=== PATIENT | male | born 1955 | race Caucasian/White ===

== ENCOUNTER 2019-09-28 08:15 | Outpatient (RCR) | payer OTHER, MEDICARE, SELFPAY ==
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
--- NOTE | 2019-08-25 10:58 | PT.OPPOC ---
Physical, Occupational & Speech Therapy At [facility] Current Diagnoses Unspecified disorder of synovium and tendon, left ankle and foot (08/25/19) Visit Care Team Role Provider Type Jhonny Vyas DPM Attending Provider Non-Staff Referring Provider Specialty: Podiatry Address: [address] [place], [place] [address], [place], [address] Email: Plan Of Care PT-OP-T Assessment and Plan Start: 08/25/19 07:17 Freq: Status: Active Protocol: Document 08/25/19 07:30 MB (Rec: 08/25/19 10:57 MB [id number]) Physical Therapy Assessment Rehab Potential Rehabilitation Potential Good Evaluation Complexity Number of Personal Factors/Comorbidities 1-2 Number of Body Systems Impaired 1-2 Clinical Presentation at Evaluation Evolving Impairments Impairments Balance,Pain,Posture,ROM,Soft Tissue Mobility,Strength Other Impairments Pt has multiple old orthopedic injuries, had left and then B foot pain, reports of fracture in left heel Passive SLR reduced on the right compared to left Goals 5 Chamber Worker Goal (LTG) Pt will gait train at least 1500 ft in 6 minutes to reflect improved pain and strength with increased gait distance by 10/25/2019. LTG Duration 8 weeks 4 Mcc Goal (LTG) Pt will present WNLs on FGA to reflect improved balance by . LTG Duration 8 weeks 3 Mcc Goal (LTG) Pt will present with right hip flexion and abduction strength to 5/5 to improve ambulation by 10/25/2019. LTG Duration 8 weeks 2 Chamber Worker Goal (LTG) Pt will perform unilateral heel raises on both legs at least 15 reps to reflect improved PF strength to help with walking by 10/25/2019. LTG Duration 8 weeks 1 Impairment LEF score reflects 42.5% impairment Mcc Goal (LTG) Pt will present with improved LE functional index score to reflect no more than 20% impairment to improve LE function and pain by 10/25/2019 . LTG Duration 8 weeks Assessment Summary Assessment Pt is a 64 y/o male presenting with B heel pain. He reports that the bull driver stated that he has a fracture in the back of his left heel. 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 Pt presents with right hamstring tension, right hip flexion and abduction weakness, pelvic obliquities and right greater than left PF weakness and pain with heel raises today. Pt will benefit from PT to improve pelvic alignment, flexibility, strength and balance. Barriers include OP and possible fx left posterior heel. Physical Therapy Plan Frequency and Duration Frequency of Treatment 2x/Week Duration of Treatment 8 weeks Plan of Care Start Date 08/25/19 Plan of Care End Date 10/25/19 Therapeutic Interventions Therapeutic Interventions Aquatic Therapy,Balance Training,Canalithic Repositioning,Gait Training, Home Exercise Program,Joint Mobilizations,Manual Therapy, Neuromuscular Re-education, Patient/Caregiver Education, Self-Care/Home Management,Soft Tissue Mobilization,Taping, Therapeutic Activities, Therapeutic Exercises Modalities Cold Pack/Ice Massage,Electric Stimulation,Hot Packs, Ultrasound Other Therapeutic Interventions LLT Next Visit Focus/Plan Next Note Type Treatment Note Next Visit Plan Pelvic realignment exercises, go over any foot wear or orthotics he brings in (he wears half length hard orthotics today with heel wedges on top from Dr. Vyas) and states he has custom orthotics from the past. Initiate plantar fascia flexibility with theraband Plan of Care Dates Plan of Care Start Date 08/25/19 Plan of Care End Date 10/25/19 Electronically Signed by: Niyah Dailey PT 08/25/19 [id number] Please Sign and Return: I have reviewed this Plan of Care and certify that the skilled therapy services above are required to meet the patient?s needs. Physician Signature Date Printed Name and Credentials Clinical Instructor Signature Printed Name and Credentials
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
== END 2019-09-28 15:45 | disposition home or self-care (01) ==
LOC: PHYS 08:15
PROVIDERS: Referring Provider Podiatrist; Visit Provider Podiatrist
DX: M67.972 Unspecified disorder of synovium and tendon, left ankle and foot (principal)
CPT/HCPCS: 97110; 97112; 97116; 97140; 97161; 97535

== ENCOUNTER 2019-10-29 09:54 | Emergency (ER) | payer OTHER, MEDICARE, SELFPAY ==
[2019-10-29 09:59] VITALS: BP 134/74; PULSE 81; RESP 18; TEMP 36.7; O2SAT 100
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
[2019-10-29 10:39] LABS: Add Manual Diff / Slide Review NO; Basophils Absolute Auto 0 /uL (0-100); Eosinophils Absolute Auto 100 /uL (0-450); Eosinophils Percent Auto 1.6 % (2-4); Hematocrit 42.2 % (41-53); Hemoglobin 14.6 g/dL (13.5-17.5); Lymphocytes Absolute Auto 1200 /uL (1100-4500); Lymphocytes Percent Auto 26.8 % (25-40); Mean Corpuscular HGB Conc 34.6 % (30-36); Mean Corpuscular Hemoglobin 32.3 PG (26-34); Mean Corpuscular Volume 93.5 fL (80-100); Monocytes Absolute Auto 400 /uL (0-900); Monocytes Percent Auto 8.5 % (3-14); Neutrophils Absolute Auto 2900 /uL (1500-7000); Neutrophils Percent Auto 62.1 % (50-75); Platelet Count 143 X10^3/uL (150-400); Red Blood Cell Count 4.51 X10^6/uL (4.5-5.9); Red Cell Distribution Width 12.6 % (11.6-14.8); White Blood Cell Count 4.6 X10^3/uL (4.5-11.0)
[2019-10-29 10:50] LABS: Alanine Aminotransferase 23 IU/L (<50); Albumin 4.1 g/dL (3.5-5.0); Albumin Globulin Ratio 1.5 (1.0-2.8); Alkaline Phosphatase 54 U/L (38-126); Aspartate Aminotransferase 23 IU/L (17-59); BUN Creatinine Ratio 14.8 (6-22); Bilirubin Total 0.7 mg/dL (0.2-1.3); Blood Urea Nitrogen 16 mg/dL (9-20); Calcium 9.2 mg/dL (8.4-10.2); Carbon Dioxide 29 mmol/L (22-32); Chloride 107 mmol/L (98-107); Estimated Glomerular Filt Rate > 60.0 mL/min (>60); Globulin 2.7 g/dL (1.7-4.1); Glucose 128 mg/dL (80-110); HEMOLYSIS < 15 (0-50); Potassium 4.6 mmol/L (3.4-5.1); Sodium 140 mmol/L (137-145); Total Protein 6.8 g/dL (6.3-8.2)
[2019-10-29 10:55] LABS: C-Reactive Protein Quant < 0.5 mg/dL (<1.0); Erythrocyte Sedimentation Rate 7 MM/HR (0-15); Rheumatoid Factor < 8.6 IU/mL (<12.0)
[2019-10-29 12:44] VITALS: BP 125/67; PULSE 84; RESP 18; O2SAT 99
== END 2019-10-29 12:45 | disposition home or self-care (01) ==
PROVIDERS: Emergency Provider Emergency Medicine
DX: M25.50 Pain in unspecified joint (principal)
CPT/HCPCS: 80053; 85025; 85651; 86140; 86430; 99281; 99283

== ENCOUNTER → 2019-12-02 08:08 | Outpatient (CLI) | payer OTHER, MEDICARE, SELFPAY ==
[2019-12-02 09:35] LABS: Add Manual Diff / Slide Review NO; Basophils Absolute Auto 0 /uL (0-100); Basophils Percent Auto 0.7 % (0-2); Eosinophils Absolute Auto 100 /uL (0-450); Eosinophils Percent Auto 1.8 % (2-4); Hematocrit 42.3 % (41-53); Hemoglobin 14.3 g/dL (13.5-17.5); Lymphocytes Absolute Auto 1600 /uL (1100-4500); Mean Corpuscular HGB Conc 33.7 % (30-36); Mean Corpuscular Hemoglobin 31.8 PG (26-34); Mean Corpuscular Volume 94.3 fL (80-100); Monocytes Absolute Auto 500 /uL (0-900); Monocytes Percent Auto 10.1 % (3-14); Neutrophils Absolute Auto 2900 /uL (1500-7000); Neutrophils Percent Auto 56.4 % (50-75); Platelet Count 145 X10^3/uL (150-400); Red Blood Cell Count 4.49 X10^6/uL (4.5-5.9); Red Cell Distribution Width 12.7 % (11.6-14.8); White Blood Cell Count 5.1 X10^3/uL (4.5-11.0)
[2019-12-02 09:42] LABS: Hemoglobin A1C% w Est Avg Glu 5.5 % (4.0-6.0)
[2019-12-02 09:51] LABS: Alanine Aminotransferase 26 IU/L (<50); Albumin 3.9 g/dL (3.5-5.0); Albumin Globulin Ratio 1.5 (1.0-2.8); Alkaline Phosphatase 54 U/L (38-126); Aspartate Aminotransferase 29 IU/L (17-59); Bilirubin Total 0.7 mg/dL (0.2-1.3); Blood Urea Nitrogen 17 mg/dL (9-20); Calcium 8.9 mg/dL (8.4-10.2); Carbon Dioxide 29 mmol/L (22-32); Chloride 106 mmol/L (98-107); Cholesterol 129 mg/dL (140-199); Estimated Glomerular Filt Rate > 60.0 mL/min (>60); Globulin 2.6 g/dL (1.7-4.1); Glucose 92 mg/dL (80-110); HDL Cholesterol 40 mg/dL (40-60); HEMOLYSIS < 15 (0-50); LDL Cholesterol Calculated 77 mg/dL (<100); Potassium 4.5 mmol/L (3.4-5.1); Sodium 139 mmol/L (137-145); Total Protein 6.5 g/dL (6.3-8.2); Triglycerides 62 mg/dL (35-150)
== END ==
PROVIDERS: PCP Family Medicine; Referring Provider Family Medicine; Visit Provider Family Medicine
DX: E78.5 Hyperlipidemia, unspecified (principal); Z12.5 Encounter for screening for malignant neoplasm of prostate
CPT/HCPCS: 36415; 80053; 80061; 83036; 85025; G0103

== ENCOUNTER 2020-04-19 09:00 | Outpatient (RCR) | payer MEDICARE, SELFPAY ==
--- NOTE | 2020-02-29 16:25 | PT.OIE ---
Current Diagnoses Strain of muscle, fascia and tendon of the posterior muscle group at thigh level, unspecified thigh, initial encounter (02/29/20) Past Medical History (Last Updated 12/26/19 @ 13:35 by Saulo Elizalde DO) Hyperlipidemia Insomnia Osteoarthritis Right hamstring muscle strain Visit Care Team Role Provider Type Saulo Elizalde DO Primary Care Provider Physician Specialty: Family Practice Address: [address] [place] [address], [id number] Email: [email or web address] Attending Provider Non-Staff Referring Provider Specialty: Orthopedic Surgery Address: [address] [place] [address], [place], [address] Email: Physical Therapy Initial Evaluation PT-OP-A Visit Information Start: 02/28/20 14:37 Freq: Status: Active Protocol: Document 02/29/20 13:03 MB (Rec: 02/29/20 13:34 MB [id number]) Out-Patient Physical Therapy Visit Information Visit Information Visit Type Initial Evaluation Visit Note [employer] Visit Start Time 13:03 Visit Stop Time 14:03 Total Visit Minutes 60 Visit Number 1 Evaluation Information Evaluation Date 02/29/20 PT-OP-B Current Condition Start: 02/28/20 14:37 Freq: Status: Active Protocol: Document 02/29/20 13:03 MB (Rec: 02/29/20 13:34 MB [id number]) Current Condition History of Current Condition Onset Date 08/01/2019 Current Complaints Pain with sitting in chair and driving in car History of Current Condition In August 2019, [place] moved from [place] and unloaded a lot boxes and furniture. At that time, he had back pain and right hamstring pain. He saw this PT for right greater than left foot pain after injury earlier in the year. Of note, pt's speech is different this date that it was during previous PT course and pt states that he was found to have maxillary infection and he had several of his left teeth extracted and he wears a removable denture. He presents with facial assymmetry with smile and atrophy left masseter. He has some bruising there. Pt states that he got care consultant after d/c from PT and they worked on his alignment but it did not help his symptoms. He has pain in his right hamstring with driving 30 minutes. Day to day walking and hiking are okay. Steep hiking is a problem. His foot pain is better and he does have point tenderness on the lateral side of his right foot with hiking. Orthopedic history: 4 left shoulder surgeries, 1 right shoulder surgery, two neck fusions, left ankle bone spur and possible small fx. 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 He has tried raising the seat up and down and using lumbar support and not using it. Pt denies numbness and tingling in his right foot and leg. He likes kayaking and has trouble with it. Prior Treatments and Tests MRI January 31, 2020 revealed moderate partial intrasubstance tearing of the hamstring tendon at its origin onto the right ischial tuberosity. No full-thickness tendon tear is seen. Treatment Goals Patient/Caregiver Goals He wants to be able to do a lot of driving for traveling now that he is retired. A short-term goal would be to drive for two hours without stopping. PT-OP-C Subjective Start: 02/28/20 14:37 Freq: Status: Active Protocol: Document 02/29/20 13:03 MB (Rec: 02/29/20 16:02 MB [id number]) OP-PT Subjective Patient Comments Patient Comments See history of current condition PT-OP-D Balance Start: 02/28/20 14:37 Freq: Status: Active Protocol: Document 02/29/20 13:03 MB (Rec: 02/29/20 16:25 MB [id number]) OP-PT Balance Assessment Sitting Balance Static Sitting Balance Ability Normal Dynamic Sitting Balance Ability Normal Standing Balance Static Standing Balance Ability Normal Dynamic Standing Balance Ability Normal Balance Tests Single Limb Standing Single Limb- Right 2 Single Limb- Left 15 Other Other Balance Tests Performed Pt reports right lateral foot pain with static standing for SLS and test stopped. Pt wearing socks and not shoes. Pain is over lateral superior cuboid on right foot. [place] Fall Scale Copyright Permission PT-OP-F Manual Assessment Start: 02/28/20 14:37 Freq: Status: Active Protocol: Document 02/29/20 13:03 MB (Rec: 02/29/20 16:25 MB [id number]) Manual Assessments Other Manual Assessments Other Manual Assessments Overall, right calf is smaller than the left. Pt's B proximal hamstrings do not feel too different to palpation and his only pain is at adductors on the right and more distal in location. Palpation in prone today. Increased tension left hip rotators compared to the right . PT-OP-G Mobility & Gait Start: 02/28/20 14:37 Freq: Status: Active Protocol: Document 02/29/20 13:03 MB (Rec: 02/29/20 16:25 MB [id number]) OP Gait Assessment Gait Gait Assistance Required: Independent Distance (Feet) 75 Able to Maintain Weight Bearing Status Yes During Gait Assistive Devices Assistive Device None Orthotic/Prosthetic Devices or Brace: No Comments Gait Comments Pt presents with B supinated feet, greater on the right. He presents with decreased overall right hip and knee flexion compared to the left as well as push off. The right foot is more rigid with gait. Left iliac crest is mildly higher than the right. PT-OP-J Posture/Palpation/Skin Start: 02/28/20 14:37 Freq: Status: Active Protocol: Document 02/29/20 13:03 MB (Rec: 02/29/20 16:25 MB [id number]) Posture Evaluation Comments Posture Comments See gait and manual comments above PT-OP-M Strength Start: 02/28/20 14:37 Freq: Status: Active Protocol: Document 02/29/20 13:03 MB (Rec: 02/29/20 16:25 MB [id number]) Hip Strength Hip Manual Muscle Testing Left Flexion (L2) 4 Good Extension (S1) 3+ Fair+ Abduction 4 Good Adduction 3 Fair Right Flexion (L2) 4 Good Extension (S1) 3+ Fair+ Abduction 4 Good Adduction 3 Fair Knee Strength Knee Manual Muscle Testing Left Flexion (S2) 4 Good Extension (L3) 5 Normal Right Flexion (S2) 3+ Fair+ Extension (L3) 5 Normal Ankle/Foot Strength Ankle and Foot Manual Muscle Testing Left Dorsiflexion (L4) 5 Normal Plantarflexion (S1) 5 Normal Inversion 5 Normal Eversion (S1) 5 Normal Comments Pt can perform over 30 heel raises with finger support on wall on left LE Right Dorsiflexion (L4) 5 Normal Plantarflexion (S1) 2 Poor Inversion 4 Good Eversion (S1) 3+ Fair+ Comments Pt cannot complete 2 reps heel raises with finger support on wall on right LE d/t reports of foot pain Toe Strength Toe Manual Muscle Testing Left Great Toe Extension 5 Normal Right Great Toe Extension 5 Normal PT-OP-T Assessment and Plan Start: 02/28/20 14:37 Freq: Status: Active Protocol: Document 02/29/20 13:03 MB (Rec: 02/29/20 16:25 MB [id number]) Physical Therapy Assessment Rehab Potential Rehabilitation Potential Good Evaluation Complexity Number of Personal Factors/Comorbidities 1-2 Number of Body Systems Impaired 1-2 Clinical Presentation at Evaluation Evolving Impairments Impairments Activity Tolerance,Balance, Gait,Pain,Posture,Soft Tissue Mobility,Strength Other Impairments Pt denies sensory changes. Personal factors include pain with driving. Goals 6 [facility] Goal (LTG) Pt will be able to drive at least 1 hour with reports of no more than 1/10 right hamstring pain by 04/30/2020. LTG Duration 8 weeks 5 Educational Technology Coordinator Goal (LTG) Pt will gait train at least 1500 ft in 6 minutes to reflect improved pain and strength with increased gait distance by 04/30/2020. LTG Duration 8 weeks 4 Educational Technology Coordinator Goal (LTG) Pt will present WNLs on FGA to reflect improved balance by . LTG Duration 8 weeks 3 [facility] Goal (LTG) Pt will present with B hip flexion, adduction, abduction and extension and B knee flexion strength to 5/5 to improve ambulation by 04/30/2020 . LTG Duration 8 weeks 2 [facility] Goal (LTG) Pt will perform unilateral heel raises on right leg at least 15 reps to reflect improved PF strength to help with walking by 04/30/2020. LTG Duration 8 weeks 1 Impairment LEF score reflects 30% impairment [facility] Goal (LTG) Pt will present with improved LE functional index score to reflect no more than 20% impairment to improve LE function and pain by 04/30/2020. LTG Duration 8 weeks Assessment Summary Assessment Pt is a 64 y/o male presenting with reports of right hamstring pain with driving more than 30 minutes. Earlier this month, MRI revealed hamstring tear. He just retired this year and would like to be able to go for road trips with his . This PT worked with pt earlier this year to address B foot pain after injury when he jumped up quickly. It is possible that that injury contributed to his hamstring injury and his hamstring injury was exacerbated by moving heavy boxes and furniture over the summer. Pt presents with foot anomalies with B functionally rigid feet, greater on the right, with supinated positioning. Pt con't with pain over his right proximal cuboid that limits heel raises and balance and his right calf is atrophied compared to the left. He has right hip adductor tenderness with palpation. He presents with B hip and knee weakness with MMT . His strength is weaker now than it was at the end of last PT course. He has not continued with PT exercises since d/c. Pt will benefit from PT to improve flexibility , alignment, strength, gait and balance. He will benefit from manual PT including direct and indirect treatments . Barriers include decreased compliance with last PT course HEP. Physical Therapy Plan Frequency and Duration Frequency of Treatment 2x/Week Duration of Treatment 8 weeks Plan of Care Start Date 02/29/20 Plan of Care End Date 04/30/20 Therapeutic Interventions Therapeutic Interventions Balance Training,Canalithic Repositioning,Gait Training, Home Exercise Program,Joint Mobilizations,Manual Therapy, Neuromuscular Re-education, Patient/Caregiver Education, Self-Care/Home Management,Soft Tissue Mobilization,Taping, Therapeutic Activities, Therapeutic Exercises Modalities Cold Pack/Ice Massage,Electric Stimulation,Hot Packs, Ultrasound Next Visit Focus/Plan Next Note Type Treatment Note Next Visit Plan Initiate pelvic realignment exercises and start revision of previous HEP exercises if pt brings them in as requested . Consider direct manual work and Counterstrain to address fascial changes.
--- NOTE | 2020-02-29 16:26 | PT.OPPOC ---
Physical, Occupational & Speech Therapy At [facility] Current Diagnoses Strain of muscle, fascia and tendon of the posterior muscle group at thigh level, unspecified thigh, initial encounter (02/29/20) Visit Care Team Role Provider Type Saulo Elizalde DO Primary Care Provider Physician Specialty: Family Practice Address: [address] [place] [address], [id number] Email: [email or web address] Franc Garcia MD Attending Provider Non-Staff Referring Provider Specialty: Orthopedic Surgery Address: [address] [place] [address], [place], [address] Email: Plan Of Care PT-OP-T Assessment and Plan Start: 02/28/20 14:37 Freq: Status: Active Protocol: Document 02/29/20 13:03 MB (Rec: 02/29/20 16:25 MB [id number]) Physical Therapy Assessment Rehab Potential Rehabilitation Potential Good Evaluation Complexity Number of Personal Factors/Comorbidities 1-2 Number of Body Systems Impaired 1-2 Clinical Presentation at Evaluation Evolving Impairments Impairments Activity Tolerance,Balance, Gait,Pain,Posture,Soft Tissue Mobility,Strength Other Impairments Pt denies sensory changes. Personal factors include pain with driving. Goals 6 Skilled Nursing Goal (LTG) Pt will be able to drive at least 1 hour with reports of no more than 1/10 right hamstring pain by 04/30/2020. LTG Duration 8 weeks 5 Infrastructure Analyst Goal (LTG) Pt will gait train at least 1500 ft in 6 minutes to reflect improved pain and strength with increased gait distance by 04/30/2020. LTG Duration 8 weeks 4 Skilled Nursing Goal (LTG) Pt will present WNLs on FGA to reflect improved balance by . LTG Duration 8 weeks 3 Skilled Nursing Goal (LTG) Pt will present with B hip flexion, adduction, abduction and extension and B knee flexion strength to 5/5 to improve ambulation by 04/30/2020 . LTG Duration 8 weeks 2 Skilled Nursing Goal (LTG) Pt will perform unilateral heel raises on right leg at least 15 reps to reflect improved PF strength to help with walking by 04/30/2020. LTG Duration 8 weeks 1 Impairment LEF score reflects 30% impairment Skilled Nursing Goal (LTG) Pt will present with improved LE functional index score to reflect no more than 20% impairment to improve LE function and pain by 04/30/2020. LTG Duration 8 weeks Assessment Summary Assessment Pt is a 64 y/o male presenting with reports of right hamstring pain with driving more than 30 minutes. Earlier this month, MRI revealed hamstring tear. He just retired this year and would like to be able to go for road trips with his . This PT worked with pt earlier this year to address B foot pain after injury when he jumped up quickly. It is possible that that injury contributed to his hamstring injury and his hamstring injury was exacerbated by moving heavy boxes and furniture over the summer. Pt presents with foot anomalies with B functionally rigid feet, greater on the right, with supinated positioning. Pt con't with pain over his right proximal cuboid that limits heel raises and balance and his right calf is atrophied compared to the left. He has right hip adductor tenderness with palpation. He presents with B hip and knee weakness with MMT . His strength is weaker now than it was at the end of last PT course. He has not continued with PT exercises since d/c. Pt will benefit from PT to improve flexibility , alignment, strength, gait and balance. He will benefit from manual PT including direct and indirect treatments . Barriers include decreased compliance with last PT course HEP. Physical Therapy Plan Frequency and Duration Frequency of Treatment 2x/Week Duration of Treatment 8 weeks Plan of Care Start Date 02/29/20 Plan of Care End Date 04/30/20 Therapeutic Interventions Therapeutic Interventions Balance Training,Canalithic Repositioning,Gait Training, Home Exercise Program,Joint Mobilizations,Manual Therapy, Neuromuscular Re-education, Patient/Caregiver Education, Self-Care/Home Management,Soft Tissue Mobilization,Taping, Therapeutic Activities, Therapeutic Exercises Modalities Cold Pack/Ice Massage,Electric Stimulation,Hot Packs, Ultrasound Next Visit Focus/Plan Next Note Type Treatment Note Next Visit Plan Initiate pelvic realignment exercises and start revision of previous HEP exercises if pt brings them in as requested . Consider direct manual work and Counterstrain to address fascial changes. Plan of Care Dates Plan of Care Start Date 02/29/20 Plan of Care End Date 04/30/20 Electronically Signed by: Niyah Dailey, PT 02/29/20 1626 Please Sign and Return: I have reviewed this Plan of Care and certify that the skilled therapy services above are required to meet the patient?s needs. Physician Signature Date Printed Name and Credentials Clinical Instructor Signature Printed Name and Credentials
--- NOTE | 2020-03-01 09:03 | PT.OTN ---
Current Diagnoses Strain of muscle, fascia and tendon of the posterior muscle group at thigh level, unspecified thigh, initial encounter (03/01/20) Physical Therapy Treatment Note PT-OP-A Visit Information Start: 02/28/20 14:37 Freq: Status: Active Protocol: Document 03/01/20 08:15 MB (Rec: 03/01/20 09:01 MB [id number]) Out-Patient Physical Therapy Visit Information Visit Information Visit Type Treatment Note Visit Start Time 08:15 Visit Stop Time 08:58 Total Visit Minutes 43 Visit Number 2 PT-OP-B Current Condition Start: 02/28/20 14:37 Freq: Status: Active Protocol: Document 02/29/20 13:03 MB (Rec: 02/29/20 13:34 MB [id number]) Current Condition History of Current Condition Onset Date 08/01/2019 Current Complaints Pain with sitting in chair and driving in car History of Current Condition In August 2019, pt moved from [place] and unloaded a lot boxes and furniture. At that time, he had back pain and right hamstring pain. He saw this PT for right greater than left foot pain after injury earlier in the year. Of note, pt's speech is different this date that it was during previous PT course and pt states that he was found to have maxillary infection and he had several of his left teeth extracted and he wears a removable denture. He presents with facial assymmetry with smile and atrophy left masseter. He has some bruising there. Pt states that he got clinical care coordinator after d/c from PT and they worked on his alignment but it did not help his symptoms. He has pain in his right hamstring with driving 30 minutes. Day to day walking and hiking are okay. Steep hiking is a problem. His foot pain is better and he does have point tenderness on the lateral side of his right foot with hiking. Orthopedic history: 4 left shoulder surgeries, 1 right shoulder surgery, two neck fusions, left ankle bone spur and possible small fx. 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 He has tried raising the seat up and down and using lumbar support and not using it. Pt denies numbness and tingling in his right foot and leg. He likes kayaking and has trouble with it. Prior Treatments and Tests MRI January 31, 2020 revealed moderate partial intrasubstance tearing of the hamstring tendon at its origin onto the right ischial tuberosity. No full-thickness tendon tear is seen. Treatment Goals Patient/Caregiver Goals He wants to be able to do a lot of driving for traveling now that he is retired. A short-term goal would be to drive for two hours without stopping. PT-OP-C Subjective Start: 02/28/20 14:37 Freq: Status: Active Protocol: Document 03/01/20 08:15 MB (Rec: 03/01/20 09:02 MB [id number]) OP-PT Subjective Patient Comments Patient Comments Pt does not have HEP from previous PT course. PT-OP-D Balance Start: 02/28/20 14:37 Freq: Status: Active Protocol: Document 02/29/20 13:03 MB (Rec: 02/29/20 16:25 MB [id number]) OP-PT Balance Assessment Sitting Balance Static Sitting Balance Ability Normal Dynamic Sitting Balance Ability Normal Standing Balance Static Standing Balance Ability Normal Dynamic Standing Balance Ability Normal Balance Tests Single Limb Standing Single Limb- Right 2 Single Limb- Left 15 Other Other Balance Tests Performed Pt reports right lateral foot pain with static standing for SLS and test stopped. Pt wearing socks and not shoes. Pain is over lateral superior cuboid on right foot. [place] Fall Scale Copyright Permission PT-OP-F Manual Assessment Start: 02/28/20 14:37 Freq: Status: Active Protocol: Document 02/29/20 13:03 MB (Rec: 02/29/20 16:25 MB [id number]) Manual Assessments Other Manual Assessments Other Manual Assessments Overall, right calf is smaller than the left. Pt's B proximal hamstrings do not feel too different to palpation and his only pain is at adductors on the right and more distal in location. Palpation in prone today. Increased tension left hip rotators compared to the right . PT-OP-G Mobility & Gait Start: 02/28/20 14:37 Freq: Status: Active Protocol: Document 02/29/20 13:03 MB (Rec: 02/29/20 16:25 MB [id number]) OP Gait Assessment Gait Gait Assistance Required: Independent Distance (Feet) 75 Able to Maintain Weight Bearing Status Yes During Gait Assistive Devices Assistive Device None Orthotic/Prosthetic Devices or Brace: No Comments Gait Comments Pt presents with B supinated feet, greater on the right. He presents with decreased overall right hip and knee flexion compared to the left as well as push off. The right foot is more rigid with gait. Left iliac crest is mildly higher than the right. PT-OP-J Posture/Palpation/Skin Start: 02/28/20 14:37 Freq: Status: Active Protocol: Document 02/29/20 13:03 MB (Rec: 02/29/20 16:25 MB [id number]) Posture Evaluation Comments Posture Comments See gait and manual comments above PT-OP-M Strength Start: 02/28/20 14:37 Freq: Status: Active Protocol: Document 02/29/20 13:03 MB (Rec: 02/29/20 16:25 MB [id number]) Hip Strength Hip Manual Muscle Testing Left Flexion (L2) 4 Good Extension (S1) 3+ Fair+ Abduction 4 Good Adduction 3 Fair Right Flexion (L2) 4 Good Extension (S1) 3+ Fair+ Abduction 4 Good Adduction 3 Fair Knee Strength Knee Manual Muscle Testing Left Flexion (S2) 4 Good Extension (L3) 5 Normal Right Flexion (S2) 3+ Fair+ Extension (L3) 5 Normal Ankle/Foot Strength Ankle and Foot Manual Muscle Testing Left Dorsiflexion (L4) 5 Normal Plantarflexion (S1) 5 Normal Inversion 5 Normal Eversion (S1) 5 Normal Comments Pt can perform over 30 heel raises with finger support on wall on left LE Right Dorsiflexion (L4) 5 Normal Plantarflexion (S1) 2 Poor Inversion 4 Good Eversion (S1) 3+ Fair+ Comments Pt cannot complete 2 reps heel raises with finger support on wall on right LE d/t reports of foot pain Toe Strength Toe Manual Muscle Testing Left Great Toe Extension 5 Normal Right Great Toe Extension 5 Normal PT-OP-Q Treatments Start: 02/28/20 14:37 Freq: Status: Active Protocol: Document 03/01/20 08:15 MB (Rec: 03/01/20 09:01 MB [id number]) Therapeutic Exercises Supine Exercises Pelvic realignment exercises Side bilateral Comments 5 reps all exercises, 3 sec hold Hamstring, calf and AP stretch Side bilateral Comments No belt today, pt uses hands behind knee, 30 sec hold/20 AP with stretch Manual Therapy Treatment Other Other Manual Treatments Pt agrees to Counterstrain to assess and treat fascial tension. Pt presents with tension in dural system, lymphatic venous and PT is careful not to press around his left maxilla. Direct treatment today for hamstring and gastroc on the right--STM with pt supine and positional release. PT-OP-T Assessment and Plan Start: 02/28/20 14:37 Freq: Status: Active Protocol: Document 03/01/20 08:15 MB (Rec: 03/01/20 09:01 MB [id number]) Physical Therapy Assessment Rehab Potential Rehabilitation Potential Good Evaluation Complexity Number of Personal Factors/Comorbidities 1-2 Number of Body Systems Impaired 1-2 Clinical Presentation at Evaluation Evolving Impairments Impairments Activity Tolerance,Balance, Gait,Pain,Posture,Soft Tissue Mobility,Strength Other Impairments Pt denies sensory changes. Personal factors include pain with driving. Goals 6 Full Time Goal (LTG) Pt will be able to drive at least 1 hour with reports of no more than 1/10 right hamstring pain by 04/30/2020. LTG Duration 8 weeks 5 Full Time Goal (LTG) Pt will gait train at least 1500 ft in 6 minutes to reflect improved pain and strength with increased gait distance by 04/30/2020. LTG Duration 8 weeks 4 Full Time Goal (LTG) Pt will present WNLs on FGA to reflect improved balance by . LTG Duration 8 weeks 3 Full Time Goal (LTG) Pt will present with B hip flexion, adduction, abduction and extension and B knee flexion strength to 5/5 to improve ambulation by 04/30/2020 . LTG Duration 8 weeks 2 Jail Goal (LTG) Pt will perform unilateral heel raises on right leg at least 15 reps to reflect improved PF strength to help with walking by 04/30/2020. LTG Duration 8 weeks 1 Impairment LEF score reflects 30% impairment Full Time Goal (LTG) Pt will present with improved LE functional index score to reflect no more than 20% impairment to improve LE function and pain by 04/30/2020. LTG Duration 8 weeks Assessment Summary Assessment Pt does not have PT handouts from previous PT course and PT will con't to incorporate what is in EMR as appropriate. R calf tightness and hamstring tightness is some better after treatment and he will benefit from further manual work in future treatments, provided handout about Counterstrain. Physical Therapy Plan Frequency and Duration Frequency of Treatment 2x/Week Duration of Treatment 8 weeks Plan of Care Start Date 02/29/20 Plan of Care End Date 04/30/20 Therapeutic Interventions Therapeutic Interventions Balance Training,Canalithic Repositioning,Gait Training, Home Exercise Program,Joint Mobilizations,Manual Therapy, Neuromuscular Re-education, Patient/Caregiver Education, Self-Care/Home Management,Soft Tissue Mobilization,Taping, Therapeutic Activities, Therapeutic Exercises Modalities Cold Pack/Ice Massage,Electric Stimulation,Hot Packs, Ultrasound Next Visit Focus/Plan Next Note Type Treatment Note Next Visit Plan Ongoing direct manual work and Counterstrain to address fascial changes. Progress exercises.
--- NOTE | 2020-03-06 09:47 | PT.OTN ---
Current Diagnoses Strain of muscle, fascia and tendon of the posterior muscle group at thigh level, unspecified thigh, initial encounter (03/06/20) Physical Therapy Treatment Note PT-OP-A Visit Information Start: 02/28/20 14:37 Freq: Status: Active Protocol: Document 03/06/20 09:01 MB (Rec: 03/06/20 09:44 MB [id number]) Out-Patient Physical Therapy Visit Information Visit Information Visit Type Treatment Note Visit Start Time 09:01 Visit Stop Time 09:45 Total Visit Minutes 44 Visit Number 3 PT-OP-B Current Condition Start: 02/28/20 14:37 Freq: Status: Active Protocol: Document 02/29/20 13:03 MB (Rec: 02/29/20 13:34 MB [id number]) Current Condition History of Current Condition Onset Date 08/01/2019 Current Complaints Pain with sitting in chair and driving in car History of Current Condition In August 2019, pt moved from [place] and unloaded a lot boxes and furniture. At that time, he had back pain and right hamstring pain. He saw this PT for right greater than left foot pain after injury earlier in the year. Of note, pt's speech is different this date that it was during previous PT course and pt states that he was found to have maxillary infection and he had several of his left teeth extracted and he wears a removable denture. He presents with facial assymmetry with smile and atrophy left masseter. He has some bruising there. Pt states that he got health care manager after d/c from PT and they worked on his alignment but it did not help his symptoms. He has pain in his right hamstring with driving 30 minutes. Day to day walking and hiking are okay. Steep hiking is a problem. His foot pain is better and he does have point tenderness on the lateral side of his right foot with hiking. Orthopedic history: 4 left shoulder surgeries, 1 right shoulder surgery, two neck fusions, left ankle bone spur and possible small fx. 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 He has tried raising the seat up and down and using lumbar support and not using it. Pt denies numbness and tingling in his right foot and leg. He likes kayaking and has trouble with it. Prior Treatments and Tests MRI January 31, 2020 revealed moderate partial intrasubstance tearing of the hamstring tendon at its origin onto the right ischial tuberosity. No full-thickness tendon tear is seen. Treatment Goals Patient/Caregiver Goals He wants to be able to do a lot of driving for traveling now that he is retired. A short-term goal would be to drive for two hours without stopping. PT-OP-C Subjective Start: 02/28/20 14:37 Freq: Status: Active Protocol: Document 03/06/20 09:01 MB (Rec: 03/06/20 09:44 MB [id number]) OP-PT Subjective Patient Comments Patient Comments Pt reports that his calf and hamstring were sore after manual work last week. PT-OP-D Balance Start: 02/28/20 14:37 Freq: Status: Active Protocol: Document 02/29/20 13:03 MB (Rec: 02/29/20 16:25 MB [id number]) OP-PT Balance Assessment Sitting Balance Static Sitting Balance Ability Normal Dynamic Sitting Balance Ability Normal Standing Balance Static Standing Balance Ability Normal Dynamic Standing Balance Ability Normal Balance Tests Single Limb Standing Single Limb- Right 2 Single Limb- Left 15 Other Other Balance Tests Performed Pt reports right lateral foot pain with static standing for SLS and test stopped. Pt wearing socks and not shoes. Pain is over lateral superior cuboid on right foot. [place] Fall Scale Copyright Permission PT-OP-F Manual Assessment Start: 02/28/20 14:37 Freq: Status: Active Protocol: Document 02/29/20 13:03 MB (Rec: 02/29/20 16:25 MB [id number]) Manual Assessments Other Manual Assessments Other Manual Assessments Overall, right calf is smaller than the left. Pt's B proximal hamstrings do not feel too different to palpation and his only pain is at adductors on the right and more distal in location. Palpation in prone today. Increased tension left hip rotators compared to the right . PT-OP-G Mobility & Gait Start: 02/28/20 14:37 Freq: Status: Active Protocol: Document 02/29/20 13:03 MB (Rec: 02/29/20 16:25 MB [id number]) OP Gait Assessment Gait Gait Assistance Required: Independent Distance (Feet) 75 Able to Maintain Weight Bearing Status Yes During Gait Assistive Devices Assistive Device None Orthotic/Prosthetic Devices or Brace: No Comments Gait Comments Pt presents with B supinated feet, greater on the right. He presents with decreased overall right hip and knee flexion compared to the left as well as push off. The right foot is more rigid with gait. Left iliac crest is mildly higher than the right. PT-OP-J Posture/Palpation/Skin Start: 02/28/20 14:37 Freq: Status: Active Protocol: Document 02/29/20 13:03 MB (Rec: 02/29/20 16:25 MB [id number]) Posture Evaluation Comments Posture Comments See gait and manual comments above PT-OP-M Strength Start: 02/28/20 14:37 Freq: Status: Active Protocol: Document 02/29/20 13:03 MB (Rec: 02/29/20 16:25 MB [id number]) Hip Strength Hip Manual Muscle Testing Left Flexion (L2) 4 Good Extension (S1) 3+ Fair+ Abduction 4 Good Adduction 3 Fair Right Flexion (L2) 4 Good Extension (S1) 3+ Fair+ Abduction 4 Good Adduction 3 Fair Knee Strength Knee Manual Muscle Testing Left Flexion (S2) 4 Good Extension (L3) 5 Normal Right Flexion (S2) 3+ Fair+ Extension (L3) 5 Normal Ankle/Foot Strength Ankle and Foot Manual Muscle Testing Left Dorsiflexion (L4) 5 Normal Plantarflexion (S1) 5 Normal Inversion 5 Normal Eversion (S1) 5 Normal Comments Pt can perform over 30 heel raises with finger support on wall on left LE Right Dorsiflexion (L4) 5 Normal Plantarflexion (S1) 2 Poor Inversion 4 Good Eversion (S1) 3+ Fair+ Comments Pt cannot complete 2 reps heel raises with finger support on wall on right LE d/t reports of foot pain Toe Strength Toe Manual Muscle Testing Left Great Toe Extension 5 Normal Right Great Toe Extension 5 Normal PT-OP-Q Treatments Start: 02/28/20 14:37 Freq: Status: Active Protocol: Document 03/06/20 09:01 MB (Rec: 03/06/20 09:44 MB [id number]) Therapeutic Exercises Supine Exercises Abdominal drawing in Comments Performed before Jeremiah stretch today Hip rotator stretch Side bilateral Comments 30 sec each, pt does not need to pull up leg Jeremiah stretch with abdominal drawing Side bilateral Comments 1 rep each side Pelvic realignment exercises Comments Verbally reviewed with handout today and answered questions Hamstring, calf and AP stretch Side bilateral Reps/Minutes 2 reps each leg Comments AP and then gentle knee flexion and extension, 30 sec Manual Therapy Treatment Other Other Manual Treatments STM right hip flexor, quads, hamstrings and calf and pt responds well to treatment PT-OP-T Assessment and Plan Start: 02/28/20 14:37 Freq: Status: Active Protocol: Document 03/06/20 09:01 MB (Rec: 03/06/20 09:44 MB [id number]) Physical Therapy Assessment Rehab Potential Rehabilitation Potential Good Evaluation Complexity Number of Personal Factors/Comorbidities 1-2 Number of Body Systems Impaired 1-2 Clinical Presentation at Evaluation Evolving Impairments Impairments Activity Tolerance,Balance, Gait,Pain,Posture,Soft Tissue Mobility,Strength Other Impairments Pt denies sensory changes. Personal factors include pain with driving. Goals 6 Detention Goal (LTG) Pt will be able to drive at least 1 hour with reports of no more than 1/10 right hamstring pain by 04/30/2020. LTG Duration 8 weeks 5 [place] Molder Goal (LTG) Pt will gait train at least 1500 ft in 6 minutes to reflect improved pain and strength with increased gait distance by 04/30/2020. LTG Duration 8 weeks 4 [place] Molder Goal (LTG) Pt will present WNLs on FGA to reflect improved balance by . LTG Duration 8 weeks 3 Detention Goal (LTG) Pt will present with B hip flexion, adduction, abduction and extension and B knee flexion strength to 5/5 to improve ambulation by 04/30/2020 . LTG Duration 8 weeks 2 Detention Goal (LTG) Pt will perform unilateral heel raises on right leg at least 15 reps to reflect improved PF strength to help with walking by 04/30/2020. LTG Duration 8 weeks 1 Impairment LEF score reflects 30% impairment Detention Goal (LTG) Pt will present with improved LE functional index score to reflect no more than 20% impairment to improve LE function and pain by 04/30/2020. LTG Duration 8 weeks Assessment Summary Assessment Progressed LE flexibility exercises today and reviewed all exercises and answered questions. Will progress strengthening in future treatments and con't manual work. Physical Therapy Plan Frequency and Duration Frequency of Treatment 2x/Week Duration of Treatment 8 weeks Plan of Care Start Date 02/29/20 Plan of Care End Date 04/30/20 Therapeutic Interventions Therapeutic Interventions Balance Training,Canalithic Repositioning,Gait Training, Home Exercise Program,Joint Mobilizations,Manual Therapy, Neuromuscular Re-education, Patient/Caregiver Education, Self-Care/Home Management,Soft Tissue Mobilization,Taping, Therapeutic Activities, Therapeutic Exercises Modalities Cold Pack/Ice Massage,Electric Stimulation,Hot Packs, Ultrasound Next Visit Focus/Plan Next Note Type Treatment Note Next Visit Plan Ongoing direct manual work and Counterstrain to address fascial changes. Progress bridge, bridge one leg with opposite heel down, bridge with resistance
--- NOTE | 2020-03-09 13:00 | PT.OTN ---
Current Diagnoses Strain of muscle, fascia and tendon of the posterior muscle group at thigh level, unspecified thigh, initial encounter (03/09/20) Physical Therapy Treatment Note PT-OP-A Visit Information Start: 02/28/20 14:37 Freq: Status: Active Protocol: Document 03/09/20 12:15 MB (Rec: 03/09/20 12:45 MB [id number]) Out-Patient Physical Therapy Visit Information Visit Information Visit Type Treatment Note Visit Start Time 12:15 Visit Stop Time 13:00 Total Visit Minutes 45 Visit Number 4 PT-OP-B Current Condition Start: 02/28/20 14:37 Freq: Status: Active Protocol: Document 02/29/20 13:03 MB (Rec: 02/29/20 13:34 MB [id number]) Current Condition History of Current Condition Onset Date 08/01/2019 Current Complaints Pain with sitting in chair and driving in car History of Current Condition In August 2019, pt moved from [place] and unloaded a lot boxes and furniture. At that time, he had back pain and right hamstring pain. He saw this PT for right greater than left foot pain after injury earlier in the year. Of note, pt's speech is different this date that it was during previous PT course and pt states that he was found to have maxillary infection and he had several of his left teeth extracted and he wears a removable denture. He presents with facial assymmetry with smile and atrophy left masseter. He has some bruising there. Pt states that he got career services assistant after d/c from PT and they worked on his alignment but it did not help his symptoms. He has pain in his right hamstring with driving 30 minutes. Day to day walking and hiking are okay. Steep hiking is a problem. His foot pain is better and he does have point tenderness on the lateral side of his right foot with hiking. Orthopedic history: 4 left shoulder surgeries, 1 right shoulder surgery, two neck fusions, left ankle bone spur and possible small fx. 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 He has tried raising the seat up and down and using lumbar support and not using it. Pt denies numbness and tingling in his right foot and leg. He likes kayaking and has trouble with it. Prior Treatments and Tests MRI January 31, 2020 revealed moderate partial intrasubstance tearing of the hamstring tendon at its origin onto the right ischial tuberosity. No full-thickness tendon tear is seen. Treatment Goals Patient/Caregiver Goals He wants to be able to do a lot of driving for traveling now that he is retired. A short-term goal would be to drive for two hours without stopping. PT-OP-C Subjective Start: 02/28/20 14:37 Freq: Status: Active Protocol: Document 03/09/20 12:15 MB (Rec: 03/09/20 12:45 MB [id number]) OP-PT Subjective Patient Comments Patient Comments I was sore after last treatment. Pt reports that his left hamstring was sore. PT only worked on his right side. PT-OP-D Balance Start: 02/28/20 14:37 Freq: Status: Active Protocol: Document 02/29/20 13:03 MB (Rec: 02/29/20 16:25 MB [id number]) OP-PT Balance Assessment Sitting Balance Static Sitting Balance Ability Normal Dynamic Sitting Balance Ability Normal Standing Balance Static Standing Balance Ability Normal Dynamic Standing Balance Ability Normal Balance Tests Single Limb Standing Single Limb- Right 2 Single Limb- Left 15 Other Other Balance Tests Performed Pt reports right lateral foot pain with static standing for SLS and test stopped. Pt wearing socks and not shoes. Pain is over lateral superior cuboid on right foot. [place] Fall Scale Copyright Permission PT-OP-F Manual Assessment Start: 02/28/20 14:37 Freq: Status: Active Protocol: Document 02/29/20 13:03 MB (Rec: 02/29/20 16:25 MB [id number]) Manual Assessments Other Manual Assessments Other Manual Assessments Overall, right calf is smaller than the left. Pt's B proximal hamstrings do not feel too different to palpation and his only pain is at adductors on the right and more distal in location. Palpation in prone today. Increased tension left hip rotators compared to the right . PT-OP-G Mobility & Gait Start: 02/28/20 14:37 Freq: Status: Active Protocol: Document 02/29/20 13:03 MB (Rec: 02/29/20 16:25 MB [id number]) OP Gait Assessment Gait Gait Assistance Required: Independent Distance (Feet) 75 Able to Maintain Weight Bearing Status Yes During Gait Assistive Devices Assistive Device None Orthotic/Prosthetic Devices or Brace: No Comments Gait Comments Pt presents with B supinated feet, greater on the right. He presents with decreased overall right hip and knee flexion compared to the left as well as push off. The right foot is more rigid with gait. Left iliac crest is mildly higher than the right. PT-OP-J Posture/Palpation/Skin Start: 02/28/20 14:37 Freq: Status: Active Protocol: Document 02/29/20 13:03 MB (Rec: 02/29/20 16:25 MB [id number]) Posture Evaluation Comments Posture Comments See gait and manual comments above PT-OP-M Strength Start: 02/28/20 14:37 Freq: Status: Active Protocol: Document 02/29/20 13:03 MB (Rec: 02/29/20 16:25 MB [id number]) Hip Strength Hip Manual Muscle Testing Left Flexion (L2) 4 Good Extension (S1) 3+ Fair+ Abduction 4 Good Adduction 3 Fair Right Flexion (L2) 4 Good Extension (S1) 3+ Fair+ Abduction 4 Good Adduction 3 Fair Knee Strength Knee Manual Muscle Testing Left Flexion (S2) 4 Good Extension (L3) 5 Normal Right Flexion (S2) 3+ Fair+ Extension (L3) 5 Normal Ankle/Foot Strength Ankle and Foot Manual Muscle Testing Left Dorsiflexion (L4) 5 Normal Plantarflexion (S1) 5 Normal Inversion 5 Normal Eversion (S1) 5 Normal Comments Pt can perform over 30 heel raises with finger support on wall on left LE Right Dorsiflexion (L4) 5 Normal Plantarflexion (S1) 2 Poor Inversion 4 Good Eversion (S1) 3+ Fair+ Comments Pt cannot complete 2 reps heel raises with finger support on wall on right LE d/t reports of foot pain Toe Strength Toe Manual Muscle Testing Left Great Toe Extension 5 Normal Right Great Toe Extension 5 Normal PT-OP-Q Treatments Start: 02/28/20 14:37 Freq: Status: Active Protocol: Document 03/09/20 12:15 MB (Rec: 03/09/20 12:45 MB [id number]) Therapeutic Exercises Supine Exercises Bridge with band Resistance Level 1 band Comments 10 sec, 30 sec, pt with limited ROM, abd draw in first Abdominal progression Supine Exercise Name Abd drawing in, knee rocking, knee fall out, HS, mini march, bridge Side bilateral Comments 10 reps, cues, set traverse abd first Manual Therapy Treatment Other Other Manual Treatments STM left quads, hip flexor, hamstrings and calf PT-OP-T Assessment and Plan Start: 02/28/20 14:37 Freq: Status: Active Protocol: Document 03/09/20 12:15 MB (Rec: 03/09/20 12:45 MB [id number]) Physical Therapy Assessment Rehab Potential Rehabilitation Potential Good Evaluation Complexity Number of Personal Factors/Comorbidities 1-2 Number of Body Systems Impaired 1-2 Clinical Presentation at Evaluation Evolving Impairments Impairments Activity Tolerance,Balance, Gait,Pain,Posture,Soft Tissue Mobility,Strength Other Impairments Pt denies sensory changes. Personal factors include pain with driving. Goals 6 Advanced Manager Goal (LTG) Pt will be able to drive at least 1 hour with reports of no more than 1/10 right hamstring pain by 04/30/2020. LTG Duration 8 weeks 5 [facility] Goal (LTG) Pt will gait train at least 1500 ft in 6 minutes to reflect improved pain and strength with increased gait distance by 04/30/2020. LTG Duration 8 weeks 4 Advanced Manager Goal (LTG) Pt will present WNLs on FGA to reflect improved balance by . LTG Duration 8 weeks 3 Advanced Manager Goal (LTG) Pt will present with B hip flexion, adduction, abduction and extension and B knee flexion strength to 5/5 to improve ambulation by 04/30/2020 . LTG Duration 8 weeks 2 Advanced Manager Goal (LTG) Pt will perform unilateral heel raises on right leg at least 15 reps to reflect improved PF strength to help with walking by 04/30/2020. LTG Duration 8 weeks 1 Impairment LEF score reflects 30% impairment [facility] Goal (LTG) Pt will present with improved LE functional index score to reflect no more than 20% impairment to improve LE function and pain by 04/30/2020. LTG Duration 8 weeks Assessment Summary Assessment Initiated core progression today and bridge. Will con't progression and manual work. His current bridge range is about 50% with limitation in hip extension. Myofascial work on LLE today to help right LE with gait and bridge. Physical Therapy Plan Frequency and Duration Frequency of Treatment 2x/Week Duration of Treatment 8 weeks Plan of Care Start Date 02/29/20 Plan of Care End Date 04/30/20 Therapeutic Interventions Therapeutic Interventions Balance Training,Canalithic Repositioning,Gait Training, Home Exercise Program,Joint Mobilizations,Manual Therapy, Neuromuscular Re-education, Patient/Caregiver Education, Self-Care/Home Management,Soft Tissue Mobilization,Taping, Therapeutic Activities, Therapeutic Exercises Modalities Cold Pack/Ice Massage,Electric Stimulation,Hot Packs, Ultrasound Next Visit Focus/Plan Next Note Type Treatment Note Next Visit Plan Ongoing direct manual work and Counterstrain to address fascial changes. Progress bridge, bridge one leg with opposite heel down
--- NOTE | 2020-03-13 10:23 | PT.OTN ---
Current Diagnoses Strain of muscle, fascia and tendon of the posterior muscle group at thigh level, unspecified thigh, initial encounter (03/13/20) Physical Therapy Treatment Note PT-OP-A Visit Information Start: 02/28/20 14:37 Freq: Status: Active Protocol: Document 03/13/20 09:50 MB (Rec: 03/13/20 09:59 MB [id number]) Out-Patient Physical Therapy Visit Information Visit Information Visit Type Treatment Note Visit Note Pt states that he has to leave PT early Visit Start Time 09:50 Visit Stop Time 10:20 Total Visit Minutes 30 Visit Number 5 PT-OP-B Current Condition Start: 02/28/20 14:37 Freq: Status: Active Protocol: Document 02/29/20 13:03 MB (Rec: 02/29/20 13:34 MB [id number]) Current Condition History of Current Condition Onset Date 08/01/2019 Current Complaints Pain with sitting in chair and driving in car History of Current Condition In August 2019, pt moved from [place] and unloaded a lot boxes and furniture. At that time, he had back pain and right hamstring pain. He saw this PT for right greater than left foot pain after injury earlier in the year. Of note, pt's speech is different this date that it was during previous PT course and pt states that he was found to have maxillary infection and he had several of his left teeth extracted and he wears a removable denture. He presents with facial assymmetry with smile and atrophy left masseter. He has some bruising there. Pt states that he got school childcare attendant after d/c from PT and they worked on his alignment but it did not help his symptoms. He has pain in his right hamstring with driving 30 minutes. Day to day walking and hiking are okay. Steep hiking is a problem. His foot pain is better and he does have point tenderness on the lateral side of his right foot with hiking. Orthopedic history: 4 left shoulder surgeries, 1 right shoulder surgery, two neck fusions, left ankle bone spur and possible small fx. 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 He has tried raising the seat up and down and using lumbar support and not using it. Pt denies numbness and tingling in his right foot and leg. He likes kayaking and has trouble with it. Prior Treatments and Tests MRI January 31, 2020 revealed moderate partial intrasubstance tearing of the hamstring tendon at its origin onto the right ischial tuberosity. No full-thickness tendon tear is seen. Treatment Goals Patient/Caregiver Goals He wants to be able to do a lot of driving for traveling now that he is retired. A short-term goal would be to drive for two hours without stopping. PT-OP-C Subjective Start: 02/28/20 14:37 Freq: Status: Active Protocol: Document 03/13/20 09:50 MB (Rec: 03/13/20 09:59 MB [id number]) OP-PT Subjective Patient Comments Patient Comments Pt limping, favoring right leg today and he states that his right foot is hurting. He has a facility maintenance mechanic appointment on . His back hurt from bridging. PT-OP-D Balance Start: 02/28/20 14:37 Freq: Status: Active Protocol: Document 02/29/20 13:03 MB (Rec: 02/29/20 16:25 MB [id number]) OP-PT Balance Assessment Sitting Balance Static Sitting Balance Ability Normal Dynamic Sitting Balance Ability Normal Standing Balance Static Standing Balance Ability Normal Dynamic Standing Balance Ability Normal Balance Tests Single Limb Standing Single Limb- Right 2 Single Limb- Left 15 Other Other Balance Tests Performed Pt reports right lateral foot pain with static standing for SLS and test stopped. Pt wearing socks and not shoes. Pain is over lateral superior cuboid on right foot. [place] Fall Scale Copyright Permission PT-OP-F Manual Assessment Start: 02/28/20 14:37 Freq: Status: Active Protocol: Document 02/29/20 13:03 MB (Rec: 02/29/20 16:25 MB [id number]) Manual Assessments Other Manual Assessments Other Manual Assessments Overall, right calf is smaller than the left. Pt's B proximal hamstrings do not feel too different to palpation and his only pain is at adductors on the right and more distal in location. Palpation in prone today. Increased tension left hip rotators compared to the right . PT-OP-G Mobility & Gait Start: 02/28/20 14:37 Freq: Status: Active Protocol: Document 02/29/20 13:03 MB (Rec: 02/29/20 16:25 MB [id number]) OP Gait Assessment Gait Gait Assistance Required: Independent Distance (Feet) 75 Able to Maintain Weight Bearing Status Yes During Gait Assistive Devices Assistive Device None Orthotic/Prosthetic Devices or Brace: No Comments Gait Comments Pt presents with B supinated feet, greater on the right. He presents with decreased overall right hip and knee flexion compared to the left as well as push off. The right foot is more rigid with gait. Left iliac crest is mildly higher than the right. PT-OP-J Posture/Palpation/Skin Start: 02/28/20 14:37 Freq: Status: Active Protocol: Document 02/29/20 13:03 MB (Rec: 02/29/20 16:25 MB [id number]) Posture Evaluation Comments Posture Comments See gait and manual comments above PT-OP-M Strength Start: 02/28/20 14:37 Freq: Status: Active Protocol: Document 02/29/20 13:03 MB (Rec: 02/29/20 16:25 MB [id number]) Hip Strength Hip Manual Muscle Testing Left Flexion (L2) 4 Good Extension (S1) 3+ Fair+ Abduction 4 Good Adduction 3 Fair Right Flexion (L2) 4 Good Extension (S1) 3+ Fair+ Abduction 4 Good Adduction 3 Fair Knee Strength Knee Manual Muscle Testing Left Flexion (S2) 4 Good Extension (L3) 5 Normal Right Flexion (S2) 3+ Fair+ Extension (L3) 5 Normal Ankle/Foot Strength Ankle and Foot Manual Muscle Testing Left Dorsiflexion (L4) 5 Normal Plantarflexion (S1) 5 Normal Inversion 5 Normal Eversion (S1) 5 Normal Comments Pt can perform over 30 heel raises with finger support on wall on left LE Right Dorsiflexion (L4) 5 Normal Plantarflexion (S1) 2 Poor Inversion 4 Good Eversion (S1) 3+ Fair+ Comments Pt cannot complete 2 reps heel raises with finger support on wall on right LE d/t reports of foot pain Toe Strength Toe Manual Muscle Testing Left Great Toe Extension 5 Normal Right Great Toe Extension 5 Normal PT-OP-Q Treatments Start: 02/28/20 14:37 Freq: Status: Active Protocol: Document 03/13/20 09:50 MB (Rec: 03/13/20 09:59 MB [id number]) Manual Therapy Treatment Other Other Manual Treatments Pt prone: STM lumbar spine, B glutes and hip rotators, hamstrings, PFs and plantar fascia PT-OP-T Assessment and Plan Start: 02/28/20 14:37 Freq: Status: Active Protocol: Document 03/13/20 09:50 MB (Rec: 03/13/20 09:59 MB [id number]) Physical Therapy Assessment Rehab Potential Rehabilitation Potential Good Evaluation Complexity Number of Personal Factors/Comorbidities 1-2 Number of Body Systems Impaired 1-2 Clinical Presentation at Evaluation Evolving Impairments Impairments Activity Tolerance,Balance, Gait,Pain,Posture,Soft Tissue Mobility,Strength Other Impairments Pt denies sensory changes. Personal factors include pain with driving. Goals 6 Pot Reliner Goal (LTG) Pt will be able to drive at least 1 hour with reports of no more than 1/10 right hamstring pain by 04/30/2020. LTG Duration 8 weeks 5 Pot Reliner Goal (LTG) Pt will gait train at least 1500 ft in 6 minutes to reflect improved pain and strength with increased gait distance by 04/30/2020. LTG Duration 8 weeks 4 Pot Reliner Goal (LTG) Pt will present WNLs on FGA to reflect improved balance by . LTG Duration 8 weeks 3 Pot Reliner Goal (LTG) Pt will present with B hip flexion, adduction, abduction and extension and B knee flexion strength to 5/5 to improve ambulation by 04/30/2020 . LTG Duration 8 weeks 2 [facility] Goal (LTG) Pt will perform unilateral heel raises on right leg at least 15 reps to reflect improved PF strength to help with walking by 04/30/2020. LTG Duration 8 weeks 1 Impairment LEF score reflects 30% impairment [facility] Goal (LTG) Pt will present with improved LE functional index score to reflect no more than 20% impairment to improve LE function and pain by 04/30/2020. LTG Duration 8 weeks Assessment Summary Assessment Manual work today to address fascial tension low back, glutes, hamstrings, calves and plantar fascia. Pt responds well. Pt's multiple orthopedic issues contribute to his presentation (B feet, left hamstring and LB). Physical Therapy Plan Frequency and Duration Frequency of Treatment 2x/Week Duration of Treatment 8 weeks Plan of Care Start Date 02/29/20 Plan of Care End Date 04/30/20 Therapeutic Interventions Therapeutic Interventions Balance Training,Canalithic Repositioning,Gait Training, Home Exercise Program,Joint Mobilizations,Manual Therapy, Neuromuscular Re-education, Patient/Caregiver Education, Self-Care/Home Management,Soft Tissue Mobilization,Taping, Therapeutic Activities, Therapeutic Exercises Modalities Cold Pack/Ice Massage,Electric Stimulation,Hot Packs, Ultrasound Next Visit Focus/Plan Next Note Type Treatment Note Next Visit Plan Ongoing direct manual work and Counterstrain to address fascial changes. Progress bridge, bridge one leg with opposite heel down
--- NOTE | 2020-03-26 09:55 | PT.OTN ---
Current Diagnoses Strain of muscle, fascia and tendon of the posterior muscle group at thigh level, unspecified thigh, initial encounter (03/26/20) Physical Therapy Treatment Note PT-OP-A Visit Information Start: 02/28/20 14:37 Freq: Status: Active Protocol: Document 03/26/20 09:03 MB (Rec: 03/26/20 09:47 MB [id number]) Out-Patient Physical Therapy Visit Information Visit Information Visit Type Treatment Note Visit Start Time 09:03 Visit Stop Time 09:45 Total Visit Minutes 42 Visit Number 6 PT-OP-B Current Condition Start: 02/28/20 14:37 Freq: Status: Active Protocol: Document 02/29/20 13:03 MB (Rec: 02/29/20 13:34 MB [id number]) Current Condition History of Current Condition Onset Date 08/01/2019 Current Complaints Pain with sitting in chair and driving in car History of Current Condition In August 2019, pt moved from [place] and unloaded a lot boxes and furniture. At that time, he had back pain and right hamstring pain. He saw this PT for right greater than left foot pain after injury earlier in the year. Of note, pt's speech is different this date that it was during previous PT course and pt states that he was found to have maxillary infection and he had several of his left teeth extracted and he wears a removable denture. He presents with facial assymmetry with smile and atrophy left masseter. He has some bruising there. Pt states that he got home health aide caregiver after d/c from PT and they worked on his alignment but it did not help his symptoms. He has pain in his right hamstring with driving 30 minutes. Day to day walking and hiking are okay. Steep hiking is a problem. His foot pain is better and he does have point tenderness on the lateral side of his right foot with hiking. Orthopedic history: 4 left shoulder surgeries, 1 right shoulder surgery, two neck fusions, left ankle bone spur and possible small fx. 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 He has tried raising the seat up and down and using lumbar support and not using it. Pt denies numbness and tingling in his right foot and leg. He likes kayaking and has trouble with it. Prior Treatments and Tests MRI January 31, 2020 revealed moderate partial intrasubstance tearing of the hamstring tendon at its origin onto the right ischial tuberosity. No full-thickness tendon tear is seen. Treatment Goals Patient/Caregiver Goals He wants to be able to do a lot of driving for traveling now that he is retired. A short-term goal would be to drive for two hours without stopping. PT-OP-C Subjective Start: 02/28/20 14:37 Freq: Status: Active Protocol: Document 03/26/20 09:03 MB (Rec: 03/26/20 09:47 MB [id number]) OP-PT Subjective Patient Comments Patient Comments I went to a foot doctor. Pt got a cortisone injection in his right foot and his pain resolved. He received a message from the working second hand office that there is a bone formation in the lateral tendons including the heel bone and achilles tendon attachment on the right. He see working second hand 04/13/20. His trip to [place] went well and flying went well. PT-OP-D Balance Start: 02/28/20 14:37 Freq: Status: Active Protocol: Document 02/29/20 13:03 MB (Rec: 02/29/20 16:25 MB [id number]) OP-PT Balance Assessment Sitting Balance Static Sitting Balance Ability Normal Dynamic Sitting Balance Ability Normal Standing Balance Static Standing Balance Ability Normal Dynamic Standing Balance Ability Normal Balance Tests Single Limb Standing Single Limb- Right 2 Single Limb- Left 15 Other Other Balance Tests Performed Pt reports right lateral foot pain with static standing for SLS and test stopped. Pt wearing socks and not shoes. Pain is over lateral superior cuboid on right foot. [place] Fall Scale Copyright Permission PT-OP-F Manual Assessment Start: 02/28/20 14:37 Freq: Status: Active Protocol: Document 02/29/20 13:03 MB (Rec: 02/29/20 16:25 MB [id number]) Manual Assessments Other Manual Assessments Other Manual Assessments Overall, right calf is smaller than the left. Pt's B proximal hamstrings do not feel too different to palpation and his only pain is at adductors on the right and more distal in location. Palpation in prone today. Increased tension left hip rotators compared to the right . PT-OP-G Mobility & Gait Start: 02/28/20 14:37 Freq: Status: Active Protocol: Document 02/29/20 13:03 MB (Rec: 02/29/20 16:25 MB [id number]) OP Gait Assessment Gait Gait Assistance Required: Independent Distance (Feet) 75 Able to Maintain Weight Bearing Status Yes During Gait Assistive Devices Assistive Device None Orthotic/Prosthetic Devices or Brace: No Comments Gait Comments Pt presents with B supinated feet, greater on the right. He presents with decreased overall right hip and knee flexion compared to the left as well as push off. The right foot is more rigid with gait. Left iliac crest is mildly higher than the right. PT-OP-J Posture/Palpation/Skin Start: 02/28/20 14:37 Freq: Status: Active Protocol: Document 02/29/20 13:03 MB (Rec: 02/29/20 16:25 MB [id number]) Posture Evaluation Comments Posture Comments See gait and manual comments above PT-OP-M Strength Start: 02/28/20 14:37 Freq: Status: Active Protocol: Document 02/29/20 13:03 MB (Rec: 02/29/20 16:25 MB [id number]) Hip Strength Hip Manual Muscle Testing Left Flexion (L2) 4 Good Extension (S1) 3+ Fair+ Abduction 4 Good Adduction 3 Fair Right Flexion (L2) 4 Good Extension (S1) 3+ Fair+ Abduction 4 Good Adduction 3 Fair Knee Strength Knee Manual Muscle Testing Left Flexion (S2) 4 Good Extension (L3) 5 Normal Right Flexion (S2) 3+ Fair+ Extension (L3) 5 Normal Ankle/Foot Strength Ankle and Foot Manual Muscle Testing Left Dorsiflexion (L4) 5 Normal Plantarflexion (S1) 5 Normal Inversion 5 Normal Eversion (S1) 5 Normal Comments Pt can perform over 30 heel raises with finger support on wall on left LE Right Dorsiflexion (L4) 5 Normal Plantarflexion (S1) 2 Poor Inversion 4 Good Eversion (S1) 3+ Fair+ Comments Pt cannot complete 2 reps heel raises with finger support on wall on right LE d/t reports of foot pain Toe Strength Toe Manual Muscle Testing Left Great Toe Extension 5 Normal Right Great Toe Extension 5 Normal PT-OP-Q Treatments Start: 02/28/20 14:37 Freq: Status: Active Protocol: Document 03/26/20 09:03 MB (Rec: 03/26/20 09:47 MB [id number]) Therapeutic Exercises Supine Exercises Bridge on one foot Comments Alternating, mini movement to protect back, 5 reps Bridge Supine Exercise Name Small lift bridge Comments 2 reps, 2nd rep for 1', pt feels in glutes Abdominal drawing in Comments Performed before bridging today Hamstring, calf and AP stretch Side bilateral Comments 30 pumps with stretch Manual Therapy Treatment Other Other Manual Treatments Pt prone: positional release sacrum and right QL. Increased tension right hip rotators and pt does not have much muscle change with positional release PT-OP-T Assessment and Plan Start: 02/28/20 14:37 Freq: Status: Active Protocol: Document 03/26/20 09:03 MB (Rec: 03/26/20 09:47 MB [id number]) Physical Therapy Assessment Rehab Potential Rehabilitation Potential Good Evaluation Complexity Number of Personal Factors/Comorbidities 1-2 Number of Body Systems Impaired 1-2 Clinical Presentation at Evaluation Evolving Impairments Impairments Activity Tolerance,Balance, Gait,Pain,Posture,Soft Tissue Mobility,Strength Other Impairments Pt denies sensory changes. Personal factors include pain with driving. Goals 7 Detention Goal (LTG) Pt will perform progressive HEP with I including flexibility, strengthening and balance exercises by 2020. 03/26/20: Pt is performing progressive HEP including: Abdominal core strengthening, hamstring and Jeremiah stretch, pelvic realignment exercises and hip rotator stretch. Mini bridge and mini bridge with leg up. LTG Duration 8 weeks 6 Detention Goal (LTG) Pt will be able to drive at least 1 hour with reports of no more than 1/10 right hamstring pain by 04/30/2020. LTG Duration 8 weeks 5 Detention Goal (LTG) Pt will gait train at least 1500 ft in 6 minutes to reflect improved pain and strength with increased gait distance by 04/30/2020. LTG Duration 8 weeks 4 Grants Analyst Goal (LTG) Pt will present WNLs on FGA to reflect improved balance by . LTG Duration 8 weeks 3 Detention Goal (LTG) Pt will present with B hip flexion, adduction, abduction and extension and B knee flexion strength to 5/5 to improve ambulation by 04/30/2020 . LTG Duration 8 weeks 2 Grants Analyst Goal (LTG) Pt will perform unilateral heel raises on right leg at least 15 reps to reflect improved PF strength to help with walking by 04/30/2020. LTG Duration 8 weeks 1 Impairment LEF score reflects 30% impairment Detention Goal (LTG) Pt will present with improved LE functional index score to reflect no more than 20% impairment to improve LE function and pain by 04/30/2020. LTG Duration 8 weeks Assessment Summary Assessment Flexibility exercises today and then revised bridge to see how his lumbar spine responds . Con't gentle LE strengthening progression. Back and feet pain are complicating factors to hamstring treatment. Physical Therapy Plan Frequency and Duration Frequency of Treatment 2x/Week Duration of Treatment 8 weeks Plan of Care Start Date 02/29/20 Plan of Care End Date 04/30/20 Therapeutic Interventions Therapeutic Interventions Balance Training,Canalithic Repositioning,Gait Training, Home Exercise Program,Joint Mobilizations,Manual Therapy, Neuromuscular Re-education, Patient/Caregiver Education, Self-Care/Home Management,Soft Tissue Mobilization,Taping, Therapeutic Activities, Therapeutic Exercises Modalities Cold Pack/Ice Massage,Electric Stimulation,Hot Packs, Ultrasound Next Visit Focus/Plan Next Note Type Treatment Note Next Visit Plan Ongoing direct manual work and Counterstrain to address fascial changes. Progress hamstring and LE strengthening , QL stretch
--- NOTE | 2020-03-26 12:13 | PT.OPPOC ---
Physical, Occupational & Speech Therapy At [facility] Current Diagnoses Strain of muscle, fascia and tendon of the posterior muscle group at thigh level, unspecified thigh, initial encounter (03/26/20) Visit Care Team Role Provider Type Saulo Elizalde DO Primary Care Provider Physician Specialty: Family Practice Address: [address] [place] [address], [id number] Email: [email or web address] Franc Garcia MD Attending Provider Non-Staff Referring Provider Specialty: Orthopedic Surgery Address: [address] [place] [address] , [place], [address] Email: Plan Of Care PT-OP-T Assessment and Plan Start: 02/28/20 14:37 Freq: Status: Active Protocol: Document 03/26/20 09:03 MB (Rec: 03/26/20 09:47 MB [id number]) Physical Therapy Assessment Rehab Potential Rehabilitation Potential Good Evaluation Complexity Number of Personal Factors/Comorbidities 1-2 Number of Body Systems Impaired 1-2 Clinical Presentation at Evaluation Evolving Impairments Impairments Activity Tolerance,Balance, Gait,Pain,Posture,Soft Tissue Mobility,Strength Other Impairments Pt denies sensory changes. Personal factors include pain with driving. Goals 7 Shelter Goal (LTG) Pt will perform progressive HEP with I including flexibility, strengthening and balance exercises by 2020. 03/26/20: Pt is performing progressive HEP including: Abdominal core strengthening, hamstring and Jeremiah stretch, pelvic realignment exercises and hip rotator stretch. Mini bridge and mini bridge with leg up. LTG Duration 8 weeks 6 Shelter Goal (LTG) Pt will be able to drive at least 1 hour with reports of no more than 1/10 right hamstring pain by 04/30/2020. LTG Duration 8 weeks 5 Shelter Goal (LTG) Pt will gait train at least 1500 ft in 6 minutes to reflect improved pain and strength with increased gait distance by 04/30/2020. LTG Duration 8 weeks 4 Chartered Wealth Manager Goal (LTG) Pt will present WNLs on FGA to reflect improved balance by 3 /03/2020. LTG Duration 8 weeks 3 Shelter Goal (LTG) Pt will present with B hip flexion, adduction, abduction and extension and B knee flexion strength to 5/5 to improve ambulation by 04/30/2020 . LTG Duration 8 weeks 2 Chartered Wealth Manager Goal (LTG) Pt will perform unilateral heel raises on right leg at least 15 reps to reflect improved PF strength to help with walking by 04/30/2020. LTG Duration 8 weeks 1 Impairment LEF score reflects 30% impairment Chartered Wealth Manager Goal (LTG) Pt will present with improved LE functional index score to reflect no more than 20% impairment to improve LE function and pain by 04/30/2020. LTG Duration 8 weeks Assessment Summary Assessment Flexibility exercises today and then revised bridge to see how his lumbar spine responds . Con't gentle LE strengthening progression. Back and feet pain are complicating factors to hamstring treatment. Physical Therapy Plan Frequency and Duration Frequency of Treatment 2x/Week Duration of Treatment 8 weeks Plan of Care Start Date 02/29/20 Plan of Care End Date 04/30/20 Therapeutic Interventions Therapeutic Interventions Balance Training,Canalithic Repositioning,Gait Training, Home Exercise Program,Joint Mobilizations,Manual Therapy, Neuromuscular Re-education, Patient/Caregiver Education, Self-Care/Home Management,Soft Tissue Mobilization,Taping, Therapeutic Activities, Therapeutic Exercises Modalities Cold Pack/Ice Massage,Electric Stimulation,Hot Packs, Ultrasound Next Visit Focus/Plan Next Note Type Treatment Note Next Visit Plan Ongoing direct manual work and Counterstrain to address fascial changes. Progress hamstring and LE strengthening , QL stretch Plan of Care Dates Plan of Care Start Date 02/29/20 Plan of Care End Date 04/30/20 Electronically Signed by: Niyah Dailey, PT 03/26/20 2527 Please Sign and Return: I have reviewed this Plan of Care and certify that the skilled therapy services above are required to meet the patient?s needs. Physician Signature Date Printed Name and Credentials Clinical Instructor Signature Printed Name and Credentials
--- NOTE | 2020-03-30 11:19 | PT.OTN ---
Current Diagnoses Strain of muscle, fascia and tendon of the posterior muscle group at thigh level, unspecified thigh, initial encounter (03/30/20) Physical Therapy Treatment Note PT-OP-A Visit Information Start: 02/28/20 14:37 Freq: Status: Active Protocol: Document 03/30/20 10:35 MB (Rec: 03/30/20 11:18 MB [id number]) Out-Patient Physical Therapy Visit Information Visit Information Visit Type Treatment Note Visit Note [employer], visit used for 2020 Visit Start Time 10:35 Visit Stop Time 11:15 Total Visit Minutes 40 Visit Number 7 PT-OP-B Current Condition Start: 02/28/20 14:37 Freq: Status: Active Protocol: Document 02/29/20 13:03 MB (Rec: 02/29/20 13:34 MB [id number]) Current Condition History of Current Condition Onset Date 08/01/2019 Current Complaints Pain with sitting in chair and driving in car History of Current Condition In August 2019, pt moved from [place] and unloaded a lot boxes and furniture. At that time, he had back pain and right hamstring pain. He saw this PT for right greater than left foot pain after injury earlier in the year. Of note, pt's speech is different this date that it was during previous PT course and pt states that he was found to have maxillary infection and he had several of his left teeth extracted and he wears a removable denture. He presents with facial assymmetry with smile and atrophy left masseter. He has some bruising there. Pt states that he got critical care technician after d/c from PT and they worked on his alignment but it did not help his symptoms. He has pain in his right hamstring with driving 30 minutes. Day to day walking and hiking are okay. Steep hiking is a problem. His foot pain is better and he does have point tenderness on the lateral side of his right foot with hiking. Orthopedic history: 4 left shoulder surgeries, 1 right shoulder surgery, two neck fusions, left ankle bone spur and possible small fx. 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 He has tried raising the seat up and down and using lumbar support and not using it. Pt denies numbness and tingling in his right foot and leg. He likes kayaking and has trouble with it. Prior Treatments and Tests MRI January 31, 2020 revealed moderate partial intrasubstance tearing of the hamstring tendon at its origin onto the right ischial tuberosity. No full-thickness tendon tear is seen. Treatment Goals Patient/Caregiver Goals He wants to be able to do a lot of driving for traveling now that he is retired. A short-term goal would be to drive for two hours without stopping. PT-OP-C Subjective Start: 02/28/20 14:37 Freq: Status: Active Protocol: Document 03/30/20 10:35 MB (Rec: 03/30/20 11:18 MB [id number]) OP-PT Subjective Patient Comments Patient Comments My foot is hurting again. PT-OP-D Balance Start: 02/28/20 14:37 Freq: Status: Active Protocol: Document 02/29/20 13:03 MB (Rec: 02/29/20 16:25 MB [id number]) OP-PT Balance Assessment Sitting Balance Static Sitting Balance Ability Normal Dynamic Sitting Balance Ability Normal Standing Balance Static Standing Balance Ability Normal Dynamic Standing Balance Ability Normal Balance Tests Single Limb Standing Single Limb- Right 2 Single Limb- Left 15 Other Other Balance Tests Performed Pt reports right lateral foot pain with static standing for SLS and test stopped. Pt wearing socks and not shoes. Pain is over lateral superior cuboid on right foot. [place]ano Fall Scale Copyright Permission PT-OP-F Manual Assessment Start: 02/28/20 14:37 Freq: Status: Active Protocol: Document 02/29/20 13:03 MB (Rec: 02/29/20 16:25 MB [id number]) Manual Assessments Other Manual Assessments Other Manual Assessments Overall, right calf is smaller than the left. Pt's B proximal hamstrings do not feel too different to palpation and his only pain is at adductors on the right and more distal in location. Palpation in prone today. Increased tension left hip rotators compared to the right . PT-OP-G Mobility & Gait Start: 02/28/20 14:37 Freq: Status: Active Protocol: Document 02/29/20 13:03 MB (Rec: 02/29/20 16:25 MB [id number]) OP Gait Assessment Gait Gait Assistance Required: Independent Distance (Feet) 75 Able to Maintain Weight Bearing Status Yes During Gait Assistive Devices Assistive Device None Orthotic/Prosthetic Devices or Brace: No Comments Gait Comments Pt presents with B supinated feet, greater on the right. He presents with decreased overall right hip and knee flexion compared to the left as well as push off. The right foot is more rigid with gait. Left iliac crest is mildly higher than the right. PT-OP-J Posture/Palpation/Skin Start: 02/28/20 14:37 Freq: Status: Active Protocol: Document 02/29/20 13:03 MB (Rec: 02/29/20 16:25 MB [id number]) Posture Evaluation Comments Posture Comments See gait and manual comments above PT-OP-M Strength Start: 02/28/20 14:37 Freq: Status: Active Protocol: Document 02/29/20 13:03 MB (Rec: 02/29/20 16:25 MB [id number]) Hip Strength Hip Manual Muscle Testing Left Flexion (L2) 4 Good Extension (S1) 3+ Fair+ Abduction 4 Good Adduction 3 Fair Right Flexion (L2) 4 Good Extension (S1) 3+ Fair+ Abduction 4 Good Adduction 3 Fair Knee Strength Knee Manual Muscle Testing Left Flexion (S2) 4 Good Extension (L3) 5 Normal Right Flexion (S2) 3+ Fair+ Extension (L3) 5 Normal Ankle/Foot Strength Ankle and Foot Manual Muscle Testing Left Dorsiflexion (L4) 5 Normal Plantarflexion (S1) 5 Normal Inversion 5 Normal Eversion (S1) 5 Normal Comments Pt can perform over 30 heel raises with finger support on wall on left LE Right Dorsiflexion (L4) 5 Normal Plantarflexion (S1) 2 Poor Inversion 4 Good Eversion (S1) 3+ Fair+ Comments Pt cannot complete 2 reps heel raises with finger support on wall on right LE d/t reports of foot pain Toe Strength Toe Manual Muscle Testing Left Great Toe Extension 5 Normal Right Great Toe Extension 5 Normal PT-OP-Q Treatments Start: 02/28/20 14:37 Freq: Status: Active Protocol: Document 03/30/20 10:35 MB (Rec: 03/30/20 11:18 MB [id number]) Manual Therapy Treatment Other Other Manual Treatments Pt agrees to Counterstrain to assess and treat fascial tension and he presents with fascial tension in the following systems: DPRs, ALL, LF and costal cartilage. PT treats stacks in the following systems: DPRs and spinal vein extension. PT-OP-T Assessment and Plan Start: 02/28/20 14:37 Freq: Status: Active Protocol: Document 03/30/20 10:35 MB (Rec: 03/30/20 11:18 MB [id number]) Physical Therapy Assessment Rehab Potential Rehabilitation Potential Good Evaluation Complexity Number of Personal Factors/Comorbidities 1-2 Number of Body Systems Impaired 1-2 Clinical Presentation at Evaluation Evolving Impairments Impairments Activity Tolerance,Balance, Gait,Pain,Posture,Soft Tissue Mobility,Strength Other Impairments Pt denies sensory changes. Personal factors include pain with driving. Goals 7 Regulatory Affairs Internship Goal (LTG) Pt will perform progressive HEP with I including flexibility, strengthening and balance exercises by 2020. 03/26/20: Pt is performing progressive HEP including: Abdominal core strengthening, hamstring and Jeremiah stretch, pelvic realignment exercises and hip rotator stretch. Mini bridge and mini bridge with leg up. LTG Duration 8 weeks 6 Regulatory Affairs Internship Goal (LTG) Pt will be able to drive at least 1 hour with reports of no more than 1/10 right hamstring pain by 04/30/2020. LTG Duration 8 weeks 5 [facility] Goal (LTG) Pt will gait train at least 1500 ft in 6 minutes to reflect improved pain and strength with increased gait distance by 04/30/2020. LTG Duration 8 weeks 4 Regulatory Affairs Internship Goal (LTG) Pt will present WNLs on FGA to reflect improved balance by . LTG Duration 8 weeks 3 Regulatory Affairs Internship Goal (LTG) Pt will present with B hip flexion, adduction, abduction and extension and B knee flexion strength to 5/5 to improve ambulation by 04/30/2020 . LTG Duration 8 weeks 2 [facility] Goal (LTG) Pt will perform unilateral heel raises on right leg at least 15 reps to reflect improved PF strength to help with walking by 04/30/2020. LTG Duration 8 weeks 1 Impairment LEF score reflects 30% impairment Regulatory Affairs Internship Goal (LTG) Pt will present with improved LE functional index score to reflect no more than 20% impairment to improve LE function and pain by 04/30/2020. LTG Duration 8 weeks Assessment Summary Assessment PT initiates Counterstrain today to address fascial tension and he responds well initially and will monitor response. His spinal mobility is better after treatment. Physical Therapy Plan Frequency and Duration Frequency of Treatment 2x/Week Duration of Treatment 8 weeks Plan of Care Start Date 02/29/20 Plan of Care End Date 04/30/20 Therapeutic Interventions Therapeutic Interventions Balance Training,Canalithic Repositioning,Gait Training, Home Exercise Program,Joint Mobilizations,Manual Therapy, Neuromuscular Re-education, Patient/Caregiver Education, Self-Care/Home Management,Soft Tissue Mobilization,Taping, Therapeutic Activities, Therapeutic Exercises Modalities Cold Pack/Ice Massage,Electric Stimulation,Hot Packs, Ultrasound Next Visit Focus/Plan Next Note Type Treatment Note Next Visit Plan Con't Counterstrain. Progress hamstring and LE strengthening , QL stretch, calf stretch, hip rotator strengthening in hook lying
--- NOTE | 2020-04-02 09:45 | PT.OTN ---
Current Diagnoses Strain of muscle, fascia and tendon of the posterior muscle group at thigh level, unspecified thigh, initial encounter (04/02/20) Physical Therapy Treatment Note PT-OP-A Visit Information Start: 02/28/20 14:37 Freq: Status: Active Protocol: Document 04/02/20 09:04 MB (Rec: 04/02/20 09:43 MB [id number]) Out-Patient Physical Therapy Visit Information Visit Information Visit Type Treatment Note Visit Note [place] [employer] Medicare Advantage, visit used for 2020 Visit Start Time 09:04 Visit Stop Time 09:45 Total Visit Minutes 41 Visit Number 8 PT-OP-B Current Condition Start: 02/28/20 14:37 Freq: Status: Active Protocol: Document 02/29/20 13:03 MB (Rec: 02/29/20 13:34 MB [id number]) Current Condition History of Current Condition Onset Date 08/01/2019 Current Complaints Pain with sitting in chair and driving in car History of Current Condition In August 2019, pt moved from [place] and unloaded a lot boxes and furniture. At that time, he had back pain and right hamstring pain. He saw this PT for right greater than left foot pain after injury earlier in the year. Of note, pt's speech is different this date that it was during previous PT course and pt states that he was found to have maxillary infection and he had several of his left teeth extracted and he wears a removable denture. He presents with facial assymmetry with smile and atrophy left masseter. He has some bruising there. Pt states that he got child care nurse after d/c from PT and they worked on his alignment but it did not help his symptoms. He has pain in his right hamstring with driving 30 minutes. Day to day walking and hiking are okay. Steep hiking is a problem. His foot pain is better and he does have point tenderness on the lateral side of his right foot with hiking. Orthopedic history: 4 left shoulder surgeries, 1 right shoulder surgery, two neck fusions, left ankle bone spur and possible small fx. 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 He has tried raising the seat up and down and using lumbar support and not using it. Pt denies numbness and tingling in his right foot and leg. He likes kayaking and has trouble with it. Prior Treatments and Tests MRI January 31, 2020 revealed moderate partial intrasubstance tearing of the hamstring tendon at its origin onto the right ischial tuberosity. No full-thickness tendon tear is seen. Treatment Goals Patient/Caregiver Goals He wants to be able to do a lot of driving for traveling now that he is retired. A short-term goal would be to drive for two hours without stopping. PT-OP-C Subjective Start: 02/28/20 14:37 Freq: Status: Active Protocol: Document 04/02/20 09:04 MB (Rec: 04/02/20 09:44 MB [id number]) OP-PT Subjective Patient Comments Patient Comments I felt really loose after the treatment! PT-OP-D Balance Start: 02/28/20 14:37 Freq: Status: Active Protocol: Document 02/29/20 13:03 MB (Rec: 02/29/20 16:25 MB [id number]) OP-PT Balance Assessment Sitting Balance Static Sitting Balance Ability Normal Dynamic Sitting Balance Ability Normal Standing Balance Static Standing Balance Ability Normal Dynamic Standing Balance Ability Normal Balance Tests Single Limb Standing Single Limb- Right 2 Single Limb- Left 15 Other Other Balance Tests Performed Pt reports right lateral foot pain with static standing for SLS and test stopped. Pt wearing socks and not shoes. Pain is over lateral superior cuboid on right foot. [place] Fall Scale Copyright Permission PT-OP-F Manual Assessment Start: 02/28/20 14:37 Freq: Status: Active Protocol: Document 02/29/20 13:03 MB (Rec: 02/29/20 16:25 MB [id number]) Manual Assessments Other Manual Assessments Other Manual Assessments Overall, right calf is smaller than the left. Pt's B proximal hamstrings do not feel too different to palpation and his only pain is at adductors on the right and more distal in location. Palpation in prone today. Increased tension left hip rotators compared to the right . PT-OP-G Mobility & Gait Start: 02/28/20 14:37 Freq: Status: Active Protocol: Document 02/29/20 13:03 MB (Rec: 02/29/20 16:25 MB [id number]) OP Gait Assessment Gait Gait Assistance Required: Independent Distance (Feet) 75 Able to Maintain Weight Bearing Status Yes During Gait Assistive Devices Assistive Device None Orthotic/Prosthetic Devices or Brace: No Comments Gait Comments Pt presents with B supinated feet, greater on the right. He presents with decreased overall right hip and knee flexion compared to the left as well as push off. The right foot is more rigid with gait. Left iliac crest is mildly higher than the right. PT-OP-J Posture/Palpation/Skin Start: 02/28/20 14:37 Freq: Status: Active Protocol: Document 02/29/20 13:03 MB (Rec: 02/29/20 16:25 MB [id number]) Posture Evaluation Comments Posture Comments See gait and manual comments above PT-OP-M Strength Start: 02/28/20 14:37 Freq: Status: Active Protocol: Document 02/29/20 13:03 MB (Rec: 02/29/20 16:25 MB [id number]) Hip Strength Hip Manual Muscle Testing Left Flexion (L2) 4 Good Extension (S1) 3+ Fair+ Abduction 4 Good Adduction 3 Fair Right Flexion (L2) 4 Good Extension (S1) 3+ Fair+ Abduction 4 Good Adduction 3 Fair Knee Strength Knee Manual Muscle Testing Left Flexion (S2) 4 Good Extension (L3) 5 Normal Right Flexion (S2) 3+ Fair+ Extension (L3) 5 Normal Ankle/Foot Strength Ankle and Foot Manual Muscle Testing Left Dorsiflexion (L4) 5 Normal Plantarflexion (S1) 5 Normal Inversion 5 Normal Eversion (S1) 5 Normal Comments Pt can perform over 30 heel raises with finger support on wall on left LE Right Dorsiflexion (L4) 5 Normal Plantarflexion (S1) 2 Poor Inversion 4 Good Eversion (S1) 3+ Fair+ Comments Pt cannot complete 2 reps heel raises with finger support on wall on right LE d/t reports of foot pain Toe Strength Toe Manual Muscle Testing Left Great Toe Extension 5 Normal Right Great Toe Extension 5 Normal PT-OP-Q Treatments Start: 02/28/20 14:37 Freq: Status: Active Protocol: Document 04/02/20 09:04 MB (Rec: 04/02/20 09:43 MB [id number]) Manual Therapy Treatment Other Other Manual Treatments Pt agrees to Counterstrain to assess and treat fascial tension and he presents with fascial tension in the following systems: lymphatic venous spinal medullary. PT treats stacks in this system. Self-Care/Home Management Treatment Education Other Education Sitting positioning in kayak to keep knees more bent and knees outward, working on stroke with paddle, keeping forward some off back, ed for NSR videos for kayaking PT-OP-T Assessment and Plan Start: 02/28/20 14:37 Freq: Status: Active Protocol: Document 04/02/20 09:04 MB (Rec: 04/02/20 09:43 MB [id number]) Physical Therapy Assessment Rehab Potential Rehabilitation Potential Good Evaluation Complexity Number of Personal Factors/Comorbidities 1-2 Number of Body Systems Impaired 1-2 Clinical Presentation at Evaluation Evolving Impairments Impairments Activity Tolerance,Balance, Gait,Pain,Posture,Soft Tissue Mobility,Strength Other Impairments Pt denies sensory changes. Personal factors include pain with driving. Goals 7 Usp Goal (LTG) Pt will perform progressive HEP with I including flexibility, strengthening and balance exercises by 2020. 03/26/20: Pt is performing progressive HEP including: Abdominal core strengthening, hamstring and Jeremiah stretch, pelvic realignment exercises and hip rotator stretch. Mini bridge and mini bridge with leg up. LTG Duration 8 weeks 6 Usp Goal (LTG) Pt will be able to drive at least 1 hour with reports of no more than 1/10 right hamstring pain by 04/30/2020. LTG Duration 8 weeks 5 Manager Of Care Goal (LTG) Pt will gait train at least 1500 ft in 6 minutes to reflect improved pain and strength with increased gait distance by 04/30/2020. LTG Duration 8 weeks 4 Manager Of Care Goal (LTG) Pt will present WNLs on FGA to reflect improved balance by . LTG Duration 8 weeks 3 Usp Goal (LTG) Pt will present with B hip flexion, adduction, abduction and extension and B knee flexion strength to 5/5 to improve ambulation by 04/30/2020 . LTG Duration 8 weeks 2 Usp Goal (LTG) Pt will perform unilateral heel raises on right leg at least 15 reps to reflect improved PF strength to help with walking by 04/30/2020. LTG Duration 8 weeks 1 Impairment LEF score reflects 30% impairment Manager Of Care Goal (LTG) Pt will present with improved LE functional index score to reflect no more than 20% impairment to improve LE function and pain by 04/30/2020. LTG Duration 8 weeks Assessment Summary Assessment Pt responds well to Counterstrain and con't today. Ed pt on positioning for kayaking to help decrease hamstring tension. Ed pt on pelvic floor recruitment for kayaking and core strengthening. Physical Therapy Plan Frequency and Duration Frequency of Treatment 2x/Week Duration of Treatment 8 weeks Plan of Care Start Date 02/29/20 Plan of Care End Date 04/30/20 Therapeutic Interventions Therapeutic Interventions Balance Training,Canalithic Repositioning,Gait Training, Home Exercise Program,Joint Mobilizations,Manual Therapy, Neuromuscular Re-education, Patient/Caregiver Education, Self-Care/Home Management,Soft Tissue Mobilization,Taping, Therapeutic Activities, Therapeutic Exercises Modalities Cold Pack/Ice Massage,Electric Stimulation,Hot Packs, Ultrasound Next Visit Focus/Plan Next Note Type Treatment Note Next Visit Plan Con't Counterstrain. Progress hamstring and LE strengthening , QL stretch, calf stretch, hook lying hip strengthening, pelvic floor draw in
--- NOTE | 2020-04-02 09:45 | PT.OTN ---
Current Diagnoses Strain of muscle, fascia and tendon of the posterior muscle group at thigh level, unspecified thigh, initial encounter (04/02/20) Physical Therapy Treatment Note PT-OP-A Visit Information Start: 02/28/20 14:37 Freq: Status: Active Protocol: Document 04/02/20 09:04 MB (Rec: 04/02/20 09:43 MB [id number]) Out-Patient Physical Therapy Visit Information Visit Information Visit Type Treatment Note Visit Note [place] Medicare Advantage, visit used for 2020 Visit Start Time 09:04 Visit Stop Time 09:45 Total Visit Minutes 41 Visit Number 8 PT-OP-B Current Condition Start: 02/28/20 14:37 Freq: Status: Active Protocol: Document 02/29/20 13:03 MB (Rec: 02/29/20 13:34 MB [id number]) Current Condition History of Current Condition Onset Date 08/01/2019 Current Complaints Pain with sitting in chair and driving in car History of Current Condition In August 2019, pt moved from [place] and unloaded a lot boxes and furniture. At that time, he had back pain and right hamstring pain. He saw this PT for right greater than left foot pain after injury earlier in the year. Of note, pt's speech is different this date that it was during previous PT course and pt states that he was found to have maxillary infection and he had several of his left teeth extracted and he wears a removable denture. He presents with facial assymmetry with smile and atrophy left masseter. He has some bruising there. Pt states that he got health care attorney after d/c from PT and they worked on his alignment but it did not help his symptoms. He has pain in his right hamstring with driving 30 minutes. Day to day walking and hiking are okay. Steep hiking is a problem. His foot pain is better and he does have point tenderness on the lateral side of his right foot with hiking. Orthopedic history: 4 left shoulder surgeries, 1 right shoulder surgery, two neck fusions, left ankle bone spur and possible small fx. 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 He has tried raising the seat up and down and using lumbar support and not using it. Pt denies numbness and tingling in his right foot and leg. He likes kayaking and has trouble with it. Prior Treatments and Tests MRI January 31, 2020 revealed moderate partial intrasubstance tearing of the hamstring tendon at its origin onto the right ischial tuberosity. No full-thickness tendon tear is seen. Treatment Goals Patient/Caregiver Goals He wants to be able to do a lot of driving for traveling now that he is retired. A short-term goal would be to drive for two hours without stopping. PT-OP-C Subjective Start: 02/28/20 14:37 Freq: Status: Active Protocol: Document 04/02/20 09:04 MB (Rec: 04/02/20 09:44 MB [id number]) OP-PT Subjective Patient Comments Patient Comments I felt really loose after the treatment! PT-OP-D Balance Start: 02/28/20 14:37 Freq: Status: Active Protocol: Document 02/29/20 13:03 MB (Rec: 02/29/20 16:25 MB [id number]) OP-PT Balance Assessment Sitting Balance Static Sitting Balance Ability Normal Dynamic Sitting Balance Ability Normal Standing Balance Static Standing Balance Ability Normal Dynamic Standing Balance Ability Normal Balance Tests Single Limb Standing Single Limb- Right 2 Single Limb- Left 15 Other Other Balance Tests Performed Pt reports right lateral foot pain with static standing for SLS and test stopped. Pt wearing socks and not shoes. Pain is over lateral superior cuboid on right foot. [place] Fall Scale Copyright Permission PT-OP-F Manual Assessment Start: 02/28/20 14:37 Freq: Status: Active Protocol: Document 02/29/20 13:03 MB (Rec: 02/29/20 16:25 MB [id number]) Manual Assessments Other Manual Assessments Other Manual Assessments Overall, right calf is smaller than the left. Pt's B proximal hamstrings do not feel too different to palpation and his only pain is at adductors on the right and more distal in location. Palpation in prone today. Increased tension left hip rotators compared to the right . PT-OP-G Mobility & Gait Start: 02/28/20 14:37 Freq: Status: Active Protocol: Document 02/29/20 13:03 MB (Rec: 02/29/20 16:25 MB [id number]) OP Gait Assessment Gait Gait Assistance Required: Independent Distance (Feet) 75 Able to Maintain Weight Bearing Status Yes During Gait Assistive Devices Assistive Device None Orthotic/Prosthetic Devices or Brace: No Comments Gait Comments Pt presents with B supinated feet, greater on the right. He presents with decreased overall right hip and knee flexion compared to the left as well as push off. The right foot is more rigid with gait. Left iliac crest is mildly higher than the right. PT-OP-J Posture/Palpation/Skin Start: 02/28/20 14:37 Freq: Status: Active Protocol: Document 02/29/20 13:03 MB (Rec: 02/29/20 16:25 MB [id number]) Posture Evaluation Comments Posture Comments See gait and manual comments above PT-OP-M Strength Start: 02/28/20 14:37 Freq: Status: Active Protocol: Document 02/29/20 13:03 MB (Rec: 02/29/20 16:25 MB [id number]) Hip Strength Hip Manual Muscle Testing Left Flexion (L2) 4 Good Extension (S1) 3+ Fair+ Abduction 4 Good Adduction 3 Fair Right Flexion (L2) 4 Good Extension (S1) 3+ Fair+ Abduction 4 Good Adduction 3 Fair Knee Strength Knee Manual Muscle Testing Left Flexion (S2) 4 Good Extension (L3) 5 Normal Right Flexion (S2) 3+ Fair+ Extension (L3) 5 Normal Ankle/Foot Strength Ankle and Foot Manual Muscle Testing Left Dorsiflexion (L4) 5 Normal Plantarflexion (S1) 5 Normal Inversion 5 Normal Eversion (S1) 5 Normal Comments Pt can perform over 30 heel raises with finger support on wall on left LE Right Dorsiflexion (L4) 5 Normal Plantarflexion (S1) 2 Poor Inversion 4 Good Eversion (S1) 3+ Fair+ Comments Pt cannot complete 2 reps heel raises with finger support on wall on right LE d/t reports of foot pain Toe Strength Toe Manual Muscle Testing Left Great Toe Extension 5 Normal Right Great Toe Extension 5 Normal PT-OP-Q Treatments Start: 02/28/20 14:37 Freq: Status: Active Protocol: Document 04/02/20 09:04 MB (Rec: 04/02/20 09:43 MB [id number]) Manual Therapy Treatment Other Other Manual Treatments Pt agrees to Counterstrain to assess and treat fascial tension and he presents with fascial tension in the following systems: lymphatic venous spinal medullary. PT treats stacks in this system. Self-Care/Home Management Treatment Education Other Education Sitting positioning in kayak to keep knees more bent and knees outward, working on stroke with paddle, keeping forward some off back, ed for NSR videos for kayaking PT-OP-T Assessment and Plan Start: 02/28/20 14:37 Freq: Status: Active Protocol: Document 04/02/20 09:04 MB (Rec: 04/02/20 09:43 MB [id number]) Physical Therapy Assessment Rehab Potential Rehabilitation Potential Good Evaluation Complexity Number of Personal Factors/Comorbidities 1-2 Number of Body Systems Impaired 1-2 Clinical Presentation at Evaluation Evolving Impairments Impairments Activity Tolerance,Balance, Gait,Pain,Posture,Soft Tissue Mobility,Strength Other Impairments Pt denies sensory changes. Personal factors include pain with driving. Goals 7 Retirement Goal (LTG) Pt will perform progressive HEP with I including flexibility, strengthening and balance exercises by 2020. 03/26/20: Pt is performing progressive HEP including: Abdominal core strengthening, hamstring and Jeremiah stretch, pelvic realignment exercises and hip rotator stretch. Mini bridge and mini bridge with leg up. LTG Duration 8 weeks 6 Retirement Goal (LTG) Pt will be able to drive at least 1 hour with reports of no more than 1/10 right hamstring pain by 04/30/2020. LTG Duration 8 weeks 5 Business Process Consultant Goal (LTG) Pt will gait train at least 1500 ft in 6 minutes to reflect improved pain and strength with increased gait distance by 04/30/2020. LTG Duration 8 weeks 4 Business Process Consultant Goal (LTG) Pt will present WNLs on FGA to reflect improved balance by . LTG Duration 8 weeks 3 Retirement Goal (LTG) Pt will present with B hip flexion, adduction, abduction and extension and B knee flexion strength to 5/5 to improve ambulation by 04/30/2020 . LTG Duration 8 weeks 2 Retirement Goal (LTG) Pt will perform unilateral heel raises on right leg at least 15 reps to reflect improved PF strength to help with walking by 04/30/2020. LTG Duration 8 weeks 1 Impairment LEF score reflects 30% impairment Business Process Consultant Goal (LTG) Pt will present with improved LE functional index score to reflect no more than 20% impairment to improve LE function and pain by 04/30/2020. LTG Duration 8 weeks Assessment Summary Assessment Pt responds well to Counterstrain and con't today. Ed pt on positioning for kayaking to help decrease hamstring tension. Ed pt on pelvic floor recruitment for kayaking and core strengthening. Physical Therapy Plan Frequency and Duration Frequency of Treatment 2x/Week Duration of Treatment 8 weeks Plan of Care Start Date 02/29/20 Plan of Care End Date 04/30/20 Therapeutic Interventions Therapeutic Interventions Balance Training,Canalithic Repositioning,Gait Training, Home Exercise Program,Joint Mobilizations,Manual Therapy, Neuromuscular Re-education, Patient/Caregiver Education, Self-Care/Home Management,Soft Tissue Mobilization,Taping, Therapeutic Activities, Therapeutic Exercises Modalities Cold Pack/Ice Massage,Electric Stimulation,Hot Packs, Ultrasound Next Visit Focus/Plan Next Note Type Treatment Note Next Visit Plan Con't Counterstrain. Progress hamstring and LE strengthening , QL stretch, calf stretch, hook lying hip strengthening, pelvic floor draw in
--- NOTE | 2020-04-05 09:47 | PT.OTN ---
Current Diagnoses Strain of muscle, fascia and tendon of the posterior muscle group at thigh level, unspecified thigh, initial encounter (04/05/20) Physical Therapy Treatment Note PT-OP-A Visit Information Start: 02/28/20 14:37 Freq: Status: Active Protocol: Document 04/05/20 09:03 MB (Rec: 04/05/20 09:46 MB [id number]) Out-Patient Physical Therapy Visit Information Visit Information Visit Type Progress Note Visit Note [employer], visit used for 2020 Visit Start Time 09:03 Visit Stop Time 09:45 Total Visit Minutes 42 Visit Number 9 PT-OP-B Current Condition Start: 02/28/20 14:37 Freq: Status: Active Protocol: Document 02/29/20 13:03 MB (Rec: 02/29/20 13:34 MB [id number]) Current Condition History of Current Condition Onset Date 08/01/2019 Current Complaints Pain with sitting in chair and driving in car History of Current Condition In August 2019, pt moved from [place] and unloaded a lot boxes and furniture. At that time, he had back pain and right hamstring pain. He saw this PT for right greater than left foot pain after injury earlier in the year. Of note, pt's speech is different this date that it was during previous PT course and pt states that he was found to have maxillary infection and he had several of his left teeth extracted and he wears a removable denture. He presents with facial assymmetry with smile and atrophy left masseter. He has some bruising there. Pt states that he got care aid after d/c from PT and they worked on his alignment but it did not help his symptoms. He has pain in his right hamstring with driving 30 minutes. Day to day walking and hiking are okay. Steep hiking is a problem. His foot pain is better and he does have point tenderness on the lateral side of his right foot with hiking. Orthopedic history: 4 left shoulder surgeries, 1 right shoulder surgery, two neck fusions, left ankle bone spur and possible small fx. 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 He has tried raising the seat up and down and using lumbar support and not using it. Pt denies numbness and tingling in his right foot and leg. He likes kayaking and has trouble with it. Prior Treatments and Tests MRI January 31, 2020 revealed moderate partial intrasubstance tearing of the hamstring tendon at its origin onto the right ischial tuberosity. No full-thickness tendon tear is seen. Treatment Goals Patient/Caregiver Goals He wants to be able to do a lot of driving for traveling now that he is retired. A short-term goal would be to drive for two hours without stopping. PT-OP-C Subjective Start: 02/28/20 14:37 Freq: Status: Active Protocol: Document 04/05/20 09:03 MB (Rec: 04/05/20 09:46 MB [id number]) OP-PT Subjective Patient Comments Patient Comments Pt has felt looser with the Counterstrain. He is planking each day. PT-OP-D Balance Start: 02/28/20 14:37 Freq: Status: Active Protocol: Document 02/29/20 13:03 MB (Rec: 02/29/20 16:25 MB [id number]) OP-PT Balance Assessment Sitting Balance Static Sitting Balance Ability Normal Dynamic Sitting Balance Ability Normal Standing Balance Static Standing Balance Ability Normal Dynamic Standing Balance Ability Normal Balance Tests Single Limb Standing Single Limb- Right 2 Single Limb- Left 15 Other Other Balance Tests Performed Pt reports right lateral foot pain with static standing for SLS and test stopped. Pt wearing socks and not shoes. Pain is over lateral superior cuboid on right foot. [place] Fall Scale Copyright Permission PT-OP-F Manual Assessment Start: 02/28/20 14:37 Freq: Status: Active Protocol: Document 02/29/20 13:03 MB (Rec: 02/29/20 16:25 MB [id number]) Manual Assessments Other Manual Assessments Other Manual Assessments Overall, right calf is smaller than the left. Pt's B proximal hamstrings do not feel too different to palpation and his only pain is at adductors on the right and more distal in location. Palpation in prone today. Increased tension left hip rotators compared to the right . PT-OP-G Mobility & Gait Start: 02/28/20 14:37 Freq: Status: Active Protocol: Document 02/29/20 13:03 MB (Rec: 02/29/20 16:25 MB [id number]) OP Gait Assessment Gait Gait Assistance Required: Independent Distance (Feet) 75 Able to Maintain Weight Bearing Status Yes During Gait Assistive Devices Assistive Device None Orthotic/Prosthetic Devices or Brace: No Comments Gait Comments Pt presents with B supinated feet, greater on the right. He presents with decreased overall right hip and knee flexion compared to the left as well as push off. The right foot is more rigid with gait. Left iliac crest is mildly higher than the right. PT-OP-J Posture/Palpation/Skin Start: 02/28/20 14:37 Freq: Status: Active Protocol: Document 02/29/20 13:03 MB (Rec: 02/29/20 16:25 MB [id number]) Posture Evaluation Comments Posture Comments See gait and manual comments above PT-OP-M Strength Start: 02/28/20 14:37 Freq: Status: Active Protocol: Document 02/29/20 13:03 MB (Rec: 02/29/20 16:25 MB [id number]) Hip Strength Hip Manual Muscle Testing Left Flexion (L2) 4 Good Extension (S1) 3+ Fair+ Abduction 4 Good Adduction 3 Fair Right Flexion (L2) 4 Good Extension (S1) 3+ Fair+ Abduction 4 Good Adduction 3 Fair Knee Strength Knee Manual Muscle Testing Left Flexion (S2) 4 Good Extension (L3) 5 Normal Right Flexion (S2) 3+ Fair+ Extension (L3) 5 Normal Ankle/Foot Strength Ankle and Foot Manual Muscle Testing Left Dorsiflexion (L4) 5 Normal Plantarflexion (S1) 5 Normal Inversion 5 Normal Eversion (S1) 5 Normal Comments Pt can perform over 30 heel raises with finger support on wall on left LE Right Dorsiflexion (L4) 5 Normal Plantarflexion (S1) 2 Poor Inversion 4 Good Eversion (S1) 3+ Fair+ Comments Pt cannot complete 2 reps heel raises with finger support on wall on right LE d/t reports of foot pain Toe Strength Toe Manual Muscle Testing Left Great Toe Extension 5 Normal Right Great Toe Extension 5 Normal PT-OP-Q Treatments Start: 02/28/20 14:37 Freq: Status: Active Protocol: Document 04/05/20 09:03 MB (Rec: 04/05/20 09:46 MB [id number]) Therapeutic Exercises Other Exercises Racquet ball massage Comments Standing glutes, sitting hamstrings and calves (MWM), plantar foot, LE to H Reviewed all HEP exercises Comments Reviewed HEP as part of progress note today Gait Training Gait Activity 6MWT Comments See 6MWT distance today, also performed FGA and pt has most trouble with tandem gait and will provide tandem gait and standing balance goal in the future. PT-OP-T Assessment and Plan Start: 02/28/20 14:37 Freq: Status: Active Protocol: Document 04/05/20 09:03 MB (Rec: 04/05/20 09:46 MB [id number]) Physical Therapy Assessment Rehab Potential Rehabilitation Potential Good Evaluation Complexity Number of Personal Factors/Comorbidities 1-2 Number of Body Systems Impaired 1-2 Clinical Presentation at Evaluation Evolving Impairments Impairments Activity Tolerance,Balance, Gait,Pain,Posture,Soft Tissue Mobility,Strength Other Impairments Pt denies sensory changes. Personal factors include pain with driving. Goals 8 Custodial Goal (LTG) Pt will kayak for 1 hour with no more than 1/10 right hamstring pain by 06/04/20. 04/05/20: Pt has not yet kayaked LTG Duration 8 weeks 7 Auto Mechanics Teacher Goal (LTG) Pt will perform progressive HEP with I including flexibility, strengthening and balance exercises by 06/04/2020 . 04/05/20: Pt is performing progressive HEP including: Abdominal core strengthening, hamstring and Jeremiah stretch, pelvic realignment exercises and hip rotator stretch. Mini bridge and mini bridge with leg up, planking, calf and hamstring STM and MWM LTG Duration 8 weeks 6 Custodial Goal (LTG) Pt will be able to drive at least 1 hour with reports of no more than 1/10 right hamstring pain by 04/30/2020. 04/05/20: Pt's driving is much better now that he scooted his seat forward LTG Duration Met 5 Auto Mechanics Teacher Goal (LTG) Pt will gait train at least 1500 ft in 6 minutes to reflect improved pain and strength with increased gait distance by 06/04/2020. 04/05/20: Pt gait trains 1484 feet in 6 minutes and reports mild right foot discomfort LTG Duration 8 weeks 4 Custodial Goal (LTG) Pt will present WNLs on FGA to reflect improved balance by . 04/05/20: FGA score is normal, has trouble with tandem. Goal will be for him to perform tandem as recorded on FGA normally LTG Duration 8 weeks 3 Custodial Goal (LTG) Pt will present with B hip flexion, adduction, abduction and extension and B knee flexion strength to 5/5 to improve ambulation by 06/04/2020 . 04/05/20: B hip flexion 5/5, left hip abduction and adduction 4/5, B hip extension 4/5, right hip abduction and adduction 5/5 LTG Duration 8 weeks 2 Custodial Goal (LTG) Pt will perform unilateral heel raises on right leg at least 15 reps to reflect improved PF strength to help with walking by 06/04/2020. 04/05/20: 10 reps, poor movement LTG Duration 8 weeks 1 Impairment LEF score reflects 30% impairment on eval Custodial Goal (LTG) Pt will present with improved LE functional index score to reflect no more than 20% impairment to improve LE function and pain by 06/04/2020. 04/05/20: LEF retest today score is inaccurate reflection of functional improvements d/t he scored squatting and other activities as very high on eval when he was actually not doing those tasks. Will d/c this goal. LTG Duration 8 weeks Progress Towards Goals Progress Towards Goals Progressing Toward Goals Assessment Summary Assessment Pt has met car riding goal since starting PT. LEF score is not accurate and so d/cd goal. Added kayaking goal. Pt has progressed towards all other PT goals including gait, balance, heel raises and strength. He will benefit from ongoing PT to improve improve balance, strength, flexibilty and pain. Barriers include multiple orthopedic issues. Physical Therapy Plan Frequency and Duration Frequency of Treatment 2x/Week Duration of Treatment 8 weeks Plan of Care Start Date 04/05/20 Plan of Care End Date 06/04/20 Therapeutic Interventions Therapeutic Interventions Balance Training,Canalithic Repositioning,Gait Training, Home Exercise Program,Joint Mobilizations,Manual Therapy, Neuromuscular Re-education, Patient/Caregiver Education, Self-Care/Home Management,Soft Tissue Mobilization,Taping, Therapeutic Activities, Therapeutic Exercises Modalities Cold Pack/Ice Massage,Electric Stimulation,Hot Packs, Ultrasound Next Visit Focus/Plan Next Note Type Treatment Note Next Visit Plan Con't Counterstrain. Progress hamstring and LE strengthening , QL stretch, calf stretch, hook lying hip strengthening, pelvic floor draw in
--- NOTE | 2020-04-05 09:47 | PT.OPPOC ---
Physical, Occupational & Speech Therapy At [facility] Current Diagnoses Strain of muscle, fascia and tendon of the posterior muscle group at thigh level, unspecified thigh, initial encounter (04/05/20) Visit Care Team Role Provider Type Saulo Elizalde DO Primary Care Provider Physician Specialty: Family Practice Address: [address] [place] [address], [id number] Email: [email or web address] Franc Garcia MD Attending Provider Non-Staff Referring Provider Specialty: Orthopedic Surgery Address: [address] [place] [address], [place], [address] Email: Plan Of Care PT-OP-T Assessment and Plan Start: 02/28/20 14:37 Freq: Status: Active Protocol: Document 04/05/20 09:03 MB (Rec: 04/05/20 09:46 MB [id number]) Physical Therapy Assessment Rehab Potential Rehabilitation Potential Good Evaluation Complexity Number of Personal Factors/Comorbidities 1-2 Number of Body Systems Impaired 1-2 Clinical Presentation at Evaluation Evolving Impairments Impairments Activity Tolerance,Balance, Gait,Pain,Posture,Soft Tissue Mobility,Strength Other Impairments Pt denies sensory changes. Personal factors include pain with driving. Goals 8 Fpc Goal (LTG) Pt will kayak for 1 hour with no more than 1/10 right hamstring pain by 06/04/20. 04/05/20: Pt has not yet kayaked LTG Duration 8 weeks 7 Fpc Goal (LTG) Pt will perform progressive HEP with I including flexibility, strengthening and balance exercises by 06/04/2020 . 04/05/20: Pt is performing progressive HEP including: Abdominal core strengthening, hamstring and Jeremiah stretch, pelvic realignment exercises and hip rotator stretch. Mini bridge and mini bridge with leg up, planking, calf and hamstring STM and MWM LTG Duration 8 weeks 6 Fpc Goal (LTG) Pt will be able to drive at least 1 hour with reports of no more than 1/10 right hamstring pain by 04/30/2020. 04/05/20: Pt's driving is much better now that he scooted his seat forward LTG Duration Met 5 Electronic Design Engineer Goal (LTG) Pt will gait train at least 1500 ft in 6 minutes to reflect improved pain and strength with increased gait distance by 06/04/2020. 04/05/20: Pt gait trains 1484 feet in 6 minutes and reports mild right foot discomfort LTG Duration 8 weeks 4 Electronic Design Engineer Goal (LTG) Pt will present WNLs on FGA to reflect improved balance by . 04/05/20: FGA score is normal, has trouble with tandem. Goal will be for him to perform tandem as recorded on FGA normally LTG Duration 8 weeks 3 Electronic Design Engineer Goal (LTG) Pt will present with B hip flexion, adduction, abduction and extension and B knee flexion strength to 5/5 to improve ambulation by 06/04/2020 . 04/05/20: B hip flexion 5/5, left hip abduction and adduction 4/5, B hip extension 4/5, right hip abduction and adduction 5/5 LTG Duration 8 weeks 2 Electronic Design Engineer Goal (LTG) Pt will perform unilateral heel raises on right leg at least 15 reps to reflect improved PF strength to help with walking by 06/04/2020. 04/05/20: 10 reps, poor movement LTG Duration 8 weeks 1 Impairment LEF score reflects 30% impairment on eval Fpc Goal (LTG) Pt will present with improved LE functional index score to reflect no more than 20% impairment to improve LE function and pain by 06/04/2020. 04/05/20: LEF retest today score is inaccurate reflection of functional improvements d/t he scored squatting and other activities as very high on eval when he was actually not doing those tasks. Will d/c this goal. LTG Duration 8 weeks Progress Towards Goals Progress Towards Goals Progressing Toward Goals Assessment Summary Assessment Pt has met car riding goal since starting PT. LEF score is not accurate and so d/cd goal. Added kayaking goal. Pt has progressed towards all other PT goals including gait, balance, heel raises and strength. He will benefit from ongoing PT to improve improve balance, strength, flexibilty and pain. Barriers include multiple orthopedic issues. Physical Therapy Plan Frequency and Duration Frequency of Treatment 2x/Week Duration of Treatment 8 weeks Plan of Care Start Date 04/05/20 Plan of Care End Date 06/04/20 Therapeutic Interventions Therapeutic Interventions Balance Training,Canalithic Repositioning,Gait Training, Home Exercise Program,Joint Mobilizations,Manual Therapy, Neuromuscular Re-education, Patient/Caregiver Education, Self-Care/Home Management,Soft Tissue Mobilization,Taping, Therapeutic Activities, Therapeutic Exercises Modalities Cold Pack/Ice Massage,Electric Stimulation,Hot Packs, Ultrasound Next Visit Focus/Plan Next Note Type Treatment Note Next Visit Plan Con't Counterstrain. Progress hamstring and LE strengthening , QL stretch, calf stretch, hook lying hip strengthening, pelvic floor draw in Plan of Care Dates Plan of Care Start Date 04/05/20 Plan of Care End Date 06/04/20 Electronically Signed by: Niyah Dailey, PT 04/05/20 [id number] Please Sign and Return: I have reviewed this Plan of Care and certify that the skilled therapy services above are required to meet the patient?s needs. Physician Signature Date Printed Name and Credentials Clinical Instructor Signature Printed Name and Credentials
--- NOTE | 2020-04-12 09:45 | PT.OTN ---
Current Diagnoses Strain of muscle, fascia and tendon of the posterior muscle group at thigh level, unspecified thigh, initial encounter (04/12/20) Physical Therapy Treatment Note PT-OP-A Visit Information Start: 02/28/20 14:37 Freq: Status: Active Protocol: Document 04/12/20 09:02 MB (Rec: 04/12/20 09:33 MB [id number]) Out-Patient Physical Therapy Visit Information Visit Information Visit Type Treatment Note Visit Note [employer] Advantage, visits used for 2020 Visit Start Time 09:02 Visit Stop Time 09:45 Total Visit Minutes 43 Visit Number 10 PT-OP-B Current Condition Start: 02/28/20 14:37 Freq: Status: Active Protocol: Document 02/29/20 13:03 MB (Rec: 02/29/20 13:34 MB [id number]) Current Condition History of Current Condition Onset Date 08/01/2019 Current Complaints Pain with sitting in chair and driving in car History of Current Condition In August 2019, pt moved from [place] and unloaded a lot boxes and furniture. At that time, he had back pain and right hamstring pain. He saw this PT for right greater than left foot pain after injury earlier in the year. Of note, pt's speech is different this date that it was during previous PT course and pt states that he was found to have maxillary infection and he had several of his left teeth extracted and he wears a removable denture. He presents with facial assymmetry with smile and atrophy left masseter. He has some bruising there. Pt states that he got career technical education instructor after d/c from PT and they worked on his alignment but it did not help his symptoms. He has pain in his right hamstring with driving 30 minutes. Day to day walking and hiking are okay. Steep hiking is a problem. His foot pain is better and he does have point tenderness on the lateral side of his right foot with hiking. Orthopedic history: 4 left shoulder surgeries, 1 right shoulder surgery, two neck fusions, left ankle bone spur and possible small fx. 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 He has tried raising the seat up and down and using lumbar support and not using it. Pt denies numbness and tingling in his right foot and leg. He likes kayaking and has trouble with it. Prior Treatments and Tests MRI January 31, 2020 revealed moderate partial intrasubstance tearing of the hamstring tendon at its origin onto the right ischial tuberosity. No full-thickness tendon tear is seen. Treatment Goals Patient/Caregiver Goals He wants to be able to do a lot of driving for traveling now that he is retired. A short-term goal would be to drive for two hours without stopping. PT-OP-C Subjective Start: 02/28/20 14:37 Freq: Status: Active Protocol: Document 04/12/20 09:02 MB (Rec: 04/12/20 09:33 MB [id number]) OP-PT Subjective Patient Comments Patient Comments Pt had a good birthday weekend . He is feeling good. PT-OP-D Balance Start: 02/28/20 14:37 Freq: Status: Active Protocol: Document 02/29/20 13:03 MB (Rec: 02/29/20 16:25 MB [id number]) OP-PT Balance Assessment Sitting Balance Static Sitting Balance Ability Normal Dynamic Sitting Balance Ability Normal Standing Balance Static Standing Balance Ability Normal Dynamic Standing Balance Ability Normal Balance Tests Single Limb Standing Single Limb- Right 2 Single Limb- Left 15 Other Other Balance Tests Performed Pt reports right lateral foot pain with static standing for SLS and test stopped. Pt wearing socks and not shoes. Pain is over lateral superior cuboid on right foot. [place] Fall Scale Copyright Permission PT-OP-F Manual Assessment Start: 02/28/20 14:37 Freq: Status: Active Protocol: Document 02/29/20 13:03 MB (Rec: 02/29/20 16:25 MB [id number]) Manual Assessments Other Manual Assessments Other Manual Assessments Overall, right calf is smaller than the left. Pt's B proximal hamstrings do not feel too different to palpation and his only pain is at adductors on the right and more distal in location. Palpation in prone today. Increased tension left hip rotators compared to the right . PT-OP-G Mobility & Gait Start: 02/28/20 14:37 Freq: Status: Active Protocol: Document 02/29/20 13:03 MB (Rec: 02/29/20 16:25 MB [id number]) OP Gait Assessment Gait Gait Assistance Required: Independent Distance (Feet) 75 Able to Maintain Weight Bearing Status Yes During Gait Assistive Devices Assistive Device None Orthotic/Prosthetic Devices or Brace: No Comments Gait Comments Pt presents with B supinated feet, greater on the right. He presents with decreased overall right hip and knee flexion compared to the left as well as push off. The right foot is more rigid with gait. Left iliac crest is mildly higher than the right. PT-OP-J Posture/Palpation/Skin Start: 02/28/20 14:37 Freq: Status: Active Protocol: Document 02/29/20 13:03 MB (Rec: 02/29/20 16:25 MB [id number]) Posture Evaluation Comments Posture Comments See gait and manual comments above PT-OP-M Strength Start: 02/28/20 14:37 Freq: Status: Active Protocol: Document 02/29/20 13:03 MB (Rec: 02/29/20 16:25 MB [id number]) Hip Strength Hip Manual Muscle Testing Left Flexion (L2) 4 Good Extension (S1) 3+ Fair+ Abduction 4 Good Adduction 3 Fair Right Flexion (L2) 4 Good Extension (S1) 3+ Fair+ Abduction 4 Good Adduction 3 Fair Knee Strength Knee Manual Muscle Testing Left Flexion (S2) 4 Good Extension (L3) 5 Normal Right Flexion (S2) 3+ Fair+ Extension (L3) 5 Normal Ankle/Foot Strength Ankle and Foot Manual Muscle Testing Left Dorsiflexion (L4) 5 Normal Plantarflexion (S1) 5 Normal Inversion 5 Normal Eversion (S1) 5 Normal Comments Pt can perform over 30 heel raises with finger support on wall on left LE Right Dorsiflexion (L4) 5 Normal Plantarflexion (S1) 2 Poor Inversion 4 Good Eversion (S1) 3+ Fair+ Comments Pt cannot complete 2 reps heel raises with finger support on wall on right LE d/t reports of foot pain Toe Strength Toe Manual Muscle Testing Left Great Toe Extension 5 Normal Right Great Toe Extension 5 Normal PT-OP-Q Treatments Start: 02/28/20 14:37 Freq: Status: Active Protocol: Document 04/12/20 09:02 MB (Rec: 04/12/20 09:33 MB [id number]) Therapeutic Exercises Sitting Exercises Hamstring curls with band Comments Level 1 band around ankles, 10 reps alternating Thoracic rotation Comments B and rib breathing end-range B Standing Exercises Wall squat Comments Level 1 band around knees and slow flexion and extension Calf stretching gastroc and soleus Comments B 30 sec hold each stretch, more stretch with leg straight Manual Therapy Treatment Other Other Manual Treatments Pt supine: STM and positional release B quads, hip flexors, TFL, glute min and med, hamstrings PT-OP-T Assessment and Plan Start: 02/28/20 14:37 Freq: Status: Active Protocol: Document 04/12/20 09:02 MB (Rec: 04/12/20 09:33 MB [id number]) Physical Therapy Assessment Rehab Potential Rehabilitation Potential Good Evaluation Complexity Number of Personal Factors/Comorbidities 1-2 Number of Body Systems Impaired 1-2 Clinical Presentation at Evaluation Evolving Impairments Impairments Activity Tolerance,Balance, Gait,Pain,Posture,Soft Tissue Mobility,Strength Other Impairments Pt denies sensory changes. Personal factors include pain with driving. Goals 8 [facility] Goal (LTG) Pt will kayak for 1 hour with no more than 1/10 right hamstring pain by 06/04/20. 04/05/20: Pt has not yet kayaked LTG Duration 8 weeks 7 [facility] Goal (LTG) Pt will perform progressive HEP with I including flexibility, strengthening and balance exercises by 06/04/2020 . 04/05/20: Pt is performing progressive HEP including: Abdominal core strengthening, hamstring and Jeremiah stretch, pelvic realignment exercises and hip rotator stretch. Mini bridge and mini bridge with leg up, planking, calf and hamstring STM and MWM LTG Duration 8 weeks 6 [employer] Goal (LTG) Pt will be able to drive at least 1 hour with reports of no more than 1/10 right hamstring pain by 04/30/2020. 04/05/20: Pt's driving is much better now that he scooted his seat forward LTG Duration Met 5 [facility] Goal (LTG) Pt will gait train at least 1500 ft in 6 minutes to reflect improved pain and strength with increased gait distance by 06/04/2020. 04/05/20: Pt gait trains 1484 feet in 6 minutes and reports mild right foot discomfort LTG Duration 8 weeks 4 [facility] Goal (LTG) Pt will present WNLs on FGA to reflect improved balance by . 04/05/20: FGA score is normal, has trouble with tandem. Goal will be for him to perform tandem as recorded on FGA normally LTG Duration 8 weeks 3 [facility] Goal (LTG) Pt will present with B hip flexion, adduction, abduction and extension and B knee flexion strength to 5/5 to improve ambulation by 06/04/2020 . 04/05/20: B hip flexion 5/5, left hip abduction and adduction 4/5, B hip extension 4/5, right hip abduction and adduction 5/5 LTG Duration 8 weeks 2 [facility] Goal (LTG) Pt will perform unilateral heel raises on right leg at least 15 reps to reflect improved PF strength to help with walking by 06/04/2020. 04/05/20: 10 reps, poor movement LTG Duration 8 weeks Assessment Summary Assessment Progressed strengthening today . Anticipate d/c in two more treatments, one more manual treatment and then prepare d/c . Physical Therapy Plan Frequency and Duration Frequency of Treatment 2x/Week Duration of Treatment 8 weeks Plan of Care Start Date 04/05/20 Plan of Care End Date 06/04/20 Therapeutic Interventions Therapeutic Interventions Balance Training,Canalithic Repositioning,Gait Training, Home Exercise Program,Joint Mobilizations,Manual Therapy, Neuromuscular Re-education, Patient/Caregiver Education, Self-Care/Home Management,Soft Tissue Mobilization,Taping, Therapeutic Activities, Therapeutic Exercises Modalities Cold Pack/Ice Massage,Electric Stimulation,Hot Packs, Ultrasound Next Visit Focus/Plan Next Note Type Treatment Note Next Visit Plan One more Counterstrain treatment and then prepare for d/c
--- NOTE | 2020-04-16 09:45 | PT.OTN ---
Current Diagnoses Strain of muscle, fascia and tendon of the posterior muscle group at thigh level, unspecified thigh, initial encounter (04/16/20) Physical Therapy Treatment Note PT-OP-A Visit Information Start: 02/28/20 14:37 Freq: Status: Active Protocol: Document 04/16/20 08:58 MB (Rec: 04/16/20 09:45 MB [id number]) Out-Patient Physical Therapy Visit Information Visit Information Visit Type Treatment Note Visit Note [employer] Advantage, used for 2020 Visit Start Time 08:58 Visit Stop Time 09:43 Total Visit Minutes 45 Visit Number 11 PT-OP-B Current Condition Start: 02/28/20 14:37 Freq: Status: Active Protocol: Document 02/29/20 13:03 MB (Rec: 02/29/20 13:34 MB [id number]) Current Condition History of Current Condition Onset Date 08/01/2019 Current Complaints Pain with sitting in chair and driving in car History of Current Condition In August 2019, pt moved from [place] and unloaded a lot boxes and furniture. At that time, he had back pain and right hamstring pain. He saw this PT for right greater than left foot pain after injury earlier in the year. Of note, pt's speech is different this date that it was during previous PT course and pt states that he was found to have maxillary infection and he had several of his left teeth extracted and he wears a removable denture. He presents with facial assymmetry with smile and atrophy left masseter. He has some bruising there. Pt states that he got rn progressive care unit after d/c from PT and they worked on his alignment but it did not help his symptoms. He has pain in his right hamstring with driving 30 minutes. Day to day walking and hiking are okay. Steep hiking is a problem. His foot pain is better and he does have point tenderness on the lateral side of his right foot with hiking. Orthopedic history: 4 left shoulder surgeries, 1 right shoulder surgery, two neck fusions, left ankle bone spur and possible small fx. 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 He has tried raising the seat up and down and using lumbar support and not using it. Pt denies numbness and tingling in his right foot and leg. He likes kayaking and has trouble with it. Prior Treatments and Tests MRI January 31, 2020 revealed moderate partial intrasubstance tearing of the hamstring tendon at its origin onto the right ischial tuberosity. No full-thickness tendon tear is seen. Treatment Goals Patient/Caregiver Goals He wants to be able to do a lot of driving for traveling now that he is retired. A short-term goal would be to drive for two hours without stopping. PT-OP-C Subjective Start: 02/28/20 14:37 Freq: Status: Active Protocol: Document 04/16/20 08:58 MB (Rec: 04/16/20 09:45 MB [id number]) OP-PT Subjective Patient Comments Patient Comments I did a lot of snow shoveling . Pt states that his hamstring and foot feel fine but his back is bothering him PT-OP-D Balance Start: 02/28/20 14:37 Freq: Status: Active Protocol: Document 02/29/20 13:03 MB (Rec: 02/29/20 16:25 MB [id number]) OP-PT Balance Assessment Sitting Balance Static Sitting Balance Ability Normal Dynamic Sitting Balance Ability Normal Standing Balance Static Standing Balance Ability Normal Dynamic Standing Balance Ability Normal Balance Tests Single Limb Standing Single Limb- Right 2 Single Limb- Left 15 Other Other Balance Tests Performed Pt reports right lateral foot pain with static standing for SLS and test stopped. Pt wearing socks and not shoes. Pain is over lateral superior cuboid on right foot. [place] Fall Scale Copyright Permission PT-OP-F Manual Assessment Start: 02/28/20 14:37 Freq: Status: Active Protocol: Document 02/29/20 13:03 MB (Rec: 02/29/20 16:25 MB [id number]) Manual Assessments Other Manual Assessments Other Manual Assessments Overall, right calf is smaller than the left. Pt's B proximal hamstrings do not feel too different to palpation and his only pain is at adductors on the right and more distal in location. Palpation in prone today. Increased tension left hip rotators compared to the right . PT-OP-G Mobility & Gait Start: 02/28/20 14:37 Freq: Status: Active Protocol: Document 02/29/20 13:03 MB (Rec: 02/29/20 16:25 MB [id number]) OP Gait Assessment Gait Gait Assistance Required: Independent Distance (Feet) 75 Able to Maintain Weight Bearing Status Yes During Gait Assistive Devices Assistive Device None Orthotic/Prosthetic Devices or Brace: No Comments Gait Comments Pt presents with B supinated feet, greater on the right. He presents with decreased overall right hip and knee flexion compared to the left as well as push off. The right foot is more rigid with gait. Left iliac crest is mildly higher than the right. PT-OP-J Posture/Palpation/Skin Start: 02/28/20 14:37 Freq: Status: Active Protocol: Document 02/29/20 13:03 MB (Rec: 02/29/20 16:25 MB [id number]) Posture Evaluation Comments Posture Comments See gait and manual comments above PT-OP-M Strength Start: 02/28/20 14:37 Freq: Status: Active Protocol: Document 02/29/20 13:03 MB (Rec: 02/29/20 16:25 MB [id number]) Hip Strength Hip Manual Muscle Testing Left Flexion (L2) 4 Good Extension (S1) 3+ Fair+ Abduction 4 Good Adduction 3 Fair Right Flexion (L2) 4 Good Extension (S1) 3+ Fair+ Abduction 4 Good Adduction 3 Fair Knee Strength Knee Manual Muscle Testing Left Flexion (S2) 4 Good Extension (L3) 5 Normal Right Flexion (S2) 3+ Fair+ Extension (L3) 5 Normal Ankle/Foot Strength Ankle and Foot Manual Muscle Testing Left Dorsiflexion (L4) 5 Normal Plantarflexion (S1) 5 Normal Inversion 5 Normal Eversion (S1) 5 Normal Comments Pt can perform over 30 heel raises with finger support on wall on left LE Right Dorsiflexion (L4) 5 Normal Plantarflexion (S1) 2 Poor Inversion 4 Good Eversion (S1) 3+ Fair+ Comments Pt cannot complete 2 reps heel raises with finger support on wall on right LE d/t reports of foot pain Toe Strength Toe Manual Muscle Testing Left Great Toe Extension 5 Normal Right Great Toe Extension 5 Normal PT-OP-Q Treatments Start: 02/28/20 14:37 Freq: Status: Active Protocol: Document 04/16/20 08:58 MB (Rec: 04/16/20 09:45 MB [id number]) Manual Therapy Treatment Other Other Manual Treatments Pt agrees to Counterstrain to assess and treat fascial tension and pt presents with tension in the following systems: left dura, right standard row LV, DPR. PT treats stacks in the following systems: dura and standard lymphatic row and pt responds well to treatment. PT-OP-T Assessment and Plan Start: 02/28/20 14:37 Freq: Status: Active Protocol: Document 04/16/20 08:58 MB (Rec: 04/16/20 09:45 MB [id number]) Physical Therapy Assessment Rehab Potential Rehabilitation Potential Good Evaluation Complexity Number of Personal Factors/Comorbidities 1-2 Number of Body Systems Impaired 1-2 Clinical Presentation at Evaluation Evolving Impairments Impairments Activity Tolerance,Balance, Gait,Pain,Posture,Soft Tissue Mobility,Strength Other Impairments Pt denies sensory changes. Personal factors include pain with driving. Goals 8 Blood Tester Fowl Goal (LTG) Pt will kayak for 1 hour with no more than 1/10 right hamstring pain by 06/04/20. 04/05/20: Pt has not yet kayaked LTG Duration 8 weeks 7 Blood Tester Fowl Goal (LTG) Pt will perform progressive HEP with I including flexibility, strengthening and balance exercises by 06/04/2020 . 04/05/20: Pt is performing progressive HEP including: Abdominal core strengthening, hamstring and Jeremiah stretch, pelvic realignment exercises and hip rotator stretch. Mini bridge and mini bridge with leg up, planking, calf and hamstring STM and MWM LTG Duration 8 weeks 6 [facility] Goal (LTG) Pt will be able to drive at least 1 hour with reports of no more than 1/10 right hamstring pain by 04/30/2020. 04/05/20: Pt's driving is much better now that he scooted his seat forward LTG Duration Met 5 [employer] Tester Fowl Goal (LTG) Pt will gait train at least 1500 ft in 6 minutes to reflect improved pain and strength with increased gait distance by 06/04/2020. 04/05/20: Pt gait trains 1484 feet in 6 minutes and reports mild right foot discomfort LTG Duration 8 weeks 4 [employer] Tester Fowl Goal (LTG) Pt will present WNLs on FGA to reflect improved balance by . 04/05/20: FGA score is normal, has trouble with tandem. Goal will be for him to perform tandem as recorded on FGA normally LTG Duration 8 weeks 3 [facility] Goal (LTG) Pt will present with B hip flexion, adduction, abduction and extension and B knee flexion strength to 5 to improve ambulation by 06/04/2020 . 04/05/20: B hip flexion 5/5, left hip abduction and adduction 4/5, B hip extension 4/5, right hip abduction and adduction 5/5 LTG Duration 8 weeks 2 [employer] Tester Fowl Goal (LTG) Pt will perform unilateral heel raises on right leg at least 15 reps to reflect improved PF strength to help with walking by 06/04/2020. 04/05/20: 10 reps, poor movement LTG Duration 8 weeks Assessment Summary Assessment Pt responds well to Counterstrain for fascial tension. Anticipate d/c next treatment date. Physical Therapy Plan Frequency and Duration Frequency of Treatment 2x/Week Duration of Treatment 8 weeks Plan of Care Start Date 04/05/20 Plan of Care End Date 06/04/20 Therapeutic Interventions Therapeutic Interventions Balance Training,Canalithic Repositioning,Gait Training, Home Exercise Program,Joint Mobilizations,Manual Therapy, Neuromuscular Re-education, Patient/Caregiver Education, Self-Care/Home Management,Soft Tissue Mobilization,Taping, Therapeutic Activities, Therapeutic Exercises Modalities Cold Pack/Ice Massage,Electric Stimulation,Hot Packs, Ultrasound Next Visit Focus/Plan Next Note Type Discharge Summary
--- NOTE | 2020-04-19 10:32 | PT.OTN ---
Current Diagnoses Strain of muscle, fascia and tendon of the posterior muscle group at thigh level, unspecified thigh, initial encounter (04/19/20) Physical Therapy Treatment Note PT-OP-A Visit Information Start: 02/28/20 14:37 Freq: Status: Active Protocol: Document 04/19/20 09:04 MB (Rec: 04/19/20 09:29 MB [id number]) Out-Patient Physical Therapy Visit Information Visit Information Visit Type Treatment Note Visit Note [employer]age used for 2020 Visit Start Time 09:04 Visit Stop Time 09:45 Total Visit Minutes 41 Visit Number 12 PT-OP-B Current Condition Start: 02/28/20 14:37 Freq: Status: Active Protocol: Document 02/29/20 13:03 MB (Rec: 02/29/20 13:34 MB [id number]) Current Condition History of Current Condition Onset Date 08/01/2019 Current Complaints Pain with sitting in chair and driving in car History of Current Condition In August 2019, pt moved from [place] and unloaded a lot boxes and furniture. At that time, he had back pain and right hamstring pain. He saw this PT for right greater than left foot pain after injury earlier in the year. Of note, pt's speech is different this date that it was during previous PT course and pt states that he was found to have maxillary infection and he had several of his left teeth extracted and he wears a removable denture. He presents with facial assymmetry with smile and atrophy left masseter. He has some bruising there. Pt states that he got rn long term care after d/c from PT and they worked on his alignment but it did not help his symptoms. He has pain in his right hamstring with driving 30 minutes. Day to day walking and hiking are okay. Steep hiking is a problem. His foot pain is better and he does have point tenderness on the lateral side of his right foot with hiking. Orthopedic history: 4 left shoulder surgeries, 1 right shoulder surgery, two neck fusions, left ankle bone spur and possible small fx. 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 He has tried raising the seat up and down and using lumbar support and not using it. Pt denies numbness and tingling in his right foot and leg. He likes kayaking and has trouble with it. Prior Treatments and Tests MRI January 31, 2020 revealed moderate partial intrasubstance tearing of the hamstring tendon at its origin onto the right ischial tuberosity. No full-thickness tendon tear is seen. Treatment Goals Patient/Caregiver Goals He wants to be able to do a lot of driving for traveling now that he is retired. A short-term goal would be to drive for two hours without stopping. PT-OP-C Subjective Start: 02/28/20 14:37 Freq: Status: Active Protocol: Document 04/19/20 09:04 MB (Rec: 04/19/20 09:29 MB [id number]) OP-PT Subjective Patient Comments Patient Comments My hamstring is feeling good. PT-OP-D Balance Start: 02/28/20 14:37 Freq: Status: Active Protocol: Document 02/29/20 13:03 MB (Rec: 02/29/20 16:25 MB [id number]) OP-PT Balance Assessment Sitting Balance Static Sitting Balance Ability Normal Dynamic Sitting Balance Ability Normal Standing Balance Static Standing Balance Ability Normal Dynamic Standing Balance Ability Normal Balance Tests Single Limb Standing Single Limb- Right 2 Single Limb- Left 15 Other Other Balance Tests Performed Pt reports right lateral foot pain with static standing for SLS and test stopped. Pt wearing socks and not shoes. Pain is over lateral superior cuboid on right foot. [place] Fall Scale Copyright Permission PT-OP-F Manual Assessment Start: 02/28/20 14:37 Freq: Status: Active Protocol: Document 02/29/20 13:03 MB (Rec: 02/29/20 16:25 MB [id number]) Manual Assessments Other Manual Assessments Other Manual Assessments Overall, right calf is smaller than the left. Pt's B proximal hamstrings do not feel too different to palpation and his only pain is at adductors on the right and more distal in location. Palpation in prone today. Increased tension left hip rotators compared to the right . PT-OP-G Mobility & Gait Start: 02/28/20 14:37 Freq: Status: Active Protocol: Document 02/29/20 13:03 MB (Rec: 02/29/20 16:25 MB [id number]) OP Gait Assessment Gait Gait Assistance Required: Independent Distance (Feet) 75 Able to Maintain Weight Bearing Status Yes During Gait Assistive Devices Assistive Device None Orthotic/Prosthetic Devices or Brace: No Comments Gait Comments Pt presents with B supinated feet, greater on the right. He presents with decreased overall right hip and knee flexion compared to the left as well as push off. The right foot is more rigid with gait. Left iliac crest is mildly higher than the right. PT-OP-J Posture/Palpation/Skin Start: 02/28/20 14:37 Freq: Status: Active Protocol: Document 02/29/20 13:03 MB (Rec: 02/29/20 16:25 MB [id number]) Posture Evaluation Comments Posture Comments See gait and manual comments above PT-OP-M Strength Start: 02/28/20 14:37 Freq: Status: Active Protocol: Document 02/29/20 13:03 MB (Rec: 02/29/20 16:25 MB [id number]) Hip Strength Hip Manual Muscle Testing Left Flexion (L2) 4 Good Extension (S1) 3+ Fair+ Abduction 4 Good Adduction 3 Fair Right Flexion (L2) 4 Good Extension (S1) 3+ Fair+ Abduction 4 Good Adduction 3 Fair Knee Strength Knee Manual Muscle Testing Left Flexion (S2) 4 Good Extension (L3) 5 Normal Right Flexion (S2) 3+ Fair+ Extension (L3) 5 Normal Ankle/Foot Strength Ankle and Foot Manual Muscle Testing Left Dorsiflexion (L4) 5 Normal Plantarflexion (S1) 5 Normal Inversion 5 Normal Eversion (S1) 5 Normal Comments Pt can perform over 30 heel raises with finger support on wall on left LE Right Dorsiflexion (L4) 5 Normal Plantarflexion (S1) 2 Poor Inversion 4 Good Eversion (S1) 3+ Fair+ Comments Pt cannot complete 2 reps heel raises with finger support on wall on right LE d/t reports of foot pain Toe Strength Toe Manual Muscle Testing Left Great Toe Extension 5 Normal Right Great Toe Extension 5 Normal PT-OP-Q Treatments Start: 02/28/20 14:37 Freq: Status: Active Protocol: Document 04/19/20 09:04 MB (Rec: 04/19/20 10:27 MB [id number]) Therapeutic Exercises Other Exercises Reviewed all HEP exercises Comments Performed today in preparation for d/c Gait Training Gait Activity 6MWT Comments Pt gait trains 1607 feet in 6 minutes today with mild discomfort in right foot and gait throughout treatment with mild favoring of right foot Manual Therapy Treatment Other Other Manual Treatments Counterstrain to assess and treat fascial tension and pt presents with tension in the following systems: standard LV and spinal vein extension rows. PT treats stacks in these systems. PT-OP-T Assessment and Plan Start: 02/28/20 14:37 Freq: Status: Active Protocol: Document 04/19/20 09:04 MB (Rec: 04/19/20 09:29 MB [id number]) Physical Therapy Assessment Rehab Potential Rehabilitation Potential Good Evaluation Complexity Number of Personal Factors/Comorbidities 1-2 Number of Body Systems Impaired 1-2 Clinical Presentation at Evaluation Evolving Impairments Impairments Activity Tolerance,Balance, Gait,Pain,Posture,Soft Tissue Mobility,Strength Other Impairments Pt denies sensory changes. Personal factors include pain with driving. Goals 8 Fpc Goal (LTG) Pt will kayak for 1 hour with no more than 1/10 right hamstring pain by 06/04/20. 04/19/20: Pt has not yet kayaked LTG Duration Not yet tried 7 Fpc Goal (LTG) Pt will perform progressive HEP with I including flexibility, strengthening and balance exercises by 06/04/2020 . 04/19/20: Pt is performing progressive HEP including: Abdominal core strengthening, hamstring and Jeremiah stretch, pelvic realignment exercises and hip rotator stretch and calf stretch standing and wall squat. Mini bridge and mini bridge with leg up, planking, calf and hamstring STM and MWM . LTG Duration Met 6 Fpc Goal (LTG) Pt will be able to drive at least 1 hour with reports of no more than 1/10 right hamstring pain by 04/30/2020. 04/19/20: Goal met LTG Duration Met 5 Overhead Crane Operator Goal (LTG) Pt will gait train at least 1500 ft in 6 minutes to reflect improved pain and strength with increased gait distance by 06/04/2020. 04/19/20: Pt gait trains 1607 feet in 6 minutes and reports mild right foot discomfort LTG Duration Surpassed goal 4 Fpc Goal (LTG) Pt will present WNLs on FGA to reflect improved balance by . 04/19/20: FGA score is normal, has trouble with tandem. Goal will be for him to perform tandem as recorded on FGA normally LTG Duration Met 3 Fpc Goal (LTG) Pt will present with B hip flexion, adduction, abduction and extension and B knee flexion strength to 5/5 to improve ambulation by 06/04/2020 . 04/19/20: B hip flexion 5/5, left hip abduction and adduction 4/5, B hip extension 4/5, right hip abduction and adduction 5/5 LTG Duration Progressed 2 Overhead Crane Operator Goal (LTG) Pt will perform unilateral heel raises on right leg at least 15 reps to reflect improved PF strength to help with walking by 06/04/2020. 04/19/20: Not performed today d /t ongoing pain in outside of right foot LTG Duration Not progressed Assessment Summary Assessment Pt has met HEP, gait and driving goals since starting PT. He has not yet kayaked. He has progressed towards balance and strengthening goals. He has maximized PT potential and his hamstring treatment has been challenged by orthopedic issues in his spine and right greater than left foot. Will d/c PT. He will con't with HEP and follow -up with anthropometrist.
== END 2020-04-27 09:19 | disposition home or self-care (01) ==
LOC: PHYS 09:00
PROVIDERS: PCP Family Medicine; Referring Provider Orthopaedic Surgery; Visit Provider Orthopaedic Surgery
DX: S76.319A Strain of muscle, fascia and tendon of the posterior muscle group at thigh level, unspecified thigh, initial encounter (principal)
CPT/HCPCS: 97110; 97116; 97140; 97161; 97535

== ENCOUNTER → 2020-07-26 08:14 | Outpatient (CLI) | payer MEDICARE, SELFPAY ==
[2020-07-26 09:32] LABS: Alanine Aminotransferase 23 IU/L (<50); Albumin 3.9 g/dL (3.5-5.0); Albumin Globulin Ratio 1.6 (1.0-2.8); Alkaline Phosphatase 58 U/L (38-126); Aspartate Aminotransferase 26 IU/L (17-59); BUN Creatinine Ratio 15.7 (6-22); Bilirubin Total 0.6 mg/dL (0.2-1.3); Blood Urea Nitrogen 17 mg/dL (9-20); Calcium 9.1 mg/dL (8.4-10.2); Carbon Dioxide 28 mmol/L (22-32); Chloride 106 mmol/L (98-107); Cholesterol 129 mg/dL (140-199); Estimated Glomerular Filt Rate > 60.0 mL/min (>60); Globulin 2.4 g/dL (1.7-4.1); Glucose 96 mg/dL (80-110); HDL Cholesterol 44 mg/dL (40-60); HEMOLYSIS < 15 (0-50); LDL Cholesterol Calculated 71 mg/dL (<100); Potassium 4.6 mmol/L (3.4-5.1); Sodium 138 mmol/L (137-145); Total Protein 6.3 g/dL (6.3-8.2); Triglycerides 70 mg/dL (35-150)
== END ==
PROVIDERS: PCP Family Medicine; Referring Provider Family Medicine; Visit Provider Family Medicine
DX: E78.5 Hyperlipidemia, unspecified (principal)
CPT/HCPCS: 36415; 80053; 80061

== ENCOUNTER 2020-08-18 19:10 | Emergency (ER) | payer MEDICARE, SELFPAY ==
[2020-08-18 19:16] VITALS: BP 141/80; PULSE 73; RESP 20; TEMP 36.4; O2SAT 99; BMI 26.6
--- NOTE | 2020-08-18 20:08 | ED_ITS ---
HPI - Headache General Chief Complaint: Headache Stated Complaint: Seizure Time Seen by Provider: 08/18/20 19:33 Mode of arrival: Family Vehicle Limitations: no limitations History of Present Illness HPI Narrative: patient is a 65-year-old male with history of hypertension hyperlipidemia presenting with shaking episode. was concerned it may have been a seizure but it resolved with orange juice. He had been outside working in the hot yd for about 2 hours at came inside to order beat up but then started shaking uncontrolled. He was awake alert the whole time he sat down and his gave him orange juice and stopped immediately. He says he did not eat a lot or drink enough fluid throughout the day. He had a bear claw for breakfast and half a subway sandwich at lunch and then when out to the ER. He now feels fine. He denies any chest pain shortness of breath is fever sweats or chills. No prior history of hypoglycemic episodes no history of seizures Related Data Previous Rx's Medication Instructions Recorded atorvastatin 20 mg tablet 20 mg PO BEDTIME #90 tab 11/25/19 trazodone 50 mg tablet 50 mg PO BEDTIME #30 tab 11/25/19 naproxen 500 mg tablet 500 mg PO BID #180 tab 01/25/20 zolpidem 10 mg tablet 10 mg PO BEDTIME PRN #30 tab 06/18/20 sildenafil (pulm.hypertension) 20 60 mg PO DAILY PRN #60 tab 08/02/20 mg tablet Allergies Allergy/AdvReac Type Severity Reaction Status Date / Time metronidazole [From Flagyl] Allergy Nauseated, Verified 08/18/20 19:16 extreme metal taste in mouth Review of Systems Review of Systems ROS Unobtainable: All systems reviewed & are unremarkable except as noted in HPI and below Constitutional Constitutional: Denies chills, Denies fever(s), Denies lethargy and Denies weakness Cardiovascular Cardiovascular: Denies dyspnea and Denies dyspnea on exertion Respiratory Respiratory: Denies cough, Denies dyspnea, Denies dyspnea on exertion and Denies wheezing Gastrointestinal Gastrointestinal: Denies abdominal pain, Denies change in bowel habits, Denies diarrhea, Denies nausea and Denies vomiting Integumentary/Breasts Skin/Breast: Denies pruritus, Denies erythema, Denies rash and Denies wounds Neurologic Neurologic: Denies behavioral changes, Denies burning sensations, Denies confusion, Reports seizure-like activity and Denies weakness Psychiatric Psychiatric: Denies behavioral changes and Denies confusion Allergic/Immunologic Allergic/Immunologic: Denies wheezing Patient History Medical History Erectile dysfunction Hyperlipidemia Insomnia Osteoarthritis Preventative health care Right hamstring muscle strain Social History Smoking Status: Never smoker alcohol intake: former (Quit when 24) Smoking Status: Never smoker alcohol intake frequency: holidays/special occasions only Substance Use Type: does not use Exam Initial Vital Signs Initial Vital Signs: Vital Signs Temperature 97.6 F 08/18/20 19:16 Pulse Rate 73 08/18/20 19:16 Respiratory Rate 20 08/18/20 19:16 Blood Pressure 141/80 H 08/18/20 19:16 Pulse Oximetry 99 08/18/20 19:16 GENERAL: Alert well-appearing 65-year-old male and in [no acute] distress. HEENT: Head atraumatic,EOMI, pupils reactive, face symmetric, [moist] mucous membranes CARDIOVASCULAR: Regular rate and rhythm without murmurs, rubs or gallops. RESPIRATORY: Breath sounds equal bilaterally, no wheezes rales or rhonchi. ABDOMEN: Soft, nontender. Normoactive bowel sounds all 4 quadrants. No guarding or rebound EXTREMITIES: Normal range of motion, no clubbing or edema. Neurovascularly intact NEUROLOGICAL: Alert and oriented x4.Normal gait and speech. Cranial nerves II through XII grossly intact. [Good yaauwa-yo-avpk, good tnjw-ak-gwff, strength equal bilaterally, no dysarthria or aphasia, sensation in tact to soft touch bilaterally, no visual changes, no facial droop] SKIN: Warm, dry, no laceration, no petechiae, no rashes or lesions. Scores NIH Stroke Scale Level of Conciousness: Alert, keenly responsive Ask month/age: Answers both questions correctly. Open/close eyes, close hand: Performs both tasks correctly Best gaze horizontal: Normal Visual [place]: No visual loss Facial palsy: Normal symetrical movement Left arm drift: No drift for full 10 sec Right arm drift: No drift for full 10 sec Left leg drift: No drift for full 5 sec Right leg drift: No drift for full 5 sec Limb ataxia: Absent Sensory on face/arms/legs: Normal, no sensory loss Best language: No aphasia, normal Dysarthria: Normal Extinction or inattention: No abnormality Total NIH Stroke scale score: 0 Course Orders Ordered: ED Orders 08/18/20 20:14 EKG-12 Lead Stat 08/18/20 20:23 Complete Blood Count AUTO DIFF Stat Comprehensive Metabolic Panel Stat Vital Signs Vital signs: Vital Signs - 8 hr 08/18/20 19:16 08/18/20 21:30 Temperature 97.6 F 98.1 F Pulse Rate 73 66 Respiratory Rate 20 14 Blood Pressure 141/80 H 107/77 Pulse Oximetry 99 95 MDM - Headache Lab Data Attestation: I reviewed the patient's lab results. Result diagrams: 08/18/20 20:23 08/18/20 20:23 Labs: Lab Results 08/18/20 08/18/20 Range/Units 20:23 20:23 WBC 5.4 (4.5-11.0) X10^3/uL RBC 4.38 L (4.5-5.9) X10^6/uL Hgb 13.7 (13.5-17.5) g/dL Hct 41.1 (41-53) % MCV 93.7 (80-100) fL MCH 31.2 (26-34) PG MCHC 33.3 (30-36) % RDW 13.3 (11.6-14.8) % Plt Count 133 L (150-400) X10^3/uL Neut % (Auto) 69.3 (50-75) % Lymph % (Auto) 19.8 L (25-40) % [place] % (Auto) 8.9 (3-14) % Eos % (Auto) 1.1 L (2-4) % Baso % (Auto) 0.9 (0-2) % Neut # (Auto) 3700 (5526-3088) /uL Lymph # (Auto) 1100 (9651-9164) /uL [place] # (Auto) 500 (0-900) /uL Eos # (Auto) 100 (0-450) /uL Baso # (Auto) 0 (0-100) /uL Sodium 139 (137-145) mmol/L Potassium 4.3 (3.4-5.1) mmol/L Chloride 108 H (98-107) mmol/L Carbon Dioxide 25 (22-32) mmol/L BUN 18 (9-20) mg/dL Creatinine 0.93 (0.66-1.25) mg/dL Estimated GFR > 60.0 (>60) mL/min BUN/Creatinine Ratio 19.4 (6-22) Glucose 99 (80-110) mg/dL Calcium 8.9 (8.4-10.2) mg/dL Total Bilirubin 0.4 (0.2-1.3) mg/dL AST 26 (17-59) IU/L ALT 22 (<50) IU/L Alkaline Phosphatase 51 (38-126) U/L Total Protein 6.5 (6.3-8.2) g/dL Albumin 3.8 (3.5-5.0) g/dL Globulin 2.7 (1.7-4.1) g/dL Albumin/Globulin Ratio 1.4 (1.0-2.8) Point of Care Testing Glucose POC 109 Urine Dip Bedside Urine Glucose Negative Bedside Urine Bilirubin - Negative Bedside Urine Ketone - Negative Urine Specific [place] 1.030 Bedside Urine Occult Blood - Negative Bedside Urine pH 6 Bedside Urine Protein - Negative Bedside Urine Urobilinogen - Negative Bedside Urine Nitrite - Negative Bedside Urine Leukocytes - Negative Esterase ECG Data Attestation: I personally reviewed and interpreted this ECG as follows: Prior ECG tracings: not available for review Interpretation: Sinus rhythm rate 60 p.r. interval 214 QRS 82 QTC 390. Patient is found to have T-wave inversion noted in lead 3 with Q-waves in [address] elevations or depressions MDM Narrative Medical decision making narrative: Patient had a shaking episode that resolved with orange juice. This is consistent with a hypoglycemic episode. He denies any chest pain or shortness of breath he overall is feeling much better. He is unaware of any cardiac history. No prior EKGs to compare at this time he is asymptomatic feeling better and is ready and able to go home. I discussed with him that if he should have any chest pain palpitations or concerning symptoms he needs to return to the emergency department. Basic blood work is overall reassuring and no electrolyte or kidney abnormalities, no sign or symptoms of infection. Discharge Plan Departure Patient Disposition: Home Clinical Impression: Hypoglycemia Instructions: DI for Hypoglycemia Activity Restrictions/Additional Instructions: *You have been diagnosed with hypoglycemia *What to do: I suspect what happened is again an episode of low blood sugar. Please increase fluids and eat small frequent meals of complex carbohydrates or protein. *Continue to take medications as directed *Follow up with your primary care provider in 2-3 days *Return to ER if you should have any new, worsening or concerning symptoms Prescriptions: No Action naproxen 500 mg tablet 500 mg PO BID Qty: 180 RF: 1 zolpidem 10 mg tablet 10 mg PO BEDTIME PRN (Reason: insomnia) Qty: 30 RF: 2 atorvastatin 20 mg tablet 20 mg PO BEDTIME Qty: 90 RF: 3 trazodone 50 mg tablet 50 mg PO BEDTIME Qty: 30 RF: 2 sildenafil (pulm.hypertension) 20 mg tablet 60 mg PO DAILY PRN (Reason: sexual activity) Qty: 60 RF: 1 Referrals: Saulo Elizalde DO [Primary Care Provider] -
[2020-08-18 20:37] LABS: Add Manual Diff / Slide Review NO; Basophils Absolute Auto 0 /uL (0-100); Basophils Percent Auto 0.9 % (0-2); Eosinophils Absolute Auto 100 /uL (0-450); Eosinophils Percent Auto 1.1 % (2-4); Hematocrit 41.1 % (41-53); Hemoglobin 13.7 g/dL (13.5-17.5); Lymphocytes Absolute Auto 1100 /uL (1100-4500); Lymphocytes Percent Auto 19.8 % (25-40); Mean Corpuscular HGB Conc 33.3 % (30-36); Mean Corpuscular Hemoglobin 31.2 PG (26-34); Mean Corpuscular Volume 93.7 fL (80-100); Monocytes Absolute Auto 500 /uL (0-900); Monocytes Percent Auto 8.9 % (3-14); Neutrophils Absolute Auto 3700 /uL (1500-7000); Neutrophils Percent Auto 69.3 % (50-75); Platelet Count 133 X10^3/uL (150-400); Red Blood Cell Count 4.38 X10^6/uL (4.5-5.9); Red Cell Distribution Width 13.3 % (11.6-14.8); White Blood Cell Count 5.4 X10^3/uL (4.5-11.0)
[2020-08-18 20:45] LABS: Alanine Aminotransferase 22 IU/L (<50); Albumin 3.8 g/dL (3.5-5.0); Albumin Globulin Ratio 1.4 (1.0-2.8); Alkaline Phosphatase 51 U/L (38-126); Aspartate Aminotransferase 26 IU/L (17-59); BUN Creatinine Ratio 19.4 (6-22); Bilirubin Total 0.4 mg/dL (0.2-1.3); Blood Urea Nitrogen 18 mg/dL (9-20); Calcium 8.9 mg/dL (8.4-10.2); Carbon Dioxide 25 mmol/L (22-32); Chloride 108 mmol/L (98-107); Estimated Glomerular Filt Rate > 60.0 mL/min (>60); Globulin 2.7 g/dL (1.7-4.1); Glucose 99 mg/dL (80-110); HEMOLYSIS 18 (0-50); Potassium 4.3 mmol/L (3.4-5.1); Sodium 139 mmol/L (137-145); Total Protein 6.5 g/dL (6.3-8.2)
[2020-08-18 21:30] VITALS: BP 107/77; PULSE 66; RESP 14; TEMP 36.7; O2SAT 95
== END 2020-08-18 21:31 | disposition home or self-care (01) ==
PROVIDERS: Emergency Provider Emergency Medicine; PCP Family Medicine
DX: E16.2 Hypoglycemia, unspecified (principal); R56.9 Unspecified convulsions; R07.9 Chest pain, unspecified
CPT/HCPCS: 36415; 80053; 81003; 82962; 85025; 93005; 93010; 99283; 99284

== ENCOUNTER → 2020-09-07 08:35 | Outpatient (CLI) | payer MEDICARE, SELFPAY ==
[2020-09-07 10:42] LABS: COVID19 -Nasal RAPID Negative (Negative)
== END ==
PROVIDERS: PCP Family Medicine; Visit Provider Surgery
DX: Z20.822 Contact with and (suspected) exposure to COVID-19 (principal)
CPT/HCPCS: 87635; C9803

== ENCOUNTER 2020-09-10 07:16 | Day surgery (SDC) | payer MEDICARE, SELFPAY ==
[2020-09-10] VITALS (7 sets, daily range): BP systolic 95–136; BP diastolic 55–92; PULSE 56–72; RESP 10–18; TEMP 36.4–36.7; O2SAT 95–100; BMI 26.1
[2020-09-10] MEDS: LACTATED RINGERS 1,000 ML 200 ML IV (07:48)
--- NOTE | 2020-09-10 08:20 | PM.HP.1 ---
History of Present Illness History of Present Illness Date Patient Seen: 09/10/20 Time Patient Seen: 08:20 Chief complaint: SDC Narrative: The patient presents for colorectal sreening. Previous colonoscopy 13 years ago normal. No personal or family history of colon cancer. On further history denies any recent gastrointestinal symptoms. No nausea, vomiting, abdominal pain, loss of appetite, unexplained weight loss, change in bowel habits, diarrhea, constipation, melena, hematochezia, or bright red blood per rectum. Patient History Medical History Erectile dysfunction Hyperlipidemia Insomnia Osteoarthritis Preventative health care Right hamstring muscle strain Family & Social History Social History: household members spouse Tobacco & Substance use: Smoking Status Never smoker alcohol intake former alcohol intake frequency holiday/special occasion Substance Use Type does not use Meds Home Medications and Allergies Home Medications Medication Instructions Recorded Confirmed Type atorvastatin 20 mg tablet 20 mg PO BEDTIME #90 tab 11/25/19 09/10/20 Rx trazodone 50 mg tablet 50 mg PO BEDTIME #30 tab 11/25/19 09/10/20 Rx naproxen 500 mg tablet 500 mg PO BID #180 tab 01/25/20 09/10/20 Rx zolpidem 10 mg tablet 10 mg PO BEDTIME PRN #30 tab 09/07/20 09/10/20 Rx Allergies Allergy/AdvReac Type Severity Reaction Status Date / Time metronidazole [From Flagyl] Allergy Nauseated, Verified 09/10/20 07:37 extreme metal taste in mouth Exam Vital Signs (past 8 hours): - 09/10/20 07:30 Temperature 98.0 F Pulse Rate 70 Respiratory Rate 18 Blood Pressure 136/92 H Pulse Oximetry 98 Oxygen Delivery Method Room Air Narrative Exam Narrative: GENERAL-well developed adult male, no acute distress HEENT-no scleral icterus, hearing intact NECK-no JVD, trachea midline CVS- regular rate, no peripheral edema RESP-unlabored respiratory effort, no audible wheezing GI-soft, nontender nondistended MSK-no cyanosis or clubbing, extremities without deformity SKIN-warm, dry NEURO-alert and oriented, no focal deficits PYSCH-Appropriate mood and affect Assessment & Plan Assessment & Plan narrative: The patient requires colorectal screening and colonoscopy is recommended. Technical details were discussed. Risks, benefits, alternatives explained. Risks including but not limited to myocardial infarction, aspiration, bleeding, pain, missed lesion, incomplete examination, need for further radiographic studies, colonic perforation, and need for major abdominal surgery were discussed. All questions were answered to their satisfaction, and they are in agreement with this plan.
[2020-09-10] MEDS: ONDANSETRON 4 MG/2 ML INJ IV ×2 (08:24→08:46)
[2020-09-10] MEDS: fentaNYL 250 MCG/5 ML INJ IV (08:25)
[2020-09-10] MEDS: MIDAZOLAM 5 MG/5 ML VIAL IV (08:33)
--- NOTE | 2020-09-10 08:45 | PM.OP.ENDO ---
Operative Date/Time/Diagnoses Date of procedure: 09/10/20 Time of procedure: 08:46 Pre-op diagnosis: Screening colonoscopy Post-op diagnosis: same Procedure & Clinicians Study performed: colonoscopy Same procedure as scheduled: Yes Indications: screening colonoscopy Surgeon: Dakota Manriquez Procedure Notes Procedure in detail: Medications: Conscious sedation using *mg IV midazolam and *mcg IV of fentanyl The history and physical was performed/updated and the patient is ASA class is *. The procedure was discussed in detail with the patient. Potential risks complications including infection, bleeding, missed diagnosis, perforation, need for surgery, and were explained. Their questions were answered and informed consent was obtained. Patient was brought to the procedure room and placed standard monitoring equipment. The patient's vital signs were monitored continuously throughout the entire procedure. Prior to starting time-out was performed. The patient was placed in the left lateral recumbent position. Procedural sedation was administered. Examination began with a thorough inspection of the perianal area there was no evidence of fissures, fistulae, external hemorrhoids or cutaneous malignancy. The colonoscopy scope was then placed into the anal canal and was advanced to the cecum, which was identified by the ileocecal valve, the appendiceal orifice and the confluence of the taenia. The scope was then slowly withdrawn examining colon thoroughly in all directions, irrigating it of any residual stool. 1. No masses or polyps 2. Examination severely limited secondary to poor preparation The patient tolerated the procedure well. They will be discharged once criteria are met. The prep was of Poor quality. The withdrawl time was 7 minutes. The sedation time was 20 minutes. Complications: none Impression: normal colonoscopy Post-procedure Recommendations: Colonscopy in 10 years Disposition: same day surgery
--- NOTE | 2020-09-10 09:06 | SUR.PHASEI ---
Stable PACU stay.
== END 2020-09-10 09:24 | disposition home or self-care (01) ==
PROVIDERS: PCP Family Medicine; Referring Provider Surgery; Visit Provider Surgery
PROC: 0DJD8ZZ Inspection of Lower Intestinal Tract, Via Natural or Artificial Opening Endoscopic (ICD-10-PCS; CPT 45378; principal; 2020-09-10 08:30)
DX: Z12.11 Encounter for screening for malignant neoplasm of colon (principal)
CPT/HCPCS: G0121; 99152; J2250; J2405; J3010

== ENCOUNTER → 2020-11-06 08:45 | Outpatient (CLI) | payer MEDICARE, SELFPAY ==
--- NOTE | 2020-11-06 10:13 | DI.RAD.S_ITS ---
PROCEDURE: XR LUMBAR SPINE MIN 4V INDICATIONS: Progressive LBP TECHNIQUE: 5 views of the lumbar spine were acquired, including bilateral oblique views. COMPARISON: None. FINDINGS: Bones: 5 nonrib-bearing vertebrae are present. There is minimal retrolisthesis of L3 on L4 and grade 1 retrolisthesis of L4 on L5. Mild degenerative endplate changes are noted throughout visualized lower thoracic spine and lumbar spine. No vertebral body compression fractures. No suspicious bony lesions. Soft tissues: Overlying bowel gas pattern is normal. No suspicious soft tissue calcifications. Oblique images: No pars defects. IMPRESSION: Minimal retrolisthesis at L3-4 and L4-5 levels. No acute compression fracture. Mild degenerative disc disease throughout lumbar spine. No gross pars defect. Dictated by: Minesh Colon M.D. on 11/06/2020 at 12:22 Approved by: Minesh Colon M.D. on 11/06/2020 at 12:23
== END ==
PROVIDERS: PCP Family Medicine; Referring Provider Family Medicine; Visit Provider Family Medicine
DX: M51.36 Other intervertebral disc degeneration, lumbar region (principal); M54.5 Low back pain; G89.29 Other chronic pain
CPT/HCPCS: 72110

== ENCOUNTER → 2021-01-22 09:32 | Outpatient (CLI) | payer MEDICARE, SELFPAY ==
--- NOTE | 2021-01-22 09:32 | DI.MRI.S_ITS ---
PROCEDURE: MR LUMBAR SPINE WO CON INDICATIONS: Worsening low back pain with left-sided radiculopathy TECHNIQUE: Noncontrast sagittal T1 spin echo and T2 fast echo, sagittal STIR, axial T1 and T2 fast spin echo through the lumbar spine. In cases with scoliosis, additional coronal T2 fast spin echo may be performed. COMPARISON: [facility], CR, XR LUMBAR SPINE MIN 4V, 11/06/2020, 10:14. FINDINGS: Image quality: Excellent. Alignment and Curvature: There is normal bony alignment. Bone Marrow: Marrow is of normal overall signal. No acute vertebral body compression fractures. Bilateral L5 pars defects are associated with grade 1 anterior spondylolisthesis. Spinal Cord: Conus medullaris terminates at the L1 level. Visualized cord demonstrates normal signal and size. Paraspinous Soft Tissues: No paravertebral masses. T12-L1: Disc height is maintained. Mild asymmetric right disc bulge with mild central stenosis. No central or foraminal stenosis present. L1-L2: Disc height is preserved. No disc bulge or protrusion. No central or foraminal stenosis. L2-L3: Disc height is preserved. Circumferential disc bulge results in mild central stenosis. Moderate left and mild right foraminal stenosis. L3-L4: Mild disc height loss and circumferential disc bulge with hypertrophic facet joints results in moderate central stenosis. Moderate left and mild right foraminal stenosis L4-L5: Mild disc height loss and circumferential disc bulge with hypertrophic facet joints results in mild central stenosis. There is moderate bilateral foraminal stenosis, greater on the right L5-S1: Grade 1 anterior spondylolisthesis present with circumferential disc bulge and hypertrophic facet joints. Moderate left and right foraminal stenosis with nerve root impingement. IMPRESSION: 1. Grade 1 L5-S1 isthmic anterior spondylolisthesis results in right bilateral foraminal stenosis 2. Multilevel degenerative disc disease and arthropathy also results in varying degrees of central and foraminal stenosis including moderate central and left foraminal stenosis at L3-4 Approved by: Humphrey Perez M.D. on 01/22/2021 at 14:24
== END ==
PROVIDERS: Family Provider Family Medicine; PCP Family Medicine; Referring Provider Family Medicine; Visit Provider Family Medicine
DX: M51.17 Intervertebral disc disorders with radiculopathy, lumbosacral region (principal); M51.16 Intervertebral disc disorders with radiculopathy, lumbar region; M43.17 Spondylolisthesis, lumbosacral region; M47.26 Other spondylosis with radiculopathy, lumbar region; M47.27 Other spondylosis with radiculopathy, lumbosacral region; M48.061 Spinal stenosis, lumbar region without neurogenic claudication; M48.07 Spinal stenosis, lumbosacral region; M54.50 Low back pain, unspecified; G89.29 Other chronic pain
CPT/HCPCS: 72148

== ENCOUNTER 2021-05-21 09:00 | Outpatient (RCR) | payer MEDICARE, SELFPAY ==
--- NOTE | 2021-01-02 15:25 | PT.OIE ---
Current Diagnoses Other instability, right ankle (01/02/21) Strain of muscle(s) and tendon(s) of peroneal muscle group at lower leg level, right leg, subsequent encounter (01/02/21) Past Medical History (Last Updated 11/06/20 @ 08:44 by Saulo Elizalde DO) Chronic low back pain Erectile dysfunction Hyperlipidemia Insomnia Osteoarthritis Preventative health care Right hamstring muscle strain Visit Care Team Role Provider Type Saulo Elizalde DO Family Provider Physician Primary Care Provider Specialty: Family Practice Address: [address] [place] [address], [id number] Email: [email or web address] [email or web address] DPM Attending Provider Non-Staff Referring Provider Specialty: Podiatry Address: [address] [place] [address], [phone] Email: Physical Therapy Initial Evaluation PT-OP-A Visit Information Start: 01/01/21 15:41 Freq: Status: Active Protocol: Document 01/02/21 08:18 MB (Rec: 01/02/21 09:08 MB [id number]) Out-Patient Physical Therapy Visit Information Visit Information Visit Type Initial Evaluation Visit Note Medicare Around 12/18 before KX Visit Start Time 08:18 Visit Stop Time 09:00 Total Visit Minutes 42 Visit Number 1 Evaluation Information Evaluation Date 01/02/21 Precautions Precautions 12/12/20: NWB in right post-op boot, start PT. PT does not have any other precautions. Per pt, he had an appointment with Dr. Velazco on 12/25 and returns 02/05 for next follow- up. PT-OP-B Current Condition Start: 01/01/21 15:41 Freq: Status: Active Protocol: Document 01/02/21 08:18 MB (Rec: 01/02/21 09:08 MB [id number]) Current Condition History of Current Condition Onset Date 11/30/20 Current Complaints Ongoing pain and decreased mobility History of Current Condition Pt underwent right lateral ankle stabilization with internal brace, repair of collateral ankle ligament, and repair of right peroneal tendon tear on 11/30/20. Pt has been NWB since that time. He got a post-op boot on 12/12/20 . He has been using crutches in the house and knee walker when he leaves the house. PMH: right hamstring tear, left ankle injury, left tooth surgery, two neck fusions, four left shoulder surgeries, one right shoulder surgery. Pt is going to have a bridge put in his mouth on 01/18/21 and he has having trigger finger surgery on 01/23/21. Pt reports 8/10 pain along his right foot sutures and metarsalphalangeal joints on dorsal surface. Pt states that he cannot move his right foot much in and out d/t the internal anchor from surgery. He has been working on PF and DF. Pt has two steps to enter the house and one step down to his living room. He con't to have swelling in his foot. When his foot is in a dependent position, it goes beet red. When it is elevated, it is more flesh colored. He has been stuck in the house, in bed or on the couch with foot up on the coffee table. Pt is due for a MRI of his back in two weeks. Pt has not yet gotten compression socks or thigh highs. Prior Treatments and Tests PT for left foot injury and right hamstring tear Treatment Goals Patient/Caregiver Goals To decrease pain and swelling and improve mobility PT-OP-C Subjective Start: 01/01/21 15:41 Freq: Status: Active Protocol: Document 01/02/21 08:18 MB (Rec: 01/02/21 15:25 MB [id number]) OP-PT Subjective Patient Comments Patient Comments See history of current condition PT-OP-G Mobility & Gait Start: 01/01/21 15:41 Freq: Status: Active Protocol: Document 01/02/21 08:18 MB (Rec: 01/02/21 15:25 MB [id number]) OP Gait Assessment Comments Gait Comments Pt is not yet WB through his right foot. He wears post-op boot and uses knee scooter to enter the clinic and he does a good job pivoting for transfers PT-OP-J Posture/Palpation/Skin Start: 01/01/21 15:41 Freq: Status: Active Protocol: Document 01/02/21 08:18 MB (Rec: 01/02/21 15:25 MB [id number]) Skin Assessment Other Assessments Skin Assessment Comments Right foot color is mostly normal with leg supported in hooklying. He has scabbing around dorsal lateral scar and some mild edema. His skin is normal to touch and his toe nails look normal. PT-OP-K Range of Motion Start: 01/01/21 15:41 Freq: Status: Active Protocol: Document 01/02/21 08:18 MB (Rec: 01/02/21 15:25 MB [id number]) Ankle and Foot Goniometric Range of Motion Ankle and Foot ROM Limitations Comments Pt has baseline B foot bony positioning changes with supinated left foot positioning and decreased foot AROM. Right foot ROM not pushed today post-op pending do not know clear precautions at this point since 12/25 note is not yet available. He demonstrates minimal DF and PF with leg extended and supported on table. PT-OP-M Strength Start: 01/01/21 15:41 Freq: Status: Active Protocol: Document 01/02/21 08:18 MB (Rec: 01/02/21 15:25 MB [id number]) Hip Strength Hip Manual Muscle Testing Left Flexion (L2) 5 Normal Abduction 5 Normal Adduction 5 Normal Right Flexion (L2) 3+ Fair+ Abduction 2+ Poor+ Adduction 2+ Poor+ Knee Strength Knee Manual Muscle Testing Left Flexion (S2) 5 Normal Extension (L3) 5 Normal Right Comments NT d/t guarding for foot Ankle/Foot Strength Ankle and Foot Manual Muscle Testing Right Comments Not MMT post-op Right calf is atrophied Left Dorsiflexion (L4) 4 Good Toe Strength Toe Manual Muscle Testing Left Great Toe Flexion 3+ Fair+ PT-OP-Q Treatments Start: 01/01/21 15:41 Freq: Status: Active Protocol: Document 01/02/21 08:18 MB (Rec: 01/02/21 15:25 MB [id number]) Therapeutic Exercises Supine Exercises Hook lying bicycling Side bilateral Comments PT demo hook lying bicycling to help with edema and AAROM Manual Therapy Treatment Other Other Manual Treatments Right foot: Therapy lotion over scab to prevent it peeling off, gentle STM over right foot--toes, foot and up to calf Self-Care/Home Management Treatment Education Other Education Benefits of compression hose/ sock PT-OP-T Assessment and Plan Start: 01/01/21 15:41 Freq: Status: Active Protocol: Document 01/02/21 08:18 MB (Rec: 01/02/21 15:25 MB [id number]) Physical Therapy Assessment Rehab Potential Rehabilitation Potential Fair Evaluation Complexity Number of Personal Factors/Comorbidities 3 or More Number of Body Systems Impaired 3 Clinical Presentation at Evaluation Evolving Impairments Impairments Activity Tolerance,Balance, Edema,Functional Activities, Functional Mobility,Gait, Integument,Pain,Posture,ROM, Sensation,Soft Tissue Mobility ,Strength Other Impairments Personal factors include pt cannot drive or WB at this time. He has other orthopedic co-morbidities including lumbar, finger and oral issues that all may be surgically addressed. Body systems affected include neuromuscular , musculoskeletal, integumentary. His clinical presentation is evolving. Other Concerns Fall Risk Yes Goals 4 Residential Goal (LTG) Pt will perform progressive HEP with I including flexiblity, ROM, strengthening , balance and gait to improve right foot ROM, strength and function by 03/04/21. LTG Duration 8 weeks 3 Asset Availability Leader Goal (LTG) Pt will report a 75% improvement in right foot and ankle pain to improve quality of life by 03/04/21. LTG Duration 8 weeks 2 Residential Goal (LTG) Pt will perform WNLs on a standardized balance test to decrease fall risk and exhibit more normal right foot intrinsic strength by 03/04/21. LTG Duration 8 weeks 1 Residential Goal (LTG) Pt will gait train at least 1200 feet in 6 minutes without AD to return to community ambulation by 03/04/21. LTG Duration 8 weeks Assessment Summary Assessment Pt is a 65 y/o male presenting NWB and with decreased right ankle and foot ROM and increased edema and erythema post-op 11/30/20. PT received Dr. Velazco's note from 12/12/20 but has not yet received office note from 12/26/20 to learn about WB and exercise progression. Pt presents with other orthopedic co- morbidities that could affect progress with PT. He will benefit from PT to improve range, flexibility, strength, balance and gait. PT speaks with aquatic PT and will initiate aquatic therapy in 3 weeks as scab should be healed up by then. Physical Therapy Plan Frequency and Duration Frequency of Treatment 2x/Week Duration of Treatment 8 weeks Plan of Care Start Date 01/02/21 Plan of Care End Date 03/04/21 Therapeutic Interventions Therapeutic Interventions Aquatic Therapy,Balance Training,Canalithic Repositioning,Gait Training, Home Exercise Program,Joint Mobilizations,Manual Therapy, Neuromuscular Re-education, Orthotic/Prosthetic Management ,Patient/Caregiver Education, Self-Care/Home Management,Soft Tissue Mobilization,Taping, Therapeutic Activities, Therapeutic Exercises Modalities Cold Pack/Ice Massage,Hot Packs,Ultrasound Next Visit Focus/Plan Next Note Type Treatment Note Next Visit Plan Pending order from doctor if received, recumbent stepper, TB foot hammock, more manual work to improve edema and pain
--- NOTE | 2021-01-02 15:25 | PT.OPPOC ---
Physical, Occupational & Speech Therapy At [facility] Current Diagnoses Other instability, right ankle (01/02/21) Strain of muscle(s) and tendon(s) of peroneal muscle group at lower leg level, right leg, subsequent encounter (01/02/21) Visit Care Team Role Provider Type Saulo Elizalde DO Family Provider Physician Primary Care Provider Specialty: Family Practice Address: [address] [place] [address], [id number] Email: [email or web address] [place] Velazco DPM Attending Provider Non-Staff Referring Provider Specialty: Podiatry Address: [address] [place] [address], [phone] Email: Plan Of Care PT-OP-T Assessment and Plan Start: 01/01/21 15:41 Freq: Status: Active Protocol: Document 01/02/21 08:18 MB (Rec: 01/02/21 15:25 MB [id number]) Physical Therapy Assessment Rehab Potential Rehabilitation Potential Fair Evaluation Complexity Number of Personal Factors/Comorbidities 3 or More Number of Body Systems Impaired 3 Clinical Presentation at Evaluation Evolving Impairments Impairments Activity Tolerance,Balance, Edema,Functional Activities, Functional Mobility,Gait, Integument,Pain,Posture,ROM, Sensation,Soft Tissue Mobility ,Strength Other Impairments Personal factors include pt cannot drive or WB at this time. He has other orthopedic co-morbidities including lumbar, finger and oral issues that all may be surgically addressed. Body systems affected include neuromuscular , musculoskeletal, integumentary. His clinical presentation is evolving. Other Concerns Fall Risk Yes Goals 4 Chcf Goal (LTG) Pt will perform progressive HEP with I including flexiblity, ROM, strengthening , balance and gait to improve right foot ROM, strength and function by 03/04/21. LTG Duration 8 weeks 3 Chcf Goal (LTG) Pt will report a 75% improvement in right foot and ankle pain to improve quality of life by 03/04/21. LTG Duration 8 weeks 2 Chcf Goal (LTG) Pt will perform WNLs on a standardized balance test to decrease fall risk and exhibit more normal right foot intrinsic strength by 03/04/21. LTG Duration 8 weeks 1 Discovery Manager Goal (LTG) Pt will gait train at least 1200 feet in 6 minutes without AD to return to community ambulation by 03/04/21. LTG Duration 8 weeks Assessment Summary Assessment Pt is a 65 y/o male presenting NWB and with decreased right ankle and foot ROM and increased edema and erythema post-op 11/30/20. PT received Dr. Velazco's note from 12/12/20 but has not yet received office note from 12/26/20 to learn about WB and exercise progression. Pt presents with other orthopedic co- morbidities that could affect progress with PT. He will benefit from PT to improve range, flexibility, strength, balance and gait. PT speaks with aquatic PT and will initiate aquatic therapy in 3 weeks as scab should be healed up by then. Physical Therapy Plan Frequency and Duration Frequency of Treatment 2x/Week Duration of Treatment 8 weeks Plan of Care Start Date 01/02/21 Plan of Care End Date 03/04/21 Therapeutic Interventions Therapeutic Interventions Aquatic Therapy,Balance Training,Canalithic Repositioning,Gait Training, Home Exercise Program,Joint Mobilizations,Manual Therapy, Neuromuscular Re-education, Orthotic/Prosthetic Management ,Patient/Caregiver Education, Self-Care/Home Management,Soft Tissue Mobilization,Taping, Therapeutic Activities, Therapeutic Exercises Modalities Cold Pack/Ice Massage,Hot Packs,Ultrasound Next Visit Focus/Plan Next Note Type Treatment Note Next Visit Plan Pending order from doctor if received, recumbent stepper, TB foot hammock, more manual work to improve edema and pain Plan of Care Dates Plan of Care Start Date 01/02/21 Plan of Care End Date 03/04/21 Electronically Signed by: Niyah Dailey PT 01/02/21 [id number] Please Sign and Return: I have reviewed this Plan of Care and certify that the skilled therapy services above are required to meet the patient?s needs. Physician Signature Date Printed Name and Credentials Clinical Instructor Signature Printed Name and Credentials
--- NOTE | 2021-01-09 09:02 | PT.OTN ---
Current Diagnoses Other instability, right ankle (01/09/21) Strain of muscle(s) and tendon(s) of peroneal muscle group at lower leg level, right leg, subsequent encounter (01/09/21) Physical Therapy Treatment Note PT-OP-A Visit Information Start: 01/01/21 15:41 Freq: Status: Active Protocol: Document 01/09/21 08:18 MB (Rec: 01/09/21 09:01 MB [id number]) Out-Patient Physical Therapy Visit Information Visit Information Visit Type Initial Evaluation Visit Note Medicare Around 01/18 before KX Visit Start Time 08:18 Visit Stop Time 09:00 Total Visit Minutes 42 Visit Number 2 Precautions Precautions 01/03/[address] Velazco note from 12/25/20: Pt is approved to begin walking in surgical shoe without crutches , then transition to normal shoe in 2 weeks as comfortable ; pt to begin physical therapy ; follow-up in 6 weeks with x- ray prior to visit; ROM PT-OP-B Current Condition Start: 01/01/21 15:41 Freq: Status: Active Protocol: Document 01/02/21 08:18 MB (Rec: 01/02/21 09:08 MB [id number]) Current Condition History of Current Condition Onset Date 11/30/20 Current Complaints Ongoing pain and decreased mobility History of Current Condition Pt underwent right lateral ankle stabilization with internal brace, repair of collateral ankle ligament, and repair of right peroneal tendon tear on 11/30/20. Pt has been NWB since that time. He got a post-op boot on 12/12/20 . He has been using crutches in the house and knee walker when he leaves the house. PMH: right hamstring tear, left ankle injury, left tooth surgery, two neck fusions, four left shoulder surgeries, one right shoulder surgery. Pt is going to have a bridge put in his mouth on 01/18/21 and he has having trigger finger surgery on 01/23/21. Pt reports 8/10 pain along his right foot sutures and metarsalphalangeal joints on dorsal surface. Pt states that he cannot move his right foot much in and out d/t the internal anchor from surgery. He has been working on PF and DF. Pt has two steps to enter the house and one step down to his living room. He con't to have swelling in his foot. When his foot is in a dependent position, it goes beet red. When it is elevated, it is more flesh colored. He has been stuck in the house, in bed or on the couch with foot up on the coffee table. Pt is due for a MRI of his back in two weeks. Pt has not yet gotten compression socks or thigh highs. Prior Treatments and Tests PT for left foot injury and right hamstring tear Treatment Goals Patient/Caregiver Goals To decrease pain and swelling and improve mobility PT-OP-C Subjective Start: 01/01/21 15:41 Freq: Status: Active Protocol: Document 01/09/21 08:18 MB (Rec: 01/09/21 09:01 MB [id number]) OP-PT Subjective Patient Comments Patient Comments Pt reports worse pain in the morning. He doesn't know what he does at night with the foot and he is sleeping in a lot of different positions. The pain is over the lateral ankle and scars. He has compression knee highs. He wore them one day and they weren't too comfortable. PT-OP-G Mobility & Gait Start: 01/01/21 15:41 Freq: Status: Active Protocol: Document 01/02/21 08:18 MB (Rec: 01/02/21 15:25 MB [id number]) OP Gait Assessment Comments Gait Comments Pt is not yet WB through his right foot. He wears post-op boot and uses knee scooter to enter the clinic and he does a good job pivoting for transfers PT-OP-J Posture/Palpation/Skin Start: 01/01/21 15:41 Freq: Status: Active Protocol: Document 01/02/21 08:18 MB (Rec: 01/02/21 15:25 MB [id number]) Skin Assessment Other Assessments Skin Assessment Comments Right foot color is mostly normal with leg supported in hooklying. He has scabbing around dorsal lateral scar and some mild edema. His skin is normal to touch and his toe nails look normal. PT-OP-K Range of Motion Start: 01/01/21 15:41 Freq: Status: Active Protocol: Document 01/02/21 08:18 MB (Rec: 01/02/21 15:25 MB [id number]) Ankle and Foot Goniometric Range of Motion Ankle and Foot ROM Limitations Comments Pt has baseline B foot bony positioning changes with supinated left foot positioning and decreased foot AROM. Right foot ROM not pushed today post-op pending do not know clear precautions at this point since 12/25 note is not yet available. He demonstrates minimal DF and PF with leg extended and supported on table. PT-OP-M Strength Start: 01/01/21 15:41 Freq: Status: Active Protocol: Document 01/02/21 08:18 MB (Rec: 01/02/21 15:25 MB [id number]) Hip Strength Hip Manual Muscle Testing Left Flexion (L2) 5 Normal Abduction 5 Normal Adduction 5 Normal Right Flexion (L2) 3+ Fair+ Abduction 2+ Poor+ Adduction 2+ Poor+ Knee Strength Knee Manual Muscle Testing Left Flexion (S2) 5 Normal Extension (L3) 5 Normal Right Comments NT d/t guarding for foot Ankle/Foot Strength Ankle and Foot Manual Muscle Testing Right Comments Not MMT post-op Right calf is atrophied Left Dorsiflexion (L4) 4 Good Toe Strength Toe Manual Muscle Testing Left Great Toe Flexion 3+ Fair+ PT-OP-Q Treatments Start: 01/01/21 15:41 Freq: Status: Active Protocol: Document 01/09/21 08:18 MB (Rec: 01/09/21 09:01 MB [id number]) Cardio Equipment Recumbent Elliptical ([employer]) Duration (Minutes) 16 Resistance 1-3 Therapeutic Exercises Other Exercises Alphabet Side right Comments Pt to try at home and does not have a lot of movement Foot hammock Side right Equipment Used Level 2 band Comments Ed pt to start performing everyday at home Manual Therapy Treatment Other Other Manual Treatments Right foot, ankle and toes-- toe mobs, STM over scabs, STM and MWM B distal achilles tendon, pt pumping foot, lavage PT-OP-T Assessment and Plan Start: 01/01/21 15:41 Freq: Status: Active Protocol: Document 01/09/21 08:18 MB (Rec: 01/09/21 09:01 MB [id number]) Physical Therapy Assessment Rehab Potential Rehabilitation Potential Fair Evaluation Complexity Number of Personal Factors/Comorbidities 3 or More Number of Body Systems Impaired 3 Clinical Presentation at Evaluation Evolving Impairments Impairments Activity Tolerance,Balance, Edema,Functional Activities, Functional Mobility,Gait, Integument,Pain,Posture,ROM, Sensation,Soft Tissue Mobility ,Strength Other Impairments Personal factors include pt cannot drive or WB at this time. He has other orthopedic co-morbidities including lumbar, finger and oral issues that all may be surgically addressed. Body systems affected include neuromuscular , musculoskeletal, integumentary. His clinical presentation is evolving. Other Concerns Fall Risk Yes Goals 4 Arbitrator Goal (LTG) Pt will perform progressive HEP with I including flexiblity, ROM, strengthening , balance and gait to improve right foot ROM, strength and function by 03/04/21. LTG Duration 8 weeks 3 Arbitrator Goal (LTG) Pt will report a 75% improvement in right foot and ankle pain to improve quality of life by 03/04/21. LTG Duration 8 weeks 2 Arbitrator Goal (LTG) Pt will perform WNLs on a standardized balance test to decrease fall risk and exhibit more normal right foot intrinsic strength by 03/04/21. LTG Duration 8 weeks 1 Correction Goal (LTG) Pt will gait train at least 1200 feet in 6 minutes without AD to return to community ambulation by 03/04/21. LTG Duration 8 weeks Assessment Summary Assessment Initiated recumbent stepper today and ROM exercises. The swelling and color of his right foot are better, con't work. Physical Therapy Plan Frequency and Duration Frequency of Treatment 2x/Week Duration of Treatment 8 weeks Plan of Care Start Date 01/02/21 Plan of Care End Date 03/04/21 Therapeutic Interventions Therapeutic Interventions Aquatic Therapy,Balance Training,Canalithic Repositioning,Gait Training, Home Exercise Program,Joint Mobilizations,Manual Therapy, Neuromuscular Re-education, Orthotic/Prosthetic Management ,Patient/Caregiver Education, Self-Care/Home Management,Soft Tissue Mobilization,Taping, Therapeutic Activities, Therapeutic Exercises Modalities Cold Pack/Ice Massage,Hot Packs,Ultrasound Next Visit Focus/Plan Next Note Type Treatment Note Next Visit Plan More manual work to improve edema and pain, progress exercises, progress gait training
--- NOTE | 2021-01-11 09:00 | PT.OTN ---
Current Diagnoses Other instability, right ankle (01/11/21) Strain of muscle(s) and tendon(s) of peroneal muscle group at lower leg level, right leg, subsequent encounter (01/11/21) Physical Therapy Treatment Note PT-OP-A Visit Information Start: 01/01/21 15:41 Freq: Status: Active Protocol: Document 01/11/21 08:15 MB (Rec: 01/11/21 08:39 MB [id number]) Out-Patient Physical Therapy Visit Information Visit Information Visit Type Treatment Note Visit Note Medicare Around 02/17 before KX Visit Start Time 08:15 Visit Stop Time 09:00 Total Visit Minutes 45 Visit Number 3 Precautions Precautions 01/03/[address] Velazco note from 12/25/20: Pt is approved to begin walking in surgical shoe without crutches , then transition to normal shoe in 2 weeks as comfortable ; pt to begin physical therapy ; follow-up in 6 weeks with x- ray prior to visit; ROM PT-OP-B Current Condition Start: 01/01/21 15:41 Freq: Status: Active Protocol: Document 01/02/21 08:18 MB (Rec: 01/02/21 09:08 MB [id number]) Current Condition History of Current Condition Onset Date 11/30/20 Current Complaints Ongoing pain and decreased mobility History of Current Condition Pt underwent right lateral ankle stabilization with internal brace, repair of collateral ankle ligament, and repair of right peroneal tendon tear on 11/30/20. Pt has been NWB since that time. He got a post-op boot on 12/12/20 . He has been using crutches in the house and knee walker when he leaves the house. PMH: right hamstring tear, left ankle injury, left tooth surgery, two neck fusions, four left shoulder surgeries, one right shoulder surgery. Pt is going to have a bridge put in his mouth on 01/18/21 and he has having trigger finger surgery on 01/23/21. Pt reports 8/10 pain along his right foot sutures and metarsalphalangeal joints on dorsal surface. Pt states that he cannot move his right foot much in and out d/t the internal anchor from surgery. He has been working on PF and DF. Pt has two steps to enter the house and one step down to his living room. He con't to have swelling in his foot. When his foot is in a dependent position, it goes beet red. When it is elevated, it is more flesh colored. He has been stuck in the house, in bed or on the couch with foot up on the coffee table. Pt is due for a MRI of his back in two weeks. Pt has not yet gotten compression socks or thigh highs. Prior Treatments and Tests PT for left foot injury and right hamstring tear Treatment Goals Patient/Caregiver Goals To decrease pain and swelling and improve mobility PT-OP-C Subjective Start: 01/01/21 15:41 Freq: Status: Active Protocol: Document 01/11/21 08:15 MB (Rec: 01/11/21 08:39 MB [id number]) OP-PT Subjective Patient Comments Patient Comments Pt reports that his foot is really sore. PT-OP-G Mobility & Gait Start: 01/01/21 15:41 Freq: Status: Active Protocol: Document 01/02/21 08:18 MB (Rec: 01/02/21 15:25 MB [id number]) OP Gait Assessment Comments Gait Comments Pt is not yet WB through his right foot. He wears post-op boot and uses knee scooter to enter the clinic and he does a good job pivoting for transfers PT-OP-J Posture/Palpation/Skin Start: 01/01/21 15:41 Freq: Status: Active Protocol: Document 01/02/21 08:18 MB (Rec: 01/02/21 15:25 MB [id number]) Skin Assessment Other Assessments Skin Assessment Comments Right foot color is mostly normal with leg supported in hooklying. He has scabbing around dorsal lateral scar and some mild edema. His skin is normal to touch and his toe nails look normal. PT-OP-K Range of Motion Start: 01/01/21 15:41 Freq: Status: Active Protocol: Document 01/02/21 08:18 MB (Rec: 01/02/21 15:25 MB [id number]) Ankle and Foot Goniometric Range of Motion Ankle and Foot ROM Limitations Comments Pt has baseline B foot bony positioning changes with supinated left foot positioning and decreased foot AROM. Right foot ROM not pushed today post-op pending do not know clear precautions at this point since 12/25 note is not yet available. He demonstrates minimal DF and PF with leg extended and supported on table. PT-OP-M Strength Start: 01/01/21 15:41 Freq: Status: Active Protocol: Document 01/02/21 08:18 MB (Rec: 01/02/21 15:25 MB [id number]) Hip Strength Hip Manual Muscle Testing Left Flexion (L2) 5 Normal Abduction 5 Normal Adduction 5 Normal Right Flexion (L2) 3+ Fair+ Abduction 2+ Poor+ Adduction 2+ Poor+ Knee Strength Knee Manual Muscle Testing Left Flexion (S2) 5 Normal Extension (L3) 5 Normal Right Comments NT d/t guarding for foot Ankle/Foot Strength Ankle and Foot Manual Muscle Testing Right Comments Not MMT post-op Right calf is atrophied Left Dorsiflexion (L4) 4 Good Toe Strength Toe Manual Muscle Testing Left Great Toe Flexion 3+ Fair+ PT-OP-Q Treatments Start: 01/01/21 15:41 Freq: Status: Active Protocol: Document 01/11/21 08:15 MB (Rec: 01/11/21 08:39 MB [id number]) Cardio Equipment Recumbent Elliptical ([employer]) Duration (Minutes) 10 Resistance 3 Other LEs only Manual Therapy Treatment Other Other Manual Treatments Right foot, ankle and toes-- toe mobs, STM over scabs, STM and MWM B distal achilles tendon, pt pumping foot, lavage, STM right calf. PT does use therapy cream today Self-Care/Home Management Treatment Education Other Education Benefits of compression, [place] sock as tolerable at night or when resting with foot up (PT tries with pt today), elevation and icing. [place] sock goes on without pain today and looks good on pt's foot PT-OP-T Assessment and Plan Start: 01/01/21 15:41 Freq: Status: Active Protocol: Document 01/11/21 08:15 MB (Rec: 01/11/21 08:39 MB [id number]) Physical Therapy Assessment Rehab Potential Rehabilitation Potential Fair Evaluation Complexity Number of Personal Factors/Comorbidities 3 or More Number of Body Systems Impaired 3 Clinical Presentation at Evaluation Evolving Impairments Impairments Activity Tolerance,Balance, Edema,Functional Activities, Functional Mobility,Gait, Integument,Pain,Posture,ROM, Sensation,Soft Tissue Mobility ,Strength Other Impairments Personal factors include pt cannot drive or WB at this time. He has other orthopedic co-morbidities including lumbar, finger and oral issues that all may be surgically addressed. Body systems affected include neuromuscular , musculoskeletal, integumentary. His clinical presentation is evolving. Other Concerns Fall Risk Yes Goals 4 Building Wrecker Goal (LTG) Pt will perform progressive HEP with I including flexiblity, ROM, strengthening , balance and gait to improve right foot ROM, strength and function by 03/04/21. LTG Duration 8 weeks 3 Building Wrecker Goal (LTG) Pt will report a 75% improvement in right foot and ankle pain to improve quality of life by 03/04/21. LTG Duration 8 weeks 2 Prison Goal (LTG) Pt will perform WNLs on a standardized balance test to decrease fall risk and exhibit more normal right foot intrinsic strength by 03/04/21. LTG Duration 8 weeks 1 Prison Goal (LTG) Pt will gait train at least 1200 feet in 6 minutes without AD to return to community ambulation by 03/04/21. LTG Duration 8 weeks Assessment Summary Assessment Pt does well with stepper today and initiated training about [place] sock and it dons without pain today and looks good on pt's foot and may help with achilles area edema and tension and pain. Pt will advance to walking in black slip on shoe and crutch under left arm. Physical Therapy Plan Frequency and Duration Frequency of Treatment 2x/Week Duration of Treatment 8 weeks Plan of Care Start Date 01/02/21 Plan of Care End Date 03/04/21 Therapeutic Interventions Therapeutic Interventions Aquatic Therapy,Balance Training,Canalithic Repositioning,Gait Training, Home Exercise Program,Joint Mobilizations,Manual Therapy, Neuromuscular Re-education, Orthotic/Prosthetic Management ,Patient/Caregiver Education, Self-Care/Home Management,Soft Tissue Mobilization,Taping, Therapeutic Activities, Therapeutic Exercises Modalities Cold Pack/Ice Massage,Hot Packs,Ultrasound Next Visit Focus/Plan Next Note Type Treatment Note Next Visit Plan Similar: more manual work to improve edema and pain, progress exercises, progress gait training
--- NOTE | 2021-01-15 09:30 | PT.OTN ---
Current Diagnoses Other instability, right ankle (01/15/21) Strain of muscle(s) and tendon(s) of peroneal muscle group at lower leg level, right leg, subsequent encounter (01/15/21) Physical Therapy Treatment Note PT-OP-A Visit Information Start: 01/01/21 15:41 Freq: Status: Active Protocol: Document 01/15/21 08:17 MB (Rec: 01/15/21 09:29 MB [id number]) Out-Patient Physical Therapy Visit Information Visit Information Visit Type Treatment Note Visit Note Medicare Around before KX Visit Start Time 08:17 Visit Stop Time 09:17 Total Visit Minutes 60 Visit Number 4 Precautions Precautions 01/03/[address] Velazco note from 12/25/20: Pt is approved to begin walking in surgical shoe without crutches , then transition to normal shoe in 2 weeks as comfortable ; pt to begin physical therapy ; follow-up in 6 weeks with x- ray prior to visit; ROM PT-OP-B Current Condition Start: 01/01/21 15:41 Freq: Status: Active Protocol: Document 01/02/21 08:18 MB (Rec: 01/02/21 09:08 MB [id number]) Current Condition History of Current Condition Onset Date 11/30/20 Current Complaints Ongoing pain and decreased mobility History of Current Condition Pt underwent right lateral ankle stabilization with internal brace, repair of collateral ankle ligament, and repair of right peroneal tendon tear on 11/30/20. Pt has been NWB since that time. He got a post-op boot on 12/12/20 . He has been using crutches in the house and knee walker when he leaves the house. PMH: right hamstring tear, left ankle injury, left tooth surgery, two neck fusions, four left shoulder surgeries, one right shoulder surgery. Pt is going to have a bridge put in his mouth on 01/18/21 and he has having trigger finger surgery on 01/23/21. Pt reports 8/10 pain along his right foot sutures and metarsalphalangeal joints on dorsal surface. Pt states that he cannot move his right foot much in and out d/t the internal anchor from surgery. He has been working on PF and DF. Pt has two steps to enter the house and one step down to his living room. He con't to have swelling in his foot. When his foot is in a dependent position, it goes beet red. When it is elevated, it is more flesh colored. He has been stuck in the house, in bed or on the couch with foot up on the coffee table. Pt is due for a MRI of his back in two weeks. Pt has not yet gotten compression socks or thigh highs. Prior Treatments and Tests PT for left foot injury and right hamstring tear Treatment Goals Patient/Caregiver Goals To decrease pain and swelling and improve mobility PT-OP-C Subjective Start: 01/01/21 15:41 Freq: Status: Active Protocol: Document 01/15/21 08:17 MB (Rec: 01/15/21 09:29 MB [id number]) OP-PT Subjective Patient Comments Patient Comments Pt drove to PT. He took his shoe off and makes the truck go with his big toe and then brakes with his left foot. He is wearing the [place] sock 2 hours a day and it is doing fine. The compression sock hurt his foot because it is too compressive. He is wearing his slip on shoes more and using his crutch. PT-OP-G Mobility & Gait Start: 01/01/21 15:41 Freq: Status: Active Protocol: Document 01/02/21 08:18 MB (Rec: 01/02/21 15:25 MB [id number]) OP Gait Assessment Comments Gait Comments Pt is not yet WB through his right foot. He wears post-op boot and uses knee scooter to enter the clinic and he does a good job pivoting for transfers PT-OP-J Posture/Palpation/Skin Start: 01/01/21 15:41 Freq: Status: Active Protocol: Document 01/02/21 08:18 MB (Rec: 01/02/21 15:25 MB [id number]) Skin Assessment Other Assessments Skin Assessment Comments Right foot color is mostly normal with leg supported in hooklying. He has scabbing around dorsal lateral scar and some mild edema. His skin is normal to touch and his toe nails look normal. PT-OP-K Range of Motion Start: 01/01/21 15:41 Freq: Status: Active Protocol: Document 01/02/21 08:18 MB (Rec: 01/02/21 15:25 MB [id number]) Ankle and Foot Goniometric Range of Motion Ankle and Foot ROM Limitations Comments Pt has baseline B foot bony positioning changes with supinated left foot positioning and decreased foot AROM. Right foot ROM not pushed today post-op pending do not know clear precautions at this point since 12/25 note is not yet available. He demonstrates minimal DF and PF with leg extended and supported on table. PT-OP-M Strength Start: 01/01/21 15:41 Freq: Status: Active Protocol: Document 01/02/21 08:18 MB (Rec: 01/02/21 15:25 MB [id number]) Hip Strength Hip Manual Muscle Testing Left Flexion (L2) 5 Normal Abduction 5 Normal Adduction 5 Normal Right Flexion (L2) 3+ Fair+ Abduction 2+ Poor+ Adduction 2+ Poor+ Knee Strength Knee Manual Muscle Testing Left Flexion (S2) 5 Normal Extension (L3) 5 Normal Right Comments NT d/t guarding for foot Ankle/Foot Strength Ankle and Foot Manual Muscle Testing Right Comments Not MMT post-op Right calf is atrophied Left Dorsiflexion (L4) 4 Good Toe Strength Toe Manual Muscle Testing Left Great Toe Flexion 3+ Fair+ PT-OP-Q Treatments Start: 01/01/21 15:41 Freq: Status: Active Protocol: Document 01/15/21 08:17 MB (Rec: 01/15/21 09:29 MB [id number]) Cardio Equipment Recumbent Elliptical ([employer] Duration (Minutes) 12 Resistance 3 Other LEs only Therapeutic Exercises Standing Exercises Doorway stretches Side bilateral Comments Pect, calf, hip flexor and QL with cues for toe angle and knee bend Gait Training Gait Activity Cane training Comments SPC in left hand and gait training, advancing with right foot and pt wearing his black slip on shoes. He is able to perform throughout treatment to different spots Manual Therapy Treatment Other Other Manual Treatments Right foot scar gentle STM with therapy lotion, MWM with TrP pressure proximal to achilles and pt performing active DF and PF, STM foot and calf, gentle phalange mobs Neuro Re-Education Treatment Balance Activities Mini tramp exercises Comments Occ UE support and PT providing superv to CGA: bare feet and pt performs static standing with feet shoulder width apart, one foot slightly in front of the other with weight shifting forward and back and right and left and then pt moving small red weighted ball overhead and then touching right and left side of frame x10. Next, mini bounce without going airborne. Pt reports some stretch/ soreness at incision and no pain PT-OP-T Assessment and Plan Start: 01/01/21 15:41 Freq: Status: Active Protocol: Document 01/15/21 08:17 MB (Rec: 01/15/21 09:29 MB [id number]) Physical Therapy Assessment Rehab Potential Rehabilitation Potential Fair Evaluation Complexity Number of Personal Factors/Comorbidities 3 or More Number of Body Systems Impaired 3 Clinical Presentation at Evaluation Evolving Impairments Impairments Activity Tolerance,Balance, Edema,Functional Activities, Functional Mobility,Gait, Integument,Pain,Posture,ROM, Sensation,Soft Tissue Mobility ,Strength Other Impairments Personal factors include pt cannot drive or WB at this time. He has other orthopedic co-morbidities including lumbar, finger and oral issues that all may be surgically addressed. Body systems affected include neuromuscular , musculoskeletal, integumentary. His clinical presentation is evolving. Other Concerns Fall Risk Yes Goals 4 Character Actress Goal (LTG) Pt will perform progressive HEP with I including flexiblity, ROM, strengthening , balance and gait to improve right foot ROM, strength and function by 03/04/21. LTG Duration 8 weeks 3 Character Actress Goal (LTG) Pt will report a 75% improvement in right foot and ankle pain to improve quality of life by 03/04/21. LTG Duration 8 weeks 2 Character Actress Goal (LTG) Pt will perform WNLs on a standardized balance test to decrease fall risk and exhibit more normal right foot intrinsic strength by 03/04/21. LTG Duration 8 weeks 1 Character Actress Goal (LTG) Pt will gait train at least 1200 feet in 6 minutes without AD to return to community ambulation by 03/04/21. LTG Duration 8 weeks Assessment Summary Assessment Progressed gait, exercises and manual work today. Con't per plan. Physical Therapy Plan Frequency and Duration Frequency of Treatment 2x/Week Duration of Treatment 8 weeks Plan of Care Start Date 01/02/21 Plan of Care End Date 03/04/21 Therapeutic Interventions Therapeutic Interventions Aquatic Therapy,Balance Training,Canalithic Repositioning,Gait Training, Home Exercise Program,Joint Mobilizations,Manual Therapy, Neuromuscular Re-education, Orthotic/Prosthetic Management ,Patient/Caregiver Education, Self-Care/Home Management,Soft Tissue Mobilization,Taping, Therapeutic Activities, Therapeutic Exercises Modalities Cold Pack/Ice Massage,Hot Packs,Ultrasound Next Visit Focus/Plan Next Note Type Treatment Note Next Visit Plan Con't manual work, progress exercises, balance and gait
--- NOTE | 2021-01-17 08:58 | PT.OTN ---
Current Diagnoses Other instability, right ankle (01/17/21) Strain of muscle(s) and tendon(s) of peroneal muscle group at lower leg level, right leg, subsequent encounter (01/17/21) Physical Therapy Treatment Note PT-OP-A Visit Information Start: 01/01/21 15:41 Freq: Status: Active Protocol: Document 01/17/21 08:15 MB (Rec: 01/17/21 08:54 MB [id number]) Out-Patient Physical Therapy Visit Information Visit Information Visit Type Treatment Note Visit Note Medicare Around before [facility] [employer] provides manual work with direct superv of PT Niyah today Visit Start Time 08:15 Visit Stop Time 08:55 Total Visit Minutes 40 Visit Number 5 Precautions Precautions 01/03/[address] Velazco note from 12/25/20: Pt is approved to begin walking in surgical shoe without crutches , then transition to normal shoe in 2 weeks as comfortable ; pt to begin physical therapy ; follow-up in 6 weeks with x- ray prior to visit; ROM PT-OP-B Current Condition Start: 01/01/21 15:41 Freq: Status: Active Protocol: Document 01/02/21 08:18 MB (Rec: 01/02/21 09:08 MB [id number]) Current Condition History of Current Condition Onset Date 11/30/20 Current Complaints Ongoing pain and decreased mobility History of Current Condition Pt underwent right lateral ankle stabilization with internal brace, repair of collateral ankle ligament, and repair of right peroneal tendon tear on 11/30/20. Pt has been NWB since that time. He got a post-op boot on 12/12/20 . He has been using crutches in the house and knee walker when he leaves the house. PMH: right hamstring tear, left ankle injury, left tooth surgery, two neck fusions, four left shoulder surgeries, one right shoulder surgery. Pt is going to have a bridge put in his mouth on 01/18/21 and he has having trigger finger surgery on 01/23/21. Pt reports 8/10 pain along his right foot sutures and metarsalphalangeal joints on dorsal surface. Pt states that he cannot move his right foot much in and out d/t the internal anchor from surgery. He has been working on PF and DF. Pt has two steps to enter the house and one step down to his living room. He con't to have swelling in his foot. When his foot is in a dependent position, it goes beet red. When it is elevated, it is more flesh colored. He has been stuck in the house, in bed or on the couch with foot up on the coffee table. Pt is due for a MRI of his back in two weeks. Pt has not yet gotten compression socks or thigh highs. Prior Treatments and Tests PT for left foot injury and right hamstring tear Treatment Goals Patient/Caregiver Goals To decrease pain and swelling and improve mobility PT-OP-C Subjective Start: 01/01/21 15:41 Freq: Status: Active Protocol: Document 01/17/21 08:15 MB (Rec: 01/17/21 08:54 MB [id number]) OP-PT Subjective Patient Comments Patient Comments Pt states that his right foot is really sore. He does feel that there is a little more mobility. PT-OP-G Mobility & Gait Start: 01/01/21 15:41 Freq: Status: Active Protocol: Document 01/02/21 08:18 MB (Rec: 01/02/21 15:25 MB [id number]) OP Gait Assessment Comments Gait Comments Pt is not yet WB through his right foot. He wears post-op boot and uses knee scooter to enter the clinic and he does a good job pivoting for transfers PT-OP-J Posture/Palpation/Skin Start: 01/01/21 15:41 Freq: Status: Active Protocol: Document 01/02/21 08:18 MB (Rec: 01/02/21 15:25 MB [id number]) Skin Assessment Other Assessments Skin Assessment Comments Right foot color is mostly normal with leg supported in hooklying. He has scabbing around dorsal lateral scar and some mild edema. His skin is normal to touch and his toe nails look normal. PT-OP-K Range of Motion Start: 01/01/21 15:41 Freq: Status: Active Protocol: Document 01/02/21 08:18 MB (Rec: 01/02/21 15:25 MB [id number]) Ankle and Foot Goniometric Range of Motion Ankle and Foot ROM Limitations Comments Pt has baseline B foot bony positioning changes with supinated left foot positioning and decreased foot AROM. Right foot ROM not pushed today post-op pending do not know clear precautions at this point since 12/25 note is not yet available. He demonstrates minimal DF and PF with leg extended and supported on table. PT-OP-M Strength Start: 01/01/21 15:41 Freq: Status: Active Protocol: Document 01/02/21 08:18 MB (Rec: 01/02/21 15:25 MB [id number]) Hip Strength Hip Manual Muscle Testing Left Flexion (L2) 5 Normal Abduction 5 Normal Adduction 5 Normal Right Flexion (L2) 3+ Fair+ Abduction 2+ Poor+ Adduction 2+ Poor+ Knee Strength Knee Manual Muscle Testing Left Flexion (S2) 5 Normal Extension (L3) 5 Normal Right Comments NT d/t guarding for foot Ankle/Foot Strength Ankle and Foot Manual Muscle Testing Right Comments Not MMT post-op Right calf is atrophied Left Dorsiflexion (L4) 4 Good Toe Strength Toe Manual Muscle Testing Left Great Toe Flexion 3+ Fair+ PT-OP-Q Treatments Start: 01/01/21 15:41 Freq: Status: Active Protocol: Document 01/17/21 08:15 MB (Rec: 01/17/21 08:54 MB [id number]) Cardio Equipment Recumbent Elliptical ([email or web address]) Duration (Minutes) 10 Resistance 4 Other LEs only Therapeutic Exercises Sitting Exercises Rolling pin self-massage Side right Comments Ed in see saw motion, to work on fibularis longus Manual Therapy Treatment Other Other Manual Treatments RLE manual work with strumming and MWM fibularlis longus proximal attachment, plantar fascia STM, interossei STM from plantar surface, gentle tarsal stretch/mobilization into eversion and inversion, STM and positional release right hip flexor, right vastus lateralis PT-OP-T Assessment and Plan Start: 01/01/21 15:41 Freq: Status: Active Protocol: Document 01/17/21 08:15 MB (Rec: 01/17/21 08:54 MB [id number]) Physical Therapy Assessment Rehab Potential Rehabilitation Potential Fair Evaluation Complexity Number of Personal Factors/Comorbidities 3 or More Number of Body Systems Impaired 3 Clinical Presentation at Evaluation Evolving Impairments Impairments Activity Tolerance,Balance, Edema,Functional Activities, Functional Mobility,Gait, Integument,Pain,Posture,ROM, Sensation,Soft Tissue Mobility ,Strength Other Impairments Personal factors include pt cannot drive or WB at this time. He has other orthopedic co-morbidities including lumbar, finger and oral issues that all may be surgically addressed. Body systems affected include neuromuscular , musculoskeletal, integumentary. His clinical presentation is evolving. Other Concerns Fall Risk Yes Goals 4 Intermediate Goal (LTG) Pt will perform progressive HEP with I including flexiblity, ROM, strengthening , balance and gait to improve right foot ROM, strength and function by 03/04/21. LTG Duration 8 weeks 3 Intermediate Goal (LTG) Pt will report a 75% improvement in right foot and ankle pain to improve quality of life by 03/04/21. LTG Duration 8 weeks 2 Ultimate Hoops Trainer Goal (LTG) Pt will perform WNLs on a standardized balance test to decrease fall risk and exhibit more normal right foot intrinsic strength by 03/04/21. LTG Duration 8 weeks 1 Ultimate Hoops Trainer Goal (LTG) Pt will gait train at least 1200 feet in 6 minutes without AD to return to community ambulation by 03/04/21. LTG Duration 8 weeks Assessment Summary Assessment PT ed pt to get a SPC from his his neighbor to [facility] for improved gait pattern and PT con't to ed pt on use of this during PT treatment with gait in clinic with cane in left hand. Pt tolerates manual work well today. Physical Therapy Plan Frequency and Duration Frequency of Treatment 2x/Week Duration of Treatment 8 weeks Plan of Care Start Date 01/02/21 Plan of Care End Date 03/04/21 Therapeutic Interventions Therapeutic Interventions Aquatic Therapy,Balance Training,Canalithic Repositioning,Gait Training, Home Exercise Program,Joint Mobilizations,Manual Therapy, Neuromuscular Re-education, Orthotic/Prosthetic Management ,Patient/Caregiver Education, Self-Care/Home Management,Soft Tissue Mobilization,Taping, Therapeutic Activities, Therapeutic Exercises Modalities Cold Pack/Ice Massage,Hot Packs,Ultrasound Next Visit Focus/Plan Next Note Type Treatment Note Next Visit Plan Con't manual work, progress exercises, balance and gait. Consider weight shifting on blue cushion to help get interossei muscles working
--- NOTE | 2021-01-21 14:47 | PT.OTN ---
Current Diagnoses Other instability, right ankle (01/21/21) Strain of muscle(s) and tendon(s) of peroneal muscle group at lower leg level, right leg, subsequent encounter (01/21/21) Physical Therapy Treatment Note PT-OP-A Visit Information Start: 01/01/21 15:41 Freq: Status: Active Protocol: Document 01/21/21 14:24 LJ (Rec: 01/21/21 14:47 LJ [email or web address]) Out-Patient Physical Therapy Visit Information Visit Information Visit Type Aquatic Treatment Note Visit Note Medicare Visit Start Time 11:00 Visit Stop Time 11:45 Total Visit Minutes 45 Visit Number 6 Number of POLICE SERVICE TECHNICIAN Visits 1 Precautions Precautions 01/03/[address] Velazco note from 12/25/20: Pt is approved to begin walking in surgical shoe without crutches , then transition to normal shoe in 2 weeks as comfortable ; pt to begin physical therapy ; follow-up in 6 weeks with x- ray prior to visit; ROM PT-OP-B Current Condition Start: 01/01/21 15:41 Freq: Status: Active Protocol: Document 01/02/21 08:18 MB (Rec: 01/02/21 09:08 MB [id number]) Current Condition History of Current Condition Onset Date 11/30/20 Current Complaints Ongoing pain and decreased mobility History of Current Condition Pt underwent right lateral ankle stabilization with internal brace, repair of collateral ankle ligament, and repair of right peroneal tendon tear on 11/30/20. Pt has been NWB since that time. He got a post-op boot on 12/12/20 . He has been using crutches in the house and knee walker when he leaves the house. PMH: right hamstring tear, left ankle injury, left tooth surgery, two neck fusions, four left shoulder surgeries, one right shoulder surgery. Pt is going to have a bridge put in his mouth on 01/18/21 and he has having trigger finger surgery on 01/23/21. Pt reports 8/10 pain along his right foot sutures and metarsalphalangeal joints on dorsal surface. Pt states that he cannot move his right foot much in and out d/t the internal anchor from surgery. He has been working on PF and DF. Pt has two steps to enter the house and one step down to his living room. He con't to have swelling in his foot. When his foot is in a dependent position, it goes beet red. When it is elevated, it is more flesh colored. He has been stuck in the house, in bed or on the couch with foot up on the coffee table. Pt is due for a MRI of his back in two weeks. Pt has not yet gotten compression socks or thigh highs. Prior Treatments and Tests PT for left foot injury and right hamstring tear Treatment Goals Patient/Caregiver Goals To decrease pain and swelling and improve mobility PT-OP-C Subjective Start: 01/01/21 15:41 Freq: Status: Active Protocol: Document 01/21/21 14:24 LJ (Rec: 01/21/21 14:47 LJ [id number]) OP-PT Subjective Patient Comments Patient Comments Pt complaining of stiffness and pain in ankle. Hoping AT will allow him to walk without pain. PT-OP-G Mobility & Gait Start: 01/01/21 15:41 Freq: Status: Active Protocol: Document 01/02/21 08:18 MB (Rec: 01/02/21 15:25 MB [id number]) OP Gait Assessment Comments Gait Comments Pt is not yet WB through his right foot. He wears post-op boot and uses knee scooter to enter the clinic and he does a good job pivoting for transfers PT-OP-J Posture/Palpation/Skin Start: 01/01/21 15:41 Freq: Status: Active Protocol: Document 01/02/21 08:18 MB (Rec: 01/02/21 15:25 MB [id number]) Skin Assessment Other Assessments Skin Assessment Comments Right foot color is mostly normal with leg supported in hooklying. He has scabbing around dorsal lateral scar and some mild edema. His skin is normal to touch and his toe nails look normal. PT-OP-K Range of Motion Start: 01/01/21 15:41 Freq: Status: Active Protocol: Document 01/02/21 08:18 MB (Rec: 01/02/21 15:25 MB [id number]) Ankle and Foot Goniometric Range of Motion Ankle and Foot ROM Limitations Comments Pt has baseline B foot bony positioning changes with supinated left foot positioning and decreased foot AROM. Right foot ROM not pushed today post-op pending do not know clear precautions at this point since 12/25 note is not yet available. He demonstrates minimal DF and PF with leg extended and supported on table. PT-OP-M Strength Start: 01/01/21 15:41 Freq: Status: Active Protocol: Document 01/02/21 08:18 MB (Rec: 01/02/21 15:25 MB [id number]) Hip Strength Hip Manual Muscle Testing Left Flexion (L2) 5 Normal Abduction 5 Normal Adduction 5 Normal Right Flexion (L2) 3+ Fair+ Abduction 2+ Poor+ Adduction 2+ Poor+ Knee Strength Knee Manual Muscle Testing Left Flexion (S2) 5 Normal Extension (L3) 5 Normal Right Comments NT d/t guarding for foot Ankle/Foot Strength Ankle and Foot Manual Muscle Testing Right Comments Not MMT post-op Right calf is atrophied Left Dorsiflexion (L4) 4 Good Toe Strength Toe Manual Muscle Testing Left Great Toe Flexion 3+ Fair+ PT-OP-Q Treatments Start: 01/01/21 15:41 Freq: Status: Active Protocol: Document 01/17/21 08:15 MB (Rec: 01/17/21 08:54 MB [id number]) Cardio Equipment Recumbent Elliptical (Mind[employer]) Duration (Minutes) 10 Resistance 4 Other LEs only Therapeutic Exercises Sitting Exercises Rolling pin self-massage Side right Comments Ed in see saw motion, to work on fibularis longus Manual Therapy Treatment Other Other Manual Treatments RLE manual work with strumming and MWM fibularlis longus proximal attachment, plantar fascia STM, interossei STM from plantar surface, gentle tarsal stretch/mobilization into eversion and inversion, STM and positional release right hip flexor, right vastus lateralis PT-OP-S Aquatic Treatment Start: 01/01/21 15:41 Freq: Status: Active Protocol: Document 01/21/21 14:24 LJ (Rec: 01/21/21 14:47 LJ [email or web address]) Aquatics Treatment Pool Entry/Exit Pool Entry/Exit Method Stairs Assistance Independent Water Walking [place] Water Level Chest Level Level of Assistance Verbal Cues Sideways Water Level Chest Level Level of Assistance Verbal Cues Comments cross over posterior Marching Water Level Chest Level Level of Assistance Verbal Cues Backwards Water Level Chest Level Level of Assistance Verbal Cues Forwards Water Level Chest Level Level of Assistance Verbal Cues Lower Extremity Exercises hip flex/ext Details HH on wall Body Position Standing Water Level Chest Level Comments 10 B hip circles Details HH on wall Body Position Sitting Water Level Chest Level Reps/Duration 10 B Comments forward and backward knee flex/ext Details sitting at wall Water Level Chest Level Reps/Duration 10 B Lower Extremity Stretches ITB Details at wall Body Position Standing Water Level Waist Level Reps/Duration 30 sec B HS, gastroc Details at wall Body Position Standing Reps/Duration 30 sec x2 B Comments HS with noodle, gastroc with toes on wall heels on floor [place] Activities [place] Activities Bicycle,Bicycle Backwards, Running Other Activities walking-PF DF Equipment belt Duration 12 Manual Techniques Aquatic Massage aqua stretch technique RLE ITB in corner w/noodle under arms PT-OP-T Assessment and Plan Start: 01/01/21 15:41 Freq: Status: Active Protocol: Document 01/21/21 14:24 JESICA (Rec: 01/21/21 14:47 [email or web address] [email or web address]) Physical Therapy Assessment Rehab Potential Rehabilitation Potential Fair Evaluation Complexity Number of Personal Factors/Comorbidities 3 or More Number of Body Systems Impaired 3 Clinical Presentation at Evaluation Evolving Impairments Impairments Activity Tolerance,Balance, Edema,Functional Activities, Functional Mobility,Gait, Integument,Pain,Posture,ROM, Sensation,Soft Tissue Mobility ,Strength Other Impairments Personal factors include pt cannot drive or WB at this time. He has other orthopedic co-morbidities including lumbar, finger and oral issues that all may be surgically addressed. Body systems affected include neuromuscular , musculoskeletal, integumentary. His clinical presentation is evolving. Other Concerns Fall Risk Yes Goals 4 Jail Goal (LTG) Pt will perform progressive HEP with I including flexiblity, ROM, strengthening , balance and gait to improve right foot ROM, strength and function by 03/04/21. LTG Duration 8 weeks 3 Factory Machine Computer Operator Goal (LTG) Pt will report a 75% improvement in right foot and ankle pain to improve quality of life by 03/04/21. LTG Duration 8 weeks 2 Jail Goal (LTG) Pt will perform WNLs on a standardized balance test to decrease fall risk and exhibit more normal right foot intrinsic strength by 03/04/21. LTG Duration 8 weeks 1 Jail Goal (LTG) Pt will gait train at least 1200 feet in 6 minutes without AD to return to community ambulation by 03/04/21. LTG Duration 8 weeks Assessment Summary Assessment Pt tolerated AT well. Movements were gentle with lower number of reps. Able to ambulate in chest deep water without limp. Aqua Stretch appeared to lessen pain in RLE according to what pt said. Progress ambulation to shallower water as he advances . Physical Therapy Plan Frequency and Duration Frequency of Treatment 2x/Week Duration of Treatment 8 weeks Plan of Care Start Date 01/02/21 Plan of Care End Date 03/04/21 Therapeutic Interventions Therapeutic Interventions Aquatic Therapy,Balance Training,Canalithic Repositioning,Gait Training, Home Exercise Program,Joint Mobilizations,Manual Therapy, Neuromuscular Re-education, Orthotic/Prosthetic Management ,Patient/Caregiver Education, Self-Care/Home Management,Soft Tissue Mobilization,Taping, Therapeutic Activities, Therapeutic Exercises Modalities Cold Pack/Ice Massage,Hot Packs,Ultrasound Next Visit Focus/Plan Next Note Type Treatment Note Next Visit Plan Con't manual work, progress exercises, balance and gait. Consider balancing on noodle for interossei muscle strengthening during AT.
--- NOTE | 2021-01-28 15:46 | PT.OTN ---
Current Diagnoses Other instability, right ankle (01/28/21) Strain of muscle(s) and tendon(s) of peroneal muscle group at lower leg level, right leg, subsequent encounter (01/28/21) Physical Therapy Treatment Note PT-OP-A Visit Information Start: 01/01/21 15:41 Freq: Status: Active Protocol: Document 01/28/21 15:28 LJ (Rec: 01/28/21 15:46 LJ [email or web address]) Out-Patient Physical Therapy Visit Information Visit Information Visit Type Aquatic Treatment Note Visit Note Medicare Visit Start Time 12:30 Visit Stop Time 13:15 Total Visit Minutes 45 Visit Number 7 Number of ORGANIC CHEMISTRY TEACHER Visits 2 Precautions Precautions 01/03/[address] Velazco note from 12/25/20: Pt is approved to begin walking in surgical shoe without crutches , then transition to normal shoe in 2 weeks as comfortable ; pt to begin physical therapy ; follow-up in 6 weeks with x- ray prior to visit; ROM PT-OP-B Current Condition Start: 01/01/21 15:41 Freq: Status: Active Protocol: Document 01/02/21 08:18 MB (Rec: 01/02/21 09:08 MB [id number]) Current Condition History of Current Condition Onset Date 11/30/20 Current Complaints Ongoing pain and decreased mobility History of Current Condition Pt underwent right lateral ankle stabilization with internal brace, repair of collateral ankle ligament, and repair of right peroneal tendon tear on 11/30/20. Pt has been NWB since that time. He got a post-op boot on 12/12/20 . He has been using crutches in the house and knee walker when he leaves the house. PMH: right hamstring tear, left ankle injury, left tooth surgery, two neck fusions, four left shoulder surgeries, one right shoulder surgery. Pt is going to have a bridge put in his mouth on 01/18/21 and he has having trigger finger surgery on 01/23/21. Pt reports 8/10 pain along his right foot sutures and metarsalphalangeal joints on dorsal surface. Pt states that he cannot move his right foot much in and out d/t the internal anchor from surgery. He has been working on PF and DF. Pt has two steps to enter the house and one step down to his living room. He con't to have swelling in his foot. When his foot is in a dependent position, it goes beet red. When it is elevated, it is more flesh colored. He has been stuck in the house, in bed or on the couch with foot up on the coffee table. Pt is due for a MRI of his back in two weeks. Pt has not yet gotten compression socks or thigh highs. Prior Treatments and Tests PT for left foot injury and right hamstring tear Treatment Goals Patient/Caregiver Goals To decrease pain and swelling and improve mobility PT-OP-C Subjective Start: 01/01/21 15:41 Freq: Status: Active Protocol: Document 01/28/21 15:28 LJ (Rec: 01/28/21 15:46 LJ [email or web address]) OP-PT Subjective Patient Comments Patient Comments Pt c/o pain in lateral aspect of R ankle. Peroneals and lateral belly of gastroc painful as well as lateral distal hip. States he flet TFL loosened up after aqua- stretch last AT session PT-OP-G Mobility & Gait Start: 01/01/21 15:41 Freq: Status: Active Protocol: Document 01/02/21 08:18 MB (Rec: 01/02/21 15:25 MB [id number]) OP Gait Assessment Comments Gait Comments Pt is not yet WB through his right foot. He wears post-op boot and uses knee scooter to enter the clinic and he does a good job pivoting for transfers PT-OP-J Posture/Palpation/Skin Start: 01/01/21 15:41 Freq: Status: Active Protocol: Document 01/02/21 08:18 MB (Rec: 01/02/21 15:25 MB [id number]) Skin Assessment Other Assessments Skin Assessment Comments Right foot color is mostly normal with leg supported in hooklying. He has scabbing around dorsal lateral scar and some mild edema. His skin is normal to touch and his toe nails look normal. PT-OP-K Range of Motion Start: 01/01/21 15:41 Freq: Status: Active Protocol: Document 01/02/21 08:18 MB (Rec: 01/02/21 15:25 MB [id number]) Ankle and Foot Goniometric Range of Motion Ankle and Foot ROM Limitations Comments Pt has baseline B foot bony positioning changes with supinated left foot positioning and decreased foot AROM. Right foot ROM not pushed today post-op pending do not know clear precautions at this point since 12/25 note is not yet available. He demonstrates minimal DF and PF with leg extended and supported on table. PT-OP-M Strength Start: 01/01/21 15:41 Freq: Status: Active Protocol: Document 01/02/21 08:18 MB (Rec: 01/02/21 15:25 MB [id number]) Hip Strength Hip Manual Muscle Testing Left Flexion (L2) 5 Normal Abduction 5 Normal Adduction 5 Normal Right Flexion (L2) 3+ Fair+ Abduction 2+ Poor+ Adduction 2+ Poor+ Knee Strength Knee Manual Muscle Testing Left Flexion (S2) 5 Normal Extension (L3) 5 Normal Right Comments NT d/t guarding for foot Ankle/Foot Strength Ankle and Foot Manual Muscle Testing Right Comments Not MMT post-op Right calf is atrophied Left Dorsiflexion (L4) 4 Good Toe Strength Toe Manual Muscle Testing Left Great Toe Flexion 3+ Fair+ PT-OP-Q Treatments Start: 01/01/21 15:41 Freq: Status: Active Protocol: Document 01/17/21 08:15 MB (Rec: 01/17/21 08:54 MB [id number]) Cardio Equipment Recumbent Elliptical ([employer]) Duration (Minutes) 10 Resistance 4 Other LEs only Therapeutic Exercises Sitting Exercises Rolling pin self-massage Side right Comments Ed in see saw motion, to work on fibularis longus Manual Therapy Treatment Other Other Manual Treatments RLE manual work with strumming and MWM fibularlis longus proximal attachment, plantar fascia STM, interossei STM from plantar surface, gentle tarsal stretch/mobilization into eversion and inversion, STM and positional release right hip flexor, right vastus lateralis PT-OP-S Aquatic Treatment Start: 01/01/21 15:41 Freq: Status: Active Protocol: Document 01/28/21 15:28 LJ (Rec: 01/28/21 15:46 LJ [email or web address]) Aquatics Treatment Pool Entry/Exit Pool Entry/Exit Method Stairs Assistance Independent Water Walking stop-start Water Level Chest Level [place] Water Level Chest Level Level of Assistance Verbal Cues Sideways Water Level Chest Level Level of Assistance Verbal Cues Comments cross over posterior Marching Water Level Chest Level Level of Assistance Verbal Cues Backwards Water Level Chest Level Level of Assistance Verbal Cues Forwards Water Level Chest Level Level of Assistance Verbal Cues Lower Extremity Exercises step up on box Body Position Standing Water Level Chest Level Reps/Duration 10 B Comments sideways hip flex/ext Details HH on wall Body Position Standing Water Level Chest Level Comments standing chest deep on box to allow foot clearance hip circles Details HH on wall Body Position Sitting Water Level Chest Level Reps/Duration 10 B Comments forward and backward knee flex/ext Details sitting at wall Water Level Chest Level Reps/Duration 10 B Lower Extremity Stretches ITB Details at wall Body Position Standing Water Level Waist Level Reps/Duration 30 sec B HS, gastroc Details at wall Body Position Standing Reps/Duration 30 sec x2 B [place] Activities [place] Activities Bicycle,Bicycle Backwards, Running Other Activities walking-PF DF Equipment belt, BBs Duration 8 Manual Techniques Aquatic Massage aqua stretch technique RLE gastroc and preroneals in corner w/noodle under arms ball rolling gastroc on step PT-OP-T Assessment and Plan Start: 01/01/21 15:41 Freq: Status: Active Protocol: Document 01/28/21 15:28 JESICA (Rec: 01/28/21 15:46 JESICA [email or web address]) Physical Therapy Assessment Rehab Potential Rehabilitation Potential Fair Evaluation Complexity Number of Personal Factors/Comorbidities 3 or More Number of Body Systems Impaired 3 Clinical Presentation at Evaluation Evolving Impairments Impairments Activity Tolerance,Balance, Edema,Functional Activities, Functional Mobility,Gait, Integument,Pain,Posture,ROM, Sensation,Soft Tissue Mobility ,Strength Other Impairments Personal factors include pt cannot drive or WB at this time. He has other orthopedic co-morbidities including lumbar, finger and oral issues that all may be surgically addressed. Body systems affected include neuromuscular , musculoskeletal, integumentary. His clinical presentation is evolving. Other Concerns Fall Risk Yes Goals 4 Long-Term Goal (LTG) Pt will perform progressive HEP with I including flexiblity, ROM, strengthening , balance and gait to improve right foot ROM, strength and function by 03/04/21. LTG Duration 8 weeks 3 Long-Term Goal (LTG) Pt will report a 75% improvement in right foot and ankle pain to improve quality of life by 03/04/21. LTG Duration 8 weeks 2 Publications Inspector Goal (LTG) Pt will perform WNLs on a standardized balance test to decrease fall risk and exhibit more normal right foot intrinsic strength by 03/04/21. LTG Duration 8 weeks 1 Publications Inspector Goal (LTG) Pt will gait train at least 1200 feet in 6 minutes without AD to return to community ambulation by 03/04/21. LTG Duration 8 weeks Assessment Summary Assessment Pt experiencing difficulty with static and dynamic single leg balancing in chest deep water. He is able to reduce antalgic gait in waist deep water but still experiencing some pain. Aqua Stretch to the gastroc and distal hamstrings provided pain relief and pt stated he felt his LLE was looser afterwards. Finished Aqua Stretch with rolling la crosse ball under calf muscles as leg was resting on step. Continue with Aqua Stretch and balance activities to improve pain, gait and reduce fall risk. Physical Therapy Plan Frequency and Duration Frequency of Treatment 2x/Week Duration of Treatment 8 weeks Plan of Care Start Date 01/02/21 Plan of Care End Date 03/04/21 Therapeutic Interventions Therapeutic Interventions Aquatic Therapy,Balance Training,Canalithic Repositioning,Gait Training, Home Exercise Program,Joint Mobilizations,Manual Therapy, Neuromuscular Re-education, Orthotic/Prosthetic Management ,Patient/Caregiver Education, Self-Care/Home Management,Soft Tissue Mobilization,Taping, Therapeutic Activities, Therapeutic Exercises Modalities Cold Pack/Ice Massage,Hot Packs,Ultrasound Next Visit Focus/Plan Next Note Type Treatment Note Next Visit Plan Con't manual work, progress exercises, balance and gait. Consider balancing on noodle for interossei muscle strengthening during AT. Trial hydrobike for strengthening and ROM.
--- NOTE | 2021-01-28 15:57 | PT.OTN ---
Current Diagnoses Other instability, right ankle (01/28/21) Strain of muscle(s) and tendon(s) of peroneal muscle group at lower leg level, right leg, subsequent encounter (01/28/21) Physical Therapy Treatment Note PT-OP-A Visit Information Start: 01/01/21 15:41 Freq: Status: Active Protocol: Document 01/28/21 15:28 LJ (Rec: 01/28/21 15:46 LJ [email or web address]) Out-Patient Physical Therapy Visit Information Visit Information Visit Type Aquatic Treatment Note Visit Note Medicare Visit Start Time 12:30 Visit Stop Time 13:15 Total Visit Minutes 45 Visit Number 7 Number of NURSING TECHNICIAN Visits 2 Precautions Precautions 01/03/[address] Velazco note from 12/25/20: Pt is approved to begin walking in surgical shoe without crutches , then transition to normal shoe in 2 weeks as comfortable ; pt to begin physical therapy ; follow-up in 6 weeks with x- ray prior to visit; ROM PT-OP-B Current Condition Start: 01/01/21 15:41 Freq: Status: Active Protocol: Document 01/02/21 08:18 MB (Rec: 01/02/21 09:08 MB [id number]) Current Condition History of Current Condition Onset Date 11/30/20 Current Complaints Ongoing pain and decreased mobility History of Current Condition Pt underwent right lateral ankle stabilization with internal brace, repair of collateral ankle ligament, and repair of right peroneal tendon tear on 11/30/20. Pt has been NWB since that time. He got a post-op boot on 12/12/20 . He has been using crutches in the house and knee walker when he leaves the house. PMH: right hamstring tear, left ankle injury, left tooth surgery, two neck fusions, four left shoulder surgeries, one right shoulder surgery. Pt is going to have a bridge put in his mouth on 01/18/21 and he has having trigger finger surgery on 01/23/21. Pt reports 8/10 pain along his right foot sutures and metarsalphalangeal joints on dorsal surface. Pt states that he cannot move his right foot much in and out d/t the internal anchor from surgery. He has been working on PF and DF. Pt has two steps to enter the house and one step down to his living room. He con't to have swelling in his foot. When his foot is in a dependent position, it goes beet red. When it is elevated, it is more flesh colored. He has been stuck in the house, in bed or on the couch with foot up on the coffee table. Pt is due for a MRI of his back in two weeks. Pt has not yet gotten compression socks or thigh highs. Prior Treatments and Tests PT for left foot injury and right hamstring tear Treatment Goals Patient/Caregiver Goals To decrease pain and swelling and improve mobility PT-OP-C Subjective Start: 01/01/21 15:41 Freq: Status: Active Protocol: Document 01/28/21 15:28 LJ (Rec: 01/28/21 15:46 LJ [email or web address]) OP-PT Subjective Patient Comments Patient Comments Pt c/o pain in lateral aspect of R ankle. Peroneals and lateral belly of gastroc painful as well as lateral distal hip. States he flet TFL loosened up after aqua- stretch last AT session PT-OP-G Mobility & Gait Start: 01/01/21 15:41 Freq: Status: Active Protocol: Document 01/02/21 08:18 MB (Rec: 01/02/21 15:25 MB [id number]) OP Gait Assessment Comments Gait Comments Pt is not yet WB through his right foot. He wears post-op boot and uses knee scooter to enter the clinic and he does a good job pivoting for transfers PT-OP-J Posture/Palpation/Skin Start: 01/01/21 15:41 Freq: Status: Active Protocol: Document 01/02/21 08:18 MB (Rec: 01/02/21 15:25 MB [id number]) Skin Assessment Other Assessments Skin Assessment Comments Right foot color is mostly normal with leg supported in hooklying. He has scabbing around dorsal lateral scar and some mild edema. His skin is normal to touch and his toe nails look normal. PT-OP-K Range of Motion Start: 01/01/21 15:41 Freq: Status: Active Protocol: Document 01/02/21 08:18 MB (Rec: 01/02/21 15:25 MB [id number]) Ankle and Foot Goniometric Range of Motion Ankle and Foot ROM Limitations Comments Pt has baseline B foot bony positioning changes with supinated left foot positioning and decreased foot AROM. Right foot ROM not pushed today post-op pending do not know clear precautions at this point since 12/25 note is not yet available. He demonstrates minimal DF and PF with leg extended and supported on table. PT-OP-M Strength Start: 01/01/21 15:41 Freq: Status: Active Protocol: Document 01/02/21 08:18 MB (Rec: 01/02/21 15:25 MB [id number]) Hip Strength Hip Manual Muscle Testing Left Flexion (L2) 5 Normal Abduction 5 Normal Adduction 5 Normal Right Flexion (L2) 3+ Fair+ Abduction 2+ Poor+ Adduction 2+ Poor+ Knee Strength Knee Manual Muscle Testing Left Flexion (S2) 5 Normal Extension (L3) 5 Normal Right Comments NT d/t guarding for foot Ankle/Foot Strength Ankle and Foot Manual Muscle Testing Right Comments Not MMT post-op Right calf is atrophied Left Dorsiflexion (L4) 4 Good Toe Strength Toe Manual Muscle Testing Left Great Toe Flexion 3+ Fair+ PT-OP-Q Treatments Start: 01/01/21 15:41 Freq: Status: Active Protocol: Document 01/17/21 08:15 MB (Rec: 01/17/21 08:54 MB [id number]) Cardio Equipment Recumbent Elliptical ([employer]) Duration (Minutes) 10 Resistance 4 Other LEs only Therapeutic Exercises Sitting Exercises Rolling pin self-massage Side right Comments Ed in see saw motion, to work on fibularis longus Manual Therapy Treatment Other Other Manual Treatments RLE manual work with strumming and MWM fibularlis longus proximal attachment, plantar fascia STM, interossei STM from plantar surface, gentle tarsal stretch/mobilization into eversion and inversion, STM and positional release right hip flexor, right vastus lateralis PT-OP-S Aquatic Treatment Start: 01/01/21 15:41 Freq: Status: Active Protocol: Document 01/28/21 15:28 LJ (Rec: 01/28/21 15:46 LJ [email or web address]) Aquatics Treatment Pool Entry/Exit Pool Entry/Exit Method Stairs Assistance Independent Water Walking stop-start Water Level Chest Level [place] Water Level Chest Level Level of Assistance Verbal Cues Sideways Water Level Chest Level Level of Assistance Verbal Cues Comments cross over posterior Marching Water Level Chest Level Level of Assistance Verbal Cues Backwards Water Level Chest Level Level of Assistance Verbal Cues [place] Water Level Chest Level Level of Assistance Verbal Cues Lower Extremity Exercises step up on box Body Position Standing Water Level Chest Level Reps/Duration 10 B Comments sideways hip flex/ext Details HH on wall Body Position Standing Water Level Chest Level Comments standing chest deep on box to allow foot clearance hip circles Details HH on wall Body Position Sitting Water Level Chest Level Reps/Duration 10 B Comments forward and backward knee flex/ext Details sitting at wall Water Level Chest Level Reps/Duration 10 B Lower Extremity Stretches ITB Details at wall Body Position Standing Water Level Waist Level Reps/Duration 30 sec B HS, gastroc Details at wall Body Position Standing Reps/Duration 30 sec x2 B [place] Activities [place] Activities Bicycle,Bicycle Backwards, Running Other Activities walking-PF DF Equipment belt, BBs Duration 8 Manual Techniques Aquatic Massage aqua stretch technique RLE gastroc and preroneals in corner w/noodle under arms ball rolling gastroc on step PT-OP-T Assessment and Plan Start: 01/01/21 15:41 Freq: Status: Active Protocol: Document 01/28/21 15:28 JESICA (Rec: 01/28/21 15:46 JESICA [email or web address]) Physical Therapy Assessment Rehab Potential Rehabilitation Potential Fair Evaluation Complexity Number of Personal Factors/Comorbidities 3 or More Number of Body Systems Impaired 3 Clinical Presentation at Evaluation Evolving Impairments Impairments Activity Tolerance,Balance, Edema,Functional Activities, Functional Mobility,Gait, Integument,Pain,Posture,ROM, Sensation,Soft Tissue Mobility ,Strength Other Impairments Personal factors include pt cannot drive or WB at this time. He has other orthopedic co-morbidities including lumbar, finger and oral issues that all may be surgically addressed. Body systems affected include neuromuscular , musculoskeletal, integumentary. His clinical presentation is evolving. Other Concerns Fall Risk Yes Goals 4 Mcc Goal (LTG) Pt will perform progressive HEP with I including flexiblity, ROM, strengthening , balance and gait to improve right foot ROM, strength and function by 03/04/21. LTG Duration 8 weeks 3 Mcc Goal (LTG) Pt will report a 75% improvement in right foot and ankle pain to improve quality of life by 03/04/21. LTG Duration 8 weeks 2 Activities Leader Goal (LTG) Pt will perform WNLs on a standardized balance test to decrease fall risk and exhibit more normal right foot intrinsic strength by 03/04/21. LTG Duration 8 weeks 1 Activities Leader Goal (LTG) Pt will gait train at least 1200 feet in 6 minutes without AD to return to community ambulation by 03/04/21. LTG Duration 8 weeks Assessment Summary Assessment Pt experiencing difficulty with static and dynamic single leg balancing in chest deep water. He is able to reduce antalgic gait in waist deep water but still experiencing some pain. Aqua Stretch to the gastroc and distal hamstrings provided pain relief and pt stated he felt his LLE was looser afterwards. Finished Aqua Stretch with rolling la crosse ball under calf muscles as leg was resting on step. Continue with Aqua Stretch and balance activities to improve pain, gait and reduce fall risk. Physical Therapy Plan Frequency and Duration Frequency of Treatment 2x/Week Duration of Treatment 8 weeks Plan of Care Start Date 01/02/21 Plan of Care End Date 03/04/21 Therapeutic Interventions Therapeutic Interventions Aquatic Therapy,Balance Training,Canalithic Repositioning,Gait Training, Home Exercise Program,Joint Mobilizations,Manual Therapy, Neuromuscular Re-education, Orthotic/Prosthetic Management ,Patient/Caregiver Education, Self-Care/Home Management,Soft Tissue Mobilization,Taping, Therapeutic Activities, Therapeutic Exercises Modalities Cold Pack/Ice Massage,Hot Packs,Ultrasound Next Visit Focus/Plan Next Note Type Treatment Note Next Visit Plan Con't manual work, progress exercises, balance and gait. Consider balancing on noodle for interossei muscle strengthening during AT. Trial hydrobike for strengthening and ROM.
--- NOTE | 2021-02-01 14:54 | PT.OTN ---
Current Diagnoses Other instability, right ankle (02/01/21) Strain of muscle(s) and tendon(s) of peroneal muscle group at lower leg level, right leg, subsequent encounter (02/01/21) Physical Therapy Treatment Note PT-OP-A Visit Information Start: 01/01/21 15:41 Freq: Status: Active Protocol: Document 02/01/21 10:33 MB (Rec: 02/01/21 10:47 MB [id number]) Out-Patient Physical Therapy Visit Information Visit Information Visit Type Treatment Note Visit Note Medicare Visit Start Time 10:33 Visit Stop Time 11:15 Total Visit Minutes 42 Visit Number 8 Number of BIOLOGICAL LAB TECHNICIAN Visits 0 Precautions Precautions 01/03/[address] Velazco note from 12/25/20: Pt is approved to begin walking in surgical shoe without crutches , then transition to normal shoe in 2 weeks as comfortable ; pt to begin physical therapy ; follow-up in 6 weeks with x- ray prior to visit; ROM PT-OP-B Current Condition Start: 01/01/21 15:41 Freq: Status: Active Protocol: Document 01/02/21 08:18 MB (Rec: 01/02/21 09:08 MB [id number]) Current Condition History of Current Condition Onset Date 11/30/20 Current Complaints Ongoing pain and decreased mobility History of Current Condition Pt underwent right lateral ankle stabilization with internal brace, repair of collateral ankle ligament, and repair of right peroneal tendon tear on 11/30/20. Pt has been NWB since that time. He got a post-op boot on 12/12/20 . He has been using crutches in the house and knee walker when he leaves the house. PMH: right hamstring tear, left ankle injury, left tooth surgery, two neck fusions, four left shoulder surgeries, one right shoulder surgery. Pt is going to have a bridge put in his mouth on 01/18/21 and he has having trigger finger surgery on 01/23/21. Pt reports 8/10 pain along his right foot sutures and metarsalphalangeal joints on dorsal surface. Pt states that he cannot move his right foot much in and out d/t the internal anchor from surgery. He has been working on PF and DF. Pt has two steps to enter the house and one step down to his living room. He con't to have swelling in his foot. When his foot is in a dependent position, it goes beet red. When it is elevated, it is more flesh colored. He has been stuck in the house, in bed or on the couch with foot up on the coffee table. Pt is due for a MRI of his back in two weeks. Pt has not yet gotten compression socks or thigh highs. Prior Treatments and Tests PT for left foot injury and right hamstring tear Treatment Goals Patient/Caregiver Goals To decrease pain and swelling and improve mobility PT-OP-C Subjective Start: 01/01/21 15:41 Freq: Status: Active Protocol: Document 02/01/21 10:33 MB (Rec: 02/01/21 10:47 MB [id number]) OP-PT Subjective Patient Comments Patient Comments Pt states that he threw his back out on Thursday night when he mis-stepped after walking outside without the cane. He did get lumbar MRI. He has chronic back pain on the left and occ right sided SI area pain when he throws his back out. Pt had trigger finger surgery last week. Pt got some of his teeth implants. PT-OP-G Mobility & Gait Start: 01/01/21 15:41 Freq: Status: Active Protocol: Document 01/02/21 08:18 MB (Rec: 01/02/21 15:25 MB [id number]) OP Gait Assessment Comments Gait Comments Pt is not yet WB through his right foot. He wears post-op boot and uses knee scooter to enter the clinic and he does a good job pivoting for transfers PT-OP-J Posture/Palpation/Skin Start: 01/01/21 15:41 Freq: Status: Active Protocol: Document 01/02/21 08:18 MB (Rec: 01/02/21 15:25 MB [id number]) Skin Assessment Other Assessments Skin Assessment Comments Right foot color is mostly normal with leg supported in hooklying. He has scabbing around dorsal lateral scar and some mild edema. His skin is normal to touch and his toe nails look normal. PT-OP-K Range of Motion Start: 01/01/21 15:41 Freq: Status: Active Protocol: Document 01/02/21 08:18 MB (Rec: 01/02/21 15:25 MB [id number]) Ankle and Foot Goniometric Range of Motion Ankle and Foot ROM Limitations Comments Pt has baseline B foot bony positioning changes with supinated left foot positioning and decreased foot AROM. Right foot ROM not pushed today post-op pending do not know clear precautions at this point since 12/25 note is not yet available. He demonstrates minimal DF and PF with leg extended and supported on table. PT-OP-M Strength Start: 01/01/21 15:41 Freq: Status: Active Protocol: Document 01/02/21 08:18 MB (Rec: 01/02/21 15:25 MB [id number]) Hip Strength Hip Manual Muscle Testing Left Flexion (L2) 5 Normal Abduction 5 Normal Adduction 5 Normal Right Flexion (L2) 3+ Fair+ Abduction 2+ Poor+ Adduction 2+ Poor+ Knee Strength Knee Manual Muscle Testing Left Flexion (S2) 5 Normal Extension (L3) 5 Normal Right Comments NT d/t guarding for foot Ankle/Foot Strength Ankle and Foot Manual Muscle Testing Right Comments Not MMT post-op Right calf is atrophied Left Dorsiflexion (L4) 4 Good Toe Strength Toe Manual Muscle Testing Left Great Toe Flexion 3+ Fair+ PT-OP-Q Treatments Start: 01/01/21 15:41 Freq: Status: Active Protocol: Document 02/01/21 10:33 MB (Rec: 02/01/21 10:55 MB [id number]) Cardio Equipment Recumbent Elliptical (Biodex) Duration (Minutes) 15 Resistance 3 Other LEs only Manual Therapy Treatment Other Other Manual Treatments Black KT I strip from plantar surface up lateral right gastroc MWM right lateral gastroc and everters with AP PT-OP-S Aquatic Treatment Start: 01/01/21 15:41 Freq: Status: Active Protocol: Document 01/28/21 15:28 LJ (Rec: 01/28/21 15:46 LJ [id number]) Aquatics Treatment Pool Entry/Exit Pool Entry/Exit Method Stairs Assistance Independent Water Walking stop-start Water Level Chest Level [place] Water Level Chest Level Level of Assistance Verbal Cues Sideways Water Level Chest Level Level of Assistance Verbal Cues Comments cross over posterior Marching Water Level Chest Level Level of Assistance Verbal Cues Backwards Water Level Chest Level Level of Assistance Verbal Cues Forwards Water Level Chest Level Level of Assistance Verbal Cues Lower Extremity Exercises step up on box Body Position Standing Water Level Chest Level Reps/Duration 10 B Comments sideways hip flex/ext Details HH on wall Body Position Standing Water Level Chest Level Comments standing chest deep on box to allow foot clearance hip circles Details HH on wall Body Position Sitting Water Level Chest Level Reps/Duration 10 B Comments forward and backward knee flex/ext Details sitting at wall Water Level Chest Level Reps/Duration 10 B Lower Extremity Stretches ITB Details at wall Body Position Standing Water Level Waist Level Reps/Duration 30 sec B HS, gastroc Details at wall Body Position Standing Reps/Duration 30 sec x2 B [place] Activities [place] Activities Bicycle,Bicycle Backwards, Running Other Activities walking-PF DF Equipment belt, BBs Duration 8 Manual Techniques Aquatic Massage aqua stretch technique RLE gastroc and preroneals in corner w/noodle under arms ball rolling gastroc on step PT-OP-T Assessment and Plan Start: 01/01/21 15:41 Freq: Status: Active Protocol: Document 02/01/21 10:33 MB (Rec: 02/01/21 10:47 MB [id number]) Physical Therapy Assessment Rehab Potential Rehabilitation Potential Fair Evaluation Complexity Number of Personal Factors/Comorbidities 3 or More Number of Body Systems Impaired 3 Clinical Presentation at Evaluation Evolving Impairments Impairments Activity Tolerance,Balance, Edema,Functional Activities, Functional Mobility,Gait, Integument,Pain,Posture,ROM, Sensation,Soft Tissue Mobility ,Strength Other Impairments Personal factors include pt cannot drive or WB at this time. He has other orthopedic co-morbidities including lumbar, finger and oral issues that all may be surgically addressed. Body systems affected include neuromuscular , musculoskeletal, integumentary. His clinical presentation is evolving. Other Concerns Fall Risk Yes Goals 4 Fdc Goal (LTG) Pt will perform progressive HEP with I including flexiblity, ROM, strengthening , balance and gait to improve right foot ROM, strength and function by 04/04/21. 02/01/22: Pt is performing foot hammock with band, doorway stretches, wearing [place] sock and was just given pelvic realignment today LTG Duration 8 weeks 3 Reconciling Clerk Goal (LTG) Pt will report a 75% improvement in right foot and ankle pain to improve quality of life by 04/04/21. 02/01/21: Pt reports a 10% improvement in right foot and ankle pain since starting PT. LTG Duration 8 weeks 2 Reconciling Clerk Goal (LTG) Pt will perform WNLs on a standardized balance test to decrease fall risk and exhibit more normal right foot intrinsic strength by 04/04/21. 02/01/21: Not performed today d /t reports of pain LTG Duration 8 weeks 1 Reconciling Clerk Goal (LTG) Pt will gait train at least 1200 feet in 6 minutes without AD to return to community ambulation by 04/04/21. 02/01/21: Not performed today d /t pain LTG Duration 8 weeks Assessment Summary Assessment Lumbar MRI results: Paraspinous Soft Tissues: No paravertebral masses. T12-L1: Disc height is maintained. Mild asymmetric right disc bulge with mild central stenosis. No central or foraminal stenosis present. L1-L2: Disc height is preserved. No disc bulge or protrusion. No central or foraminal stenosis. L2-L3: Disc height is preserved. Circumferential disc bulge results in mild central stenosis. Moderate left and mild right foraminal stenosis. L3-L4: Mild disc height loss and circumferential disc bulge with hypertrophic facet joints results in moderate central stenosis. Moderate left and mild right foraminal stenosis L4-L5: Mild disc height loss and circumferential disc bulge with hypertrophic facet joints results in mild central stenosis. There is moderate bilateral foraminal stenosis, greater on the right L5-S1: Grade 1 anterior spondylolisthesis present with circumferential disc bulge and hypertrophic facet joints. Moderate left and right foraminal stenosis with nerve root impingement. IMPRESSION: 1. Grade 1 L5-S1 isthmic anterior spondylolisthesis results in right bilateral foraminal stenosis 2. Multilevel degenerative disc disease and arthropathy also results in varying degrees of central and foraminal stenosis including moderate central and left foraminal stenosis at L3-4 Added pelvic realignment exercises today given gait is uneven and he has worsening LBP. Con't progression per below and ed pt to con't to keep the cane with him. Pt is slowly progressing towards PT goals. He will con't to benefit from PT to improve function, transfers, gait and balance. Physical Therapy Plan Frequency and Duration Frequency of Treatment 2x/Week Duration of Treatment 8 weeks Plan of Care Start Date 02/01/21 Plan of Care End Date 04/04/21 Therapeutic Interventions Therapeutic Interventions Aquatic Therapy,Balance Training,Canalithic Repositioning,Gait Training, Home Exercise Program,Joint Mobilizations,Manual Therapy, Neuromuscular Re-education, Orthotic/Prosthetic Management ,Patient/Caregiver Education, Self-Care/Home Management,Soft Tissue Mobilization,Taping, Therapeutic Activities, Therapeutic Exercises Modalities Cold Pack/Ice Massage,Hot Packs,Ultrasound Next Visit Focus/Plan Next Note Type Treatment Note Next Visit Plan Con't manual work on right everters and PFs next treatment date as pt responded well to work by CARINA Lyle, hamstring stretch with AP in hook lying Progress balance and gait. Consider balancing on noodle for interossei muscle strengthening during AT. Trial hydrobike for strengthening and ROM.
--- NOTE | 2021-02-04 10:11 | PT.OTN ---
Current Diagnoses Other instability, right ankle (02/04/21) Strain of muscle(s) and tendon(s) of peroneal muscle group at lower leg level, right leg, subsequent encounter (02/04/21) Physical Therapy Treatment Note PT-OP-A Visit Information Start: 01/01/21 15:41 Freq: Status: Active Protocol: Document 02/04/21 09:06 ER (Rec: 02/04/21 10:04 ER [id number]) Out-Patient Physical Therapy Visit Information Visit Information Visit Type Treatment Note Visit Note Medicare before KX Visit Start Time 09:06 Visit Stop Time 09:45 Total Visit Minutes 39 Visit Number 9 Number of ASSISTANT TO THE VICE PRESIDENT Visits 1 Precautions Precautions 01/03/[address] Velazco note from 12/25/20: Pt is approved to begin walking in surgical shoe without crutches , then transition to normal shoe in 2 weeks as comfortable ; pt to begin physical therapy ; follow-up in 6 weeks with x- ray prior to visit; ROM PT-OP-B Current Condition Start: 01/01/21 15:41 Freq: Status: Active Protocol: Document 01/02/21 08:18 MB (Rec: 01/02/21 09:08 MB [id number]) Current Condition History of Current Condition Onset Date 11/30/20 Current Complaints Ongoing pain and decreased mobility History of Current Condition Pt underwent right lateral ankle stabilization with internal brace, repair of collateral ankle ligament, and repair of right peroneal tendon tear on 11/30/20. Pt has been NWB since that time. He got a post-op boot on 12/12/20 . He has been using crutches in the house and knee walker when he leaves the house. PMH: right hamstring tear, left ankle injury, left tooth surgery, two neck fusions, four left shoulder surgeries, one right shoulder surgery. Pt is going to have a bridge put in his mouth on 01/18/21 and he has having trigger finger surgery on 01/23/21. Pt reports 8/10 pain along his right foot sutures and metarsalphalangeal joints on dorsal surface. Pt states that he cannot move his right foot much in and out d/t the internal anchor from surgery. He has been working on PF and DF. Pt has two steps to enter the house and one step down to his living room. He con't to have swelling in his foot. When his foot is in a dependent position, it goes beet red. When it is elevated, it is more flesh colored. He has been stuck in the house, in bed or on the couch with foot up on the coffee table. Pt is due for a MRI of his back in two weeks. Pt has not yet gotten compression socks or thigh highs. Prior Treatments and Tests PT for left foot injury and right hamstring tear Treatment Goals Patient/Caregiver Goals To decrease pain and swelling and improve mobility PT-OP-C Subjective Start: 01/01/21 15:41 Freq: Status: Active Protocol: Document 02/04/21 09:06 ER (Rec: 02/04/21 10:04 ER [id number]) OP-PT Subjective Patient Comments Patient Comments Pt states that his RLL ankle, and lateral calf are still sore. No real change. Reports foot pain at 5/10 continually. Pt reports using ball to self massage at the pool. PT-OP-G Mobility & Gait Start: 01/01/21 15:41 Freq: Status: Active Protocol: Document 01/02/21 08:18 MB (Rec: 01/02/21 15:25 MB [id number]) OP Gait Assessment Comments Gait Comments Pt is not yet WB through his right foot. He wears post-op boot and uses knee scooter to enter the clinic and he does a good job pivoting for transfers PT-OP-J Posture/Palpation/Skin Start: 01/01/21 15:41 Freq: Status: Active Protocol: Document 01/02/21 08:18 MB (Rec: 01/02/21 15:25 MB [id number]) Skin Assessment Other Assessments Skin Assessment Comments Right foot color is mostly normal with leg supported in hooklying. He has scabbing around dorsal lateral scar and some mild edema. His skin is normal to touch and his toe nails look normal. PT-OP-K Range of Motion Start: 01/01/21 15:41 Freq: Status: Active Protocol: Document 01/02/21 08:18 MB (Rec: 01/02/21 15:25 MB [id number]) Ankle and Foot Goniometric Range of Motion Ankle and Foot ROM Limitations Comments Pt has baseline B foot bony positioning changes with supinated left foot positioning and decreased foot AROM. Right foot ROM not pushed today post-op pending do not know clear precautions at this point since 12/25 note is not yet available. He demonstrates minimal DF and PF with leg extended and supported on table. PT-OP-M Strength Start: 01/01/21 15:41 Freq: Status: Active Protocol: Document 01/02/21 08:18 MB (Rec: 01/02/21 15:25 MB [id number]) Hip Strength Hip Manual Muscle Testing Left Flexion (L2) 5 Normal Abduction 5 Normal Adduction 5 Normal Right Flexion (L2) 3+ Fair+ Abduction 2+ Poor+ Adduction 2+ Poor+ Knee Strength Knee Manual Muscle Testing Left Flexion (S2) 5 Normal Extension (L3) 5 Normal Right Comments NT d/t guarding for foot Ankle/Foot Strength Ankle and Foot Manual Muscle Testing Right Comments Not MMT post-op Right calf is atrophied Left Dorsiflexion (L4) 4 Good Toe Strength Toe Manual Muscle Testing Left Great Toe Flexion 3+ Fair+ PT-OP-Q Treatments Start: 01/01/21 15:41 Freq: Status: Active Protocol: Document 02/04/21 09:06 ER (Rec: 02/04/21 10:04 ER [id number]) Cardio Equipment Recumbent Elliptical ([employer] Cable) Duration (Minutes) 10 Resistance 4 Seat Position 9 Other LE only Therapeutic Exercises Supine Exercises Hamstring Stretch with AP Supine Exercise Name added to HEP Side bilateral Resistance AROM Reps/Minutes 10 pumps each side Comments Cues to extend knee as far as comfortable, good stretch feedback Manual Therapy Treatment Soft Tissue Mobilization Scar mobilization Body Location R lateral ankle Mobilization Type Other Intensity/Depth Superficial Body Position Supine Comments Initially immobile tissue. Successfully mobiliized with moderate to good movement of skin over underlying tissue. RLE Body Location R gastroc, peroneals, ankle, plantar foot Mobilization Type Cross-Friction,Myofascial Release,Rolling,Strumming, Sustained Pressure,Trigger Point Release Intensity/Depth Moderate Body Position Supine Comments Palpated rope-like gastroc and peroneal fibers, Pt winced with higher pressure. Good release of tension with reduced pressure, sustained trigger point release, and MWM . Plantar surface proximal to great toe tender, requiring additional work to release. Neuro Re-Education Treatment Balance Activities Mini tramp exercises Details weight shifting, lateral ball touching with normal and NBOS Surface compliant - mini tramp Equipment mini trampoline Reps/Duration 10 min Comments Pt reports pressure along lateral edge of R foot during all exercises, increasing with NBOS. Cues to keep body erect and use ankle strategy for weight shifting. PT-OP-S Aquatic Treatment Start: 01/01/21 15:41 Freq: Status: Active Protocol: Document 01/28/21 15:28 LJ (Rec: 01/28/21 15:46 LJ [id number]) Aquatics Treatment Pool Entry/Exit Pool Entry/Exit Method Stairs Assistance Independent Water Walking stop-start Water Level Chest Level [place] Water Level Chest Level Level of Assistance Verbal Cues Sideways Water Level Chest Level Level of Assistance Verbal Cues Comments cross over posterior Marching Water Level Chest Level Level of Assistance Verbal Cues Backwards Water Level Chest Level Level of Assistance Verbal Cues Forwards Water Level Chest Level Level of Assistance Verbal Cues Lower Extremity Exercises step up on box Body Position Standing Water Level Chest Level Reps/Duration 10 B Comments sideways hip flex/ext Details HH on wall Body Position Standing Water Level Chest Level Comments standing chest deep on box to allow foot clearance hip circles Details HH on wall Body Position Sitting Water Level Chest Level Reps/Duration 10 B Comments forward and backward knee flex/ext Details sitting at wall Water Level Chest Level Reps/Duration 10 B Lower Extremity Stretches ITB Details at wall Body Position Standing Water Level Waist Level Reps/Duration 30 sec B HS, gastroc Details at wall Body Position Standing Reps/Duration 30 sec x2 B [place] Activities [place] Activities Bicycle,Bicycle Backwards, Running Other Activities walking-PF DF Equipment belt, BBs Duration 8 Manual Techniques Aquatic Massage aqua stretch technique RLE gastroc and preroneals in corner w/noodle under arms ball rolling gastroc on step PT-OP-T Assessment and Plan Start: 01/01/21 15:41 Freq: Status: Active Protocol: Document 02/04/21 09:06 ER (Rec: 02/04/21 10:04 ER [id number]) Physical Therapy Assessment Goals 4 Detention Goal (LTG) Pt will perform progressive HEP with I including flexiblity, ROM, strengthening , balance and gait to improve right foot ROM, strength and function by 04/04/21. 02/01/22: Pt is performing foot hammock with band, doorway stretches, wearing [place] sock and was just given pelvic realignment today LTG Duration 8 weeks 3 Detention Goal (LTG) Pt will report a 75% improvement in right foot and ankle pain to improve quality of life by 04/04/21. 02/01/21: Pt reports a 10% improvement in right foot and ankle pain since starting PT. LTG Duration 8 weeks 2 Detention Goal (LTG) Pt will perform WNLs on a standardized balance test to decrease fall risk and exhibit more normal right foot intrinsic strength by 04/04/21. 02/01/21: Not performed today d /t reports of pain LTG Duration 8 weeks 1 Detention Goal (LTG) Pt will gait train at least 1200 feet in 6 minutes without AD to return to community ambulation by 04/04/21. 02/01/21: Not performed today d /t pain LTG Duration 8 weeks Assessment Summary Assessment PT reported R foot end of range pain on Biodex, at ball of foot just proximal to toes. Pt chose to continue treatment. Manual palpation revealed roping of gastroc and peroneals, along with tight plantar tissue proximal to the great toe. Tightness decreased in all noted areas with therapy. Mobilized scar tissue that was initially immobile and tight. Introduced hamstring stretch in supine with AP. Pt able to perform with knee flexion approx 45 degrees. Unable to extend further. Pt reported leg felt better Pt was challenged on trampoline, reporting pressure along lateral side of R foot. Pt indicated that he thought today's session was helpful. Physical Therapy Plan Frequency and Duration Frequency of Treatment 2x/Week Duration of Treatment 8 weeks Plan of Care Start Date 02/01/21 Plan of Care End Date 04/04/21 Therapeutic Interventions Therapeutic Interventions Aquatic Therapy,Balance Training,Canalithic Repositioning,Gait Training, Home Exercise Program,Joint Mobilizations,Manual Therapy, Neuromuscular Re-education, Orthotic/Prosthetic Management ,Patient/Caregiver Education, Self-Care/Home Management,Soft Tissue Mobilization,Taping, Therapeutic Activities, Therapeutic Exercises Modalities Cold Pack/Ice Massage,Hot Packs,Ultrasound Next Visit Focus/Plan Next Note Type Treatment Note Next Visit Plan Review Hamstring stretch, assess value of massage Pt recieved outside of clinic, Con't manual work on right everters and PFs next treatment, hamstring stretch with AP in hook lying Progress balance and gait. Consider balancing on noodle for interossei muscle strengthening during AT. Trial hydrobike for strengthening and ROM.
--- NOTE | 2021-02-04 14:38 | PT.OTN ---
Current Diagnoses Other instability, right ankle (02/04/21) Strain of muscle(s) and tendon(s) of peroneal muscle group at lower leg level, right leg, subsequent encounter (02/04/21) Physical Therapy Treatment Note PT-OP-A Visit Information Start: 01/01/21 15:41 Freq: Status: Active Protocol: Document 02/04/21 09:06 ER (Rec: 02/04/21 10:04 ER [id number]) Out-Patient Physical Therapy Visit Information Visit Information Visit Type Treatment Note Visit Note Medicare before KX Visit Start Time 09:06 Visit Stop Time 09:45 Total Visit Minutes 39 Visit Number 9 Number of [employer] Visits 1 Precautions Precautions 01/03/[address] Velazco note from 12/25/20: Pt is approved to begin walking in surgical shoe without crutches , then transition to normal shoe in 2 weeks as comfortable ; pt to begin physical therapy ; follow-up in 6 weeks with x- ray prior to visit; ROM PT-OP-B Current Condition Start: 01/01/21 15:41 Freq: Status: Active Protocol: Document 01/02/21 08:18 MB (Rec: 01/02/21 09:08 MB [id number]) Current Condition History of Current Condition Onset Date 11/30/20 Current Complaints Ongoing pain and decreased mobility History of Current Condition Pt underwent right lateral ankle stabilization with internal brace, repair of collateral ankle ligament, and repair of right peroneal tendon tear on 11/30/20. Pt has been NWB since that time. He got a post-op boot on 12/12/20 . He has been using crutches in the house and knee walker when he leaves the house. PMH: right hamstring tear, left ankle injury, left tooth surgery, two neck fusions, four left shoulder surgeries, one right shoulder surgery. Pt is going to have a bridge put in his mouth on 01/18/21 and he has having trigger finger surgery on 01/23/21. Pt reports 8/10 pain along his right foot sutures and metarsalphalangeal joints on dorsal surface. Pt states that he cannot move his right foot much in and out d/t the internal anchor from surgery. He has been working on PF and DF. Pt has two steps to enter the house and one step down to his living room. He con't to have swelling in his foot. When his foot is in a dependent position, it goes beet red. When it is elevated, it is more flesh colored. He has been stuck in the house, in bed or on the couch with foot up on the coffee table. Pt is due for a MRI of his back in two weeks. Pt has not yet gotten compression socks or thigh highs. Prior Treatments and Tests PT for left foot injury and right hamstring tear Treatment Goals Patient/Caregiver Goals To decrease pain and swelling and improve mobility PT-OP-C Subjective Start: 01/01/21 15:41 Freq: Status: Active Protocol: Document 02/04/21 09:06 ER (Rec: 02/04/21 10:04 ER [id number]) OP-PT Subjective Patient Comments Patient Comments Pt states that his RLL ankle, and lateral calf are still sore. No real change. Reports foot pain at 5/10 continually. Pt reports using ball to self massage at the pool. Reports that he has follow-up appointments scheduled with his surgeon. PT-OP-G Mobility & Gait Start: 01/01/21 15:41 Freq: Status: Active Protocol: Document 01/02/21 08:18 MB (Rec: 01/02/21 15:25 MB [id number]) OP Gait Assessment Comments Gait Comments Pt is not yet WB through his right foot. He wears post-op boot and uses knee scooter to enter the clinic and he does a good job pivoting for transfers PT-OP-J Posture/Palpation/Skin Start: 01/01/21 15:41 Freq: Status: Active Protocol: Document 01/02/21 08:18 MB (Rec: 01/02/21 15:25 MB [id number]) Skin Assessment Other Assessments Skin Assessment Comments Right foot color is mostly normal with leg supported in hooklying. He has scabbing around dorsal lateral scar and some mild edema. His skin is normal to touch and his toe nails look normal. PT-OP-K Range of Motion Start: 01/01/21 15:41 Freq: Status: Active Protocol: Document 01/02/21 08:18 MB (Rec: 01/02/21 15:25 MB [id number]) Ankle and Foot Goniometric Range of Motion Ankle and Foot ROM Limitations Comments Pt has baseline B foot bony positioning changes with supinated left foot positioning and decreased foot AROM. Right foot ROM not pushed today post-op pending do not know clear precautions at this point since 12/25 note is not yet available. He demonstrates minimal DF and PF with leg extended and supported on table. PT-OP-M Strength Start: 01/01/21 15:41 Freq: Status: Active Protocol: Document 01/02/21 08:18 MB (Rec: 01/02/21 15:25 MB [id number]) Hip Strength Hip Manual Muscle Testing Left Flexion (L2) 5 Normal Abduction 5 Normal Adduction 5 Normal Right Flexion (L2) 3+ Fair+ Abduction 2+ Poor+ Adduction 2+ Poor+ Knee Strength Knee Manual Muscle Testing Left Flexion (S2) 5 Normal Extension (L3) 5 Normal Right Comments NT d/t guarding for foot Ankle/Foot Strength Ankle and Foot Manual Muscle Testing Right Comments Not MMT post-op Right calf is atrophied Left Dorsiflexion (L4) 4 Good Toe Strength Toe Manual Muscle Testing Left Great Toe Flexion 3+ Fair+ PT-OP-Q Treatments Start: 01/01/21 15:41 Freq: Status: Active Protocol: Document 02/04/21 09:06 ER (Rec: 02/04/21 10:04 ER [id number]) Cardio Equipment Recumbent Elliptical (Room 8 Studio) Duration (Minutes) 10 Resistance 4 Seat Position 9 Other Pt expressed pain at end of ROM R foot plantarflexion. Therapeutic Exercises Supine Exercises Hamstring Stretch with AP Supine Exercise Name added to HEP Side bilateral Resistance AROM Reps/Minutes 10 pumps each side Comments Cues to extend knee as far as comfortable, good stretch feedback Manual Therapy Treatment Soft Tissue Mobilization Scar mobilization Body Location R lateral ankle Mobilization Type Other Intensity/Depth Superficial Body Position Supine Comments Initially immobile tissue. Successfully mobiliized with moderate to good movement of skin over underlying tissue. RLE Body Location R gastroc, peroneals, ankle, plantar foot Mobilization Type Cross-Friction,Myofascial Release,Rolling,Strumming, Sustained Pressure,Trigger Point Release Intensity/Depth Moderate Body Position Supine Comments Palpated rope-like gastroc and peroneal fibers, Pt winced with higher pressure. Good release of tension with reduced pressure, sustained trigger point release, and MWM . Plantar surface proximal to great toe tender, requiring additional work to release. Neuro Re-Education Treatment Balance Activities Mini tramp exercises Details weight shifting, lateral high arc ball touch to each end of handrail. Surface compliant - mini tramp Equipment mini trampoline Reps/Duration 10 min Comments Began with 6 between feet, narrowed to 3 between feet. Pt reports pressure along lateral edge of R foot during all exercises, increasing with narrower base of support. Cues to keep body erect and use ankle strategy for weight shifting. PT-OP-S Aquatic Treatment Start: 01/01/21 15:41 Freq: Status: Active Protocol: Document 01/28/21 15:28 LJ (Rec: 01/28/21 15:46 LJ [id number]) Aquatics Treatment Pool Entry/Exit Pool Entry/Exit Method Stairs Assistance Independent Water Walking stop-start Water Level Chest Level [place] Water Level Chest Level Level of Assistance Verbal Cues Sideways Water Level Chest Level Level of Assistance Verbal Cues Comments cross over posterior Marching Water Level Chest Level Level of Assistance Verbal Cues Backwards Water Level Chest Level Level of Assistance Verbal Cues Forwards Water Level Chest Level Level of Assistance Verbal Cues Lower Extremity Exercises step up on box Body Position Standing Water Level Chest Level Reps/Duration 10 B Comments sideways hip flex/ext Details HH on wall Body Position Standing Water Level Chest Level Comments standing chest deep on box to allow foot clearance hip circles Details HH on wall Body Position Sitting Water Level Chest Level Reps/Duration 10 B Comments forward and backward knee flex/ext Details sitting at wall Water Level Chest Level Reps/Duration 10 B Lower Extremity Stretches ITB Details at wall Body Position Standing Water Level Waist Level Reps/Duration 30 sec B HS, gastroc Details at wall Body Position Standing Reps/Duration 30 sec x2 B [place] Activities [place] Activities Bicycle,Bicycle Backwards, Running Other Activities walking-PF DF Equipment belt, BBs Duration 8 Manual Techniques Aquatic Massage aqua stretch technique RLE gastroc and preroneals in corner w/noodle under arms ball rolling gastroc on step PT-OP-T Assessment and Plan Start: 01/01/21 15:41 Freq: Status: Active Protocol: Document 02/04/21 09:06 ER (Rec: 02/04/21 10:04 ER [id number]) Physical Therapy Assessment Goals 4 Mcc Goal (LTG) Pt will perform progressive HEP with I including flexiblity, ROM, strengthening , balance and gait to improve right foot ROM, strength and function by 2/3/22. 02/01/22: Pt is performing foot hammock with band, doorway stretches, wearing [place] sock and was just given pelvic realignment today LTG Duration 8 weeks 3 [employer] Goal (LTG) Pt will report a 75% improvement in right foot and ankle pain to improve quality of life by 04/04/21. 02/01/21: Pt reports a 10% improvement in right foot and ankle pain since starting PT. LTG Duration 8 weeks 2 [employer] Goal (LTG) Pt will perform WNLs on a standardized balance test to decrease fall risk and exhibit more normal right foot intrinsic strength by 04/04/21. 02/01/21: Not performed today d /t reports of pain LTG Duration 8 weeks 1 [employer] Goal (LTG) Pt will gait train at least 1200 feet in 6 minutes without AD to return to community ambulation by 04/04/21. 02/01/21: Not performed today d /t pain LTG Duration 8 weeks Assessment Summary Assessment PT reported R foot end of range pain on Bi[place], at ball of foot just proximal to toes. Asked if Pt wanted to continue. Pt expressed it wasn 't bad enough to stop. Manual palpation revealed roping of gastroc and peroneals, along with tight plantar tissue proximal to the great toe. Tightness decreased in all noted areas with therapy. Mobilized scar tissue that was initially immobile and tight. Introduced hamstring stretch in supine with AP. Pt able to perform with knee flexion approx 45 degrees. Unable to extend further. Pt reported leg felt better Pt was challenged on trampoline, reporting pressure along lateral side of R foot. Pt indicated that he thought today's session was helpful. Physical Therapy Plan Frequency and Duration Frequency of Treatment 2x/Week Duration of Treatment 8 weeks Plan of Care Start Date 02/01/21 Plan of Care End Date 04/04/21 Therapeutic Interventions Therapeutic Interventions Aquatic Therapy,Balance Training,Canalithic Repositioning,Gait Training, Home Exercise Program,Joint Mobilizations,Manual Therapy, Neuromuscular Re-education, Orthotic/Prosthetic Management ,Patient/Caregiver Education, Self-Care/Home Management,Soft Tissue Mobilization,Taping, Therapeutic Activities, Therapeutic Exercises Modalities Cold Pack/Ice Massage,Hot Packs,Ultrasound Next Visit Focus/Plan Next Note Type Treatment Note Next Visit Plan Review Hamstring stretch, assess value of massage Pt recieved outside of clinic, Con't manual work on right everters and PFs next treatment, hamstring stretch with AP in hook lying Progress balance and gait. ( Aquatic) Consider balancing on noodle for interossei muscle strengthening during AT. Trial hydrobike for strengthening and ROM.
--- NOTE | 2021-02-06 15:01 | PT.OTN ---
Current Diagnoses Other instability, right ankle (02/04/21) Strain of muscle(s) and tendon(s) of peroneal muscle group at lower leg level, right leg, subsequent encounter (02/04/21) Physical Therapy Treatment Note PT-OP-A Visit Information Start: 01/01/21 15:41 Freq: Status: Active Protocol: Document 02/06/21 14:46 LJ (Rec: 02/06/21 15:01 LJ [id number]) Out-Patient Physical Therapy Visit Information Visit Information Visit Type Aquatic Treatment Note Visit Note Medicare before KX Visit Start Time 11:00 Visit Stop Time 11:45 Total Visit Minutes 40 Visit Number 10 Number of [employer] Visits 2 Precautions Precautions 01/03/[address] Velazco note from 12/25/20: Pt is approved to begin walking in surgical shoe without crutches , then transition to normal shoe in 2 weeks as comfortable ; pt to begin physical therapy ; follow-up in 6 weeks with x- ray prior to visit; ROM PT-OP-B Current Condition Start: 01/01/21 15:41 Freq: Status: Active Protocol: Document 01/02/21 08:18 MB (Rec: 01/02/21 09:08 MB [id number]) Current Condition History of Current Condition Onset Date 11/30/20 Current Complaints Ongoing pain and decreased mobility History of Current Condition Pt underwent right lateral ankle stabilization with internal brace, repair of collateral ankle ligament, and repair of right peroneal tendon tear on 11/30/20. Pt has been NWB since that time. He got a post-op boot on 12/12/20 . He has been using crutches in the house and knee walker when he leaves the house. PMH: right hamstring tear, left ankle injury, left tooth surgery, two neck fusions, four left shoulder surgeries, one right shoulder surgery. Pt is going to have a bridge put in his mouth on 01/18/21 and he has having trigger finger surgery on 01/23/21. Pt reports 8/10 pain along his right foot sutures and metarsalphalangeal joints on dorsal surface. Pt states that he cannot move his right foot much in and out d/t the internal anchor from surgery. He has been working on PF and DF. Pt has two steps to enter the house and one step down to his living room. He con't to have swelling in his foot. When his foot is in a dependent position, it goes beet red. When it is elevated, it is more flesh colored. He has been stuck in the house, in bed or on the couch with foot up on the coffee table. Pt is due for a MRI of his back in two weeks. Pt has not yet gotten compression socks or thigh highs. Prior Treatments and Tests PT for left foot injury and right hamstring tear Treatment Goals Patient/Caregiver Goals To decrease pain and swelling and improve mobility PT-OP-C Subjective Start: 01/01/21 15:41 Freq: Status: Active Protocol: Document 02/06/21 14:46 LJ (Rec: 02/06/21 15:01 LJ [id number]) OP-PT Subjective Patient Comments Patient Comments Pt reports same pain as always. Stated that he Dr told him that it would be several months to a year before all heaing takes place. PT-OP-G Mobility & Gait Start: 01/01/21 15:41 Freq: Status: Active Protocol: Document 01/02/21 08:18 MB (Rec: 01/02/21 15:25 MB [id number]) OP Gait Assessment Comments Gait Comments Pt is not yet WB through his right foot. He wears post-op boot and uses knee scooter to enter the clinic and he does a good job pivoting for transfers PT-OP-J Posture/Palpation/Skin Start: 01/01/21 15:41 Freq: Status: Active Protocol: Document 01/02/21 08:18 MB (Rec: 01/02/21 15:25 MB [id number]) Skin Assessment Other Assessments Skin Assessment Comments Right foot color is mostly normal with leg supported in hooklying. He has scabbing around dorsal lateral scar and some mild edema. His skin is normal to touch and his toe nails look normal. PT-OP-K Range of Motion Start: 01/01/21 15:41 Freq: Status: Active Protocol: Document 01/02/21 08:18 MB (Rec: 01/02/21 15:25 MB [id number]) Ankle and Foot Goniometric Range of Motion Ankle and Foot ROM Limitations Comments Pt has baseline B foot bony positioning changes with supinated left foot positioning and decreased foot AROM. Right foot ROM not pushed today post-op pending do not know clear precautions at this point since 12/25 note is not yet available. He demonstrates minimal DF and PF with leg extended and supported on table. PT-OP-M Strength Start: 01/01/21 15:41 Freq: Status: Active Protocol: Document 01/02/21 08:18 MB (Rec: 01/02/21 15:25 MB [id number]) Hip Strength Hip Manual Muscle Testing Left Flexion (L2) 5 Normal Abduction 5 Normal Adduction 5 Normal Right Flexion (L2) 3+ Fair+ Abduction 2+ Poor+ Adduction 2+ Poor+ Knee Strength Knee Manual Muscle Testing Left Flexion (S2) 5 Normal Extension (L3) 5 Normal Right Comments NT d/t guarding for foot Ankle/Foot Strength Ankle and Foot Manual Muscle Testing Right Comments Not MMT post-op Right calf is atrophied Left Dorsiflexion (L4) 4 Good Toe Strength Toe Manual Muscle Testing Left Great Toe Flexion 3+ Fair+ PT-OP-Q Treatments Start: 01/01/21 15:41 Freq: Status: Active Protocol: Document 02/04/21 09:06 ER (Rec: 02/04/21 10:04 ER [id number]) Cardio Equipment Recumbent Elliptical ([employer] True Fit) Duration (Minutes) 10 Resistance 4 Seat Position 9 Other Pt expressed pain at end of ROM R foot plantarflexion. Therapeutic Exercises Supine Exercises Hamstring Stretch with AP Supine Exercise Name added to HEP Side bilateral Resistance AROM Reps/Minutes 10 pumps each side Comments Cues to extend knee as far as comfortable, good stretch feedback Manual Therapy Treatment Soft Tissue Mobilization Scar mobilization Body Location R lateral ankle Mobilization Type Other Intensity/Depth Superficial Body Position Supine Comments Initially immobile tissue. Successfully mobiliized with moderate to good movement of skin over underlying tissue. RLE Body Location R gastroc, peroneals, ankle, plantar foot Mobilization Type Cross-Friction,Myofascial Release,Rolling,Strumming, Sustained Pressure,Trigger Point Release Intensity/Depth Moderate Body Position Supine Comments Palpated rope-like gastroc and peroneal fibers, Pt winced with higher pressure. Good release of tension with reduced pressure, sustained trigger point release, and MWM . Plantar surface proximal to great toe tender, requiring additional work to release. Neuro Re-Education Treatment Balance Activities Mini tramp exercises Details weight shifting, lateral high arc ball touch to each end of handrail. Surface compliant - mini tramp Equipment mini trampoline Reps/Duration 10 min Comments Began with 6 between feet, narrowed to 3 between feet. Pt reports pressure along lateral edge of R foot during all exercises, increasing with narrower base of support. Cues to keep body erect and use ankle strategy for weight shifting. PT-OP-S Aquatic Treatment Start: 01/01/21 15:41 Freq: Status: Active Protocol: Document 02/06/21 14:46 JESICA (Rec: 02/06/21 15:01 [id number]) Aquatics Treatment Pool Entry/Exit Pool Entry/Exit Method Stairs Assistance Independent Water Walking Sideways Water Level Chest Level Level of Assistance Verbal Cues Comments cross over posterior Marching Water Level Chest Level Level of Assistance Verbal Cues Backwards Water Level Chest Level Level of Assistance Verbal Cues Forwards Water Level Chest Level Level of Assistance Verbal Cues Lower Extremity Stretches ITB Details at wall Body Position Standing Water Level Waist Level Reps/Duration 30 sec B HS, gastroc Details at wall Body Position Standing Reps/Duration 30 sec x2 B Balance standing on noodle Water Level Chest Level Equipment white noodle Reps/Duration 3 min Comments fore foot, mid foot, heel Manual Techniques Aquatic Massage aqua stretch technique RLE gastroc and preroneals ball rolling gastroc on step rolling foot on BB PT-OP-T Assessment and Plan Start: 01/01/21 15:41 Freq: Status: Active Protocol: Document 02/06/21 14:46 JESICA (Rec: 02/06/21 15:01 JESICA [id number]) Physical Therapy Assessment Rehab Potential Rehabilitation Potential Fair Evaluation Complexity Number of Personal Factors/Comorbidities 3 or More Number of Body Systems Impaired 3 Clinical Presentation at Evaluation Evolving Impairments Impairments Activity Tolerance,Balance, Edema,Functional Activities, Functional Mobility,Gait, Integument,Pain,Posture,ROM, Sensation,Soft Tissue Mobility ,Strength Other Impairments Personal factors include pt cannot drive or WB at this time. He has other orthopedic co-morbidities including lumbar, finger and oral issues that all may be surgically addressed. Body systems affected include neuromuscular , musculoskeletal, integumentary. His clinical presentation is evolving. Other Concerns Fall Risk Yes Goals 4 Intermediate Goal (LTG) Pt will perform progressive HEP with I including flexiblity, ROM, strengthening , balance and gait to improve right foot ROM, strength and function by 04/04/21. 02/01/22: Pt is performing foot hammock with band, doorway stretches, wearing [place] sock and was just given pelvic realignment today LTG Duration 8 weeks 3 Intermediate Goal (LTG) Pt will report a 75% improvement in right foot and ankle pain to improve quality of life by 04/04/21. 02/01/21: Pt reports a 10% improvement in right foot and ankle pain since starting PT. LTG Duration 8 weeks 2 Intermediate Goal (LTG) Pt will perform WNLs on a standardized balance test to decrease fall risk and exhibit more normal right foot intrinsic strength by 04/04/21. 02/01/21: Not performed today d /t reports of pain LTG Duration 8 weeks 1 Intermediate Goal (LTG) Pt will gait train at least 1200 feet in 6 minutes without AD to return to community ambulation by 04/04/21. 02/01/21: Not performed today d /t pain LTG Duration 8 weeks Assessment Summary Assessment AQUATICS:Pt stated he thinks that it is easier to massage and roll his tight muscles in the pool with the ball than at home. Trialed gait practice without shoes as well as noodle balance and foot rolling and pt was able to stabilize better due to toes being freer to move independently. Also used smiley face on bottom of foot while walking forward and it reduced the pain. Physical Therapy Plan Frequency and Duration Frequency of Treatment 2x/Week Duration of Treatment 8 weeks Plan of Care Start Date 02/01/21 Plan of Care End Date 04/04/21 Therapeutic Interventions Therapeutic Interventions Aquatic Therapy,Balance Training,Canalithic Repositioning,Gait Training, Home Exercise Program,Joint Mobilizations,Manual Therapy, Neuromuscular Re-education, Orthotic/Prosthetic Management ,Patient/Caregiver Education, Self-Care/Home Management,Soft Tissue Mobilization,Taping, Therapeutic Activities, Therapeutic Exercises Modalities Cold Pack/Ice Massage,Hot Packs,Ultrasound Next Visit Focus/Plan Next Note Type Treatment Note Next Visit Plan AQUATICS: Continue balancing on noodle for interossei muscle strengthening during AT . Trial hydrobike for strengthening and ROM. Use orange smile face on foot for forward walking.
--- NOTE | 2021-02-13 09:44 | PT.OTN ---
Current Diagnoses Other instability, right ankle (02/13/21) Strain of muscle(s) and tendon(s) of peroneal muscle group at lower leg level, right leg, subsequent encounter (02/13/21) Physical Therapy Treatment Note PT-OP-A Visit Information Start: 01/01/21 15:41 Freq: Status: Active Protocol: Document 02/13/21 09:02 MB (Rec: 02/13/21 09:43 MB [id number]) Out-Patient Physical Therapy Visit Information Visit Information Visit Type Treatment Note Visit Note before KX Visit Start Time 09:02 Visit Stop Time 09:42 Total Visit Minutes 40 Visit Number 11 Number of CURRICULUM WRITER Visits 0 Precautions Precautions 01/03/[address] Velazco note from 12/25/20: Pt is approved to begin walking in surgical shoe without crutches , then transition to normal shoe in 2 weeks as comfortable ; pt to begin physical therapy ; follow-up in 6 weeks with x- ray prior to visit; ROM PT-OP-B Current Condition Start: 01/01/21 15:41 Freq: Status: Active Protocol: Document 01/02/21 08:18 MB (Rec: 01/02/21 09:08 MB [id number]) Current Condition History of Current Condition Onset Date 11/30/20 Current Complaints Ongoing pain and decreased mobility History of Current Condition Pt underwent right lateral ankle stabilization with internal brace, repair of collateral ankle ligament, and repair of right peroneal tendon tear on 11/30/20. Pt has been NWB since that time. He got a post-op boot on 12/12/20 . He has been using crutches in the house and knee walker when he leaves the house. PMH: right hamstring tear, left ankle injury, left tooth surgery, two neck fusions, four left shoulder surgeries, one right shoulder surgery. Pt is going to have a bridge put in his mouth on 01/18/21 and he has having trigger finger surgery on 01/23/21. Pt reports 8/10 pain along his right foot sutures and metarsalphalangeal joints on dorsal surface. Pt states that he cannot move his right foot much in and out d/t the internal anchor from surgery. He has been working on PF and DF. Pt has two steps to enter the house and one step down to his living room. He con't to have swelling in his foot. When his foot is in a dependent position, it goes beet red. When it is elevated, it is more flesh colored. He has been stuck in the house, in bed or on the couch with foot up on the coffee table. Pt is due for a MRI of his back in two weeks. Pt has not yet gotten compression socks or thigh highs. Prior Treatments and Tests PT for left foot injury and right hamstring tear Treatment Goals Patient/Caregiver Goals To decrease pain and swelling and improve mobility PT-OP-C Subjective Start: 01/01/21 15:41 Freq: Status: Active Protocol: Document 02/13/21 09:02 MB (Rec: 02/13/21 09:43 MB [id number]) OP-PT Subjective Patient Comments Patient Comments Pt states that he saw Dr. Velazco last Thursday and that he was told he'll reach 80% at 6 months after surgery and will get the other 20% in another 6 months. Pt feels that the right ankle tightness hinges around the internal brace sutures. Pt sees Dr. Elizalde today at 1300 and back surgeon today at 1500. The massage therapist helps him and told him that his back pain is coming from his leg. PT-OP-G Mobility & Gait Start: 01/01/21 15:41 Freq: Status: Active Protocol: Document 01/02/21 08:18 MB (Rec: 01/02/21 15:25 MB [id number]) OP Gait Assessment Comments Gait Comments Pt is not yet WB through his right foot. He wears post-op boot and uses knee scooter to enter the clinic and he does a good job pivoting for transfers PT-OP-J Posture/Palpation/Skin Start: 01/01/21 15:41 Freq: Status: Active Protocol: Document 01/02/21 08:18 MB (Rec: 01/02/21 15:25 MB [id number]) Skin Assessment Other Assessments Skin Assessment Comments Right foot color is mostly normal with leg supported in hooklying. He has scabbing around dorsal lateral scar and some mild edema. His skin is normal to touch and his toe nails look normal. PT-OP-K Range of Motion Start: 01/01/21 15:41 Freq: Status: Active Protocol: Document 01/02/21 08:18 MB (Rec: 01/02/21 15:25 MB [id number]) Ankle and Foot Goniometric Range of Motion Ankle and Foot ROM Limitations Comments Pt has baseline B foot bony positioning changes with supinated left foot positioning and decreased foot AROM. Right foot ROM not pushed today post-op pending do not know clear precautions at this point since 12/25 note is not yet available. He demonstrates minimal DF and PF with leg extended and supported on table. PT-OP-M Strength Start: 01/01/21 15:41 Freq: Status: Active Protocol: Document 01/02/21 08:18 MB (Rec: 01/02/21 15:25 MB [id number]) Hip Strength Hip Manual Muscle Testing Left Flexion (L2) 5 Normal Abduction 5 Normal Adduction 5 Normal Right Flexion (L2) 3+ Fair+ Abduction 2+ Poor+ Adduction 2+ Poor+ Knee Strength Knee Manual Muscle Testing Left Flexion (S2) 5 Normal Extension (L3) 5 Normal Right Comments NT d/t guarding for foot Ankle/Foot Strength Ankle and Foot Manual Muscle Testing Right Comments Not MMT post-op Right calf is atrophied Left Dorsiflexion (L4) 4 Good Toe Strength Toe Manual Muscle Testing Left Great Toe Flexion 3+ Fair+ PT-OP-Q Treatments Start: 01/01/21 15:41 Freq: Status: Active Protocol: Document 02/13/21 09:02 MB (Rec: 02/13/21 09:43 MB [id number]) Cardio Equipment Recumbent Elliptical (BiodeSNF) Duration (Minutes) 10 Resistance 3-4 Seat Position 10 Therapeutic Exercises Supine Exercises Pelvic realignment exercises Side bilateral Comments 5 rep, 3 sec hold all exercises Hamstring Stretch with AP Side bilateral Comments 20 AP each rep, 1 rep each side Sitting Exercises Ankle DF and eversion Sitting Exercise Name Cues to keep knees straight, one leg at a time Side bilateral Resistance Level 1 band around feet, then level 3 band Comments 10 reps slowly, less movement right compared to left Ankle hammock with theraband Side right Resistance Level 2 band Comments 20 reps Gait Training Gait Activity Gait training today Comments Pt gait trains with cane in left hand and then without the cane. He favors the right foot and has more flat foot hitting and then when he slows gait without the cane, he has better heel strike and toe push off. Ed pt to con't working on the more normalized aramis with slow speed in the house. PT-OP-S Aquatic Treatment Start: 01/01/21 15:41 Freq: Status: Active Protocol: Document 02/06/21 14:46 LJ (Rec: 02/06/21 15:01 LJ [id number]) Aquatics Treatment Pool Entry/Exit Pool Entry/Exit Method Stairs Assistance Independent Water Walking Sideways Water Level Chest Level Level of Assistance Verbal Cues Comments cross over posterior Marching Water Level Chest Level Level of Assistance Verbal Cues Backwards Water Level Chest Level Level of Assistance Verbal Cues Forwards Water Level Chest Level Level of Assistance Verbal Cues Lower Extremity Stretches ITB Details at wall Body Position Standing Water Level Waist Level Reps/Duration 30 sec B HS, gastroc Details at wall Body Position Standing Reps/Duration 30 sec x2 B Balance standing on noodle Water Level Chest Level Equipment white noodle Reps/Duration 3 min Comments fore foot, mid foot, heel Manual Techniques Aquatic Massage aqua stretch technique RLE gastroc and preroneals ball rolling gastroc on step rolling foot on BB PT-OP-T Assessment and Plan Start: 01/01/21 15:41 Freq: Status: Active Protocol: Document 02/13/21 09:02 MB (Rec: 02/13/21 09:43 MB [id number]) Physical Therapy Assessment Rehab Potential Rehabilitation Potential Fair Evaluation Complexity Number of Personal Factors/Comorbidities 3 or More Number of Body Systems Impaired 3 Clinical Presentation at Evaluation Evolving Impairments Impairments Activity Tolerance,Balance, Edema,Functional Activities, Functional Mobility,Gait, Integument,Pain,Posture,ROM, Sensation,Soft Tissue Mobility ,Strength Other Impairments Personal factors include pt cannot drive or WB at this time. He has other orthopedic co-morbidities including lumbar, finger and oral issues that all may be surgically addressed. Body systems affected include neuromuscular , musculoskeletal, integumentary. His clinical presentation is evolving. Other Concerns Fall Risk Yes Goals 4 [facility]ci Goal (LTG) Pt will perform progressive HEP with I including flexiblity, ROM, strengthening , balance and gait to improve right foot ROM, strength and function by 04/04/21. 02/01/22: Pt is performing foot hammock with band, doorway stretches, wearing [place] sock and was just given pelvic realignment today LTG Duration 8 weeks 3 Sales And Marketing Director Goal (LTG) Pt will report a 75% improvement in right foot and ankle pain to improve quality of life by 04/04/21. 02/01/21: Pt reports a 10% improvement in right foot and ankle pain since starting PT. LTG Duration 8 weeks 2 Sales And Marketing Director Goal (LTG) Pt will perform WNLs on a standardized balance test to decrease fall risk and exhibit more normal right foot intrinsic strength by 04/04/21. 02/01/21: Not performed today d /t reports of pain LTG Duration 8 weeks 1 [facility] Goal (LTG) Pt will gait train at least 1200 feet in 6 minutes without AD to return to community ambulation by 04/04/21. 02/01/21: Not performed today d /t pain LTG Duration 8 weeks Assessment Summary Assessment Pt con't with pain over right lateral ankle and he was told that all of the work was done there. Con't to progress exercises and consider Counterstrain for land treatments. Physical Therapy Plan Frequency and Duration Frequency of Treatment 2x/Week Duration of Treatment 8 weeks Plan of Care Start Date 02/01/21 Plan of Care End Date 04/04/21 Therapeutic Interventions Therapeutic Interventions Aquatic Therapy,Balance Training,Canalithic Repositioning,Gait Training, Home Exercise Program,Joint Mobilizations,Manual Therapy, Neuromuscular Re-education, Orthotic/Prosthetic Management ,Patient/Caregiver Education, Self-Care/Home Management,Soft Tissue Mobilization,Taping, Therapeutic Activities, Therapeutic Exercises Modalities Cold Pack/Ice Massage,Hot Packs,Ultrasound Next Visit Focus/Plan Next Note Type Treatment Note Next Visit Plan Please keep this land comment: work on standing exercises to get right foot working more, consider Counterstrain AQUATICS: Continue balancing on noodle for interossei muscle strengthening during AT . Trial hydrobike for strengthening and ROM. Use orange smile face on foot for forward walking.
--- NOTE | 2021-02-15 15:44 | PT.OTN ---
Current Diagnoses Other instability, right ankle (02/15/21) Spondylosis without myelopathy or radiculopathy, lumbar region (02/15/21) Strain of muscle, fascia and tendon of lower back, initial encounter (02/15/21) Strain of muscle(s) and tendon(s) of peroneal muscle group at lower leg level, right leg, subsequent encounter (02/15/21) Physical Therapy Treatment Note PT-OP-A Visit Information Start: 01/01/21 15:41 Freq: Status: Active Protocol: Document 02/15/21 13:45 MB (Rec: 02/15/21 14:28 MB [id number]) Out-Patient Physical Therapy Visit Information Visit Information Visit Type Progress Note Visit Note before KX Visit Start Time 13:45 Visit Stop Time 14:30 Total Visit Minutes 45 Visit Number 12 Number of POSTMASTER RELIEF Visits 0 Precautions Precautions 02/15/21: Pt brings in order from Dr. Sorensen for lumbar facet arthropathy and lumbar strain 01/03/[address] Velazco note from 12/25/20: Pt is approved to begin walking in surgical shoe without crutches , then transition to normal shoe in 2 weeks as comfortable ; pt to begin physical therapy ; follow-up in 6 weeks with x- ray prior to visit; ROM PT-OP-B Current Condition Start: 01/01/21 15:41 Freq: Status: Active Protocol: Document 01/02/21 08:18 MB (Rec: 01/02/21 09:08 MB [id number]) Current Condition History of Current Condition Onset Date 11/30/20 Current Complaints Ongoing pain and decreased mobility History of Current Condition Pt underwent right lateral ankle stabilization with internal brace, repair of collateral ankle ligament, and repair of right peroneal tendon tear on 11/30/20. Pt has been NWB since that time. He got a post-op boot on 12/12/20 . He has been using crutches in the house and knee walker when he leaves the house. PMH: right hamstring tear, left ankle injury, left tooth surgery, two neck fusions, four left shoulder surgeries, one right shoulder surgery. Pt is going to have a bridge put in his mouth on 01/18/21 and he has having trigger finger surgery on 01/23/21. Pt reports 8/10 pain along his right foot sutures and metarsalphalangeal joints on dorsal surface. Pt states that he cannot move his right foot much in and out d/t the internal anchor from surgery. He has been working on PF and DF. Pt has two steps to enter the house and one step down to his living room. He con't to have swelling in his foot. When his foot is in a dependent position, it goes beet red. When it is elevated, it is more flesh colored. He has been stuck in the house, in bed or on the couch with foot up on the coffee table. Pt is due for a MRI of his back in two weeks. Pt has not yet gotten compression socks or thigh highs. Prior Treatments and Tests PT for left foot injury and right hamstring tear Treatment Goals Patient/Caregiver Goals To decrease pain and swelling and improve mobility PT-OP-C Subjective Start: 01/01/21 15:41 Freq: Status: Active Protocol: Document 02/15/21 13:45 MB (Rec: 02/15/21 14:28 MB [id number]) OP-PT Subjective Patient Comments Patient Comments Pt wonders about adding LB order to PT course. He con't to see Mary massage therapist. She has been working on his right leg. Pt had pain with resisted DF and eversion with band and so ed pt to perform without the band . The surgeon said that pt's spinal cord is great and he has muscular problems. PT-OP-G Mobility & Gait Start: 01/01/21 15:41 Freq: Status: Active Protocol: Document 01/02/21 08:18 MB (Rec: 01/02/21 15:25 MB [id number]) OP Gait Assessment Comments Gait Comments Pt is not yet WB through his right foot. He wears post-op boot and uses knee scooter to enter the clinic and he does a good job pivoting for transfers PT-OP-J Posture/Palpation/Skin Start: 01/01/21 15:41 Freq: Status: Active Protocol: Document 01/02/21 08:18 MB (Rec: 01/02/21 15:25 MB [id number]) Skin Assessment Other Assessments Skin Assessment Comments Right foot color is mostly normal with leg supported in hooklying. He has scabbing around dorsal lateral scar and some mild edema. His skin is normal to touch and his toe nails look normal. PT-OP-K Range of Motion Start: 01/01/21 15:41 Freq: Status: Active Protocol: Document 01/02/21 08:18 MB (Rec: 01/02/21 15:25 MB [id number]) Ankle and Foot Goniometric Range of Motion Ankle and Foot ROM Limitations Comments Pt has baseline B foot bony positioning changes with supinated left foot positioning and decreased foot AROM. Right foot ROM not pushed today post-op pending do not know clear precautions at this point since 12/25 note is not yet available. He demonstrates minimal DF and PF with leg extended and supported on table. PT-OP-M Strength Start: 01/01/21 15:41 Freq: Status: Active Protocol: Document 01/02/21 08:18 MB (Rec: 01/02/21 15:25 MB [id number]) Hip Strength Hip Manual Muscle Testing Left Flexion (L2) 5 Normal Abduction 5 Normal Adduction 5 Normal Right Flexion (L2) 3+ Fair+ Abduction 2+ Poor+ Adduction 2+ Poor+ Knee Strength Knee Manual Muscle Testing Left Flexion (S2) 5 Normal Extension (L3) 5 Normal Right Comments NT d/t guarding for foot Ankle/Foot Strength Ankle and Foot Manual Muscle Testing Right Comments Not MMT post-op Right calf is atrophied Left Dorsiflexion (L4) 4 Good Toe Strength Toe Manual Muscle Testing Left Great Toe Flexion 3+ Fair+ PT-OP-Q Treatments Start: 01/01/21 15:41 Freq: Status: Active Protocol: Document 02/15/21 13:45 MB (Rec: 02/15/21 14:28 MB [id number]) Cardio Equipment Recumbent Elliptical (Biodex) Duration (Minutes) 26 Resistance 4 Seat Position 10 Other Performed during back interview, Oswestry Self-Care/Home Management Treatment Education Other Education Ed pt today in proper sleeping position with pillow between knees and ankles and in side lying rather than on stomach to help ankle pain, ed in plan going forward adding lumbar spine to treatment course and ongoing benefits of the pool to help core, flexibility and right ankle and LE range, ed pt in benefits of swimming for exercise once cleared for program by Melissa PT-OP-S Aquatic Treatment Start: 01/01/21 15:41 Freq: Status: Active Protocol: Document 02/06/21 14:46 LJ (Rec: 02/06/21 15:01 LJ [id number]) Aquatics Treatment Pool Entry/Exit Pool Entry/Exit Method Stairs Assistance Independent Water Walking Sideways Water Level Chest Level Level of Assistance Verbal Cues Comments cross over posterior Marching Water Level Chest Level Level of Assistance Verbal Cues Backwards Water Level Chest Level Level of Assistance Verbal Cues Forwards Water Level Chest Level Level of Assistance Verbal Cues Lower Extremity Stretches ITB Details at wall Body Position Standing Water Level Waist Level Reps/Duration 30 sec B HS, gastroc Details at wall Body Position Standing Reps/Duration 30 sec x2 B Balance standing on noodle Water Level Chest Level Equipment white noodle Reps/Duration 3 min Comments fore foot, mid foot, heel Manual Techniques Aquatic Massage aqua stretch technique RLE gastroc and preroneals ball rolling gastroc on step rolling foot on BB PT-OP-T Assessment and Plan Start: 01/01/21 15:41 Freq: Status: Active Protocol: Document 02/15/21 13:45 [id number] (Rec: 02/15/21 14:28 [email or web address] [id number]) Physical Therapy Assessment Rehab Potential Rehabilitation Potential Fair Evaluation Complexity Number of Personal Factors/Comorbidities 3 or More Number of Body Systems Impaired 1-2 Clinical Presentation at Evaluation Evolving Impairments Impairments Activity Tolerance,Balance, Edema,Functional Activities, Functional Mobility,Gait, Integument,Pain,Posture,ROM, Sensation,Soft Tissue Mobility ,Strength Other Impairments Personal factors include multi -joint pain and dysfunction. Body systems affected include musculoskeletal, neuromuscular . Other Concerns Fall Risk Yes Goals 5 Impairment At back assessment, Oswestry is 23/50 Campus Safety Officer Goal (LTG) Pt will present with improved Oswestry score to reflect no more than 20% impairment to improve functional mobility by 04/18/21. 4 Campus Safety Officer Goal (LTG) Pt will perform progressive HEP with I including flexiblity, ROM, strengthening , balance and gait to improve right foot ROM, strength and function by 04/18/21. 02/15/21: Pt is performing plantar massage, pelvic realignment exercises, stretching in the doorway, hamstring stretch, he will change resisited eversion and DF to active only, he is performing foot hammock LTG Duration 8 weeks 3 [facility]ci Goal (LTG) Pt will report a 75% improvement in right foot and ankle pain to improve quality of life by 04/18/21. 02/15/21: Pt con't to report a 10% improvement in right foot and ankle pain since starting PT. LTG Duration 8 weeks 2 [facility] Goal (LTG) Pt will perform WNLs on a standardized balance test to decrease fall risk and exhibit more normal right foot intrinsic strength by 04/18/21. 02/15/21: Not performed d/t time used to screen back to add to plan LTG Duration 8 weeks 1 Campus Safety Officer Goal (LTG) Pt will gait train at least 1200 feet in 6 minutes without AD to return to community ambulation by 04/18/21. 02/15/21: Not performed today d/t time screening back LTG Duration 8 weeks Assessment Summary Assessment Pt has history of left SI pain and back giving out on the right. Pt brings in order from Dr. Sorensen for back pain and front office communicates that PT needs to have this POC and future POCs signed by Franchesca chen/t treating back from his order and Dr. Juan A chen /micaela treating right foot from his order. PT reviewed Dr. Elizalde's note about MRI results and PT is able to view the MRI report. Back screen today: AROM flexion with hands 8 from floor and causes pt's left SI pain; lumbar extension 10 deg; B SB about the same movement and pain in left SI area with right SB. PT added Oswestry goal to plan and review applicable other goals today and updated plan. Pt will benefit from ongoing PT to improve flexibility, strength, gait, balance and pain. His clinical presentation is multifactorial and certainly his gait changes with the right foot surgery affect his back pain. He will benefit from ongoing land and aquatic PT. Physical Therapy Plan Frequency and Duration Frequency of Treatment 2x/Week Duration of Treatment 8 weeks Plan of Care Start Date 02/15/21 Plan of Care End Date 04/18/21 Therapeutic Interventions Therapeutic Interventions Aquatic Therapy,Balance Training,Canalithic Repositioning,Gait Training, Home Exercise Program,Joint Mobilizations,Manual Therapy, Neuromuscular Re-education, Orthotic/Prosthetic Management ,Patient/Caregiver Education, Self-Care/Home Management,Soft Tissue Mobilization,Taping, Therapeutic Activities, Therapeutic Exercises Modalities Cold Pack/Ice Massage,Hot Packs,Ultrasound Next Visit Focus/Plan Next Note Type Treatment Note Next Visit Plan For land and aquatics: back is added to plan of care today-- Melissa, please assess pt's swimstroke at some point for his own exercise/core work. Please keep this land comment: work on standing exercises to get right foot working more, consider Counterstrain. Consider bridge and core sequence. Consider SLS, trying SI belt, hip rotator stretch. AQUATICS: Continue balancing on noodle for interossei muscle strengthening during AT . Trial hydrobike for strengthening and ROM. Use orange smile face on foot for forward walking.
--- NOTE | 2021-02-15 15:46 | PT.OPPOC ---
Physical, Occupational & Speech Therapy At [facility] Current Diagnoses Other instability, right ankle (02/15/21) Spondylosis without myelopathy or radiculopathy, lumbar region (02/15/21) Strain of muscle, fascia and tendon of lower back, initial encounter (02/15/21) Strain of muscle(s) and tendon(s) of peroneal muscle group at lower leg level, right leg, subsequent encounter (02/15/21) Visit Care Team Role Provider Type Jhonny Sorensen MD Referring Provider Physician Specialty: Orthopedic Surgery Address: [address] [place], [address] Email: Saulo Elizalde DO Family Provider Physician Primary Care Provider Specialty: Family Practice Address: [address] [place] [address], [id number] Email: [email or web address] Wellington Velazco DPM Attending Provider Non-Staff Specialty: Podiatry Address: [address] [place] [address], [phone] Email: Plan Of Care PT-OP-T Assessment and Plan Start: 01/01/21 15:41 Freq: Status: Active Protocol: Document 02/15/21 13:45 MB (Rec: 02/15/21 14:28 MB [id number]) Physical Therapy Assessment Rehab Potential Rehabilitation Potential Fair Evaluation Complexity Number of Personal Factors/Comorbidities 3 or More Number of Body Systems Impaired 1-2 Clinical Presentation at Evaluation Evolving Impairments Impairments Activity Tolerance,Balance, Edema,Functional Activities, Functional Mobility,Gait, Integument,Pain,Posture,ROM, Sensation,Soft Tissue Mobility ,Strength Other Impairments Personal factors include multi -joint pain and dysfunction. Body systems affected include musculoskeletal, neuromuscular . Other Concerns Fall Risk Yes Goals 5 Impairment At back assessment, Oswestry is 23/50 Mcc Goal (LTG) Pt will present with improved Oswestry score to reflect no more than 20% impairment to improve functional mobility by 04/18/21. 4 Machine Tool Builder Goal (LTG) Pt will perform progressive HEP with I including flexiblity, ROM, strengthening , balance and gait to improve right foot ROM, strength and function by 04/18/21. 02/15/21: Pt is performing plantar massage, pelvic realignment exercises, stretching in the doorway, hamstring stretch, he will change resisited eversion and DF to active only, he is performing foot hammock LTG Duration 8 weeks 3 Machine Tool Builder Goal (LTG) Pt will report a 75% improvement in right foot and ankle pain to improve quality of life by 04/18/21. 02/15/21: Pt con't to report a 10% improvement in right foot and ankle pain since starting PT. LTG Duration 8 weeks 2 Machine Tool Builder Goal (LTG) Pt will perform WNLs on a standardized balance test to decrease fall risk and exhibit more normal right foot intrinsic strength by 04/18/21. 02/15/21: Not performed d/t time used to screen back to add to plan LTG Duration 8 weeks 1 Mcc Goal (LTG) Pt will gait train at least 1200 feet in 6 minutes without AD to return to community ambulation by 04/18/21. 02/15/21: Not performed today d/t time screening back LTG Duration 8 weeks Assessment Summary Assessment Pt has history of left SI pain and back giving out on the right. Pt brings in order from Dr. Sorensen for back pain and front office communicates that PT needs to have this POC and future POCs signed by Franchesca chen/t treating back from his order and Dr. Juan A chen /t treating right foot from his order. PT reviewed Dr. Elizalde's note about MRI results and PT is able to view the MRI report. Back screen today: AROM flexion with hands 8 from floor and causes pt's left SI pain; lumbar extension 10 deg; B SB about the same movement and pain in left SI area with right SB. PT added Oswestry goal to plan and review applicable other goals today and updated plan. Pt will benefit from ongoing PT to improve flexibility, strength, gait, balance and pain. His clinical presentation is multifactorial and certainly his gait changes with the right foot surgery affect his back pain. He will benefit from ongoing land and aquatic PT. Physical Therapy Plan Frequency and Duration Frequency of Treatment 2x/Week Duration of Treatment 8 weeks Plan of Care Start Date 02/15/21 Plan of Care End Date 04/18/21 Therapeutic Interventions Therapeutic Interventions Aquatic Therapy,Balance Training,Canalithic Repositioning,Gait Training, Home Exercise Program,Joint Mobilizations,Manual Therapy, Neuromuscular Re-education, Orthotic/Prosthetic Management ,Patient/Caregiver Education, Self-Care/Home Management,Soft Tissue Mobilization,Taping, Therapeutic Activities, Therapeutic Exercises Modalities Cold Pack/Ice Massage,Hot Packs,Ultrasound Next Visit Focus/Plan Next Note Type Treatment Note Next Visit Plan For land and aquatics: back is added to plan of care today-- Melissa, please assess pt's swimstroke at some point for his own exercise/core work. Please keep this land comment: work on standing exercises to get right foot working more, consider Counterstrain. Consider bridge and core sequence. Consider SLS, trying SI belt, hip rotator stretch. AQUATICS: Continue balancing on noodle for interossei muscle strengthening during AT . Trial hydrobike for strengthening and ROM. Use orange smile face on foot for forward walking. Plan of Care Dates Plan of Care Start Date 02/15/21 Plan of Care End Date 04/18/21 Electronically Signed by: Niyah Dailey, PT 02/15/21 [id number] Please Sign and Return: I have reviewed this Plan of Care and certify that the skilled therapy services above are required to meet the patient?s needs. Physician Signature Date Printed Name and Credentials Clinical Instructor Signature Printed Name and Credentials
--- NOTE | 2021-02-20 09:44 | PT.OTN ---
Current Diagnoses Other instability, right ankle (02/20/21) Spondylosis without myelopathy or radiculopathy, lumbar region (02/20/21) Strain of muscle, fascia and tendon of lower back, initial encounter (02/20/21) Strain of muscle(s) and tendon(s) of peroneal muscle group at lower leg level, right leg, subsequent encounter (02/20/21) Physical Therapy Treatment Note PT-OP-A Visit Information Start: 01/01/21 15:41 Freq: Status: Active Protocol: Document 02/20/21 09:01 MB (Rec: 02/20/21 09:42 MB [id number]) Out-Patient Physical Therapy Visit Information Visit Information Visit Type Treatment Note Visit Note KX Visit Start Time 09:01 Visit Stop Time 09:43 Total Visit Minutes 42 Visit Number 13 Number of CHIEF VENDOR QUALITY Visits 0 Precautions Precautions 02/15/21: Pt brings in order from Dr. Sorensen for lumbar facet arthropathy and lumbar strain 01/03/[address] Velazco note from 12/25/20: Pt is approved to begin walking in surgical shoe without crutches , then transition to normal shoe in 2 weeks as comfortable ; pt to begin physical therapy ; follow-up in 6 weeks with x- ray prior to visit; ROM PT-OP-B Current Condition Start: 01/01/21 15:41 Freq: Status: Active Protocol: Document 01/02/21 08:18 MB (Rec: 01/02/21 09:08 [id number]) Current Condition History of Current Condition Onset Date 11/30/20 Current Complaints Ongoing pain and decreased mobility History of Current Condition Pt underwent right lateral ankle stabilization with internal brace, repair of collateral ankle ligament, and repair of right peroneal tendon tear on 11/30/20. Pt has been NWB since that time. He got a post-op boot on 12/12/20 . He has been using crutches in the house and knee walker when he leaves the house. PMH: right hamstring tear, left ankle injury, left tooth surgery, two neck fusions, four left shoulder surgeries, one right shoulder surgery. Pt is going to have a bridge put in his mouth on 01/18/21 and he has having trigger finger surgery on 01/23/21. Pt reports 8/10 pain along his right foot sutures and metarsalphalangeal joints on dorsal surface. Pt states that he cannot move his right foot much in and out d/t the internal anchor from surgery. He has been working on PF and DF. Pt has two steps to enter the house and one step down to his living room. He con't to have swelling in his foot. When his foot is in a dependent position, it goes beet red. When it is elevated, it is more flesh colored. He has been stuck in the house, in bed or on the couch with foot up on the coffee table. Pt is due for a MRI of his back in two weeks. Pt has not yet gotten compression socks or thigh highs. Prior Treatments and Tests PT for left foot injury and right hamstring tear Treatment Goals Patient/Caregiver Goals To decrease pain and swelling and improve mobility PT-OP-C Subjective Start: 01/01/21 15:41 Freq: Status: Active Protocol: Document 02/20/21 09:01 MB (Rec: 02/20/21 09:42 MB [id number]) OP-PT Subjective Patient Comments Patient Comments Pt states that his right foot is disgressing. Pain is in his toes and the base of his toes . He called the surgeon and got Naproxen and Hydrocodone. Last night was the first time he slept in four days. He will follow-up with Dr. Velazco when he gets back from [place]. He leaves tomorrow for a week. A hot bath helps him. PT-OP-G Mobility & Gait Start: 01/01/21 15:41 Freq: Status: Active Protocol: Document 01/02/21 08:18 MB (Rec: 01/02/21 15:25 MB [id number]) OP Gait Assessment Comments Gait Comments Pt is not yet WB through his right foot. He wears post-op boot and uses knee scooter to enter the clinic and he does a good job pivoting for transfers PT-OP-J Posture/Palpation/Skin Start: 01/01/21 15:41 Freq: Status: Active Protocol: Document 01/02/21 08:18 MB (Rec: 01/02/21 15:25 MB [id number]) Skin Assessment Other Assessments Skin Assessment Comments Right foot color is mostly normal with leg supported in hooklying. He has scabbing around dorsal lateral scar and some mild edema. His skin is normal to touch and his toe nails look normal. PT-OP-K Range of Motion Start: 01/01/21 15:41 Freq: Status: Active Protocol: Document 01/02/21 08:18 MB (Rec: 01/02/21 15:25 MB [id number]) Ankle and Foot Goniometric Range of Motion Ankle and Foot ROM Limitations Comments Pt has baseline B foot bony positioning changes with supinated left foot positioning and decreased foot AROM. Right foot ROM not pushed today post-op pending do not know clear precautions at this point since 12/25 note is not yet available. He demonstrates minimal DF and PF with leg extended and supported on table. PT-OP-M Strength Start: 01/01/21 15:41 Freq: Status: Active Protocol: Document 01/02/21 08:18 MB (Rec: 01/02/21 15:25 MB [id number]) Hip Strength Hip Manual Muscle Testing Left Flexion (L2) 5 Normal Abduction 5 Normal Adduction 5 Normal Right Flexion (L2) 3+ Fair+ Abduction 2+ Poor+ Adduction 2+ Poor+ Knee Strength Knee Manual Muscle Testing Left Flexion (S2) 5 Normal Extension (L3) 5 Normal Right Comments NT d/t guarding for foot Ankle/Foot Strength Ankle and Foot Manual Muscle Testing Right Comments Not MMT post-op Right calf is atrophied Left Dorsiflexion (L4) 4 Good Toe Strength Toe Manual Muscle Testing Left Great Toe Flexion 3+ Fair+ PT-OP-Q Treatments Start: 01/01/21 15:41 Freq: Status: Active Protocol: Document 02/20/21 09:01 MB (Rec: 02/20/21 09:42 MB [id number]) Cardio Equipment Recumbent Elliptical ([employer]) Duration (Minutes) 10 Resistance 3 Seat Position 10 Other Legs only Manual Therapy Treatment Other Other Manual Treatments Palpation of feet: right foot is mildly warmer than the left , he has mild edema. Pt reports pain distal MTP joints 3-5 right foot and he has swelling there on dorsal side of foot. STM right LE: distal fibularis longus, soleus and gastroc and MWM of these muscles with pt performing APs and MWM toe flexors with pt performing active toe flexion and extension and PT performing TrP pressure PT-OP-S Aquatic Treatment Start: 01/01/21 15:41 Freq: Status: Active Protocol: Document 02/06/21 14:46 LJ (Rec: 02/06/21 15:01 LJ [id number]) Aquatics Treatment Pool Entry/Exit Pool Entry/Exit Method Stairs Assistance Independent Water Walking Sideways Water Level Chest Level Level of Assistance Verbal Cues Comments cross over posterior Marching Water Level Chest Level Level of Assistance Verbal Cues Backwards Water Level Chest Level Level of Assistance Verbal Cues Forwards Water Level Chest Level Level of Assistance Verbal Cues Lower Extremity Stretches ITB Details at wall Body Position Standing Water Level Waist Level Reps/Duration 30 sec B HS, gastroc Details at wall Body Position Standing Reps/Duration 30 sec x2 B Balance standing on noodle Water Level Chest Level Equipment white noodle Reps/Duration 3 min Comments fore foot, mid foot, heel Manual Techniques Aquatic Massage aqua stretch technique RLE gastroc and preroneals ball rolling gastroc on step rolling foot on BB PT-OP-T Assessment and Plan Start: 01/01/21 15:41 Freq: Status: Active Protocol: Document 02/20/21 09:01 [id number] (Rec: 02/20/21 09:42 MB [id number]) Physical Therapy Assessment Rehab Potential Rehabilitation Potential Fair Evaluation Complexity Number of Personal Factors/Comorbidities 3 or More Number of Body Systems Impaired 1-2 Clinical Presentation at Evaluation Evolving Impairments Impairments Activity Tolerance,Balance, Edema,Functional Activities, Functional Mobility,Gait, Integument,Pain,Posture,ROM, Sensation,Soft Tissue Mobility ,Strength Other Impairments Personal factors include multi -joint pain and dysfunction. Body systems affected include musculoskeletal, neuromuscular . Other Concerns Fall Risk Yes Goals 5 Impairment At back assessment, Oswestry is 23/50 Professional Architect Goal (LTG) Pt will present with improved Oswestry score to reflect no more than 20% impairment to improve functional mobility by 04/18/21. 4 Mcc Goal (LTG) Pt will perform progressive HEP with I including flexiblity, ROM, strengthening , balance and gait to improve right foot ROM, strength and function by 04/18/21. 02/15/21: Pt is performing plantar massage, pelvic realignment exercises, stretching in the doorway, hamstring stretch, he will change resisited eversion and DF to active only, he is performing foot hammock LTG Duration 8 weeks 3 Mcc Goal (LTG) Pt will report a 75% improvement in right foot and ankle pain to improve quality of life by 04/18/21. 02/15/21: Pt con't to report a 10% improvement in right foot and ankle pain since starting PT. LTG Duration 8 weeks 2 Mcc Goal (LTG) Pt will perform WNLs on a standardized balance test to decrease fall risk and exhibit more normal right foot intrinsic strength by 04/18/21. 02/15/21: Not performed d/t time used to screen back to add to plan LTG Duration 8 weeks 1 Mcc Goal (LTG) Pt will gait train at least 1200 feet in 6 minutes without AD to return to community ambulation by 04/18/21. 02/15/21: Not performed today d/t time screening back LTG Duration 8 weeks Assessment Summary Assessment PT is concerned about pt's report that his right foot pain is getting worse. He will follow-up with Dr. Velazco when he gets back from [place]. Gentle manual work today did not exacerbate symptoms and did improve fascial tension. Physical Therapy Plan Frequency and Duration Frequency of Treatment 2x/Week Duration of Treatment 8 weeks Plan of Care Start Date 02/15/21 Plan of Care End Date 04/18/21 Therapeutic Interventions Therapeutic Interventions Aquatic Therapy,Balance Training,Canalithic Repositioning,Gait Training, Home Exercise Program,Joint Mobilizations,Manual Therapy, Neuromuscular Re-education, Orthotic/Prosthetic Management ,Patient/Caregiver Education, Self-Care/Home Management,Soft Tissue Mobilization,Taping, Therapeutic Activities, Therapeutic Exercises Modalities Cold Pack/Ice Massage,Hot Packs,Ultrasound Next Visit Focus/Plan Next Note Type Treatment Note Next Visit Plan For land and aquatics: back is added to plan of care today-- Melissa, please assess pt's swimstroke at some point for his own exercise/core work. Please keep this land comment: work on standing exercises to get right foot working more, consider Counterstrain. Consider bridge and core sequence. Consider SLS, trying SI belt, hip rotator stretch. AQUATICS: Continue balancing on noodle for interossei muscle strengthening during AT . Trial hydrobike for strengthening and ROM. Use orange smile face on foot for forward walking.
--- NOTE | 2021-03-04 14:14 | PT.OTN ---
Current Diagnoses Other instability, right ankle (03/04/21) Spondylosis without myelopathy or radiculopathy, lumbar region (03/04/21) Strain of muscle, fascia and tendon of lower back, initial encounter (03/04/21) Strain of muscle(s) and tendon(s) of peroneal muscle group at lower leg level, right leg, subsequent encounter (03/04/21) Physical Therapy Treatment Note PT-OP-A Visit Information Start: 01/01/21 15:41 Freq: Status: Active Protocol: Document 03/04/21 13:54 LJ (Rec: 03/04/21 14:13 LJ [id number]) Out-Patient Physical Therapy Visit Information Visit Information Visit Type Aquatic Treatment Note Visit Start Time 10:15 Visit Stop Time 11:00 Total Visit Minutes 45 Visit Number 43 Number of CLIENT FINANCE ANALYST Visits 1 Precautions Precautions 02/15/21: Pt brings in order from Dr. Sorensen for lumbar facet arthropathy and lumbar strain 01/03/[address] Velazco note from 12/25/20: Pt is approved to begin walking in surgical shoe without crutches , then transition to normal shoe in 2 weeks as comfortable ; pt to begin physical therapy ; follow-up in 6 weeks with x- ray prior to visit; ROM PT-OP-B Current Condition Start: 01/01/21 15:41 Freq: Status: Active Protocol: Document 01/02/21 08:18 MB (Rec: 01/02/21 09:08 MB [id number]) Current Condition History of Current Condition Onset Date 11/30/20 Current Complaints Ongoing pain and decreased mobility History of Current Condition Pt underwent right lateral ankle stabilization with internal brace, repair of collateral ankle ligament, and repair of right peroneal tendon tear on 11/30/20. Pt has been NWB since that time. He got a post-op boot on 12/12/20 . He has been using crutches in the house and knee walker when he leaves the house. PMH: right hamstring tear, left ankle injury, left tooth surgery, two neck fusions, four left shoulder surgeries, one right shoulder surgery. Pt is going to have a bridge put in his mouth on 01/18/21 and he has having trigger finger surgery on 01/23/21. Pt reports 8/10 pain along his right foot sutures and metarsalphalangeal joints on dorsal surface. Pt states that he cannot move his right foot much in and out d/t the internal anchor from surgery. He has been working on PF and DF. Pt has two steps to enter the house and one step down to his living room. He con't to have swelling in his foot. When his foot is in a dependent position, it goes beet red. When it is elevated, it is more flesh colored. He has been stuck in the house, in bed or on the couch with foot up on the coffee table. Pt is due for a MRI of his back in two weeks. Pt has not yet gotten compression socks or thigh highs. Prior Treatments and Tests PT for left foot injury and right hamstring tear Treatment Goals Patient/Caregiver Goals To decrease pain and swelling and improve mobility PT-OP-C Subjective Start: 01/01/21 15:41 Freq: Status: Active Protocol: Document 03/04/21 13:54 LJ (Rec: 03/04/21 14:13 LJ [id number]) OP-PT Subjective Patient Comments Patient Comments Pt reports pain in toes is still consistently at a 5 but he is not having the same pain along the lateral side of the RLE anymore. He is now experiencing pain in the left side of his low back PT-OP-G Mobility & Gait Start: 01/01/21 15:41 Freq: Status: Active Protocol: Document 01/02/21 08:18 MB (Rec: 01/02/21 15:25 MB [id number]) OP Gait Assessment Comments Gait Comments Pt is not yet WB through his right foot. He wears post-op boot and uses knee scooter to enter the clinic and he does a good job pivoting for transfers PT-OP-J Posture/Palpation/Skin Start: 01/01/21 15:41 Freq: Status: Active Protocol: Document 01/02/21 08:18 MB (Rec: 01/02/21 15:25 MB [id number]) Skin Assessment Other Assessments Skin Assessment Comments Right foot color is mostly normal with leg supported in hooklying. He has scabbing around dorsal lateral scar and some mild edema. His skin is normal to touch and his toe nails look normal. PT-OP-K Range of Motion Start: 01/01/21 15:41 Freq: Status: Active Protocol: Document 01/02/21 08:18 MB (Rec: 01/02/21 15:25 MB [id number]) Ankle and Foot Goniometric Range of Motion Ankle and Foot ROM Limitations Comments Pt has baseline B foot bony positioning changes with supinated left foot positioning and decreased foot AROM. Right foot ROM not pushed today post-op pending do not know clear precautions at this point since 12/25 note is not yet available. He demonstrates minimal DF and PF with leg extended and supported on table. PT-OP-M Strength Start: 01/01/21 15:41 Freq: Status: Active Protocol: Document 01/02/21 08:18 MB (Rec: 01/02/21 15:25 MB [id number]) Hip Strength Hip Manual Muscle Testing Left Flexion (L2) 5 Normal Abduction 5 Normal Adduction 5 Normal Right Flexion (L2) 3+ Fair+ Abduction 2+ Poor+ Adduction 2+ Poor+ Knee Strength Knee Manual Muscle Testing Left Flexion (S2) 5 Normal Extension (L3) 5 Normal Right Comments NT d/t guarding for foot Ankle/Foot Strength Ankle and Foot Manual Muscle Testing Right Comments Not MMT post-op Right calf is atrophied Left Dorsiflexion (L4) 4 Good Toe Strength Toe Manual Muscle Testing Left Great Toe Flexion 3+ Fair+ PT-OP-Q Treatments Start: 01/01/21 15:41 Freq: Status: Active Protocol: Document 02/20/21 09:01 MB (Rec: 02/20/21 09:42 MB [id number]) Cardio Equipment Recumbent Elliptical (BiodAncera) Duration (Minutes) 10 Resistance 3 Seat Position 10 Other Legs only Manual Therapy Treatment Other Other Manual Treatments Palpation of feet: right foot is mildly warmer than the left , he has mild edema. Pt reports pain distal MTP joints 3-5 right foot and he has swelling there on dorsal side of foot. STM right LE: distal fibularis longus, soleus and gastroc and MWM of these muscles with pt performing APs and MWM toe flexors with pt performing active toe flexion and extension and PT performing TrP pressure PT-OP-S Aquatic Treatment Start: 01/01/21 15:41 Freq: Status: Active Protocol: Document 03/04/21 13:54 LJ (Rec: 03/04/21 14:13 LJ [id number]) Aquatics Treatment Pool Entry/Exit Pool Entry/Exit Method Stairs Assistance Independent Water Walking [place] Water Level Chest Level Level of Assistance Verbal Cues Sideways Water Level Chest Level Level of Assistance Verbal Cues Comments cross over posterior Marching Water Level Chest Level Level of Assistance Verbal Cues Backwards Water Level Chest Level Level of Assistance Verbal Cues Lower Extremity Exercises hip flex/ext Details HH on wall Body Position Standing Water Level Chest Level Comments standing chest deep on box to allow foot clearance hip circles Details HH on wall Body Position Sitting Water Level Chest Level Reps/Duration 10 B Comments forward and backward knee flex/ext Details sitting at wall Water Level Chest Level Reps/Duration 10 B Lower Extremity Stretches HS, gastroc Details at wall Body Position Standing Reps/Duration 30 sec x2 B Spinal Exercises abdominal pull down at wall Body Position Sitting Water Level Chest Level Equipment purple BBs Reps/Duration 30; 10 straight, 10 left side, 10 rt side [place] Activities [place] Activities Bicycle,Bicycle Backwards, Cross Country,Running,Hip Abduction/Adduction Other Activities T hang with LE movement pendulum rock and roll Equipment belt, lg BBs Duration 22 min PT-OP-T Assessment and Plan Start: 01/01/21 15:41 Freq: Status: Active Protocol: Document 03/04/21 13:54 JESICA (Rec: 03/04/21 14:13 JESICA [id number]) Physical Therapy Assessment Rehab Potential Rehabilitation Potential Fair Evaluation Complexity Number of Personal Factors/Comorbidities 3 or More Number of Body Systems Impaired 1-2 Clinical Presentation at Evaluation Evolving Impairments Impairments Activity Tolerance,Balance, Edema,Functional Activities, Functional Mobility,Gait, Integument,Pain,Posture,ROM, Sensation,Soft Tissue Mobility ,Strength Other Impairments Personal factors include multi -joint pain and dysfunction. Body systems affected include musculoskeletal, neuromuscular . Other Concerns Fall Risk Yes Goals 5 Impairment At back assessment, Oswestry is 23/50 Snf Goal (LTG) Pt will present with improved Oswestry score to reflect no more than 20% impairment to improve functional mobility by 04/18/21. 4 Snf Goal (LTG) Pt will perform progressive HEP with I including flexiblity, ROM, strengthening , balance and gait to improve right foot ROM, strength and function by 04/18/21. 02/15/21: Pt is performing plantar massage, pelvic realignment exercises, stretching in the doorway, hamstring stretch, he will change resisited eversion and DF to active only, he is performing foot hammock LTG Duration 8 weeks 3 Snf Goal (LTG) Pt will report a 75% improvement in right foot and ankle pain to improve quality of life by 04/18/21. 02/15/21: Pt con't to report a 10% improvement in right foot and ankle pain since starting PT. LTG Duration 8 weeks 2 Snf Goal (LTG) Pt will perform WNLs on a standardized balance test to decrease fall risk and exhibit more normal right foot intrinsic strength by 04/18/21. 02/15/21: Not performed d/t time used to screen back to add to plan LTG Duration 8 weeks 1 Medication Aid Goal (LTG) Pt will gait train at least 1200 feet in 6 minutes without AD to return to community ambulation by 04/18/21. 02/15/21: Not performed today d/t time screening back LTG Duration 8 weeks Assessment Summary Assessment LAND: PT is concerned about pt 's report that his right foot pain is getting worse. He will follow-up with Dr. Velazco when he gets back from [place]. Gentle manual work today did not exacerbate symptoms and did improve fascial tension. [ End ] AQUATICS: Pt able to execute heelstrike with walking activities. Demonstrated good form and balance with lunge walking fw/bkw. Deep water exercises allowed for greater ROM and nerve pain relief in R foot. Physical Therapy Plan Frequency and Duration Frequency of Treatment 2x/Week Duration of Treatment 8 weeks Plan of Care Start Date 02/15/21 Plan of Care End Date 04/18/21 Therapeutic Interventions Therapeutic Interventions Aquatic Therapy,Balance Training,Canalithic Repositioning,Gait Training, Home Exercise Program,Joint Mobilizations,Manual Therapy, Neuromuscular Re-education, Orthotic/Prosthetic Management ,Patient/Caregiver Education, Self-Care/Home Management,Soft Tissue Mobilization,Taping, Therapeutic Activities, Therapeutic Exercises Modalities Cold Pack/Ice Massage,Hot Packs,Ultrasound Next Visit Focus/Plan Next Note Type Treatment Note Next Visit Plan lease keep this land comment: work on standing exercises to get right foot working more, consider Counterstrain. Consider bridge and core sequence. Consider SLS, trying SI belt, hip rotator stretch. AQUATICS: Continue balancing on noodle for interossei muscle strengthening during AT . Progress deep water exercises to include cardio. [ End ]
--- NOTE | 2021-03-06 09:47 | PT.OTN ---
Current Diagnoses Other instability, right ankle (03/06/21) Spondylosis without myelopathy or radiculopathy, lumbar region (03/06/21) Strain of muscle, fascia and tendon of lower back, initial encounter (03/06/21) Strain of muscle(s) and tendon(s) of peroneal muscle group at lower leg level, right leg, subsequent encounter (03/06/21) Physical Therapy Treatment Note PT-OP-A Visit Information Start: 01/01/21 15:41 Freq: Status: Active Protocol: Document 03/06/21 09:03 MB (Rec: 03/06/21 09:07 MB [id number]) Out-Patient Physical Therapy Visit Information Visit Information Visit Type Treatment Note Visit Note 04/20 before KX Visit Start Time 09:03 Visit Stop Time 09:43 Total Visit Minutes 40 Visit Number 15 Number of GILL BOX FIXER Visits 0 Precautions Precautions 02/15/21: Pt brings in order from Dr. Sorensen for lumbar facet arthropathy and lumbar strain 01/03/[address] Velazco note from 12/25/20: Pt is approved to begin walking in surgical shoe without crutches , then transition to normal shoe in 2 weeks as comfortable ; pt to begin physical therapy ; follow-up in 6 weeks with x- ray prior to visit; ROM PT-OP-B Current Condition Start: 01/01/21 15:41 Freq: Status: Active Protocol: Document 01/02/21 08:18 MB (Rec: 01/02/21 09:08 MB [id number]) Current Condition History of Current Condition Onset Date 11/30/20 Current Complaints Ongoing pain and decreased mobility History of Current Condition Pt underwent right lateral ankle stabilization with internal brace, repair of collateral ankle ligament, and repair of right peroneal tendon tear on 11/30/20. Pt has been NWB since that time. He got a post-op boot on 12/12/20 . He has been using crutches in the house and knee walker when he leaves the house. PMH: right hamstring tear, left ankle injury, left tooth surgery, two neck fusions, four left shoulder surgeries, one right shoulder surgery. Pt is going to have a bridge put in his mouth on 01/18/21 and he has having trigger finger surgery on 01/23/21. Pt reports 8/10 pain along his right foot sutures and metarsalphalangeal joints on dorsal surface. Pt states that he cannot move his right foot much in and out d/t the internal anchor from surgery. He has been working on PF and DF. Pt has two steps to enter the house and one step down to his living room. He con't to have swelling in his foot. When his foot is in a dependent position, it goes beet red. When it is elevated, it is more flesh colored. He has been stuck in the house, in bed or on the couch with foot up on the coffee table. Pt is due for a MRI of his back in two weeks. Pt has not yet gotten compression socks or thigh highs. Prior Treatments and Tests PT for left foot injury and right hamstring tear Treatment Goals Patient/Caregiver Goals To decrease pain and swelling and improve mobility PT-OP-C Subjective Start: 01/01/21 15:41 Freq: Status: Active Protocol: Document 03/06/21 09:03 MB (Rec: 03/06/21 09:07 MB [id number]) OP-PT Subjective Patient Comments Patient Comments Pt states that he did pretty well in the deep water. He went home and felt pretty good for 6 hours and then his whole foot was on fire. Now, his right foot is back to how it is normally. He is not going in to see Dr. Velazco. He is starting to be more active and his back is acting up. He did some yard work to slate picker branches after the storm. He hopes to start at the gym. PT-OP-G Mobility & Gait Start: 01/01/21 15:41 Freq: Status: Active Protocol: Document 01/02/21 08:18 MB (Rec: 01/02/21 15:25 MB [id number]) OP Gait Assessment Comments Gait Comments Pt is not yet WB through his right foot. He wears post-op boot and uses knee scooter to enter the clinic and he does a good job pivoting for transfers PT-OP-J Posture/Palpation/Skin Start: 01/01/21 15:41 Freq: Status: Active Protocol: Document 01/02/21 08:18 MB (Rec: 01/02/21 15:25 MB [id number]) Skin Assessment Other Assessments Skin Assessment Comments Right foot color is mostly normal with leg supported in hooklying. He has scabbing around dorsal lateral scar and some mild edema. His skin is normal to touch and his toe nails look normal. PT-OP-K Range of Motion Start: 01/01/21 15:41 Freq: Status: Active Protocol: Document 01/02/21 08:18 MB (Rec: 01/02/21 15:25 MB [id number]) Ankle and Foot Goniometric Range of Motion Ankle and Foot ROM Limitations Comments Pt has baseline B foot bony positioning changes with supinated left foot positioning and decreased foot AROM. Right foot ROM not pushed today post-op pending do not know clear precautions at this point since 12/25 note is not yet available. He demonstrates minimal DF and PF with leg extended and supported on table. PT-OP-M Strength Start: 01/01/21 15:41 Freq: Status: Active Protocol: Document 01/02/21 08:18 MB (Rec: 01/02/21 15:25 MB [id number]) Hip Strength Hip Manual Muscle Testing Left Flexion (L2) 5 Normal Abduction 5 Normal Adduction 5 Normal Right Flexion (L2) 3+ Fair+ Abduction 2+ Poor+ Adduction 2+ Poor+ Knee Strength Knee Manual Muscle Testing Left Flexion (S2) 5 Normal Extension (L3) 5 Normal Right Comments NT d/t guarding for foot Ankle/Foot Strength Ankle and Foot Manual Muscle Testing Right Comments Not MMT post-op Right calf is atrophied Left Dorsiflexion (L4) 4 Good Toe Strength Toe Manual Muscle Testing Left Great Toe Flexion 3+ Fair+ PT-OP-Q Treatments Start: 01/01/21 15:41 Freq: Status: Active Protocol: Document 03/06/21 09:03 MB (Rec: 03/06/21 09:07 MB [id number]) Cardio Equipment Recumbent Elliptical (Biodex) Duration (Minutes) 10 Resistance 3 Seat Position 10 Other Legs only Therapeutic Exercises Supine Exercises Core progression Supine Exercise Name Abdominal drawing in, pelvic tilt, lumbar rotation, HS, mini march, knee fa Side bilateral Comments No bridge this date Pelvic realignment exercises Side bilateral Comments 5 reps, 3 sec hold all exercises Hamstring Stretch with AP Side bilateral Comments Opposite leg straight and AP 20 reps PT-OP-S Aquatic Treatment Start: 01/01/21 15:41 Freq: Status: Active Protocol: Document 03/04/21 13:54 LJ (Rec: 03/04/21 14:13 LJ [id number]) Aquatics Treatment Pool Entry/Exit Pool Entry/Exit Method Stairs Assistance Independent Water Walking [place] Water Level Chest Level Level of Assistance Verbal Cues Sideways Water Level Chest Level Level of Assistance Verbal Cues Comments cross over posterior Marching Water Level Chest Level Level of Assistance Verbal Cues Backwards Water Level Chest Level Level of Assistance Verbal Cues Lower Extremity Exercises hip flex/ext Details HH on wall Body Position Standing Water Level Chest Level Comments standing chest deep on box to allow foot clearance hip circles Details HH on wall Body Position Sitting Water Level Chest Level Reps/Duration 10 B Comments forward and backward knee flex/ext Details sitting at wall Water Level Chest Level Reps/Duration 10 B Lower Extremity Stretches HS, gastroc Details at wall Body Position Standing Reps/Duration 30 sec x2 B Spinal Exercises abdominal pull down at wall Body Position Sitting Water Level Chest Level Equipment purple BBs Reps/Duration 30; 10 straight, 10 left side, 10 rt side [place] Activities [place] Activities Bicycle,Bicycle Backwards, Cross Country,Running,Hip Abduction/Adduction Other Activities T hang with LE movement pendulum rock and roll Equipment belt, lg BBs Duration 22 min PT-OP-T Assessment and Plan Start: 01/01/21 15:41 Freq: Status: Active Protocol: Document 03/06/21 09:03 FARZANEH (Rec: 03/06/21 09:07 [email or web address] [id number]) Physical Therapy Assessment Rehab Potential Rehabilitation Potential Fair Evaluation Complexity Number of Personal Factors/Comorbidities 3 or More Number of Body Systems Impaired 1-2 Clinical Presentation at Evaluation Evolving Impairments Impairments Activity Tolerance,Balance, Edema,Functional Activities, Functional Mobility,Gait, Integument,Pain,Posture,ROM, Sensation,Soft Tissue Mobility ,Strength Other Impairments Personal factors include multi -joint pain and dysfunction. Body systems affected include musculoskeletal, neuromuscular . Other Concerns Fall Risk Yes Goals 5 Impairment At back assessment, Oswestry is 23/50 Nursing Home Goal (LTG) Pt will present with improved Oswestry score to reflect no more than 20% impairment to improve functional mobility by 04/18/21. 4 Nursing Home Goal (LTG) Pt will perform progressive HEP with I including flexiblity, ROM, strengthening , balance and gait to improve right foot ROM, strength and function by 04/18/21. 02/15/21: Pt is performing plantar massage, pelvic realignment exercises, stretching in the doorway, hamstring stretch, he will change resisited eversion and DF to active only, he is performing foot hammock LTG Duration 8 weeks 3 [place] Goal (LTG) Pt will report a 75% improvement in right foot and ankle pain to improve quality of life by 04/18/21. 02/15/21: Pt con't to report a 10% improvement in right foot and ankle pain since starting PT. LTG Duration 8 weeks 2 [place] Goal (LTG) Pt will perform WNLs on a standardized balance test to decrease fall risk and exhibit more normal right foot intrinsic strength by 04/18/21. 02/15/21: Not performed d/t time used to screen back to add to plan LTG Duration 8 weeks 1 Nursing Home Goal (LTG) Pt will gait train at least 1200 feet in 6 minutes without AD to return to community ambulation by 04/18/21. 02/15/21: Not performed today d/t time screening back LTG Duration 8 weeks Assessment Summary Assessment Reviewed pelvic realignment exercises today, progressed core. Encouraged pt to con't pelvic realignment exercises before exercise, pool and gym and when SI pain is flaring. Physical Therapy Plan Frequency and Duration Frequency of Treatment 2x/Week Duration of Treatment 8 weeks Plan of Care Start Date 02/15/21 Plan of Care End Date 04/18/21 Therapeutic Interventions Therapeutic Interventions Aquatic Therapy,Balance Training,Canalithic Repositioning,Gait Training, Home Exercise Program,Joint Mobilizations,Manual Therapy, Neuromuscular Re-education, Orthotic/Prosthetic Management ,Patient/Caregiver Education, Self-Care/Home Management,Soft Tissue Mobilization,Taping, Therapeutic Activities, Therapeutic Exercises Modalities Cold Pack/Ice Massage,Hot Packs,Ultrasound Next Visit Focus/Plan Next Note Type Treatment Note Next Visit Plan Land: work on standing exercises to get right foot working more, consider Counterstrain. Consider SLS, trying SI belt, hip rotator stretch. AQUATICS: Continue balancing on noodle for interossei muscle strengthening during AT . Progress deep water exercises to include cardio. [ End ]
--- NOTE | 2021-03-11 14:09 | PT.OTN ---
Current Diagnoses Other instability, right ankle (03/11/21) Spondylosis without myelopathy or radiculopathy, lumbar region (03/11/21) Strain of muscle, fascia and tendon of lower back, initial encounter (03/11/21) Strain of muscle(s) and tendon(s) of peroneal muscle group at lower leg level, right leg, subsequent encounter (03/11/21) Physical Therapy Treatment Note PT-OP-A Visit Information Start: 01/01/21 15:41 Freq: Status: Active Protocol: Document 03/11/21 13:56 LJ (Rec: 03/11/21 14:09 LJ [id number]) Out-Patient Physical Therapy Visit Information Visit Information Visit Type Aquatic Treatment Note Visit Note 05/18 before KX Visit Start Time 10:15 Visit Stop Time 11:00 Total Visit Minutes 45 Visit Number 16 Number of RANGE TECHNICIAN Visits 1 Precautions Precautions 02/15/21: Pt brings in order from Dr. Sorensen for lumbar facet arthropathy and lumbar strain 01/03/[address] Velazco note from 12/25/20: Pt is approved to begin walking in surgical shoe without crutches , then transition to normal shoe in 2 weeks as comfortable ; pt to begin physical therapy ; follow-up in 6 weeks with x- ray prior to visit; ROM PT-OP-B Current Condition Start: 01/01/21 15:41 Freq: Status: Active Protocol: Document 01/02/21 08:18 MB (Rec: 01/02/21 09:08 MB [id number]) Current Condition History of Current Condition Onset Date 11/30/20 Current Complaints Ongoing pain and decreased mobility History of Current Condition Pt underwent right lateral ankle stabilization with internal brace, repair of collateral ankle ligament, and repair of right peroneal tendon tear on 11/30/20. Pt has been NWB since that time. He got a post-op boot on 12/12/20 . He has been using crutches in the house and knee walker when he leaves the house. PMH: right hamstring tear, left ankle injury, left tooth surgery, two neck fusions, four left shoulder surgeries, one right shoulder surgery. Pt is going to have a bridge put in his mouth on 01/18/21 and he has having trigger finger surgery on 01/23/21. Pt reports 8/10 pain along his right foot sutures and metarsalphalangeal joints on dorsal surface. Pt states that he cannot move his right foot much in and out d/t the internal anchor from surgery. He has been working on PF and DF. Pt has two steps to enter the house and one step down to his living room. He con't to have swelling in his foot. When his foot is in a dependent position, it goes beet red. When it is elevated, it is more flesh colored. He has been stuck in the house, in bed or on the couch with foot up on the coffee table. Pt is due for a MRI of his back in two weeks. Pt has not yet gotten compression socks or thigh highs. Prior Treatments and Tests PT for left foot injury and right hamstring tear Treatment Goals Patient/Caregiver Goals To decrease pain and swelling and improve mobility PT-OP-C Subjective Start: 01/01/21 15:41 Freq: Status: Active Protocol: Document 03/11/21 13:56 LJ (Rec: 03/11/21 14:09 LJ [id number]) OP-PT Subjective Patient Comments Patient Comments Pt states he felt good after AT but 6 hours after session ended his foot began to feel like it was on fire. Today he feels back to baseline with typical pain in foot. PT-OP-G Mobility & Gait Start: 01/01/21 15:41 Freq: Status: Active Protocol: Document 01/02/21 08:18 MB (Rec: 01/02/21 15:25 MB [id number]) OP Gait Assessment Comments Gait Comments Pt is not yet WB through his right foot. He wears post-op boot and uses knee scooter to enter the clinic and he does a good job pivoting for transfers PT-OP-J Posture/Palpation/Skin Start: 01/01/21 15:41 Freq: Status: Active Protocol: Document 01/02/21 08:18 MB (Rec: 01/02/21 15:25 MB [id number]) Skin Assessment Other Assessments Skin Assessment Comments Right foot color is mostly normal with leg supported in hooklying. He has scabbing around dorsal lateral scar and some mild edema. His skin is normal to touch and his toe nails look normal. PT-OP-K Range of Motion Start: 01/01/21 15:41 Freq: Status: Active Protocol: Document 01/02/21 08:18 MB (Rec: 01/02/21 15:25 MB [id number]) Ankle and Foot Goniometric Range of Motion Ankle and Foot ROM Limitations Comments Pt has baseline B foot bony positioning changes with supinated left foot positioning and decreased foot AROM. Right foot ROM not pushed today post-op pending do not know clear precautions at this point since 12/25 note is not yet available. He demonstrates minimal DF and PF with leg extended and supported on table. PT-OP-M Strength Start: 01/01/21 15:41 Freq: Status: Active Protocol: Document 01/02/21 08:18 MB (Rec: 01/02/21 15:25 MB [id number]) Hip Strength Hip Manual Muscle Testing Left Flexion (L2) 5 Normal Abduction 5 Normal Adduction 5 Normal Right Flexion (L2) 3+ Fair+ Abduction 2+ Poor+ Adduction 2+ Poor+ Knee Strength Knee Manual Muscle Testing Left Flexion (S2) 5 Normal Extension (L3) 5 Normal Right Comments NT d/t guarding for foot Ankle/Foot Strength Ankle and Foot Manual Muscle Testing Right Comments Not MMT post-op Right calf is atrophied Left Dorsiflexion (L4) 4 Good Toe Strength Toe Manual Muscle Testing Left Great Toe Flexion 3+ Fair+ PT-OP-Q Treatments Start: 01/01/21 15:41 Freq: Status: Active Protocol: Document 03/06/21 09:03 MB (Rec: 03/06/21 09:07 MB [id number]) Cardio Equipment Recumbent Elliptical ([employer]) Duration (Minutes) 10 Resistance 3 Seat Position 10 Other Legs only Therapeutic Exercises Supine Exercises Core progression Supine Exercise Name Abdominal drawing in, pelvic tilt, lumbar rotation, HS, mini march, knee fa Side bilateral Comments No bridge this date Pelvic realignment exercises Side bilateral Comments 5 reps, 3 sec hold all exercises Hamstring Stretch with AP Side bilateral Comments Opposite leg straight and AP 20 reps PT-OP-S Aquatic Treatment Start: 01/01/21 15:41 Freq: Status: Active Protocol: Document 03/11/21 13:56 LJ (Rec: 03/11/21 14:09 LJ [id number]) Aquatics Treatment Pool Entry/Exit Pool Entry/Exit Method Stairs Assistance Independent Water Walking [place] Water Level Chest Level Level of Assistance Verbal Cues Sideways Water Level Chest Level Level of Assistance Verbal Cues Comments cross over posterior Marching Water Level Chest Level Level of Assistance Verbal Cues Backwards Water Level Chest Level Level of Assistance Verbal Cues Lower Extremity Exercises step up on box Body Position Standing Water Level Chest Level Reps/Duration 5 min Comments step up, raise opp knee, step down hip flex/ext Details HH on wall Body Position Standing Water Level Chest Level Comments standing chest deep on box to allow foot clearance hip circles Details HH on wall Body Position Sitting Water Level Chest Level Reps/Duration 10 x2 B Comments forward and backward knee flex/ext Details sitting at wall Water Level Chest Level Reps/Duration 10 x2 B Lower Extremity Stretches ITB Details at wall Body Position Standing Water Level Waist Level Reps/Duration 30 sec B HS, gastroc Details at wall Body Position Standing Reps/Duration 30 sec x2 B Spinal Exercises abdominal pull down at wall Body Position Sitting Water Level Chest Level Equipment purple BBs Reps/Duration 30; 10 straight, 10 left side, 10 rt side Balance walking with float rings on feet Body Position Standing Water Level Chest Level Equipment yellow rings Reps/Duration 2 laps standing on noodle Water Level Chest Level Equipment white noodle Reps/Duration 3 min Comments fore foot, mid foot, heel [place] Activities [place] Activities Bicycle,Bicycle Backwards, Cross Country,Hip Abduction/ Adduction Other Activities T hang 5 sec pull-downs pendulum Equipment belt, lg BBs, foot brace Duration 12 min PT-OP-T Assessment and Plan Start: 01/01/21 15:41 Freq: Status: Active Protocol: Document 03/11/21 13:56 JESICA (Rec: 03/11/21 14:09 JESICA [id number]) Physical Therapy Assessment Rehab Potential Rehabilitation Potential Fair Evaluation Complexity Number of Personal Factors/Comorbidities 3 or More Number of Body Systems Impaired 1-2 Clinical Presentation at Evaluation Evolving Impairments Impairments Activity Tolerance,Balance, Edema,Functional Activities, Functional Mobility,Gait, Integument,Pain,Posture,ROM, Sensation,Soft Tissue Mobility ,Strength Other Impairments Personal factors include multi -joint pain and dysfunction. Body systems affected include musculoskeletal, neuromuscular . Other Concerns Fall Risk Yes Goals 5 Impairment At back assessment, Oswestry is 23/50 Custodial Goal (LTG) Pt will present with improved Oswestry score to reflect no more than 20% impairment to improve functional mobility by 04/18/21. 4 Custodial Goal (LTG) Pt will perform progressive HEP with I including flexiblity, ROM, strengthening , balance and gait to improve right foot ROM, strength and function by 04/18/21. 02/15/21: Pt is performing plantar massage, pelvic realignment exercises, stretching in the doorway, hamstring stretch, he will change resisited eversion and DF to active only, he is performing foot hammock LTG Duration 8 weeks 3 Plant Clerk Goal (LTG) Pt will report a 75% improvement in right foot and ankle pain to improve quality of life by 04/18/21. 02/15/21: Pt con't to report a 10% improvement in right foot and ankle pain since starting PT. LTG Duration 8 weeks 2 Plant Clerk Goal (LTG) Pt will perform WNLs on a standardized balance test to decrease fall risk and exhibit more normal right foot intrinsic strength by 04/18/21. 02/15/21: Not performed d/t time used to screen back to add to plan LTG Duration 8 weeks 1 Plant Clerk Goal (LTG) Pt will gait train at least 1200 feet in 6 minutes without AD to return to community ambulation by 04/18/21. 02/15/21: Not performed today d/t time screening back LTG Duration 8 weeks Assessment Summary Assessment LAND: Reviewed pelvic realignment exercises today, progressed core. Encouraged pt to con't pelvic realignment exercises before exercise, pool and gym and when SI pain is flaring. AQUATICS: Pt donned brace for stabilization of R ankle in deep water. Pt reduced amount of time in deep water with maintaining ankles in neutral position. Pt did not report any increase in pain Physical Therapy Plan Frequency and Duration Frequency of Treatment 2x/Week Duration of Treatment 8 weeks Plan of Care Start Date 02/15/21 Plan of Care End Date 04/18/21 Therapeutic Interventions Therapeutic Interventions Aquatic Therapy,Balance Training,Canalithic Repositioning,Gait Training, Home Exercise Program,Joint Mobilizations,Manual Therapy, Neuromuscular Re-education, Orthotic/Prosthetic Management ,Patient/Caregiver Education, Self-Care/Home Management,Soft Tissue Mobilization,Taping, Therapeutic Activities, Therapeutic Exercises Modalities Cold Pack/Ice Massage,Hot Packs,Ultrasound Next Visit Focus/Plan Next Note Type Treatment Note Next Visit Plan Land: work on standing exercises to get right foot working more, consider Counterstrain. Consider SLS, trying SI belt, hip rotator stretch. AQUATICS: Continue balancing on noodle for interossei muscle strengthening during AT . Reassess response to decreased deep water exercises with ankle brace. Progress exercises as tolerated. [ End ]
--- NOTE | 2021-03-13 09:46 | PT.OTN ---
Current Diagnoses Other instability, right ankle (03/13/21) Spondylosis without myelopathy or radiculopathy, lumbar region (03/13/21) Strain of muscle, fascia and tendon of lower back, initial encounter (03/13/21) Strain of muscle(s) and tendon(s) of peroneal muscle group at lower leg level, right leg, subsequent encounter (03/13/21) Physical Therapy Treatment Note PT-OP-A Visit Information Start: 01/01/21 15:41 Freq: Status: Active Protocol: Document 03/13/21 08:58 MB (Rec: 03/13/21 09:03 MB [id number]) Out-Patient Physical Therapy Visit Information Visit Information Visit Type Treatment Note Visit Note 06/18 before KX Visit Start Time 08:58 Visit Stop Time 09:43 Total Visit Minutes 16 Visit Number 15 Number of METAL MOLDER Visits 0 Precautions Precautions 02/15/21: Pt brings in order from Dr. Sorensen for lumbar facet arthropathy and lumbar strain 01/03/[address] Velazco note from 12/25/20: Pt is approved to begin walking in surgical shoe without crutches , then transition to normal shoe in 2 weeks as comfortable ; pt to begin physical therapy ; follow-up in 6 weeks with x- ray prior to visit; ROM PT-OP-B Current Condition Start: 01/01/21 15:41 Freq: Status: Active Protocol: Document 01/02/21 08:18 MB (Rec: 01/02/21 09:08 MB [id number]) Current Condition History of Current Condition Onset Date 11/30/20 Current Complaints Ongoing pain and decreased mobility History of Current Condition Pt underwent right lateral ankle stabilization with internal brace, repair of collateral ankle ligament, and repair of right peroneal tendon tear on 11/30/20. Pt has been NWB since that time. He got a post-op boot on 12/12/20 . He has been using crutches in the house and knee walker when he leaves the house. PMH: right hamstring tear, left ankle injury, left tooth surgery, two neck fusions, four left shoulder surgeries, one right shoulder surgery. Pt is going to have a bridge put in his mouth on 01/18/21 and he has having trigger finger surgery on 01/23/21. Pt reports 8/10 pain along his right foot sutures and metarsalphalangeal joints on dorsal surface. Pt states that he cannot move his right foot much in and out d/t the internal anchor from surgery. He has been working on PF and DF. Pt has two steps to enter the house and one step down to his living room. He con't to have swelling in his foot. When his foot is in a dependent position, it goes beet red. When it is elevated, it is more flesh colored. He has been stuck in the house, in bed or on the couch with foot up on the coffee table. Pt is due for a MRI of his back in two weeks. Pt has not yet gotten compression socks or thigh highs. Prior Treatments and Tests PT for left foot injury and right hamstring tear Treatment Goals Patient/Caregiver Goals To decrease pain and swelling and improve mobility PT-OP-C Subjective Start: 01/01/21 15:41 Freq: Status: Active Protocol: Document 03/13/21 08:58 MB (Rec: 03/13/21 09:03 MB [id number]) OP-PT Subjective Patient Comments Patient Comments Pt states that he feels about the same. He has to cancel an appointment next week d/t scheduling conflict. PT-OP-G Mobility & Gait Start: 01/01/21 15:41 Freq: Status: Active Protocol: Document 01/02/21 08:18 MB (Rec: 01/02/21 15:25 MB [id number]) OP Gait Assessment Comments Gait Comments Pt is not yet WB through his right foot. He wears post-op boot and uses knee scooter to enter the clinic and he does a good job pivoting for transfers PT-OP-J Posture/Palpation/Skin Start: 01/01/21 15:41 Freq: Status: Active Protocol: Document 01/02/21 08:18 MB (Rec: 01/02/21 15:25 MB [id number]) Skin Assessment Other Assessments Skin Assessment Comments Right foot color is mostly normal with leg supported in hooklying. He has scabbing around dorsal lateral scar and some mild edema. His skin is normal to touch and his toe nails look normal. PT-OP-K Range of Motion Start: 01/01/21 15:41 Freq: Status: Active Protocol: Document 01/02/21 08:18 MB (Rec: 01/02/21 15:25 MB [id number]) Ankle and Foot Goniometric Range of Motion Ankle and Foot ROM Limitations Comments Pt has baseline B foot bony positioning changes with supinated left foot positioning and decreased foot AROM. Right foot ROM not pushed today post-op pending do not know clear precautions at this point since 12/25 note is not yet available. He demonstrates minimal DF and PF with leg extended and supported on table. PT-OP-M Strength Start: 01/01/21 15:41 Freq: Status: Active Protocol: Document 01/02/21 08:18 MB (Rec: 01/02/21 15:25 MB [id number]) Hip Strength Hip Manual Muscle Testing Left Flexion (L2) 5 Normal Abduction 5 Normal Adduction 5 Normal Right Flexion (L2) 3+ Fair+ Abduction 2+ Poor+ Adduction 2+ Poor+ Knee Strength Knee Manual Muscle Testing Left Flexion (S2) 5 Normal Extension (L3) 5 Normal Right Comments NT d/t guarding for foot Ankle/Foot Strength Ankle and Foot Manual Muscle Testing Right Comments Not MMT post-op Right calf is atrophied Left Dorsiflexion (L4) 4 Good Toe Strength Toe Manual Muscle Testing Left Great Toe Flexion 3+ Fair+ PT-OP-Q Treatments Start: 01/01/21 15:41 Freq: Status: Active Protocol: Document 03/13/21 08:58 MB (Rec: 03/13/21 09:04 MB [id number]) Cardio Equipment Recumbent Elliptical ([email or web address]) Duration (Minutes) 10 Resistance 3-4 Other Legs only Therapeutic Exercises Supine Exercises Mini bridge with band Resistance Level 2 band around knees Comments 10 reps slowly with core tight , pelvic tilt for lift and glute squeeze Clam with band around knees Side bilateral Resistance Level 2 band around knees Comments Ed for glute squeeze first, then 10 reps slowly Hip rotator stretch Side bilateral Comments 30 sec hold each side x2, use of towel for support Manual Therapy Treatment Other Other Manual Treatments STM B vastus lateralis, hip flexor, glutes and lumbar paraspinals and most tension in left hip flexor and B glutes and vastus lateralis PT-OP-S Aquatic Treatment Start: 01/01/21 15:41 Freq: Status: Active Protocol: Document 03/11/21 13:56 LJ (Rec: 03/11/21 14:09 LJ [id number]) Aquatics Treatment Pool Entry/Exit Pool Entry/Exit Method Stairs Assistance Independent Water Walking Traver Water Level Chest Level Level of Assistance Verbal Cues Sideways Water Level Chest Level Level of Assistance Verbal Cues Comments cross over posterior Marching Water Level Chest Level Level of Assistance Verbal Cues Backwards Water Level Chest Level Level of Assistance Verbal Cues Lower Extremity Exercises step up on box Body Position Standing Water Level Chest Level Reps/Duration 5 min Comments step up, raise opp knee, step down hip flex/ext Details HH on wall Body Position Standing Water Level Chest Level Comments standing chest deep on box to allow foot clearance hip circles Details HH on wall Body Position Sitting Water Level Chest Level Reps/Duration 10 x2 B Comments forward and backward knee flex/ext Details sitting at wall Water Level Chest Level Reps/Duration 10 x2 B Lower Extremity Stretches ITB Details at wall Body Position Standing Water Level Waist Level Reps/Duration 30 sec B HS, gastroc Details at wall Body Position Standing Reps/Duration 30 sec x2 B Spinal Exercises abdominal pull down at wall Body Position Sitting Water Level Chest Level Equipment purple BBs Reps/Duration 30; 10 straight, 10 left side, 10 rt side Balance walking with float rings on feet Body Position Standing Water Level Chest Level Equipment yellow rings Reps/Duration 2 laps standing on noodle Water Level Chest Level Equipment white noodle Reps/Duration 3 min Comments fore foot, mid foot, heel [place] Activities [place] Activities Bicycle,Bicycle Backwards, Cross Country,Hip Abduction/ Adduction Other Activities T hang 5 sec pull-downs pendulum Equipment belt, lg BBs, foot brace Duration 12 min PT-OP-T Assessment and Plan Start: 01/01/21 15:41 Freq: Status: Active Protocol: Document 03/13/21 08:58 MB (Rec: 03/13/21 09:03 [id number]) Physical Therapy Assessment Rehab Potential Rehabilitation Potential Fair Evaluation Complexity Number of Personal Factors/Comorbidities 3 or More Number of Body Systems Impaired 1-2 Clinical Presentation at Evaluation Evolving Impairments Impairments Activity Tolerance,Balance, Edema,Functional Activities, Functional Mobility,Gait, Integument,Pain,Posture,ROM, Sensation,Soft Tissue Mobility ,Strength Other Impairments Personal factors include multi -joint pain and dysfunction. Body systems affected include musculoskeletal, neuromuscular . Other Concerns Fall Risk Yes Goals 5 Impairment At back assessment, Oswestry is 23/50 Fdc Goal (LTG) Pt will present with improved Oswestry score to reflect no more than 20% impairment to improve functional mobility by 04/18/21. 4 Fdc Goal (LTG) Pt will perform progressive HEP with I including flexiblity, ROM, strengthening , balance and gait to improve right foot ROM, strength and function by 04/18/21. 02/15/21: Pt is performing plantar massage, pelvic realignment exercises, stretching in the doorway, hamstring stretch, he will change resisited eversion and DF to active only, he is performing foot hammock LTG Duration 8 weeks 3 Circular Distributor Goal (LTG) Pt will report a 75% improvement in right foot and ankle pain to improve quality of life by 04/18/21. 02/15/21: Pt con't to report a 10% improvement in right foot and ankle pain since starting PT. LTG Duration 8 weeks 2 Circular Distributor Goal (LTG) Pt will perform WNLs on a standardized balance test to decrease fall risk and exhibit more normal right foot intrinsic strength by 04/18/21. 02/15/21: Not performed d/t time used to screen back to add to plan LTG Duration 8 weeks 1 Circular Distributor Goal (LTG) Pt will gait train at least 1200 feet in 6 minutes without AD to return to community ambulation by 04/18/21. 02/15/21: Not performed today d/t time screening back LTG Duration 8 weeks Assessment Summary Assessment Progressed flexibility and strengthening today in hook lying and con't with progression in future land treatments. Physical Therapy Plan Frequency and Duration Frequency of Treatment 2x/Week Duration of Treatment 8 weeks Plan of Care Start Date 02/15/21 Plan of Care End Date 04/18/21 Therapeutic Interventions Therapeutic Interventions Aquatic Therapy,Balance Training,Canalithic Repositioning,Gait Training, Home Exercise Program,Joint Mobilizations,Manual Therapy, Neuromuscular Re-education, Orthotic/Prosthetic Management ,Patient/Caregiver Education, Self-Care/Home Management,Soft Tissue Mobilization,Taping, Therapeutic Activities, Therapeutic Exercises Modalities Cold Pack/Ice Massage,Hot Packs,Ultrasound Next Visit Focus/Plan Next Note Type Treatment Note Next Visit Plan Land: QL stretch (perhaps doorway), hook lying Jeremiah stretch, work on standing exercises to get right foot working more, consider Counterstrain. Consider SLS, trying SI belt AQUATICS: Continue balancing on noodle for interossei muscle strengthening during AT . Reassess response to decreased deep water exercises with ankle brace. Progress exercises as tolerated. [ End ]
--- NOTE | 2021-03-20 09:46 | PT.OTN ---
Current Diagnoses Other instability, right ankle (03/20/21) Spondylosis without myelopathy or radiculopathy, lumbar region (03/20/21) Strain of muscle, fascia and tendon of lower back, initial encounter (03/20/21) Strain of muscle(s) and tendon(s) of peroneal muscle group at lower leg level, right leg, subsequent encounter (03/20/21) Physical Therapy Treatment Note PT-OP-A Visit Information Start: 01/01/21 15:41 Freq: Status: Active Protocol: Document 03/20/21 09:00 MB (Rec: 03/20/21 09:46 MB [id number]) Out-Patient Physical Therapy Visit Information Visit Information Visit Type Treatment Note Visit Note 07/18 before KX Visit Start Time 09:00 Visit Stop Time 09:45 Total Visit Minutes 17 Visit Number 16 Number of RELEASE SPECIALIST Visits 0 Precautions Precautions 02/15/21: Pt brings in order from Dr. Sorensen for lumbar facet arthropathy and lumbar strain 01/03/[address] Velazco note from 12/25/20: Pt is approved to begin walking in surgical shoe without crutches , then transition to normal shoe in 2 weeks as comfortable ; pt to begin physical therapy ; follow-up in 6 weeks with x- ray prior to visit; ROM PT-OP-B Current Condition Start: 01/01/21 15:41 Freq: Status: Active Protocol: Document 01/02/21 08:18 MB (Rec: 01/02/21 09:08 MB [id number]) Current Condition History of Current Condition Onset Date 11/30/20 Current Complaints Ongoing pain and decreased mobility History of Current Condition Pt underwent right lateral ankle stabilization with internal brace, repair of collateral ankle ligament, and repair of right peroneal tendon tear on 11/30/20. Pt has been NWB since that time. He got a post-op boot on 12/12/20 . He has been using crutches in the house and knee walker when he leaves the house. PMH: right hamstring tear, left ankle injury, left tooth surgery, two neck fusions, four left shoulder surgeries, one right shoulder surgery. Pt is going to have a bridge put in his mouth on 01/18/21 and he has having trigger finger surgery on 01/23/21. Pt reports 8/10 pain along his right foot sutures and metarsalphalangeal joints on dorsal surface. Pt states that he cannot move his right foot much in and out d/t the internal anchor from surgery. He has been working on PF and DF. Pt has two steps to enter the house and one step down to his living room. He con't to have swelling in his foot. When his foot is in a dependent position, it goes beet red. When it is elevated, it is more flesh colored. He has been stuck in the house, in bed or on the couch with foot up on the coffee table. Pt is due for a MRI of his back in two weeks. Pt has not yet gotten compression socks or thigh highs. Prior Treatments and Tests PT for left foot injury and right hamstring tear Treatment Goals Patient/Caregiver Goals To decrease pain and swelling and improve mobility PT-OP-C Subjective Start: 01/01/21 15:41 Freq: Status: Active Protocol: Document 03/20/21 09:00 MB (Rec: 03/20/21 09:46 MB [id number]) OP-PT Subjective Patient Comments Patient Comments Pt states that his back is okay. PT-OP-G Mobility & Gait Start: 01/01/21 15:41 Freq: Status: Active Protocol: Document 01/02/21 08:18 MB (Rec: 01/02/21 15:25 MB [id number]) OP Gait Assessment Comments Gait Comments Pt is not yet WB through his right foot. He wears post-op boot and uses knee scooter to enter the clinic and he does a good job pivoting for transfers PT-OP-J Posture/Palpation/Skin Start: 01/01/21 15:41 Freq: Status: Active Protocol: Document 01/02/21 08:18 MB (Rec: 01/02/21 15:25 MB [id number]) Skin Assessment Other Assessments Skin Assessment Comments Right foot color is mostly normal with leg supported in hooklying. He has scabbing around dorsal lateral scar and some mild edema. His skin is normal to touch and his toe nails look normal. PT-OP-K Range of Motion Start: 01/01/21 15:41 Freq: Status: Active Protocol: Document 01/02/21 08:18 MB (Rec: 01/02/21 15:25 MB [id number]) Ankle and Foot Goniometric Range of Motion Ankle and Foot ROM Limitations Comments Pt has baseline B foot bony positioning changes with supinated left foot positioning and decreased foot AROM. Right foot ROM not pushed today post-op pending do not know clear precautions at this point since 12/25 note is not yet available. He demonstrates minimal DF and PF with leg extended and supported on table. PT-OP-M Strength Start: 01/01/21 15:41 Freq: Status: Active Protocol: Document 01/02/21 08:18 MB (Rec: 01/02/21 15:25 MB [id number]) Hip Strength Hip Manual Muscle Testing Left Flexion (L2) 5 Normal Abduction 5 Normal Adduction 5 Normal Right Flexion (L2) 3+ Fair+ Abduction 2+ Poor+ Adduction 2+ Poor+ Knee Strength Knee Manual Muscle Testing Left Flexion (S2) 5 Normal Extension (L3) 5 Normal Right Comments NT d/t guarding for foot Ankle/Foot Strength Ankle and Foot Manual Muscle Testing Right Comments Not MMT post-op Right calf is atrophied Left Dorsiflexion (L4) 4 Good Toe Strength Toe Manual Muscle Testing Left Great Toe Flexion 3+ Fair+ PT-OP-Q Treatments Start: 01/01/21 15:41 Freq: Status: Active Protocol: Document 03/20/21 09:00 MB (Rec: 03/20/21 09:46 MB [id number]) Cardio Equipment Recumbent Elliptical (Biodex) Duration (Minutes) 10 Resistance 3-4 Other Legs only Therapeutic Exercises Supine Exercises Jeremiah stretch Side bilateral Comments 45 sec Standing Exercises Doorway stretches Side bilateral Comments Reviewed today to check out QL and hip flexor and pt performs well Manual Therapy Treatment Other Other Manual Treatments STM right fibularis longus and plantar foot, flexor tendons PT-OP-S Aquatic Treatment Start: 01/01/21 15:41 Freq: Status: Active Protocol: Document 03/11/21 13:56 LJ (Rec: 03/11/21 14:09 LJ [id number]) Aquatics Treatment Pool Entry/Exit Pool Entry/Exit Method Stairs Assistance Independent Water Walking [place] Water Level Chest Level Level of Assistance Verbal Cues Sideways Water Level Chest Level Level of Assistance Verbal Cues Comments cross over posterior Marching Water Level Chest Level Level of Assistance Verbal Cues Backwards Water Level Chest Level Level of Assistance Verbal Cues Lower Extremity Exercises step up on box Body Position Standing Water Level Chest Level Reps/Duration 5 min Comments step up, raise opp knee, step down hip flex/ext Details HH on wall Body Position Standing Water Level Chest Level Comments standing chest deep on box to allow foot clearance hip circles Details HH on wall Body Position Sitting Water Level Chest Level Reps/Duration 10 x2 B Comments forward and backward knee flex/ext Details sitting at wall Water Level Chest Level Reps/Duration 10 x2 B Lower Extremity Stretches ITB Details at wall Body Position Standing Water Level Waist Level Reps/Duration 30 sec B HS, gastroc Details at wall Body Position Standing Reps/Duration 30 sec x2 B Spinal Exercises abdominal pull down at wall Body Position Sitting Water Level Chest Level Equipment purple BBs Reps/Duration 30; 10 straight, 10 left side, 10 rt side Balance walking with float rings on feet Body Position Standing Water Level Chest Level Equipment yellow rings Reps/Duration 2 laps standing on noodle Water Level Chest Level Equipment white noodle Reps/Duration 3 min Comments fore foot, mid foot, heel [place] Activities [place] Activities Bicycle,Bicycle Backwards, Cross Country,Hip Abduction/ Adduction Other Activities T hang 5 sec pull-downs pendulum Equipment belt, lg BBs, foot brace Duration 12 min PT-OP-T Assessment and Plan Start: 01/01/21 15:41 Freq: Status: Active Protocol: Document 03/20/21 09:00 [id number] (Rec: 03/20/21 09:46 [id number]) Physical Therapy Assessment Rehab Potential Rehabilitation Potential Fair Evaluation Complexity Number of Personal Factors/Comorbidities 3 or More Number of Body Systems Impaired 1-2 Clinical Presentation at Evaluation Evolving Impairments Impairments Activity Tolerance,Balance, Edema,Functional Activities, Functional Mobility,Gait, Integument,Pain,Posture,ROM, Sensation,Soft Tissue Mobility ,Strength Other Impairments Personal factors include multi -joint pain and dysfunction. Body systems affected include musculoskeletal, neuromuscular . Other Concerns Fall Risk Yes Goals 5 Impairment At back assessment, Oswestry is 23/50 Assisted Goal (LTG) Pt will present with improved Oswestry score to reflect no more than 20% impairment to improve functional mobility by 04/18/21. 4 Crtts Goal (LTG) Pt will perform progressive HEP with I including flexiblity, ROM, strengthening , balance and gait to improve right foot ROM, strength and function by 04/18/21. 02/15/21: Pt is performing plantar massage, pelvic realignment exercises, stretching in the doorway, hamstring stretch, he will change resisited eversion and DF to active only, he is performing foot hammock LTG Duration 8 weeks 3 Assisted Goal (LTG) Pt will report a 75% improvement in right foot and ankle pain to improve quality of life by 04/18/21. 02/15/21: Pt con't to report a 10% improvement in right foot and ankle pain since starting PT. LTG Duration 8 weeks 2 Crtts Goal (LTG) Pt will perform WNLs on a standardized balance test to decrease fall risk and exhibit more normal right foot intrinsic strength by 04/18/21. 02/15/21: Not performed d/t time used to screen back to add to plan LTG Duration 8 weeks 1 Crtts Goal (LTG) Pt will gait train at least 1200 feet in 6 minutes without AD to return to community ambulation by 04/18/21. 02/15/21: Not performed today d/t time screening back LTG Duration 8 weeks Assessment Summary Assessment Added Jeremiah dove to program today and manual work. Con't per plan. Physical Therapy Plan Frequency and Duration Frequency of Treatment 2x/Week Duration of Treatment 8 weeks Plan of Care Start Date 02/15/21 Plan of Care End Date 04/18/21 Therapeutic Interventions Therapeutic Interventions Aquatic Therapy,Balance Training,Canalithic Repositioning,Gait Training, Home Exercise Program,Joint Mobilizations,Manual Therapy, Neuromuscular Re-education, Orthotic/Prosthetic Management ,Patient/Caregiver Education, Self-Care/Home Management,Soft Tissue Mobilization,Taping, Therapeutic Activities, Therapeutic Exercises Modalities Cold Pack/Ice Massage,Hot Packs,Ultrasound Next Visit Focus/Plan Next Note Type Treatment Note Next Visit Plan Work on standing exercises to get right foot working more, consider Counterstrain. Consider SLS, trying SI belt AQUATICS: Continue balancing on noodle for interossei muscle strengthening during AT . Reassess response to decreased deep water exercises with ankle brace. Progress exercises as tolerated. [ End ]
--- NOTE | 2021-03-27 09:42 | PT.OTN ---
Current Diagnoses Other instability, right ankle (03/27/21) Spondylosis without myelopathy or radiculopathy, lumbar region (03/27/21) Strain of muscle, fascia and tendon of lower back, initial encounter (03/27/21) Strain of muscle(s) and tendon(s) of peroneal muscle group at lower leg level, right leg, subsequent encounter (03/27/21) Physical Therapy Treatment Note PT-OP-A Visit Information Start: 01/01/21 15:41 Freq: Status: Active Protocol: Document 03/27/21 08:58 MB (Rec: 03/27/21 09:42 MB [id number]) Out-Patient Physical Therapy Visit Information Visit Information Visit Type Treatment Note Visit Note 08/18 before KX Visit Start Time 08:58 Visit Stop Time 09:38 Total Visit Minutes 40 Visit Number 17 Number of SENIOR PATIENT ACCOUNT REPRESENTATIVE Visits 0 Precautions Precautions 02/15/21: Pt brings in order from Dr. Sorensen for lumbar facet arthropathy and lumbar strain 01/03/[address] Velazco note from 12/25/20: Pt is approved to begin walking in surgical shoe without crutches , then transition to normal shoe in 2 weeks as comfortable ; pt to begin physical therapy ; follow-up in 6 weeks with x- ray prior to visit; ROM PT-OP-B Current Condition Start: 01/01/21 15:41 Freq: Status: Active Protocol: Document 01/02/21 08:18 MB (Rec: 01/02/21 09:08 MB [id number]) Current Condition History of Current Condition Onset Date 11/30/20 Current Complaints Ongoing pain and decreased mobility History of Current Condition Pt underwent right lateral ankle stabilization with internal brace, repair of collateral ankle ligament, and repair of right peroneal tendon tear on 11/30/20. Pt has been NWB since that time. He got a post-op boot on 12/12/20 . He has been using crutches in the house and knee walker when he leaves the house. PMH: right hamstring tear, left ankle injury, left tooth surgery, two neck fusions, four left shoulder surgeries, one right shoulder surgery. Pt is going to have a bridge put in his mouth on 01/18/21 and he has having trigger finger surgery on 01/23/21. Pt reports 8/10 pain along his right foot sutures and metarsalphalangeal joints on dorsal surface. Pt states that he cannot move his right foot much in and out d/t the internal anchor from surgery. He has been working on PF and DF. Pt has two steps to enter the house and one step down to his living room. He con't to have swelling in his foot. When his foot is in a dependent position, it goes beet red. When it is elevated, it is more flesh colored. He has been stuck in the house, in bed or on the couch with foot up on the coffee table. Pt is due for a MRI of his back in two weeks. Pt has not yet gotten compression socks or thigh highs. Prior Treatments and Tests PT for left foot injury and right hamstring tear Treatment Goals Patient/Caregiver Goals To decrease pain and swelling and improve mobility PT-OP-C Subjective Start: 01/01/21 15:41 Freq: Status: Active Protocol: Document 03/27/21 08:58 MB (Rec: 03/27/21 09:42 MB [id number]) OP-PT Subjective Patient Comments Patient Comments Pt states that his foot pain is much better. It is about a one or two. He feels like there is duct tape around his foot. [place] went walking [place] for a mile and a half without AD. Pt asks about pre-golfing exercises PT-OP-G Mobility & Gait Start: 01/01/21 15:41 Freq: Status: Active Protocol: Document 01/02/21 08:18 MB (Rec: 01/02/21 15:25 MB [id number]) OP Gait Assessment Comments Gait Comments Pt is not yet WB through his right foot. He wears post-op boot and uses knee scooter to enter the clinic and he does a good job pivoting for transfers PT-OP-J Posture/Palpation/Skin Start: 01/01/21 15:41 Freq: Status: Active Protocol: Document 01/02/21 08:18 MB (Rec: 01/02/21 15:25 MB [id number]) Skin Assessment Other Assessments Skin Assessment Comments Right foot color is mostly normal with leg supported in hooklying. He has scabbing around dorsal lateral scar and some mild edema. His skin is normal to touch and his toe nails look normal. PT-OP-K Range of Motion Start: 01/01/21 15:41 Freq: Status: Active Protocol: Document 01/02/21 08:18 MB (Rec: 01/02/21 15:25 MB [id number]) Ankle and Foot Goniometric Range of Motion Ankle and Foot ROM Limitations Comments Pt has baseline B foot bony positioning changes with supinated left foot positioning and decreased foot AROM. Right foot ROM not pushed today post-op pending do not know clear precautions at this point since 12/25 note is not yet available. He demonstrates minimal DF and PF with leg extended and supported on table. PT-OP-M Strength Start: 01/01/21 15:41 Freq: Status: Active Protocol: Document 01/02/21 08:18 MB (Rec: 01/02/21 15:25 MB [id number]) Hip Strength Hip Manual Muscle Testing Left Flexion (L2) 5 Normal Abduction 5 Normal Adduction 5 Normal Right Flexion (L2) 3+ Fair+ Abduction 2+ Poor+ Adduction 2+ Poor+ Knee Strength Knee Manual Muscle Testing Left Flexion (S2) 5 Normal Extension (L3) 5 Normal Right Comments NT d/t guarding for foot Ankle/Foot Strength Ankle and Foot Manual Muscle Testing Right Comments Not MMT post-op Right calf is atrophied Left Dorsiflexion (L4) 4 Good Toe Strength Toe Manual Muscle Testing Left Great Toe Flexion 3+ Fair+ PT-OP-Q Treatments Start: 01/01/21 15:41 Freq: Status: Active Protocol: Document 03/27/21 08:58 MB (Rec: 03/27/21 09:42 MB [id number]) Cardio Equipment Recumbent Elliptical (B[employer]Pharmalink) Duration (Minutes) 12 Resistance 3-4 Other Legs only Therapeutic Exercises Standing Exercises Calf stretches Side bilateral Comments Pt cannot bend right knee for soleus Neuro Re-Education Treatment Balance Activities Blue balance pad in // bars Comments Black shoes on: blue pad standing feet apart superv, EC superv, feet together EO and EC are superv and more challenging Without shoes: more challenging and no LOB and pt con't to perform well even though challenged SLS: Both fingers on top of bar and pt performs to help WB through foot and painful SI joint PT-OP-S Aquatic Treatment Start: 01/01/21 15:41 Freq: Status: Active Protocol: Document 03/11/21 13:56 LJ (Rec: 03/11/21 14:09 LJ [id number]) Aquatics Treatment Pool Entry/Exit Pool Entry/Exit Method Stairs Assistance Independent Water Walking [place] Water Level Chest Level Level of Assistance Verbal Cues Sideways Water Level Chest Level Level of Assistance Verbal Cues Comments cross over posterior March[place] Water Level Chest Level Level of Assistance Verbal Cues Backwards Water Level Chest Level Level of Assistance Verbal Cues Lower Extremity Exercises step up on box Body Position Standing Water Level Chest Level Reps/Duration 5 min Comments step up, raise opp knee, step down hip flex/ext Details HH on wall Body Position Standing Water Level Chest Level Comments standing chest deep on box to allow foot clearance hip circles Details HH on wall Body Position Sitting Water Level Chest Level Reps/Duration 10 x2 B Comments forward and backward knee flex/ext Details sitting at wall Water Level Chest Level Reps/Duration 10 x2 B Lower Extremity Stretches ITB Details at wall Body Position Standing Water Level Waist Level Reps/Duration 30 sec B HS, gastroc Details at wall Body Position Standing Reps/Duration 30 sec x2 B Spinal Exercises abdominal pull down at wall Body Position Sitting Water Level Chest Level Equipment purple BBs Reps/Duration 30; 10 straight, 10 left side, 10 rt side Balance walking with float rings on feet Body Position Standing Water Level Chest Level Equipment yellow rings Reps/Duration 2 laps standing on noodle Water Level Chest Level Equipment white noodle Reps/Duration 3 min Comments fore foot, mid foot, heel [place] Activities [place] Activities Bicycle,Bicycle Backwards, Cross Country,Hip Abduction/ Adduction Other Activities T hang 5 sec pull-downs pendulum Equipment belt, lg BBs, foot brace Duration 12 min PT-OP-T Assessment and Plan Start: 01/01/21 15:41 Freq: Status: Active Protocol: Document 03/27/21 08:58 MB (Rec: 03/27/21 09:42 MB [id number]) Physical Therapy Assessment Rehab Potential Rehabilitation Potential Fair Evaluation Complexity Number of Personal Factors/Comorbidities 3 or More Number of Body Systems Impaired 1-2 Clinical Presentation at Evaluation Evolving Impairments Impairments Activity Tolerance,Balance, Edema,Functional Activities, Functional Mobility,Gait, Integument,Pain,Posture,ROM, Sensation,Soft Tissue Mobility ,Strength Other Impairments Personal factors include multi -joint pain and dysfunction. Body systems affected include musculoskeletal, neuromuscular . Other Concerns Fall Risk Yes Goals 5 Impairment At back assessment, Oswestry is 23/50 Brick Or Block Maker Goal (LTG) Pt will present with improved Oswestry score to reflect no more than 20% impairment to improve functional mobility by 04/18/21. 4 Brick Or Block Maker Goal (LTG) Pt will perform progressive HEP with I including flexiblity, ROM, strengthening , balance and gait to improve right foot ROM, strength and function by 04/18/21. 02/15/21: Pt is performing plantar massage, pelvic realignment exercises, stretching in the doorway, hamstring stretch, he will change resisited eversion and DF to active only, he is performing foot hammock LTG Duration 8 weeks 3 Brick Or Block Maker Goal (LTG) Pt will report a 75% improvement in right foot and ankle pain to improve quality of life by 04/18/21. 02/15/21: Pt con't to report a 10% improvement in right foot and ankle pain since starting PT. LTG Duration 8 weeks 2 Custodial Goal (LTG) Pt will perform WNLs on a standardized balance test to decrease fall risk and exhibit more normal right foot intrinsic strength by 04/18/21. 02/15/21: Not performed d/t time used to screen back to add to plan LTG Duration 8 weeks 1 Custodial Goal (LTG) Pt will gait train at least 1200 feet in 6 minutes without AD to return to community ambulation by 04/18/21. 02/15/21: Not performed today d/t time screening back LTG Duration 8 weeks Assessment Summary Assessment Progressed land balance exercises today on foam and pt to get one for home. He has trouble with soleus stretch on the right and he performs gastroc stretch. Physical Therapy Plan Frequency and Duration Frequency of Treatment 2x/Week Duration of Treatment 8 weeks Plan of Care Start Date 02/15/21 Plan of Care End Date 04/18/21 Therapeutic Interventions Therapeutic Interventions Aquatic Therapy,Balance Training,Canalithic Repositioning,Gait Training, Home Exercise Program,Joint Mobilizations,Manual Therapy, Neuromuscular Re-education, Orthotic/Prosthetic Management ,Patient/Caregiver Education, Self-Care/Home Management,Soft Tissue Mobilization,Taping, Therapeutic Activities, Therapeutic Exercises Modalities Cold Pack/Ice Massage,Hot Packs,Ultrasound Next Visit Focus/Plan Next Note Type Treatment Note Next Visit Plan On land: progress pre-golfing exercises AQUATICS: Continue balancing on noodle for interossei muscle strengthening during AT . Reassess response to decreased deep water exercises with ankle brace. Progress exercises as tolerated. [ End ]
--- NOTE | 2021-04-01 14:37 | PT.OTN ---
Current Diagnoses Other instability, right ankle (03/27/21) Spondylosis without myelopathy or radiculopathy, lumbar region (03/27/21) Strain of muscle, fascia and tendon of lower back, initial encounter (03/27/21) Strain of muscle(s) and tendon(s) of peroneal muscle group at lower leg level, right leg, subsequent encounter (03/27/21) Physical Therapy Treatment Note PT-OP-A Visit Information Start: 01/01/21 15:41 Freq: Status: Active Protocol: Document 04/01/21 14:18 LJ (Rec: 04/01/21 14:37 LJ [id number]) Out-Patient Physical Therapy Visit Information Visit Information Visit Type Aquatic Treatment Note Visit Start Time 10:15 Visit Stop Time 11:00 Total Visit Minutes 45 Visit Number 41 Number of VEST TAILOR Visits 18 PT-OP-B Current Condition Start: 01/01/21 15:41 Freq: Status: Active Protocol: Document 01/02/21 08:18 [email or web address] (Rec: 01/02/21 09:08 MB [id number]) Current Condition History of Current Condition Onset Date 11/30/20 Current Complaints Ongoing pain and decreased mobility History of Current Condition Pt underwent right lateral ankle stabilization with internal brace, repair of collateral ankle ligament, and repair of right peroneal tendon tear on 11/30/20. Pt has been NWB since that time. He got a post-op boot on 12/12/20 . He has been using crutches in the house and knee walker when he leaves the house. PMH: right hamstring tear, left ankle injury, left tooth surgery, two neck fusions, four left shoulder surgeries, one right shoulder surgery. Pt is going to have a bridge put in his mouth on 01/18/21 and he has having trigger finger surgery on 01/23/21. Pt reports 8/10 pain along his right foot sutures and metarsalphalangeal joints on dorsal surface. Pt states that he cannot move his right foot much in and out d/t the internal anchor from surgery. He has been working on PF and DF. Pt has two steps to enter the house and one step down to his living room. He con't to have swelling in his foot. When his foot is in a dependent position, it goes beet red. When it is elevated, it is more flesh colored. He has been stuck in the house, in bed or on the couch with foot up on the coffee table. Pt is due for a MRI of his back in two weeks. Pt has not yet gotten compression socks or thigh highs. Prior Treatments and Tests PT for left foot injury and right hamstring tear Treatment Goals Patient/Caregiver Goals To decrease pain and swelling and improve mobility PT-OP-C Subjective Start: 01/01/21 15:41 Freq: Status: Active Protocol: Document 04/01/21 14:18 LJ (Rec: 04/01/21 14:37 LJ [id number]) OP-PT Subjective Patient Comments Patient Comments Pt states foot pain is gone. Still feels like a band of duct tape around his foot and heel. PT-OP-G Mobility & Gait Start: 01/01/21 15:41 Freq: Status: Active Protocol: Document 01/02/21 08:18 MB (Rec: 01/02/21 15:25 MB [id number]) OP Gait Assessment Comments Gait Comments Pt is not yet WB through his right foot. He wears post-op boot and uses knee scooter to enter the clinic and he does a good job pivoting for transfers PT-OP-J Posture/Palpation/Skin Start: 01/01/21 15:41 Freq: Status: Active Protocol: Document 01/02/21 08:18 MB (Rec: 01/02/21 15:25 MB [id number]) Skin Assessment Other Assessments Skin Assessment Comments Right foot color is mostly normal with leg supported in hooklying. He has scabbing around dorsal lateral scar and some mild edema. His skin is normal to touch and his toe nails look normal. PT-OP-K Range of Motion Start: 01/01/21 15:41 Freq: Status: Active Protocol: Document 01/02/21 08:18 MB (Rec: 01/02/21 15:25 MB [id number]) Ankle and Foot Goniometric Range of Motion Ankle and Foot ROM Limitations Comments Pt has baseline B foot bony positioning changes with supinated left foot positioning and decreased foot AROM. Right foot ROM not pushed today post-op pending do not know clear precautions at this point since 12/25 note is not yet available. He demonstrates minimal DF and PF with leg extended and supported on table. PT-OP-M Strength Start: 01/01/21 15:41 Freq: Status: Active Protocol: Document 01/02/21 08:18 MB (Rec: 01/02/21 15:25 MB [id number]) Hip Strength Hip Manual Muscle Testing Left Flexion (L2) 5 Normal Abduction 5 Normal Adduction 5 Normal Right Flexion (L2) 3+ Fair+ Abduction 2+ Poor+ Adduction 2+ Poor+ Knee Strength Knee Manual Muscle Testing Left Flexion (S2) 5 Normal Extension (L3) 5 Normal Right Comments NT d/t guarding for foot Ankle/Foot Strength Ankle and Foot Manual Muscle Testing Right Comments Not MMT post-op Right calf is atrophied Left Dorsiflexion (L4) 4 Good Toe Strength Toe Manual Muscle Testing Left Great Toe Flexion 3+ Fair+ PT-OP-Q Treatments Start: 01/01/21 15:41 Freq: Status: Active Protocol: Document 03/27/21 08:58 MB (Rec: 03/27/21 09:42 MB [id number]) Cardio Equipment Recumbent Elliptical (Biodex) Duration (Minutes) 12 Resistance 3-4 Other Legs only Therapeutic Exercises Standing Exercises Calf stretches Side bilateral Comments Pt cannot bend right knee for soleus Neuro Re-Education Treatment Balance Activities Blue balance pad in // bars Comments Black shoes on: blue pad standing feet apart superv, EC superv, feet together EO and EC are superv and more challenging Without shoes: more challenging and no LOB and pt con't to perform well even though challenged SLS: Both fingers on top of bar and pt performs to help WB through foot and painful SI joint PT-OP-S Aquatic Treatment Start: 01/01/21 15:41 Freq: Status: Active Protocol: Document 04/01/21 14:18 LJ (Rec: 04/01/21 14:37 LJ [id number]) Aquatics Treatment Pool Entry/Exit Pool Entry/Exit Method Stairs Assistance Independent Water Walking ciecumduction f/b Water Level Chest Level Walking Equipment Ankle Floats stop-start Water Level Chest Level Walking Equipment Ankle Floats [place] Water Level Chest Level Walking Equipment Ankle Floats Level of Assistance Verbal Cues Sideways Water Level Chest Level Walking Equipment Ankle Floats Level of Assistance Verbal Cues Comments cross over posterior Marching Water Level Chest Level Walking Equipment Ankle Floats Level of Assistance Verbal Cues Backwards Water Level Chest Level Walking Equipment Ankle Floats Level of Assistance Verbal Cues Forwards Water Level Chest Level Walking Equipment Ankle Floats Level of Assistance Verbal Cues Lower Extremity Exercises hip flex/ext Details HH on wall Body Position Standing Water Level Chest Level Comments standing chest deep on box to allow foot clearance hip circles Details HH on wall Body Position Sitting Water Level Chest Level Reps/Duration 10 x2 B Comments forward and backward knee flex/ext Details sitting at wall Water Level Chest Level Reps/Duration 10 x2 B Lower Extremity Stretches ITB Details at wall Body Position Standing Water Level Waist Level Reps/Duration 30 sec B HS, gastroc Details at wall Body Position Standing Reps/Duration 30 sec x2 B Balance standing on noodle Water Level Chest Level Equipment white noodle Reps/Duration 3 min Comments fore foot, mid foot, heel [place] Activities [place] Activities Bicycle,Bicycle Backwards, Cross Country,Running,Sit Kicks Other Activities standing on white noodle squats on noodle Equipment belt, noodle Duration 15 PT-OP-T Assessment and Plan Start: 01/01/21 15:41 Freq: Status: Active Protocol: Document 04/01/21 14:18 JESICA (Rec: 04/01/21 14:37 JESICA [id number]) Physical Therapy Assessment Rehab Potential Rehabilitation Potential Good Evaluation Complexity Number of Personal Factors/Comorbidities 3 or More Number of Body Systems Impaired 1-2 Clinical Presentation at Evaluation Evolving Impairments Impairments Activity Tolerance,Balance, Edema,Functional Activities, Functional Mobility,Gait, Integument,Pain,Posture,ROM, Sensation,Soft Tissue Mobility ,Strength Other Impairments Personal factors include multi -joint pain and dysfunction. Body systems affected include musculoskeletal, neuromuscular . Other Concerns Fall Risk Yes Goals 5 Impairment At back assessment, Oswestry is 23/50 Ring Facer Goal (LTG) Pt will present with improved Oswestry score to reflect no more than 20% impairment to improve functional mobility by 04/18/21. 4 Ring Facer Goal (LTG) Pt will perform progressive HEP with I including flexiblity, ROM, strengthening , balance and gait to improve right foot ROM, strength and function by 04/18/21. 02/15/21: Pt is performing plantar massage, pelvic realignment exercises, stretching in the doorway, hamstring stretch, he will change resisited eversion and DF to active only, he is performing foot hammock LTG Duration 8 weeks 3 Fpc Goal (LTG) Pt will report a 75% improvement in right foot and ankle pain to improve quality of life by 04/18/21. 02/15/21: Pt con't to report a 10% improvement in right foot and ankle pain since starting PT. LTG Duration 8 weeks 2 Fpc Goal (LTG) Pt will perform WNLs on a standardized balance test to decrease fall risk and exhibit more normal right foot intrinsic strength by 04/18/21. 02/15/21: Not performed d/t time used to screen back to add to plan LTG Duration 8 weeks 1 Fpc Goal (LTG) Pt will gait train at least 1200 feet in 6 minutes without AD to return to community ambulation by 04/18/21. 02/15/21: Not performed today d/t time screening back LTG Duration 8 weeks Assessment Summary Assessment AQUATICS: Pt improving with core strength and stability. Balance has improved as demonstrated by ease in ambulation with floatation devices on ankles. Continue to progress strengthening exercises as tolerated. Physical Therapy Plan Frequency and Duration Frequency of Treatment 2x/Week Duration of Treatment 8 weeks Plan of Care Start Date 02/15/21 Plan of Care End Date 04/18/21 Therapeutic Interventions Therapeutic Interventions Aquatic Therapy,Balance Training,Canalithic Repositioning,Gait Training, Home Exercise Program,Joint Mobilizations,Manual Therapy, Neuromuscular Re-education, Orthotic/Prosthetic Management ,Patient/Caregiver Education, Self-Care/Home Management,Soft Tissue Mobilization,Taping, Therapeutic Activities, Therapeutic Exercises Modalities Cold Pack/Ice Massage,Hot Packs,Ultrasound Next Visit Focus/Plan Next Note Type Treatment Note Next Visit Plan On land: progress pre-golfing exercises AQUATICS: Continue balancing on noodle for interossei muscle strengthening. Progress exercises as tolerated. [ End ]
--- NOTE | 2021-04-04 09:00 | PT.OTN ---
Current Diagnoses Other instability, right ankle (04/04/21) Spondylosis without myelopathy or radiculopathy, lumbar region (04/04/21) Strain of muscle, fascia and tendon of lower back, initial encounter (04/04/21) Strain of muscle(s) and tendon(s) of peroneal muscle group at lower leg level, right leg, subsequent encounter (04/04/21) Physical Therapy Treatment Note PT-OP-A Visit Information Start: 01/01/21 15:41 Freq: Status: Active Protocol: Document 04/04/21 08:19 SP (Rec: 04/04/21 09:03 SP [id number]) Out-Patient Physical Therapy Visit Information Visit Information Visit Type Treatment Note Visit Start Time 08:19 Visit Stop Time 09:00 Total Visit Minutes 41 Visit Number 42 Number of BIOMEDICAL FIELD SERVICE ENGINEER Visits 2 Evaluation Information Evaluation Date 01/02/21 PT-OP-B Current Condition Start: 01/01/21 15:41 Freq: Status: Active Protocol: Document 01/02/21 08:18 MB (Rec: 01/02/21 09:08 MB [id number]) Current Condition History of Current Condition Onset Date 11/30/20 Current Complaints Ongoing pain and decreased mobility History of Current Condition Pt underwent right lateral ankle stabilization with internal brace, repair of collateral ankle ligament, and repair of right peroneal tendon tear on 11/30/20. Pt has been NWB since that time. He got a post-op boot on 12/12/20 . He has been using crutches in the house and knee walker when he leaves the house. PMH: right hamstring tear, left ankle injury, left tooth surgery, two neck fusions, four left shoulder surgeries, one right shoulder surgery. Pt is going to have a bridge put in his mouth on 01/18/21 and he has having trigger finger surgery on 01/23/21. Pt reports 8/10 pain along his right foot sutures and metarsalphalangeal joints on dorsal surface. Pt states that he cannot move his right foot much in and out d/t the internal anchor from surgery. He has been working on PF and DF. Pt has two steps to enter the house and one step down to his living room. He con't to have swelling in his foot. When his foot is in a dependent position, it goes beet red. When it is elevated, it is more flesh colored. He has been stuck in the house, in bed or on the couch with foot up on the coffee table. Pt is due for a MRI of his back in two weeks. Pt has not yet gotten compression socks or thigh highs. Prior Treatments and Tests PT for left foot injury and right hamstring tear Treatment Goals Patient/Caregiver Goals To decrease pain and swelling and improve mobility PT-OP-C Subjective Start: 01/01/21 15:41 Freq: Status: Active Protocol: Document 04/04/21 08:19 SP (Rec: 04/04/21 09:03 SP [id number]) OP-PT Subjective Patient Comments Patient Comments Pt states doing pretty good lately. States felt pretty good after pool, was focusing core with good understanding how apply if goes on own. Pt states feels pretty tight today and usually discomfort in low back. PT-OP-G Mobility & Gait Start: 01/01/21 15:41 Freq: Status: Active Protocol: Document 01/02/21 08:18 MB (Rec: 01/02/21 15:25 MB [id number]) OP Gait Assessment Comments Gait Comments Pt is not yet WB through his right foot. He wears post-op boot and uses knee scooter to enter the clinic and he does a good job pivoting for transfers PT-OP-J Posture/Palpation/Skin Start: 01/01/21 15:41 Freq: Status: Active Protocol: Document 01/02/21 08:18 MB (Rec: 01/02/21 15:25 MB [id number]) Skin Assessment Other Assessments Skin Assessment Comments Right foot color is mostly normal with leg supported in hooklying. He has scabbing around dorsal lateral scar and some mild edema. His skin is normal to touch and his toe nails look normal. PT-OP-K Range of Motion Start: 01/01/21 15:41 Freq: Status: Active Protocol: Document 01/02/21 08:18 MB (Rec: 01/02/21 15:25 MB [id number]) Ankle and Foot Goniometric Range of Motion Ankle and Foot ROM Limitations Comments Pt has baseline B foot bony positioning changes with supinated left foot positioning and decreased foot AROM. Right foot ROM not pushed today post-op pending do not know clear precautions at this point since 12/25 note is not yet available. He demonstrates minimal DF and PF with leg extended and supported on table. PT-OP-M Strength Start: 01/01/21 15:41 Freq: Status: Active Protocol: Document 01/02/21 08:18 MB (Rec: 01/02/21 15:25 MB [id number]) Hip Strength Hip Manual Muscle Testing Left Flexion (L2) 5 Normal Abduction 5 Normal Adduction 5 Normal Right Flexion (L2) 3+ Fair+ Abduction 2+ Poor+ Adduction 2+ Poor+ Knee Strength Knee Manual Muscle Testing Left Flexion (S2) 5 Normal Extension (L3) 5 Normal Right Comments NT d/t guarding for foot Ankle/Foot Strength Ankle and Foot Manual Muscle Testing Right Comments Not MMT post-op Right calf is atrophied Left Dorsiflexion (L4) 4 Good Toe Strength Toe Manual Muscle Testing Left Great Toe Flexion 3+ Fair+ PT-OP-Q Treatments Start: 01/01/21 15:41 Freq: Status: Active Protocol: Document 04/04/21 08:19 SP (Rec: 04/04/21 09:03 SP [id number]) Cardio Equipment Recumbent Elliptical (Literably) Duration (Minutes) 7 Resistance 4 Seat Position see 9 Other Legs only Therapeutic Exercises Supine Exercises Jeremiah stretch Supine Exercise Name flexibilitiy HEP review Side bilateral Reps/Minutes 45 sec Comments good feedback response Hip rotator stretch Supine Exercise Name flexibilitiy HEP review- IR/ ER Side bilateral Reps/Minutes 60s Comments good feedback response Hamstring Stretch with AP Supine Exercise Name flexibilitiy HEP review Side bilateral Reps/Minutes AP 20 reps Comments Opposite leg straight Sidelying Exercises open book Sidelying Exercise Name added to HEP Side bilateral Reps/Minutes x5 Comments good feedback response- Standing Exercises Calf stretches Standing Exercise Name Gastroc stretch Side bilateral Equipment Used ELIANA Reps/Minutes 20s Comments fair tolerance, states ankle not really flexible Manual Therapy Treatment Soft Tissue Mobilization Scar mobilization Body Location R lateral ankle Mobilization Type Myofascial Release Intensity/Depth Superficial Body Position Supine Comments Initially immobile tissue. Successfully mobiliized with moderate to good movement of skin over underlying tissue. Joint Mobilizations 1-5 MTP APs Joint R Direction A<>P, forefoot med/ lat rotation Grade II Body Position Supine Comments manual, good response- pt reports feels tight, not much movement, instruction can do self gently to assist mobility of ankle during standing activities. Neuro Re-Education Treatment Balance Activities Blue balance pad in // bars Details WBOS, NBOS, stagger, tandem Surface added to HEP Equipment blue foam Comments head turn, EC all but tandem up to 30s Self-Care/Home Management Treatment Education Patient Education Home Exercise Program Other Education Initiated open book for thoracic rotational mobility this tx. Good feedback response. PT-OP-S Aquatic Treatment Start: 01/01/21 15:41 Freq: Status: Active Protocol: Document 04/01/21 14:18 LJ (Rec: 04/01/21 14:37 LJ [id number]) Aquatics Treatment Pool Entry/Exit Pool Entry/Exit Method Stairs Assistance Independent Water Walking ciecumduction f/b Water Level Chest Level Walking Equipment Ankle Floats stop-start Water Level Chest Level Walking Equipment Ankle Floats [place] Water Level Chest Level Walking Equipment Ankle Floats Level of Assistance Verbal Cues Sideways Water Level Chest Level Walking Equipment Ankle Floats Level of Assistance Verbal Cues Comments cross over posterior Marching Water Level Chest Level Walking Equipment Ankle Floats Level of Assistance Verbal Cues Backwards Water Level Chest Level Walking Equipment Ankle Floats Level of Assistance Verbal Cues Forwards Water Level Chest Level Walking Equipment Ankle Floats Level of Assistance Verbal Cues Lower Extremity Exercises hip flex/ext Details HH on wall Body Position Standing Water Level Chest Level Comments standing chest deep on box to allow foot clearance hip circles Details HH on wall Body Position Sitting Water Level Chest Level Reps/Duration 10 x2 B Comments forward and backward knee flex/ext Details sitting at wall Water Level Chest Level Reps/Duration 10 x2 B Lower Extremity Stretches ITB Details at wall Body Position Standing Water Level Waist Level Reps/Duration 30 sec B HS, gastroc Details at wall Body Position Standing Reps/Duration 30 sec x2 B Balance standing on noodle Water Level Chest Level Equipment white noodle Reps/Duration 3 min Comments fore foot, mid foot, heel Section Activities Section Activities Bicycle,Bicycle Backwards, Cross [place],Running,Sit Kicks Other Activities standing on white noodle squats on noodle Equipment belt, noodle Duration 15 PT-OP-T Assessment and Plan Start: 01/01/21 15:41 Freq: Status: Active Protocol: Document 04/04/21 08:19 SP (Rec: 04/04/21 09:03 SP [id number]) Physical Therapy Assessment Goals 5 Impairment At back assessment, Oswestry is 23/50 Jail Goal (LTG) Pt will present with improved Oswestry score to reflect no more than 20% impairment to improve functional mobility by 04/18/21. 4 Jail Goal (LTG) Pt will perform progressive HEP with I including flexiblity, ROM, strengthening , balance and gait to improve right foot ROM, strength and function by 04/18/21. 02/15/21: Pt is performing plantar massage, pelvic realignment exercises, stretching in the doorway, hamstring stretch, he will change resisited eversion and DF to active only, he is performing foot hammock LTG Duration 8 weeks 3 Rubber Stamp Assembler Goal (LTG) Pt will report a 75% improvement in right foot and ankle pain to improve quality of life by 04/18/21. 02/15/21: Pt con't to report a 10% improvement in right foot and ankle pain since starting PT. LTG Duration 8 weeks 2 Jail Goal (LTG) Pt will perform WNLs on a standardized balance test to decrease fall risk and exhibit more normal right foot intrinsic strength by 04/18/21. 02/15/21: Not performed d/t time used to screen back to add to plan LTG Duration 8 weeks 1 Jail Goal (LTG) Pt will gait train at least 1200 feet in 6 minutes without AD to return to community ambulation by 04/18/21. 02/15/21: Not performed today d/t time screening back LTG Duration 8 weeks Assessment Summary Assessment Pt reported not as tight post manual and stretching. Able to maintain self corrections with balance on foam cushion up to 30 sec EC, challenged with tandem, discussed alignment, core and hip abd facilition over BLE just stationary at this time in corner with chair front for safety improve self corrections, added to HEP. Pt stated purchased this blue foam cushion for home. Physical Therapy Plan Frequency and Duration Frequency of Treatment 2x/Week Duration of Treatment 8 weeks Plan of Care Start Date 02/15/21 Plan of Care End Date 04/18/21 Therapeutic Interventions Therapeutic Interventions Aquatic Therapy,Balance Training,Canalithic Repositioning,Gait Training, Home Exercise Program,Joint Mobilizations,Manual Therapy, Neuromuscular Re-education, Orthotic/Prosthetic Management ,Patient/Caregiver Education, Self-Care/Home Management,Soft Tissue Mobilization,Taping, Therapeutic Activities, Therapeutic Exercises Modalities Cold Pack/Ice Massage,Hot Packs,Ultrasound Next Visit Focus/Plan Next Note Type Treatment Note Next Visit Plan Next tx On land: progress pre- golfing exercises AQUATICS: Continue balancing on noodle for interossei muscle strengthening. Progress exercises as tolerated. [ End ]
--- NOTE | 2021-04-08 10:15 | PT.OTN ---
Current Diagnoses Other instability, right ankle (04/08/21) Spondylosis without myelopathy or radiculopathy, lumbar region (04/08/21) Strain of muscle, fascia and tendon of lower back, initial encounter (04/08/21) Strain of muscle(s) and tendon(s) of peroneal muscle group at lower leg level, right leg, subsequent encounter (04/08/21) Physical Therapy Treatment Note PT-OP-A Visit Information Start: 01/01/21 15:41 Freq: Status: Active Protocol: Document 04/08/21 10:15 SAK (Rec: 04/09/21 10:04 SAK [id number]) Out-Patient Physical Therapy Visit Information Visit Information Visit Type Treatment Note Visit Start Time 10:15 Visit Stop Time 11:00 Total Visit Minutes 45 Visit Number 43 Number of CHEMICAL PROCESS ANALYST Visits 0 PT-OP-B Current Condition Start: 01/01/21 15:41 Freq: Status: Active Protocol: Document 01/02/21 08:18 MB (Rec: 01/02/21 09:08 MB [id number]) Current Condition History of Current Condition Onset Date 11/30/20 Current Complaints Ongoing pain and decreased mobility History of Current Condition Pt underwent right lateral ankle stabilization with internal brace, repair of collateral ankle ligament, and repair of right peroneal tendon tear on 11/30/20. Pt has been NWB since that time. He got a post-op boot on 12/12/20 . He has been using crutches in the house and knee walker when he leaves the house. PMH: right hamstring tear, left ankle injury, left tooth surgery, two neck fusions, four left shoulder surgeries, one right shoulder surgery. Pt is going to have a bridge put in his mouth on 01/18/21 and he has having trigger finger surgery on 01/23/21. Pt reports 8/10 pain along his right foot sutures and metarsalphalangeal joints on dorsal surface. Pt states that he cannot move his right foot much in and out d/t the internal anchor from surgery. He has been working on PF and DF. Pt has two steps to enter the house and one step down to his living room. He con't to have swelling in his foot. When his foot is in a dependent position, it goes beet red. When it is elevated, it is more flesh colored. He has been stuck in the house, in bed or on the couch with foot up on the coffee table. Pt is due for a MRI of his back in two weeks. Pt has not yet gotten compression socks or thigh highs. Prior Treatments and Tests PT for left foot injury and right hamstring tear Treatment Goals Patient/Caregiver Goals To decrease pain and swelling and improve mobility PT-OP-C Subjective Start: 01/01/21 15:41 Freq: Status: Active Protocol: Document 04/08/21 10:15 SAK (Rec: 04/09/21 10:04 SAK [id number]) OP-PT Subjective Patient Comments Patient Comments Reports he feels he continues to improve with therapy. Will have to cancel next week because his daughter in [place] had a ski accident and he is going out to help her family. PT-OP-G Mobility & Gait Start: 01/01/21 15:41 Freq: Status: Active Protocol: Document 01/02/21 08:18 MB (Rec: 01/02/21 15:25 MB [id number]) OP Gait Assessment Comments Gait Comments Pt is not yet WB through his right foot. He wears post-op boot and uses knee scooter to enter the clinic and he does a good job pivoting for transfers PT-OP-J Posture/Palpation/Skin Start: 01/01/21 15:41 Freq: Status: Active Protocol: Document 01/02/21 08:18 MB (Rec: 01/02/21 15:25 MB [id number]) Skin Assessment Other Assessments Skin Assessment Comments Right foot color is mostly normal with leg supported in hooklying. He has scabbing around dorsal lateral scar and some mild edema. His skin is normal to touch and his toe nails look normal. PT-OP-K Range of Motion Start: 01/01/21 15:41 Freq: Status: Active Protocol: Document 01/02/21 08:18 MB (Rec: 01/02/21 15:25 MB [id number]) Ankle and Foot Goniometric Range of Motion Ankle and Foot ROM Limitations Comments Pt has baseline B foot bony positioning changes with supinated left foot positioning and decreased foot AROM. Right foot ROM not pushed today post-op pending do not know clear precautions at this point since 12/25 note is not yet available. He demonstrates minimal DF and PF with leg extended and supported on table. PT-OP-M Strength Start: 01/01/21 15:41 Freq: Status: Active Protocol: Document 01/02/21 08:18 MB (Rec: 01/02/21 15:25 MB [id number]) Hip Strength Hip Manual Muscle Testing Left Flexion (L2) 5 Normal Abduction 5 Normal Adduction 5 Normal Right Flexion (L2) 3+ Fair+ Abduction 2+ Poor+ Adduction 2+ Poor+ Knee Strength Knee Manual Muscle Testing Left Flexion (S2) 5 Normal Extension (L3) 5 Normal Right Comments NT d/t guarding for foot Ankle/Foot Strength Ankle and Foot Manual Muscle Testing Right Comments Not MMT post-op Right calf is atrophied Left Dorsiflexion (L4) 4 Good Toe Strength Toe Manual Muscle Testing Left Great Toe Flexion 3+ Fair+ PT-OP-Q Treatments Start: 01/01/21 15:41 Freq: Status: Active Protocol: Document 04/04/21 08:19 SP (Rec: 04/04/21 09:03 SP [id number]) Cardio Equipment Recumbent Elliptical (Musistic) Duration (Minutes) 7 Resistance 4 Seat Position see 9 Other Legs only Therapeutic Exercises Supine Exercises Jeremiah stretch Supine Exercise Name flexibilitiy HEP review Side bilateral Reps/Minutes 45 sec Comments good feedback response Hip rotator stretch Supine Exercise Name flexibilitiy HEP review- IR/ ER Side bilateral Reps/Minutes 60s Comments good feedback response Hamstring Stretch with AP Supine Exercise Name flexibilitiy HEP review Side bilateral Reps/Minutes AP 20 reps Comments Opposite leg straight Sidelying Exercises open book Sidelying Exercise Name added to HEP Side bilateral Reps/Minutes x5 Comments good feedback response- Standing Exercises Calf stretches Standing Exercise Name Gastroc stretch Side bilateral Equipment Used ELIANA Reps/Minutes 20s Comments fair tolerance, states ankle not really flexible Manual Therapy Treatment Soft Tissue Mobilization Scar mobilization Body Location R lateral ankle Mobilization Type Myofascial Release Intensity/Depth Superficial Body Position Supine Comments Initially immobile tissue. Successfully mobiliized with moderate to good movement of skin over underlying tissue. Joint Mobilizations 1-5 MTP APs Joint R Direction A<>P, forefoot med/ lat rotation Grade II Body Position Supine Comments manual, good response- pt reports feels tight, not much movement, instruction can do self gently to assist mobility of ankle during standing activities. Neuro Re-Education Treatment Balance Activities Blue balance pad in // bars Details WBOS, NBOS, stagger, tandem Surface added to HEP Equipment blue foam Comments head turn, EC all but tandem up to 30s Self-Care/Home Management Treatment Education Patient Education Home Exercise Program Other Education Initiated open book for thoracic rotational mobility this tx. Good feedback response. PT-OP-S Aquatic Treatment Start: 01/01/21 15:41 Freq: Status: Active Protocol: Document 04/08/21 10:15 [facility] (Rec: 04/09/21 10:04 [facility] [id number]) Aquatics Treatment Pool Entry/Exit Pool Entry/Exit Method Stairs Assistance Independent Water Walking ciecumduction f/b Water Level Chest Level Walking Equipment Ankle Floats stop-start Water Level Chest Level Walking Equipment Ankle Floats [place] Water Level Chest Level Walking Equipment Ankle Floats Level of Assistance Verbal Cues Sideways Water Level Chest Level Walking Equipment Ankle Floats Level of Assistance Verbal Cues Comments cross over posterior Marching Water Level Chest Level Walking Equipment Ankle Floats Level of Assistance Verbal Cues Backwards Water Level Chest Level Walking Equipment Ankle Floats Level of Assistance Verbal Cues Forwards Water Level Chest Level Walking Equipment Ankle Floats Level of Assistance Verbal Cues Lower Extremity Exercises hip flex/ext Details HH on wall Body Position Standing Water Level Chest Level Comments standing chest deep on box to allow foot clearance hip circles Details HH on wall Body Position Sitting Water Level Chest Level Reps/Duration 10 x2 B Comments forward and backward knee flex/ext Details sitting at wall Water Level Chest Level Reps/Duration 10 x2 B Lower Extremity Stretches ITB Details at wall Body Position Standing Water Level Waist Level Reps/Duration 30 sec B HS, gastroc Details at wall Body Position Standing Reps/Duration 30 sec x2 B Balance standing on noodle Water Level Chest Level Equipment white noodle Reps/Duration 4 min Comments fore foot, mid foot, heel horizontal, parallel full foot [place] Activities [place] Activities Bicycle,Bicycle Backwards, Cross Country,Running,Sit Kicks Other Activities standing on white noodle squats on noodle Equipment belt, noodle Duration 15 PT-OP-T Assessment and Plan Start: 01/01/21 15:41 Freq: Status: Active Protocol: Document 04/08/21 10:15 SAK (Rec: 04/09/21 10:04 [facility] [id number]) Physical Therapy Assessment Rehab Potential Rehabilitation Potential Good Evaluation Complexity Number of Personal Factors/Comorbidities 3 or More Number of Body Systems Impaired 1-2 Clinical Presentation at Evaluation Evolving Impairments Impairments Activity Tolerance,Balance, Edema,Functional Activities, Functional Mobility,Gait, Integument,Pain,Posture,ROM, Sensation,Soft Tissue Mobility ,Strength Other Impairments Personal factors include multi -joint pain and dysfunction. Body systems affected include musculoskeletal, neuromuscular . Other Concerns Fall Risk Yes Goals 5 Impairment At back assessment, Oswestry is 23/50 Field Map Technician Goal (LTG) Pt will present with improved Oswestry score to reflect no more than 20% impairment to improve functional mobility by 04/18/21. 4 [facility] Goal (LTG) Pt will perform progressive HEP with I including flexiblity, ROM, strengthening , balance and gait to improve right foot ROM, strength and function by 04/18/21. 02/15/21: Pt is performing plantar massage, pelvic realignment exercises, stretching in the doorway, hamstring stretch, he will change resisited eversion and DF to active only, he is performing foot hammock LTG Duration 8 weeks 3 [facility] Goal (LTG) Pt will report a 75% improvement in right foot and ankle pain to improve quality of life by 04/18/21. 02/15/21: Pt con't to report a 10% improvement in right foot and ankle pain since starting PT. LTG Duration 8 weeks 2 Field Map Technician Goal (LTG) Pt will perform WNLs on a standardized balance test to decrease fall risk and exhibit more normal right foot intrinsic strength by 04/18/21. 02/15/21: Not performed d/t time used to screen back to add to plan LTG Duration 8 weeks 1 [facility] Goal (LTG) Pt will gait train at least 1200 feet in 6 minutes without AD to return to community ambulation by 04/18/21. 02/15/21: Not performed today d/t time screening back LTG Duration 8 weeks Assessment Summary Assessment Pt reported not as tight post manual and stretching. Able to maintain self corrections with balance on foam cushion up to 30 sec EC, challenged with tandem, discussed alignment, core and hip abd facilition over BLE just stationary at this time in corner with chair front for safety improve self corrections, added to HEP. Pt stated purchased this blue foam cushion for home. Physical Therapy Plan Frequency and Duration Frequency of Treatment 2x/Week Duration of Treatment 8 weeks Plan of Care Start Date 02/15/21 Plan of Care End Date 04/18/21 Therapeutic Interventions Therapeutic Interventions Aquatic Therapy,Balance Training,Canalithic Repositioning,Gait Training, Home Exercise Program,Joint Mobilizations,Manual Therapy, Neuromuscular Re-education, Orthotic/Prosthetic Management ,Patient/Caregiver Education, Self-Care/Home Management,Soft Tissue Mobilization,Taping, Therapeutic Activities, Therapeutic Exercises Modalities Cold Pack/Ice Massage,Hot Packs,Ultrasound Next Visit Focus/Plan Next Note Type Treatment Note Next Visit Plan Next tx On land: progress pre- golfing exercises AQUATICS: Continue balancing on noodle for interossei muscle strengthening. Progress therapeutic aquatic exercises as tolerated. [ End ]
--- NOTE | 2021-04-17 10:21 | PT.OTN ---
Current Diagnoses Other instability, right ankle (04/17/21) Spondylosis without myelopathy or radiculopathy, lumbar region (04/17/21) Strain of muscle, fascia and tendon of lower back, initial encounter (04/17/21) Strain of muscle(s) and tendon(s) of peroneal muscle group at lower leg level, right leg, subsequent encounter (04/17/21) Physical Therapy Treatment Note PT-OP-A Visit Information Start: 01/01/21 15:41 Freq: Status: Active Protocol: Document 04/17/21 09:01 SAK (Rec: 04/17/21 09:50 SAK [id number]) Out-Patient Physical Therapy Visit Information Visit Information Visit Type Treatment Note Visit Start Time 09:02 Visit Stop Time 09:45 Total Visit Minutes 43 Visit Number 44 Evaluation Information Evaluation Date 01/02/21 Precautions Precautions 02/15/21: Pt brings in order from Dr. Sorensen for lumbar facet arthropathy and lumbar strain 01/03/[address] Velazco note from 12/25/20: Pt is approved to begin walking in surgical shoe without crutches , then transition to normal shoe in 2 weeks as comfortable ; pt to begin physical therapy ; follow-up in 6 weeks with x- ray prior to visit; ROM PT-OP-B Current Condition Start: 01/01/21 15:41 Freq: Status: Active Protocol: Document 01/02/21 08:18 MB (Rec: 01/02/21 09:08 MB [id number]) Current Condition History of Current Condition Onset Date 11/30/20 Current Complaints Ongoing pain and decreased mobility History of Current Condition Pt underwent right lateral ankle stabilization with internal brace, repair of collateral ankle ligament, and repair of right peroneal tendon tear on 11/30/20. Pt has been NWB since that time. He got a post-op boot on 12/12/20 . He has been using crutches in the house and knee walker when he leaves the house. PMH: right hamstring tear, left ankle injury, left tooth surgery, two neck fusions, four left shoulder surgeries, one right shoulder surgery. Pt is going to have a bridge put in his mouth on 01/18/21 and he has having trigger finger surgery on 01/23/21. Pt reports 8/10 pain along his right foot sutures and metarsalphalangeal joints on dorsal surface. Pt states that he cannot move his right foot much in and out d/t the internal anchor from surgery. He has been working on PF and DF. Pt has two steps to enter the house and one step down to his living room. He con't to have swelling in his foot. When his foot is in a dependent position, it goes beet red. When it is elevated, it is more flesh colored. He has been stuck in the house, in bed or on the couch with foot up on the coffee table. Pt is due for a MRI of his back in two weeks. Pt has not yet gotten compression socks or thigh highs. Prior Treatments and Tests PT for left foot injury and right hamstring tear Treatment Goals Patient/Caregiver Goals To decrease pain and swelling and improve mobility PT-OP-C Subjective Start: 01/01/21 15:41 Freq: Status: Active Protocol: Document 04/17/21 09:01 SAK (Rec: 04/17/21 09:50 SAK [id number]) OP-PT Subjective Patient Comments Patient Comments c/o back hurting worse than foot and ankle, wants to focus mostly on that. Bilateral pain low back. Feels right ankle tight, trying to stretch at home. PT-OP-G Mobility & Gait Start: 01/01/21 15:41 Freq: Status: Active Protocol: Document 01/02/21 08:18 MB (Rec: 01/02/21 15:25 MB [id number]) OP Gait Assessment Comments Gait Comments Pt is not yet WB through his right foot. He wears post-op boot and uses knee scooter to enter the clinic and he does a good job pivoting for transfers PT-OP-J Posture/Palpation/Skin Start: 01/01/21 15:41 Freq: Status: Active Protocol: Document 01/02/21 08:18 MB (Rec: 01/02/21 15:25 MB [id number]) Skin Assessment Other Assessments Skin Assessment Comments Right foot color is mostly normal with leg supported in hooklying. He has scabbing around dorsal lateral scar and some mild edema. His skin is normal to touch and his toe nails look normal. PT-OP-K Range of Motion Start: 01/01/21 15:41 Freq: Status: Active Protocol: Document 01/02/21 08:18 MB (Rec: 01/02/21 15:25 MB [id number]) Ankle and Foot Goniometric Range of Motion Ankle and Foot ROM Limitations Comments Pt has baseline B foot bony positioning changes with supinated left foot positioning and decreased foot AROM. Right foot ROM not pushed today post-op pending do not know clear precautions at this point since 12/25 note is not yet available. He demonstrates minimal DF and PF with leg extended and supported on table. PT-OP-M Strength Start: 01/01/21 15:41 Freq: Status: Active Protocol: Document 01/02/21 08:18 MB (Rec: 01/02/21 15:25 MB [id number]) Hip Strength Hip Manual Muscle Testing Left Flexion (L2) 5 Normal Abduction 5 Normal Adduction 5 Normal Right Flexion (L2) 3+ Fair+ Abduction 2+ Poor+ Adduction 2+ Poor+ Knee Strength Knee Manual Muscle Testing Left Flexion (S2) 5 Normal Extension (L3) 5 Normal Right Comments NT d/t guarding for foot Ankle/Foot Strength Ankle and Foot Manual Muscle Testing Right Comments Not MMT post-op Right calf is atrophied Left Dorsiflexion (L4) 4 Good Toe Strength Toe Manual Muscle Testing Left Great Toe Flexion 3+ Fair+ PT-OP-Q Treatments Start: 01/01/21 15:41 Freq: Status: Active Protocol: Document 04/17/21 09:01 SAK (Rec: 04/17/21 09:50 SAK [id number]) Gym Equipment Shuttle Recovery Unilateral Squats Resistance 50 Reps/Time 10x Bilateral Squats Resistance 50 Reps/Time 10x Therapeutic Exercises Supine Exercises pec stretch Reps/Minutes 30 LTR Equipment Used 65 cm ball Reps/Minutes 10x Comments cues for core activation bridge Equipment Used 65 cm ball Reps/Minutes 10x Comments cues for core activation Jeremiah stretch Supine Exercise Name flexibilitiy HEP review Side bilateral Reps/Minutes 45 sec Comments pulling opp knee up toward chest Sidelying Exercises open book Side bilateral Reps/Minutes x5 Comments cues for sequential, cull spine movement Sitting Exercises seated core Sitting Exercise Name Ant/post tilt, lateral pelvic tilt, april, kayak LE's together Equipment Used 65 cm ball Standing Exercises squat Equipment Used mirror, ball between knees, yardsticks for AP guidance Reps/Minutes 10x push pull Reps/Minutes 10x Comments sideways to theraband, cues for neutral postuere sidestepping Standing Exercise Name holding double theraband sidestepping Resistance L1 TB doubled Reps/Minutes 10x Comments cues for neutral posture, core activation Calf stretches Standing Exercise Name Gastroc stretch Side bilateral Equipment Used ELIANA Reps/Minutes 20s Comments fair tolerance, states ankle not really flexible Therapeutic Activity Therapeutic Activity lifting technique Comments instructin in neutral posture, correct lifting technique, use of yardstick at spine for neutral postural alignment Gait Training Gait Activity Gait training today Device Used mirror for visual feedback Surface firm Treatment Focus neutral alignment, gluteal activation Self-Care/Home Management Treatment Education Other Education importance of self-assessment of habitual postures, positioning, movements PT-OP-S Aquatic Treatment Start: 01/01/21 15:41 Freq: Status: Active Protocol: Document 04/08/21 10:15 NORI (Rec: 04/09/21 10:04 NORI [id number]) Aquatics Treatment Pool Entry/Exit Pool Entry/Exit Method Stairs Assistance Independent Water Walking ciecumduction f/b Water Level Chest Level Walking Equipment Ankle Floats stop-start Water Level Chest Level Walking Equipment Ankle Floats [place] Water Level Chest Level Walking Equipment Ankle Floats Level of Assistance Verbal Cues Sideways Water Level Chest Level Walking Equipment Ankle Floats Level of Assistance Verbal Cues Comments cross over posterior Marching Water Level Chest Level Walking Equipment Ankle Floats Level of Assistance Verbal Cues Backwards Water Level Chest Level Walking Equipment Ankle Floats Level of Assistance Verbal Cues Forwards Water Level Chest Level Walking Equipment Ankle Floats Level of Assistance Verbal Cues Lower Extremity Exercises hip flex/ext Details HH on wall Body Position Standing Water Level Chest Level Comments standing chest deep on box to allow foot clearance hip circles Details HH on wall Body Position Sitting Water Level Chest Level Reps/Duration 10 x2 B Comments forward and backward knee flex/ext Details sitting at wall Water Level Chest Level Reps/Duration 10 x2 B Lower Extremity Stretches ITB Details at wall Body Position Standing Water Level Waist Level Reps/Duration 30 sec B HS, gastroc Details at wall Body Position Standing Reps/Duration 30 sec x2 B Balance standing on noodle Water Level Chest Level Equipment white noodle Reps/Duration 4 min Comments fore foot, mid foot, heel horizontal, parallel full foot [place] Activities [place] Activities Bicycle,Bicycle Backwards, Cross [place],Running,Sit Kicks Other Activities standing on white noodle squats on noodle Equipment belt, noodle Duration 15 PT-OP-T Assessment and Plan Start: 01/01/21 15:41 Freq: Status: Active Protocol: Document 04/17/21 09:01 NORI (Rec: 04/17/21 09:50 [facility] [id number]) Physical Therapy Assessment Evaluation Complexity Number of Personal Factors/Comorbidities 3 or More Number of Body Systems Impaired 1-2 Clinical Presentation at Evaluation Evolving Impairments Impairments Activity Tolerance,Balance, Edema,Functional Activities, Functional Mobility,Gait, Integument,Pain,Posture,ROM, Sensation,Soft Tissue Mobility ,Strength Other Impairments Personal factors include multi -joint pain and dysfunction. Body systems affected include musculoskeletal, neuromuscular . Other Concerns Fall Risk Yes Goals 5 Impairment At back assessment, Oswestry is 23/50 Geospatial Extractor Analysis Goal (LTG) Pt will present with improved Oswestry score to reflect no more than 20% impairment to improve functional mobility by 04/18/21. 4 Geospatial Extractor Analysis Goal (LTG) Pt will perform progressive HEP with I including flexiblity, ROM, strengthening , balance and gait to improve right foot ROM, strength and function by 04/18/21. 02/15/21: Pt is performing plantar massage, pelvic realignment exercises, stretching in the doorway, hamstring stretch, he will change resisited eversion and DF to active only, he is performing foot hammock LTG Duration 8 weeks 3 Geospatial Extractor Analysis Goal (LTG) Pt will report a 75% improvement in right foot and ankle pain to improve quality of life by 04/18/21. 02/15/21: Pt con't to report a 10% improvement in right foot and ankle pain since starting PT. LTG Duration 8 weeks 2 [facility] Goal (LTG) Pt will perform WNLs on a standardized balance test to decrease fall risk and exhibit more normal right foot intrinsic strength by 04/18/21. 02/15/21: Not performed d/t time used to screen back to add to plan LTG Duration 8 weeks 1 [facility] Goal (LTG) Pt will gait train at least 1200 feet in 6 minutes without AD to return to community ambulation by 04/18/21. 02/15/21: Not performed today d/t time screening back LTG Duration 8 weeks Physical Therapy Plan Frequency and Duration Frequency of Treatment 2x/Week Duration of Treatment 8 weeks Plan of Care Start Date 04/17/21 Plan of Care End Date 06/16/21 Therapeutic Interventions Therapeutic Interventions Aquatic Therapy,Balance Training,Canalithic Repositioning,Gait Training, Home Exercise Program,Joint Mobilizations,Manual Therapy, Neuromuscular Re-education, Orthotic/Prosthetic Management ,Patient/Caregiver Education, Self-Care/Home Management,Soft Tissue Mobilization,Taping, Therapeutic Activities, Therapeutic Exercises Modalities Cold Pack/Ice Massage,Hot Packs,Ultrasound Next Visit Focus/Plan Next Note Type Treatment Note Next Visit Plan Patient requesting land-based PT only moving forward. Review new ex, do pre-golf exercises, progress core strengthening and stabilization, incorporate closed chain exercises for function as tolerated. [ End ]
--- NOTE | 2021-04-17 15:55 | PT.OTRE ---
Current Diagnoses Other instability, right ankle (04/24/21) Spondylosis without myelopathy or radiculopathy, lumbar region (04/24/21) Strain of muscle, fascia and tendon of lower back, initial encounter (04/24/21) Strain of muscle(s) and tendon(s) of peroneal muscle group at lower leg level, right leg, subsequent encounter (04/24/21) Past Medical History (Last Reviewed 02/13/21 @ 13:31 by Saulo Elizalde DO) Chronic low back pain Erectile dysfunction Hyperlipidemia Insomnia Osteoarthritis Preventative health care Right hamstring muscle strain Visit Care Team Role Provider Type Jhonny Sorensen MD Referring Provider Physician Specialty: Orthopedic Surgery Address: [address] [place] [address], [id number] Email: Saulo Elizalde DO Family Provider Physician Primary Care Provider Specialty: Family Practice Address: [address] [place] [address], [id number] Email: [email or web address] Attending Provider Non-Staff Specialty: Podiatry Address: [address] [place] [address], [phone] Email: Physical Therapy Re-Evaluation PT-OP-A Visit Information Start: 01/01/21 15:41 Freq: Status: Active Protocol: Document 04/24/21 15:31 SAK (Rec: 04/24/21 15:53 SAK [id number]) Out-Patient Physical Therapy Visit Information Visit Information Visit Type Treatment Note Visit Start Time 09:02 Visit Stop Time 09:45 Total Visit Minutes 45 Visit Number 45 Evaluation Information Evaluation Date 01/02/21 PT-OP-B Current Condition Start: 01/01/21 15:41 Freq: Status: Active Protocol: Document 01/02/21 08:18 MB (Rec: 01/02/21 09:08 MB [id number]) Current Condition History of Current Condition Onset Date 11/30/20 Current Complaints Ongoing pain and decreased mobility History of Current Condition Pt underwent right lateral ankle stabilization with internal brace, repair of collateral ankle ligament, and repair of right peroneal tendon tear on 11/30/20. Pt has been NWB since that time. He got a post-op boot on 12/12/20 . He has been using crutches in the house and knee walker when he leaves the house. PMH: right hamstring tear, left ankle injury, left tooth surgery, two neck fusions, four left shoulder surgeries, one right shoulder surgery. Pt is going to have a bridge put in his mouth on 01/18/21 and he has having trigger finger surgery on 01/23/21. Pt reports 8/10 pain along his right foot sutures and metarsalphalangeal joints on dorsal surface. Pt states that he cannot move his right foot much in and out d/t the internal anchor from surgery. He has been working on PF and DF. Pt has two steps to enter the house and one step down to his living room. He con't to have swelling in his foot. When his foot is in a dependent position, it goes beet red. When it is elevated, it is more flesh colored. He has been stuck in the house, in bed or on the couch with foot up on the coffee table. Pt is due for a MRI of his back in two weeks. Pt has not yet gotten compression socks or thigh highs. Prior Treatments and Tests PT for left foot injury and right hamstring tear Treatment Goals Patient/Caregiver Goals To decrease pain and swelling and improve mobility PT-OP-C Subjective Start: 01/01/21 15:41 Freq: Status: Active Protocol: Document 04/24/21 15:31 SAK (Rec: 04/24/21 15:53 [facility] [id number]) OP-PT Subjective Patient Comments Patient Comments No new c/o, states he has been trying to pay more attention to his posture and core since last visit. Is concerned that with starting yardwork this spring his back pain will worsen. REceptive to instruction regarding lifting techniques. Going to get back into the gym, states feels weak, hasn't been there for months. PT-OP-G Mobility & Gait Start: 01/01/21 15:41 Freq: Status: Active Protocol: Document 01/02/21 08:18 MB (Rec: 01/02/21 15:25 MB [id number]) OP Gait Assessment Comments Gait Comments Pt is not yet WB through his right foot. He wears post-op boot and uses knee scooter to enter the clinic and he does a good job pivoting for transfers PT-OP-J Posture/Palpation/Skin Start: 01/01/21 15:41 Freq: Status: Active Protocol: Document 01/02/21 08:18 MB (Rec: 01/02/21 15:25 MB [id number]) Skin Assessment Other Assessments Skin Assessment Comments Right foot color is mostly normal with leg supported in hooklying. He has scabbing around dorsal lateral scar and some mild edema. His skin is normal to touch and his toe nails look normal. PT-OP-K Range of Motion Start: 01/01/21 15:41 Freq: Status: Active Protocol: Document 01/02/21 08:18 MB (Rec: 01/02/21 15:25 MB [id number]) Ankle and Foot Goniometric Range of Motion Ankle and Foot ROM Limitations Comments Pt has baseline B foot bony positioning changes with supinated left foot positioning and decreased foot AROM. Right foot ROM not pushed today post-op pending do not know clear precautions at this point since 12/25 note is not yet available. He demonstrates minimal DF and PF with leg extended and supported on table. PT-OP-M Strength Start: 01/01/21 15:41 Freq: Status: Active Protocol: Document 01/02/21 08:18 MB (Rec: 01/02/21 15:25 MB [id number]) Hip Strength Hip Manual Muscle Testing Left Flexion (L2) 5 Normal Abduction 5 Normal Adduction 5 Normal Right Flexion (L2) 3+ Fair+ Abduction 2+ Poor+ Adduction 2+ Poor+ Knee Strength Knee Manual Muscle Testing Left Flexion (S2) 5 Normal Extension (L3) 5 Normal Right Comments NT d/t guarding for foot Ankle/Foot Strength Ankle and Foot Manual Muscle Testing Right Comments Not MMT post-op Right calf is atrophied Left Dorsiflexion (L4) 4 Good Toe Strength Toe Manual Muscle Testing Left Great Toe Flexion 3+ Fair+ PT-OP-Q Treatments Start: 01/01/21 15:41 Freq: Status: Active Protocol: Document 04/24/21 15:31 SAK (Rec: 04/24/21 15:53 SAK [id number]) Cardio Equipment Recumbent Bicycle Duration (Minutes) 10 Resistance 5 Gym Equipment Shuttle Recovery Unilateral Squats Resistance 50 Shuttle Recovery Platform Stable Reps/Time 10x Bilateral Squats Resistance 62 Shuttle Recovery Platform Stable Reps/Time 10x2 Therapeutic Exercises Supine Exercises LTR Equipment Used 65 cm ball Reps/Minutes 10x Comments cues for core activation bridge Equipment Used 65 cm ball Reps/Minutes 10x Comments cues for core activation Sitting Exercises seated core Sitting Exercise Name trunk rotation with theraband Equipment Used 65 cm ball, L1 TB Reps/Minutes 10x 4 directions Comments facing toward and away from band, cues for alignment, iniate with core Standing Exercises golf swing Reps/Minutes 12 x each direction Comments initiate with core, cues for alignment squat Comments review of form Therapeutic Activity Therapeutic Activity lifting technique Comments instruction in neutral posture , correct lifting technique, use of yardstick at spine for neutral postural alignment; review with additional instruction for safe shoveling , raking. Self-Care/Home Management Treatment Education Patient Education Home Exercise Program Other Education updated HEP issued with trunk rotation with resistance, LTR, and bridging with therapy ball (patient just bought ball for home use) PT-OP-T Assessment and Plan Start: 01/01/21 15:41 Freq: Status: Active Protocol: Document 04/24/21 15:31 [facility] (Rec: 04/24/21 15:53 [facility] [id number]) Physical Therapy Assessment Evaluation Complexity Number of Personal Factors/Comorbidities 3 or More Number of Body Systems Impaired 1-2 Clinical Presentation at Evaluation Evolving Impairments Impairments Activity Tolerance,Balance, Edema,Functional Activities, Functional Mobility,Gait, Integument,Pain,Posture,ROM, Sensation,Soft Tissue Mobility ,Strength Other Impairments Personal factors include multi -joint pain and dysfunction. Body systems affected include musculoskeletal, neuromuscular . Goals 5 Impairment At back assessment, Oswestry is 23/50 Relationship Management Lead Goal (LTG) Pt will present with improved Oswestry score to reflect no more than 20% impairment to improve functional mobility 04/17/21: back pain now primary c/o, at 43% 4 Relationship Management Lead Goal (LTG) exercises, stretching in the doorway, hamstring stretch, he will change resisited eversion and DF to active only , he is performing foot hammock LTG Duration 8 weeks 3 Relationship Management Lead Goal (LTG) Pt will report a 75% improvement in right foot and ankle pain to improve quality of life by 04/18/21. 02/15/21: Pt con't to report a 10% improvement in right foot and ankle pain since starting PT. 04/17/21: 50% improvement noted . Good progress. LBP primary c/o at this time. LTG Duration goal discontinued 2 Relationship Management Lead Goal (LTG) Pt will perform WNLs on a standardized balance test to decrease fall risk and exhibit more normal right foot intrinsic strength by 04/18/21. 02/15/21: Not performed d/t time used to screen back to add to plan 04/17/21: goal met LTG Duration goal met. 1 Relationship Management Lead Goal (LTG) Pt will gait train at least 1200 feet in 6 minutes without AD to return to community ambulation by 04/18/21. 02/15/21: Not performed today d/t time screening back 04/17/21: goal achieved LTG Duration goal met Assessment Summary Assessment Patient tolerated last session well, bought therapy ball which he will bring in to have pumped up. Demonstrating improving understanding of importance of core activation as preparation for functional movements. Physical Therapy Plan Frequency and Duration Frequency of Treatment 2x/Week Duration of Treatment 8 weeks Plan of Care Start Date 04/17/21 Plan of Care End Date 06/16/21 Therapeutic Interventions Therapeutic Interventions Aquatic Therapy,Balance Training,Canalithic Repositioning,Gait Training, Home Exercise Program,Joint Mobilizations,Manual Therapy, Neuromuscular Re-education, Orthotic/Prosthetic Management ,Patient/Caregiver Education, Self-Care/Home Management,Soft Tissue Mobilization,Taping, Therapeutic Activities, Therapeutic Exercises Modalities Cold Pack/Ice Massage,Hot Packs,Ultrasound Next Visit Focus/Plan Next Note Type Treatment Note Next Visit Plan Assess response to today's treatment and progress as tolerated with flexibility, strengthening and core stabilization to decrease his pain and improve his function. Focus on further education for back protection and stabilization with all usual activities including yardwork, golf, and kayaking.
--- NOTE | 2021-04-17 15:55 | PT.OPPOC ---
Physical, Occupational & Speech Therapy At [facility] Current Diagnoses Other instability, right ankle (04/24/21) Spondylosis without myelopathy or radiculopathy, lumbar region (04/24/21) Strain of muscle, fascia and tendon of lower back, initial encounter (04/24/21) Strain of muscle(s) and tendon(s) of peroneal muscle group at lower leg level, right leg, subsequent encounter (04/24/21) Visit Care Team Role Provider Type Jhonny Sorensen MD Referring Provider Physician Specialty: Orthopedic Surgery Address: [address] [place], [address] Email: Saulo Elizalde DO Family Provider Physician Primary Care Provider Specialty: Family Practice Address: [address] [place] [place] [address], [id number] Email: [email or web address] Velazco DPM Attending Provider Non-Staff Specialty: Podiatry Address: [address] [place] [address], [phone] Email: Plan Of Care PT-OP-T Assessment and Plan Start: 01/01/21 15:41 Freq: Status: Active Protocol: Document 04/24/21 15:31 SAK (Rec: 04/24/21 15:53 [facility] [id number]) Physical Therapy Assessment Evaluation Complexity Number of Personal Factors/Comorbidities 3 or More Number of Body Systems Impaired 1-2 Clinical Presentation at Evaluation Evolving Impairments Impairments Activity Tolerance,Balance, Edema,Functional Activities, Functional Mobility,Gait, Integument,Pain,Posture,ROM, Sensation,Soft Tissue Mobility ,Strength Other Impairments Personal factors include multi -joint pain and dysfunction. Body systems affected include musculoskeletal, neuromuscular . Goals 5 Impairment At back assessment, Oswestry is 23/50 [employer] Goal (LTG) Pt will present with improved Oswestry score to reflect no more than 20% impairment to improve functional mobility 04/17/21: back pain now primary c/o, at 43% 4 [employer] Goal (LTG) exercises, stretching in the doorway, hamstring stretch, he will change resisited eversion and DF to active only , he is performing foot hammock LTG Duration 8 weeks 3 [facility] Goal (LTG) Pt will report a 75% improvement in right foot and ankle pain to improve quality of life by 04/18/21. 02/15/21: Pt con't to report a 10% improvement in right foot and ankle pain since starting PT. 04/17/21: 50% improvement noted . Good progress. LBP primary c/o at this time. LTG Duration goal discontinued 2 [employer] Goal (LTG) Pt will perform WNLs on a standardized balance test to decrease fall risk and exhibit more normal right foot intrinsic strength by 04/18/21. 02/15/21: Not performed d/t time used to screen back to add to plan 04/17/21: goal met LTG Duration goal met. 1 [employer] Goal (LTG) Pt will gait train at least 1200 feet in 6 minutes without AD to return to community ambulation by 04/18/21. 02/15/21: Not performed today d/t time screening back 04/17/21: goal achieved LTG Duration goal met Assessment Summary Assessment Patient tolerated last session well, bought therapy ball which he will bring in to have pumped up. Demonstrating improving understanding of importance of core activation as preparation for functional movements. Physical Therapy Plan Frequency and Duration Frequency of Treatment 2x/Week Duration of Treatment 8 weeks Plan of Care Start Date 04/17/21 Plan of Care End Date 06/16/21 Therapeutic Interventions Therapeutic Interventions Aquatic Therapy,Balance Training,Canalithic Repositioning,Gait Training, Home Exercise Program,Joint Mobilizations,Manual Therapy, Neuromuscular Re-education, Orthotic/Prosthetic Management ,Patient/Caregiver Education, Self-Care/Home Management,Soft Tissue Mobilization,Taping, Therapeutic Activities, Therapeutic Exercises Modalities Cold Pack/Ice Massage,Hot Packs,Ultrasound Next Visit Focus/Plan Next Note Type Treatment Note Next Visit Plan Assess response to today's treatment and progress as tolerated with flexibility, strengthening and core stabilization to decrease his pain and improve his function. Focus on further education for back protection and stabilization with all usual activities including yardwork, golf, and kayaking. Plan of Care Dates Plan of Care Start Date 04/17/21 Plan of Care End Date 06/16/21 Electronically Signed by: Melanie Stein, PT 04/24/21 1555 Please Sign and Return: I have reviewed this Plan of Care and certify that the skilled therapy services above are required to meet the patient?s needs. Physician Signature Date Printed Name and Credentials Clinical Instructor Signature Printed Name and Credentials
--- NOTE | 2021-04-24 15:54 | PT.OTN ---
Current Diagnoses Other instability, right ankle (04/24/21) Spondylosis without myelopathy or radiculopathy, lumbar region (04/24/21) Strain of muscle, fascia and tendon of lower back, initial encounter (04/24/21) Strain of muscle(s) and tendon(s) of peroneal muscle group at lower leg level, right leg, subsequent encounter (04/24/21) Physical Therapy Treatment Note PT-OP-A Visit Information Start: 01/01/21 15:41 Freq: Status: Active Protocol: Document 04/24/21 15:31 SAK (Rec: 04/24/21 15:53 SAK [id number]) Out-Patient Physical Therapy Visit Information Visit Information Visit Type Treatment Note Visit Start Time 09:02 Visit Stop Time 09:45 Total Visit Minutes 45 Visit Number 45 Evaluation Information Evaluation Date 01/02/21 PT-OP-B Current Condition Start: 01/01/21 15:41 Freq: Status: Active Protocol: Document 01/02/21 08:18 MB (Rec: 01/02/21 09:08 MB [id number]) Current Condition History of Current Condition Onset Date 11/30/20 Current Complaints Ongoing pain and decreased mobility History of Current Condition Pt underwent right lateral ankle stabilization with internal brace, repair of collateral ankle ligament, and repair of right peroneal tendon tear on 11/30/20. Pt has been NWB since that time. He got a post-op boot on 12/12/20 . He has been using crutches in the house and knee walker when he leaves the house. PMH: right hamstring tear, left ankle injury, left tooth surgery, two neck fusions, four left shoulder surgeries, one right shoulder surgery. Pt is going to have a bridge put in his mouth on 01/18/21 and he has having trigger finger surgery on 01/23/21. Pt reports 8/10 pain along his right foot sutures and metarsalphalangeal joints on dorsal surface. Pt states that he cannot move his right foot much in and out d/t the internal anchor from surgery. He has been working on PF and DF. Pt has two steps to enter the house and one step down to his living room. He con't to have swelling in his foot. When his foot is in a dependent position, it goes beet red. When it is elevated, it is more flesh colored. He has been stuck in the house, in bed or on the couch with foot up on the coffee table. Pt is due for a MRI of his back in two weeks. Pt has not yet gotten compression socks or thigh highs. Prior Treatments and Tests PT for left foot injury and right hamstring tear Treatment Goals Patient/Caregiver Goals To decrease pain and swelling and improve mobility PT-OP-C Subjective Start: 01/01/21 15:41 Freq: Status: Active Protocol: Document 04/24/21 15:31 SAK (Rec: 04/24/21 15:53 SAK [id number]) OP-PT Subjective Patient Comments Patient Comments No new c/o, states he has been trying to pay more attention to his posture and core since last visit. Is concerned that with starting yardwork this spring his back pain will worsen. REceptive to instruction regarding lifting techniques. Going to get back into the gym, states feels weak, hasn't been there for months. PT-OP-G Mobility & Gait Start: 01/01/21 15:41 Freq: Status: Active Protocol: Document 01/02/21 08:18 MB (Rec: 01/02/21 15:25 MB [id number]) OP Gait Assessment Comments Gait Comments Pt is not yet WB through his right foot. He wears post-op boot and uses knee scooter to enter the clinic and he does a good job pivoting for transfers PT-OP-J Posture/Palpation/Skin Start: 01/01/21 15:41 Freq: Status: Active Protocol: Document 01/02/21 08:18 MB (Rec: 01/02/21 15:25 MB [id number]) Skin Assessment Other Assessments Skin Assessment Comments Right foot color is mostly normal with leg supported in hooklying. He has scabbing around dorsal lateral scar and some mild edema. His skin is normal to touch and his toe nails look normal. PT-OP-K Range of Motion Start: 01/01/21 15:41 Freq: Status: Active Protocol: Document 01/02/21 08:18 MB (Rec: 01/02/21 15:25 MB [id number]) Ankle and Foot Goniometric Range of Motion Ankle and Foot ROM Limitations Comments Pt has baseline B foot bony positioning changes with supinated left foot positioning and decreased foot AROM. Right foot ROM not pushed today post-op pending do not know clear precautions at this point since 12/25 note is not yet available. He demonstrates minimal DF and PF with leg extended and supported on table. PT-OP-M Strength Start: 01/01/21 15:41 Freq: Status: Active Protocol: Document 01/02/21 08:18 MB (Rec: 01/02/21 15:25 MB [id number]) Hip Strength Hip Manual Muscle Testing Left Flexion (L2) 5 Normal Abduction 5 Normal Adduction 5 Normal Right Flexion (L2) 3+ Fair+ Abduction 2+ Poor+ Adduction 2+ Poor+ Knee Strength Knee Manual Muscle Testing Left Flexion (S2) 5 Normal Extension (L3) 5 Normal Right Comments NT d/t guarding for foot Ankle/Foot Strength Ankle and Foot Manual Muscle Testing Right Comments Not MMT post-op Right calf is atrophied Left Dorsiflexion (L4) 4 Good Toe Strength Toe Manual Muscle Testing Left Great Toe Flexion 3+ Fair+ PT-OP-Q Treatments Start: 01/01/21 15:41 Freq: Status: Active Protocol: Document 04/24/21 15:31 SAK (Rec: 04/24/21 15:53 SAK [id number]) Cardio Equipment Recumbent Bicycle Duration (Minutes) 10 Resistance 5 Gym Equipment Shuttle Recovery Unilateral Squats Resistance 50 Shuttle Recovery Platform Stable Reps/Time 10x Bilateral Squats Resistance 62 Shuttle Recovery Platform Stable Reps/Time 10x2 Therapeutic Exercises Supine Exercises LTR Equipment Used 65 cm ball Reps/Minutes 10x Comments cues for core activation bridge Equipment Used 65 cm ball Reps/Minutes 10x Comments cues for core activation Sitting Exercises seated core Sitting Exercise Name trunk rotation with theraband Equipment Used 65 cm ball, L1 TB Reps/Minutes 10x 4 directions Comments facing toward and away from band, cues for alignment, iniate with core Standing Exercises golf swing Reps/Minutes 12 x each direction Comments initiate with core, cues for alignment squat Comments review of form Therapeutic Activity Therapeutic Activity lifting technique Comments instruction in neutral posture , correct lifting technique, use of yardstick at spine for neutral postural alignment; review with additional instruction for safe shoveling , raking. Self-Care/Home Management Treatment Education Patient Education Home Exercise Program Other Education updated HEP issued with trunk rotation with resistance, LTR, and bridging with therapy ball (patient just bought ball for home use) PT-OP-T Assessment and Plan Start: 01/01/21 15:41 Freq: Status: Active Protocol: Document 04/24/21 15:31 [facility] (Rec: 04/24/21 15:53 [facility] [id number]) Physical Therapy Assessment Evaluation Complexity Number of Personal Factors/Comorbidities 3 or More Number of Body Systems Impaired 1-2 Clinical Presentation at Evaluation Evolving Impairments Impairments Activity Tolerance,Balance, Edema,Functional Activities, Functional Mobility,Gait, Integument,Pain,Posture,ROM, Sensation,Soft Tissue Mobility ,Strength Other Impairments Personal factors include multi -joint pain and dysfunction. Body systems affected include musculoskeletal, neuromuscular . Goals 5 Impairment At back assessment, Oswestry is 23/50 Safemaker Goal (LTG) Pt will present with improved Oswestry score to reflect no more than 20% impairment to improve functional mobility 04/17/21: back pain now primary c/o, at 43% 4 Long-Term Goal (LTG) exercises, stretching in the doorway, hamstring stretch, he will change resisited eversion and DF to active only , he is performing foot hammock LTG Duration 8 weeks 3 Long-Term Goal (LTG) Pt will report a 75% improvement in right foot and ankle pain to improve quality of life by 04/18/21. 02/15/21: Pt con't to report a 10% improvement in right foot and ankle pain since starting PT. 04/17/21: 50% improvement noted . Good progress. LBP primary c/o at this time. LTG Duration goal discontinued 2 Long-Term Goal (LTG) Pt will perform WNLs on a standardized balance test to decrease fall risk and exhibit more normal right foot intrinsic strength by 04/18/21. 02/15/21: Not performed d/t time used to screen back to add to plan 04/17/21: goal met LTG Duration goal met. 1 Long-Term Goal (LTG) Pt will gait train at least 1200 feet in 6 minutes without AD to return to community ambulation by 04/18/21. 02/15/21: Not performed today d/t time screening back 04/17/21: goal achieved LTG Duration goal met Assessment Summary Assessment Patient tolerated last session well, bought therapy ball which he will bring in to have pumped up. Demonstrating improving understanding of importance of core activation as preparation for functional movements. Physical Therapy Plan Frequency and Duration Frequency of Treatment 2x/Week Duration of Treatment 8 weeks Plan of Care Start Date 04/17/21 Plan of Care End Date 06/16/21 Therapeutic Interventions Therapeutic Interventions Aquatic Therapy,Balance Training,Canalithic Repositioning,Gait Training, Home Exercise Program,Joint Mobilizations,Manual Therapy, Neuromuscular Re-education, Orthotic/Prosthetic Management ,Patient/Caregiver Education, Self-Care/Home Management,Soft Tissue Mobilization,Taping, Therapeutic Activities, Therapeutic Exercises Modalities Cold Pack/Ice Massage,Hot Packs,Ultrasound Next Visit Focus/Plan Next Note Type Treatment Note Next Visit Plan Assess response to today's treatment and progress as tolerated with flexibility, strengthening and core stabilization to decrease his pain and improve his function. Focus on further education for back protection and stabilization with all usual activities including yardwork, golf, and kayaking.
--- NOTE | 2021-05-02 11:29 | PT.OTN ---
Current Diagnoses Other instability, right ankle (05/02/21) Spondylosis without myelopathy or radiculopathy, lumbar region (05/02/21) Strain of muscle, fascia and tendon of lower back, initial encounter (05/02/21) Strain of muscle(s) and tendon(s) of peroneal muscle group at lower leg level, right leg, subsequent encounter (05/02/21) Physical Therapy Treatment Note PT-OP-A Visit Information Start: 01/01/21 15:41 Freq: Status: Active Protocol: Document 05/02/21 10:32 SAK (Rec: 05/02/21 11:13 SAK [id number]) Out-Patient Physical Therapy Visit Information Visit Information Visit Type Treatment Note Visit Start Time 10:30 Visit Stop Time 11:15 Total Visit Minutes 45 Visit Number 45 Evaluation Information Evaluation Date 01/02/21 PT-OP-B Current Condition Start: 01/01/21 15:41 Freq: Status: Active Protocol: Document 01/02/21 08:18 MB (Rec: 01/02/21 09:08 MB [id number]) Current Condition History of Current Condition Onset Date 11/30/20 Current Complaints Ongoing pain and decreased mobility History of Current Condition Pt underwent right lateral ankle stabilization with internal brace, repair of collateral ankle ligament, and repair of right peroneal tendon tear on 11/30/20. Pt has been NWB since that time. He got a post-op boot on 12/12/20 . He has been using crutches in the house and knee walker when he leaves the house. PMH: right hamstring tear, left ankle injury, left tooth surgery, two neck fusions, four left shoulder surgeries, one right shoulder surgery. Pt is going to have a bridge put in his mouth on 01/18/21 and he has having trigger finger surgery on 01/23/21. Pt reports 8/10 pain along his right foot sutures and metarsalphalangeal joints on dorsal surface. Pt states that he cannot move his right foot much in and out d/t the internal anchor from surgery. He has been working on PF and DF. Pt has two steps to enter the house and one step down to his living room. He con't to have swelling in his foot. When his foot is in a dependent position, it goes beet red. When it is elevated, it is more flesh colored. He has been stuck in the house, in bed or on the couch with foot up on the coffee table. Pt is due for a MRI of his back in two weeks. Pt has not yet gotten compression socks or thigh highs. Prior Treatments and Tests PT for left foot injury and right hamstring tear Treatment Goals Patient/Caregiver Goals To decrease pain and swelling and improve mobility PT-OP-C Subjective Start: 01/01/21 15:41 Freq: Status: Active Protocol: Document 04/24/21 15:31 SAK (Rec: 04/24/21 15:53 SAK [id number]) OP-PT Subjective Patient Comments Patient Comments No new c/o, states he has been trying to pay more attention to his posture and core since last visit. Is concerned that with starting yardwork this spring his back pain will worsen. REceptive to instruction regarding lifting techniques. Going to get back into the gym, states feels weak, hasn't been there for months. PT-OP-G Mobility & Gait Start: 01/01/21 15:41 Freq: Status: Active Protocol: Document 01/02/21 08:18 MB (Rec: 01/02/21 15:25 MB [id number]) OP Gait Assessment Comments Gait Comments Pt is not yet WB through his right foot. He wears post-op boot and uses knee scooter to enter the clinic and he does a good job pivoting for transfers PT-OP-J Posture/Palpation/Skin Start: 01/01/21 15:41 Freq: Status: Active Protocol: Document 01/02/21 08:18 MB (Rec: 01/02/21 15:25 MB [id number]) Skin Assessment Other Assessments Skin Assessment Comments Right foot color is mostly normal with leg supported in hooklying. He has scabbing around dorsal lateral scar and some mild edema. His skin is normal to touch and his toe nails look normal. PT-OP-K Range of Motion Start: 01/01/21 15:41 Freq: Status: Active Protocol: Document 01/02/21 08:18 MB (Rec: 01/02/21 15:25 MB [id number]) Ankle and Foot Goniometric Range of Motion Ankle and Foot ROM Limitations Comments Pt has baseline B foot bony positioning changes with supinated left foot positioning and decreased foot AROM. Right foot ROM not pushed today post-op pending do not know clear precautions at this point since 12/25 note is not yet available. He demonstrates minimal DF and PF with leg extended and supported on table. PT-OP-M Strength Start: 01/01/21 15:41 Freq: Status: Active Protocol: Document 01/02/21 08:18 MB (Rec: 01/02/21 15:25 MB [id number]) Hip Strength Hip Manual Muscle Testing Left Flexion (L2) 5 Normal Abduction 5 Normal Adduction 5 Normal Right Flexion (L2) 3+ Fair+ Abduction 2+ Poor+ Adduction 2+ Poor+ Knee Strength Knee Manual Muscle Testing Left Flexion (S2) 5 Normal Extension (L3) 5 Normal Right Comments NT d/t guarding for foot Ankle/Foot Strength Ankle and Foot Manual Muscle Testing Right Comments Not MMT post-op Right calf is atrophied Left Dorsiflexion (L4) 4 Good Toe Strength Toe Manual Muscle Testing Left Great Toe Flexion 3+ Fair+ PT-OP-Q Treatments Start: 01/01/21 15:41 Freq: Status: Active Protocol: Document 05/02/21 10:32 SAK (Rec: 05/02/21 11:13 SAK [id number]) Cardio Equipment Recumbent Bicycle Duration (Minutes) 5 Resistance 5 Gym Equipment Shuttle Recovery Unilateral Squats Resistance 50 Shuttle Recovery Platform Stable Reps/Time 10x2 Therapeutic Ball seated Ball Size/Color 65 cm Body Position seated Reps/Duration 10 min Comments pelvic tilt, lateral tilts, circles, LAQ, march, feet on [employer], sim kayak, sit bal with no UE's or LE's (between treatment table and chair for safety) Therapeutic Exercises Sitting Exercises reverse crunch Equipment Used 65 cm ball Reps/Minutes 10x seated core Sitting Exercise Name trunk rotation with theraband Equipment Used 65 cm ball, L2 TB, ball between knees Reps/Minutes 10x 4 directions Comments facing toward and away from band, cues for alignment, iniate with core Standing Exercises golf swing Reps/Minutes 12 x each direction Comments initiate with core, cues for alignment Therapeutic Activity Therapeutic Activity body mechanics Name putting Reps/Minutes 2 min Comments posture and body mechanics with putting practice with putter Self-Care/Home Management Treatment Education Patient Education Home Exercise Program PT-OP-T Assessment and Plan Start: 01/01/21 15:41 Freq: Status: Active Protocol: Document 05/02/21 10:32 [facility] (Rec: 05/02/21 11:13 [facility] [id number]) Physical Therapy Assessment Evaluation Complexity Number of Personal Factors/Comorbidities 3 or More Number of Body Systems Impaired 1-2 Clinical Presentation at Evaluation Evolving Impairments Impairments Activity Tolerance,Balance, Edema,Functional Activities, Functional Mobility,Gait, Integument,Pain,Posture,ROM, Sensation,Soft Tissue Mobility ,Strength Other Impairments Personal factors include multi -joint pain and dysfunction. Body systems affected include musculoskeletal, neuromuscular . Goals 5 Impairment At back assessment, Oswestry is 23/50 Fence Erector Goal (LTG) Pt will present with improved Oswestry score to reflect no more than 20% impairment to improve functional mobility 04/17/21: back pain now primary c/o, at 43% 4 Correction Goal (LTG) exercises, stretching in the doorway, hamstring stretch, he will change resisited eversion and DF to active only , he is performing foot hammock LTG Duration 8 weeks 3 Fence Erector Goal (LTG) Pt will report a 75% improvement in right foot and ankle pain to improve quality of life by 04/18/21. 02/15/21: Pt con't to report a 10% improvement in right foot and ankle pain since starting PT. 04/17/21: 50% improvement noted . Good progress. LBP primary c/o at this time. LTG Duration goal discontinued 2 Fence Erector Goal (LTG) Pt will perform WNLs on a standardized balance test to decrease fall risk and exhibit more normal right foot intrinsic strength by 04/18/21. 02/15/21: Not performed d/t time used to screen back to add to plan 04/17/21: goal met LTG Duration goal met. 1 Fence Erector Goal (LTG) Pt will gait train at least 1200 feet in 6 minutes without AD to return to community ambulation by 04/18/21. 02/15/21: Not performed today d/t time screening back 04/17/21: goal achieved LTG Duration goal met Assessment Summary Assessment Patient reporting good tolerance for ther ex at gym, paying attention to core with all. Physical Therapy Plan Frequency and Duration Frequency of Treatment 2x/Week Duration of Treatment 8 weeks Plan of Care Start Date 04/17/21 Plan of Care End Date 06/16/21 Therapeutic Interventions Therapeutic Interventions Aquatic Therapy,Balance Training,Canalithic Repositioning,Gait Training, Home Exercise Program,Joint Mobilizations,Manual Therapy, Neuromuscular Re-education, Orthotic/Prosthetic Management ,Patient/Caregiver Education, Self-Care/Home Management,Soft Tissue Mobilization,Taping, Therapeutic Activities, Therapeutic Exercises Modalities Cold Pack/Ice Massage,Hot Packs,Ultrasound Next Visit Focus/Plan Next Note Type Treatment Note Next Visit Plan Add spinal extension over therapy ball, quadriped multifidi strengthening. Patient to bring upholstery covers inspector to work on body mechanics with golf swing.
--- NOTE | 2021-05-07 09:47 | PT.OTN ---
Current Diagnoses Other instability, right ankle (05/07/21) Spondylosis without myelopathy or radiculopathy, lumbar region (05/07/21) Strain of muscle, fascia and tendon of lower back, initial encounter (05/07/21) Strain of muscle(s) and tendon(s) of peroneal muscle group at lower leg level, right leg, subsequent encounter (05/07/21) Physical Therapy Treatment Note PT-OP-A Visit Information Start: 01/01/21 15:41 Freq: Status: Active Protocol: Document 05/07/21 09:03 SP (Rec: 05/07/21 09:49 SP [id number]) Out-Patient Physical Therapy Visit Information Visit Information Visit Type Treatment Note Visit Start Time 09:03 Visit Stop Time 09:47 Total Visit Minutes 44 Visit Number 47 Number of ASSISTANT ATHLETIC TRAINER Visits 1 Evaluation Information Evaluation Date 01/02/21 PT-OP-B Current Condition Start: 01/01/21 15:41 Freq: Status: Active Protocol: Document 01/02/21 08:18 MB (Rec: 01/02/21 09:08 MB [id number]) Current Condition History of Current Condition Onset Date 11/30/20 Current Complaints Ongoing pain and decreased mobility History of Current Condition Pt underwent right lateral ankle stabilization with internal brace, repair of collateral ankle ligament, and repair of right peroneal tendon tear on 11/30/20. Pt has been NWB since that time. He got a post-op boot on 12/12/20 . He has been using crutches in the house and knee walker when he leaves the house. PMH: right hamstring tear, left ankle injury, left tooth surgery, two neck fusions, four left shoulder surgeries, one right shoulder surgery. Pt is going to have a bridge put in his mouth on 01/18/21 and he has having trigger finger surgery on 01/23/21. Pt reports 8/10 pain along his right foot sutures and metarsalphalangeal joints on dorsal surface. Pt states that he cannot move his right foot much in and out d/t the internal anchor from surgery. He has been working on PF and DF. Pt has two steps to enter the house and one step down to his living room. He con't to have swelling in his foot. When his foot is in a dependent position, it goes beet red. When it is elevated, it is more flesh colored. He has been stuck in the house, in bed or on the couch with foot up on the coffee table. Pt is due for a MRI of his back in two weeks. Pt has not yet gotten compression socks or thigh highs. Prior Treatments and Tests PT for left foot injury and right hamstring tear Treatment Goals Patient/Caregiver Goals To decrease pain and swelling and improve mobility PT-OP-C Subjective Start: 01/01/21 15:41 Freq: Status: Active Protocol: Document 05/07/21 09:03 SP (Rec: 05/07/21 09:49 SP [id number]) OP-PT Subjective Patient Comments Patient Comments Pt stated saw surgeon yesterday stated cleared for all activity. Pt reports compliant with TB seated on ball at home. PT-OP-G Mobility & Gait Start: 01/01/21 15:41 Freq: Status: Active Protocol: Document 01/02/21 08:18 MB (Rec: 01/02/21 15:25 MB [id number]) OP Gait Assessment Comments Gait Comments Pt is not yet WB through his right foot. He wears post-op boot and uses knee scooter to enter the clinic and he does a good job pivoting for transfers PT-OP-J Posture/Palpation/Skin Start: 01/01/21 15:41 Freq: Status: Active Protocol: Document 01/02/21 08:18 MB (Rec: 01/02/21 15:25 MB [id number]) Skin Assessment Other Assessments Skin Assessment Comments Right foot color is mostly normal with leg supported in hooklying. He has scabbing around dorsal lateral scar and some mild edema. His skin is normal to touch and his toe nails look normal. PT-OP-K Range of Motion Start: 01/01/21 15:41 Freq: Status: Active Protocol: Document 01/02/21 08:18 MB (Rec: 01/02/21 15:25 MB [id number]) Ankle and Foot Goniometric Range of Motion Ankle and Foot ROM Limitations Comments Pt has baseline B foot bony positioning changes with supinated left foot positioning and decreased foot AROM. Right foot ROM not pushed today post-op pending do not know clear precautions at this point since 12/25 note is not yet available. He demonstrates minimal DF and PF with leg extended and supported on table. PT-OP-M Strength Start: 01/01/21 15:41 Freq: Status: Active Protocol: Document 01/02/21 08:18 MB (Rec: 01/02/21 15:25 MB [id number]) Hip Strength Hip Manual Muscle Testing Left Flexion (L2) 5 Normal Abduction 5 Normal Adduction 5 Normal Right Flexion (L2) 3+ Fair+ Abduction 2+ Poor+ Adduction 2+ Poor+ Knee Strength Knee Manual Muscle Testing Left Flexion (S2) 5 Normal Extension (L3) 5 Normal Right Comments NT d/t guarding for foot Ankle/Foot Strength Ankle and Foot Manual Muscle Testing Right Comments Not MMT post-op Right calf is atrophied Left Dorsiflexion (L4) 4 Good Toe Strength Toe Manual Muscle Testing Left Great Toe Flexion 3+ Fair+ PT-OP-Q Treatments Start: 01/01/21 15:41 Freq: Status: Active Protocol: Document 05/07/21 09:03 SP (Rec: 05/07/21 09:49 SP [id number]) Cardio Equipment Recumbent Bicycle Duration (Minutes) 6 Resistance 5 Seat Position 7 Other 2.65 miles Gym Equipment Therapeutic Ball supine TB ball Exercise Details Thoracic ext, cued glut lift/ bridge neutral pelvis Ball Size/Color 65cm Body Position Supine Comments unstable, CG -Min A for safety stability, light contact per suggested for safety. ASSISTANT ATHLETIC TRAINER recommended not to perform at home. seated Ball Size/Color 65 cm Body Position seated Reps/Duration 10 min Comments TS rotation: pelvic tilt, lateral tilts, circles, LAQ, march, feet on Dynadisc, sim kayak, sit bal with no UE's or LE's (between treatment table and chair for safety) Therapeutic Exercises Sitting Exercises piriformis stretch Sitting Exercise Name added to HEP- hip IR stretch Side bilateral Reps/Minutes 30s x2 Comments good feedback- feels better than laying down seated core Sitting Exercise Name trunk rotation- arms across chest Equipment Used 65 cm ball, L2 TB, ball between knees Reps/Minutes 10x 4 directions Comments facing sideways from anchored Standing Exercises D2 flexion Standing Exercise Name added to HEP Side bilateral Resistance Tb #1 Reps/Minutes x10 Comments cued TA and TS rotation/ext at end feel range self STMs Standing Exercise Name paraspinals, piriformis- HEP as needed Side bilateral Equipment Used racquetball onwall Reps/Minutes 3 min Comments good feedback response sink stretch Standing Exercise Name hip hinge: lat stretch and TS ext Resistance Good TS ext and lat stretch Equipment Used rail Reps/Minutes 30s x2 Comments cued straight back, slight bent knees, chest toward floor golf warm up Standing Exercise Name golf club cradles in cross arms: TS rotation Side bilateral golf swing Standing Exercise Name warm up pre play (cradled club in crossed arms) Resistance TB #2 Reps/Minutes 12 x each direction Comments initiate with core, cues for alignment PT-OP-T Assessment and Plan Start: 01/01/21 15:41 Freq: Status: Active Protocol: Document 05/07/21 09:03 SP (Rec: 05/07/21 09:49 SP [id number]) Physical Therapy Assessment Goals 5 Impairment At back assessment, Oswestry is 23/50 Installation Helper Goal (LTG) Pt will present with improved Oswestry score to reflect no more than 20% impairment to improve functional mobility 04/17/21: back pain now primary c/o, at 43% 4 Installation Helper Goal (LTG) exercises, stretching in the doorway, hamstring stretch, he will change resisited eversion and DF to active only , he is performing foot hammock LTG Duration 8 weeks 3 Installation Helper Goal (LTG) Pt will report a 75% improvement in right foot and ankle pain to improve quality of life by 04/18/21. 02/15/21: Pt con't to report a 10% improvement in right foot and ankle pain since starting PT. 04/17/21: 50% improvement noted . Good progress. LBP primary c/o at this time. LTG Duration goal discontinued 2 [facility] Goal (LTG) Pt will perform WNLs on a standardized balance test to decrease fall risk and exhibit more normal right foot intrinsic strength by 04/18/21. 02/15/21: Not performed d/t time used to screen back to add to plan 04/17/21: goal met LTG Duration goal met. 1 [facility] Goal (LTG) Pt will gait train at least 1200 feet in 6 minutes without AD to return to community ambulation by 04/18/21. 02/15/21: Not performed today d/t time screening back 04/17/21: goal achieved LTG Duration goal met Assessment Summary Assessment Pt improved with core strengthening and flexibiliy during TS rotation and TS ext with good form post cues and demonstration, will provide HO next tx, printer down. Provided self STMs ball on wall for LB, hip ERs with good feedback response, decrease tightness. Pt stated felt more mobiltiy leaving tx. Physical Therapy Plan Frequency and Duration Frequency of Treatment 2x/Week Duration of Treatment 8 weeks Plan of Care Start Date 04/17/21 Plan of Care End Date 06/16/21 Therapeutic Interventions Therapeutic Interventions Aquatic Therapy,Balance Training,Canalithic Repositioning,Gait Training, Home Exercise Program,Joint Mobilizations,Manual Therapy, Neuromuscular Re-education, Orthotic/Prosthetic Management ,Patient/Caregiver Education, Self-Care/Home Management,Soft Tissue Mobilization,Taping, Therapeutic Activities, Therapeutic Exercises Modalities Cold Pack/Ice Massage,Hot Packs,Ultrasound Next Visit Focus/Plan Next Note Type Treatment Note Next Visit Plan Recheck sink stretch, TS rotation HEP. Nex tx Add spinal extension prone over therapy ball, quadriped multifidi strengthening. Patient to bring [employer] supervisor to work on body mechanics with golf swing.
--- NOTE | 2021-05-14 09:50 | PT.OTN ---
Current Diagnoses Other instability, right ankle (05/14/21) Spondylosis without myelopathy or radiculopathy, lumbar region (05/14/21) Strain of muscle, fascia and tendon of lower back, initial encounter (05/14/21) Strain of muscle(s) and tendon(s) of peroneal muscle group at lower leg level, right leg, subsequent encounter (05/14/21) Physical Therapy Treatment Note PT-OP-A Visit Information Start: 01/01/21 15:41 Freq: Status: Active Protocol: Document 05/14/21 09:03 SP (Rec: 05/14/21 09:51 SP [id number]) Out-Patient Physical Therapy Visit Information Visit Information Visit Type Treatment Note Visit Start Time 09:03 Visit Stop Time 09:50 Total Visit Minutes 47 Visit Number 48 Number of SEWER BRICKLAYER Visits 2 Evaluation Information Evaluation Date 01/02/21 PT-OP-B Current Condition Start: 01/01/21 15:41 Freq: Status: Active Protocol: Document 01/02/21 08:18 MB (Rec: 01/02/21 09:08 MB [id number]) Current Condition History of Current Condition Onset Date 11/30/20 Current Complaints Ongoing pain and decreased mobility History of Current Condition Pt underwent right lateral ankle stabilization with internal brace, repair of collateral ankle ligament, and repair of right peroneal tendon tear on 11/30/20. Pt has been NWB since that time. He got a post-op boot on 12/12/20 . He has been using crutches in the house and knee walker when he leaves the house. PMH: right hamstring tear, left ankle injury, left tooth surgery, two neck fusions, four left shoulder surgeries, one right shoulder surgery. Pt is going to have a bridge put in his mouth on 01/18/21 and he has having trigger finger surgery on 01/23/21. Pt reports 8/10 pain along his right foot sutures and metarsalphalangeal joints on dorsal surface. Pt states that he cannot move his right foot much in and out d/t the internal anchor from surgery. He has been working on PF and DF. Pt has two steps to enter the house and one step down to his living room. He con't to have swelling in his foot. When his foot is in a dependent position, it goes beet red. When it is elevated, it is more flesh colored. He has been stuck in the house, in bed or on the couch with foot up on the coffee table. Pt is due for a MRI of his back in two weeks. Pt has not yet gotten compression socks or thigh highs. Prior Treatments and Tests PT for left foot injury and right hamstring tear Treatment Goals Patient/Caregiver Goals To decrease pain and swelling and improve mobility PT-OP-C Subjective Start: 01/01/21 15:41 Freq: Status: Active Protocol: Document 05/14/21 09:03 SP (Rec: 05/14/21 09:51 SP [id number]) OP-PT Subjective Patient Comments Patient Comments Pt states doing well with HEP. Arrives with compression glove on Lhand for paincontrol . PT-OP-G Mobility & Gait Start: 01/01/21 15:41 Freq: Status: Active Protocol: Document 01/02/21 08:18 MB (Rec: 01/02/21 15:25 MB [id number]) OP Gait Assessment Comments Gait Comments Pt is not yet WB through his right foot. He wears post-op boot and uses knee scooter to enter the clinic and he does a good job pivoting for transfers PT-OP-J Posture/Palpation/Skin Start: 01/01/21 15:41 Freq: Status: Active Protocol: Document 01/02/21 08:18 MB (Rec: 01/02/21 15:25 MB [id number]) Skin Assessment Other Assessments Skin Assessment Comments Right foot color is mostly normal with leg supported in hooklying. He has scabbing around dorsal lateral scar and some mild edema. His skin is normal to touch and his toe nails look normal. PT-OP-K Range of Motion Start: 01/01/21 15:41 Freq: Status: Active Protocol: Document 01/02/21 08:18 MB (Rec: 01/02/21 15:25 MB [id number]) Ankle and Foot Goniometric Range of Motion Ankle and Foot ROM Limitations Comments Pt has baseline B foot bony positioning changes with supinated left foot positioning and decreased foot AROM. Right foot ROM not pushed today post-op pending do not know clear precautions at this point since 12/25 note is not yet available. He demonstrates minimal DF and PF with leg extended and supported on table. PT-OP-M Strength Start: 01/01/21 15:41 Freq: Status: Active Protocol: Document 01/02/21 08:18 MB (Rec: 01/02/21 15:25 MB [id number]) Hip Strength Hip Manual Muscle Testing Left Flexion (L2) 5 Normal Abduction 5 Normal Adduction 5 Normal Right Flexion (L2) 3+ Fair+ Abduction 2+ Poor+ Adduction 2+ Poor+ Knee Strength Knee Manual Muscle Testing Left Flexion (S2) 5 Normal Extension (L3) 5 Normal Right Comments NT d/t guarding for foot Ankle/Foot Strength Ankle and Foot Manual Muscle Testing Right Comments Not MMT post-op Right calf is atrophied Left Dorsiflexion (L4) 4 Good Toe Strength Toe Manual Muscle Testing Left Great Toe Flexion 3+ Fair+ PT-OP-Q Treatments Start: 01/01/21 15:41 Freq: Status: Active Protocol: Document 05/14/21 09:03 SP (Rec: 05/14/21 09:51 SP [id number]) Cardio Equipment Recumbent Bicycle Duration (Minutes) 6 Resistance 5 Seat Position 7 Other 2.65 miles Gym Equipment Cable Column (Body Solid) Lat Pull Down Details pull down to chest Resistance 30# Reps/Time cued TA and neutral LS, painfree x15 Rows Details seated on 64cm Tball Resistance 20# Reps/Time x20 trunk rotation Details seated 65cm tball, Resistance 10# top plate, no peg Reps/Time x20 B Shuttle Recovery Unilateral Squats Resistance 50 Shuttle Recovery Platform Stable Reps/Time x30 Therapeutic Ball prone Exercise Details feet on wall: Ts, Ys focus TS ext lift w/ TA Comments cued TA and pelvis alignment, knee extension, glut fac for core bracing, TS ext w/ BUE Ts and Ys- good response core work and TS ext mobility. seated Ball Size/Color 65 cm Body Position seated Reps/Duration 10 min Comments TS rotation: pelvic tilt, lateral tilts, circles, LAQ, march, feet on Dynadisc, sim kayak, sit bal with no UE's or LE's (between treatment table and chair for safety) Therapeutic Exercises Supine Exercises Ts ext/ roll foam roller Reps/Minutes 1 min Hamstring Stretch with AP Supine Exercise Name flexibilitiy HEP review Side bilateral Equipment Used strap Reps/Minutes static stretch 3 LE positions Comments Opposite leg straight good stretch, cued can add AP if wish Standing Exercises SLS star glides Standing Exercise Name added HEP Side bilateral Reps/Minutes x10 golf warm up Standing Exercise Name golf club cradles in cross arms front vs back: TS rotation Side bilateral Comments bent over for TS rotation PT-OP-T Assessment and Plan Start: 01/01/21 15:41 Freq: Status: Active Protocol: Document 05/14/21 09:03 SP (Rec: 05/14/21 09:51 SP [id number]) Physical Therapy Assessment Goals 5 Impairment At back assessment, Oswestry is 23/50 Half-Way Goal (LTG) Pt will present with improved Oswestry score to reflect no more than 20% impairment to improve functional mobility 04/17/21: back pain now primary c/o, at 43% 4 Hat And Cap Sewer Goal (LTG) exercises, stretching in the doorway, hamstring stretch, he will change resisited eversion and DF to active only , he is performing foot hammock LTG Duration 8 weeks 3 Hat And Cap Sewer Goal (LTG) Pt will report a 75% improvement in right foot and ankle pain to improve quality of life by 04/18/21. 02/15/21: Pt con't to report a 10% improvement in right foot and ankle pain since starting PT. 04/17/21: 50% improvement noted . Good progress. LBP primary c/o at this time. LTG Duration goal discontinued 2 Half-Way Goal (LTG) Pt will perform WNLs on a standardized balance test to decrease fall risk and exhibit more normal right foot intrinsic strength by 04/18/21. 02/15/21: Not performed d/t time used to screen back to add to plan 04/17/21: goal met LTG Duration goal met. 1 Hat And Cap Sewer Goal (LTG) Pt will gait train at least 1200 feet in 6 minutes without AD to return to community ambulation by 04/18/21. 02/15/21: Not performed today d/t time screening back 04/17/21: goal achieved LTG Duration goal met Assessment Summary Assessment Initiated SLS for functional ankle and stability strengthening, cues required for hip/trunk flex and soft knee. Provided TS ext this tx prone over tball and supine over foam roller with no adverse affects, responded good core and mobility noted. Pt states has returned to gym [employer] and wants to know how to incorporate into his work outs. Good form and feedback TS rotation with golf club bent over. Physical Therapy Plan Frequency and Duration Frequency of Treatment 2x/Week Duration of Treatment 8 weeks Plan of Care Start Date 04/17/21 Plan of Care End Date 06/16/21 Therapeutic Interventions Therapeutic Interventions Aquatic Therapy,Balance Training,Canalithic Repositioning,Gait Training, Home Exercise Program,Joint Mobilizations,Manual Therapy, Neuromuscular Re-education, Orthotic/Prosthetic Management ,Patient/Caregiver Education, Self-Care/Home Management,Soft Tissue Mobilization,Taping, Therapeutic Activities, Therapeutic Exercises Modalities Cold Pack/Ice Massage,Hot Packs,Ultrasound Next Visit Focus/Plan Next Note Type Treatment Note Next Visit Plan Recheck HEP sink stretch, cable HEP (gym), prone spinal ext over tball and foam roller . Next tx: Add quadriped multifidi strengthening. Patient to bring spa receptionist to work on body mechanics with golf swing.
--- NOTE | 2021-05-21 16:05 | PT.OTN ---
Current Diagnoses Other instability, right ankle (05/21/21) Spondylosis without myelopathy or radiculopathy, lumbar region (05/21/21) Strain of muscle, fascia and tendon of lower back, initial encounter (05/21/21) Strain of muscle(s) and tendon(s) of peroneal muscle group at lower leg level, right leg, subsequent encounter (05/21/21) Physical Therapy Treatment Note PT-OP-A Visit Information Start: 01/01/21 15:41 Freq: Status: Active Protocol: Document 05/21/21 09:00 SAK (Rec: 05/21/21 09:45 SAK [id number]) Out-Patient Physical Therapy Visit Information Visit Information Visit Type Treatment Note Visit Start Time 09:00 Visit Stop Time 09:50 Total Visit Minutes 50 Visit Number 49 Number of MIDWIFE PRACTITIONER Visits 2 Evaluation Information Evaluation Date 01/02/21 PT-OP-B Current Condition Start: 01/01/21 15:41 Freq: Status: Active Protocol: Document 01/02/21 08:18 MB (Rec: 01/02/21 09:08 MB [id number]) Current Condition History of Current Condition Onset Date 11/30/20 Current Complaints Ongoing pain and decreased mobility History of Current Condition Pt underwent right lateral ankle stabilization with internal brace, repair of collateral ankle ligament, and repair of right peroneal tendon tear on 11/30/20. Pt has been NWB since that time. He got a post-op boot on 12/12/20 . He has been using crutches in the house and knee walker when he leaves the house. PMH: right hamstring tear, left ankle injury, left tooth surgery, two neck fusions, four left shoulder surgeries, one right shoulder surgery. Pt is going to have a bridge put in his mouth on 01/18/21 and he has having trigger finger surgery on 01/23/21. Pt reports 8/10 pain along his right foot sutures and metarsalphalangeal joints on dorsal surface. Pt states that he cannot move his right foot much in and out d/t the internal anchor from surgery. He has been working on PF and DF. Pt has two steps to enter the house and one step down to his living room. He con't to have swelling in his foot. When his foot is in a dependent position, it goes beet red. When it is elevated, it is more flesh colored. He has been stuck in the house, in bed or on the couch with foot up on the coffee table. Pt is due for a MRI of his back in two weeks. Pt has not yet gotten compression socks or thigh highs. Prior Treatments and Tests PT for left foot injury and right hamstring tear Treatment Goals Patient/Caregiver Goals To decrease pain and swelling and improve mobility PT-OP-C Subjective Start: 01/01/21 15:41 Freq: Status: Active Protocol: Document 05/21/21 09:00 SAK (Rec: 05/21/21 09:45 SAK [id number]) OP-PT Subjective Patient Comments Patient Comments Minimal pain today. Concerned about how he will do when he starts doing yardwork. No adverse effects from last PT session. PT-OP-G Mobility & Gait Start: 01/01/21 15:41 Freq: Status: Active Protocol: Document 01/02/21 08:18 MB (Rec: 01/02/21 15:25 MB [id number]) OP Gait Assessment Comments Gait Comments Pt is not yet WB through his right foot. He wears post-op boot and uses knee scooter to enter the clinic and he does a good job pivoting for transfers PT-OP-J Posture/Palpation/Skin Start: 01/01/21 15:41 Freq: Status: Active Protocol: Document 01/02/21 08:18 MB (Rec: 01/02/21 15:25 MB [id number]) Skin Assessment Other Assessments Skin Assessment Comments Right foot color is mostly normal with leg supported in hooklying. He has scabbing around dorsal lateral scar and some mild edema. His skin is normal to touch and his toe nails look normal. PT-OP-K Range of Motion Start: 01/01/21 15:41 Freq: Status: Active Protocol: Document 01/02/21 08:18 MB (Rec: 01/02/21 15:25 MB [id number]) Ankle and Foot Goniometric Range of Motion Ankle and Foot ROM Limitations Comments Pt has baseline B foot bony positioning changes with supinated left foot positioning and decreased foot AROM. Right foot ROM not pushed today post-op pending do not know clear precautions at this point since 12/25 note is not yet available. He demonstrates minimal DF and PF with leg extended and supported on table. PT-OP-M Strength Start: 01/01/21 15:41 Freq: Status: Active Protocol: Document 01/02/21 08:18 MB (Rec: 01/02/21 15:25 MB [id number]) Hip Strength Hip Manual Muscle Testing Left Flexion (L2) 5 Normal Abduction 5 Normal Adduction 5 Normal Right Flexion (L2) 3+ Fair+ Abduction 2+ Poor+ Adduction 2+ Poor+ Knee Strength Knee Manual Muscle Testing Left Flexion (S2) 5 Normal Extension (L3) 5 Normal Right Comments NT d/t guarding for foot Ankle/Foot Strength Ankle and Foot Manual Muscle Testing Right Comments Not MMT post-op Right calf is atrophied Left Dorsiflexion (L4) 4 Good Toe Strength Toe Manual Muscle Testing Left Great Toe Flexion 3+ Fair+ PT-OP-Q Treatments Start: 01/01/21 15:41 Freq: Status: Active Protocol: Document 05/21/21 09:00 SAK (Rec: 05/21/21 09:45 SAK [id number]) Cardio Equipment Recumbent Bicycle Duration (Minutes) 6 Resistance 5 Seat Position 7 Other 2.66 miles Gym Equipment Shuttle Recovery Unilateral Squats Resistance 50 Shuttle Recovery Platform Stable Reps/Time x30 (last 10 with wobble board ) Shuttle Balance chains red Details dble leg bal fwd/bck, side Reps/Duration 2 min Comments painful side to side bal on ankle Therapeutic Ball prone Exercise Details feet on wall: Ts, Ys focus TS ext lift w/ TA Comments cued TA and pelvis alignment, knee extension, glut fac for core bracing, TS ext w/ BUE Ts and Ys- good response core work and TS ext mobility. seated Ball Size/Color 65 cm Body Position seated Reps/Duration 10 min Comments TS rotation: pelvic tilt, lateral tilts, circles, LAQ, march, feet on [employer]ad[employer], sim kayak, sit bal with no UE's or LE's (between treatment table and chair for safety), ball between knees Therapeutic Exercises Supine Exercises Ts ext/ roll foam roller Comments patient reports did at gym, not sure helpful Hamstring Stretch with AP Supine Exercise Name flexibilitiy Side bilateral Equipment Used strap Reps/Minutes static stretch 3 LE positions Comments Opposite leg straight good stretch, cued can add AP if wish Prone Exercises multifidi Prone Exercise Name quadriped opp UE/LE lift Side bilateral Reps/Minutes 10x each side Standing Exercises sink stretch Standing Exercise Name hip hinge: lat stretch and TS ext Resistance Good TS ext and lat stretch Equipment Used rail Reps/Minutes 30s x2 Comments cued straight back, slight bent knees, chest toward floor Therapeutic Activity Therapeutic Activity body mechanics Name weeding Comments instruction in safe weeding techniques on hands and knee. Need to also work on 1/2 kneeling. Instruction in safely getting golf ball out of hole with good body mechanics lifting technique Comments instruction in safe lifting for kayak, simulated using balance beam PT-OP-T Assessment and Plan Start: 01/01/21 15:41 Freq: Status: Active Protocol: Document 05/21/21 09:00 NORI (Rec: 05/21/21 09:45 [facility] [id number]) Physical Therapy Assessment Goals 5 Impairment At back assessment, Oswestry is 23/50 Survey Methodologist Goal (LTG) Pt will present with improved Oswestry score to reflect no more than 20% impairment to improve functional mobility 04/17/21: back pain now primary c/o, at 43% 4 Survey Methodologist Goal (LTG) exercises, stretching in the doorway, hamstring stretch, he will change resisited eversion and DF to active only , he is performing foot hammock LTG Duration 8 weeks 3 Survey Methodologist Goal (LTG) Pt will report a 75% improvement in right foot and ankle pain to improve quality of life by 04/18/21. 02/15/21: Pt con't to report a 10% improvement in right foot and ankle pain since starting PT. 04/17/21: 50% improvement noted . Good progress. LBP primary c/o at this time. LTG Duration goal discontinued 2 Alf Goal (LTG) Pt will perform WNLs on a standardized balance test to decrease fall risk and exhibit more normal right foot intrinsic strength by 04/18/21. 02/15/21: Not performed d/t time used to screen back to add to plan 04/17/21: goal met LTG Duration goal met. 1 Alf Goal (LTG) Pt will gait train at least 1200 feet in 6 minutes without AD to return to community ambulation by 04/18/21. 02/15/21: Not performed today d/t time screening back 04/17/21: goal achieved LTG Duration goal met Assessment Summary Assessment Continues to make good progress with improved strength, body mechanics, core stab, balance. Demonstrated good understanding of body mechanics for some typical activities he hasn't done yet including loading and unloading his kayak, retrieving golf ball from hole , and weeding in garden with demonstration and instrsuction by PT and return demo by patient. Shuttle balance with red chains challenging for balance and core activation, painful ankle with side to side balance. Physical Therapy Plan Frequency and Duration Frequency of Treatment 2x/Week Duration of Treatment 8 weeks Plan of Care Start Date 04/17/21 Plan of Care End Date 06/16/21 Therapeutic Interventions Therapeutic Interventions Aquatic Therapy,Balance Training,Canalithic Repositioning,Gait Training, Home Exercise Program,Joint Mobilizations,Manual Therapy, Neuromuscular Re-education, Orthotic/Prosthetic Management ,Patient/Caregiver Education, Self-Care/Home Management,Soft Tissue Mobilization,Taping, Therapeutic Activities, Therapeutic Exercises Modalities Cold Pack/Ice Massage,Hot Packs,Ultrasound Next Visit Focus/Plan Next Note Type Treatment Note
--- NOTE | 2021-07-14 08:43 | PT.OPDS ---
Current Diagnoses Other instability, right ankle (05/21/21) Spondylosis without myelopathy or radiculopathy, lumbar region (05/21/21) Strain of muscle, fascia and tendon of lower back, initial encounter (05/21/21) Strain of muscle(s) and tendon(s) of peroneal muscle group at lower leg level, right leg, subsequent encounter (05/21/21) Visit Care Team Role Provider Type Jhonny Sorensen MD Referring Provider Physician Specialty: Orthopedic Surgery Address: [address] [place] [address], [id number] Email: Saulo Elizalde DO Family Provider Physician Primary Care Provider Specialty: Family Practice Address: [address] [place] [address], [address] Email: [email or web address] Attending Provider Non-Staff Specialty: Podiatry Address: [address] [place] [address], [phone] Email: Visit Number Visit Number 49 Discharge Summary PT-OP-B Current Condition Start: 01/01/21 15:41 Freq: Status: Active Protocol: Document 01/02/21 08:18 MB (Rec: 01/02/21 09:08 MB [id number]) Current Condition History of Current Condition Onset Date 11/30/20 Current Complaints Ongoing pain and decreased mobility History of Current Condition Pt underwent right lateral ankle stabilization with internal brace, repair of collateral ankle ligament, and repair of right peroneal tendon tear on 11/30/20. Pt has been NWB since that time. He got a post-op boot on 12/12/20 . He has been using crutches in the house and knee walker when he leaves the house. PMH: right hamstring tear, left ankle injury, left tooth surgery, two neck fusions, four left shoulder surgeries, one right shoulder surgery. Pt is going to have a bridge put in his mouth on 01/18/21 and he has having trigger finger surgery on 01/23/21. Pt reports 8/10 pain along his right foot sutures and metarsalphalangeal joints on dorsal surface. Pt states that he cannot move his right foot much in and out d/t the internal anchor from surgery. He has been working on PF and DF. Pt has two steps to enter the house and one step down to his living room. He con't to have swelling in his foot. When his foot is in a dependent position, it goes beet red. When it is elevated, it is more flesh colored. He has been stuck in the house, in bed or on the couch with foot up on the coffee table. Pt is due for a MRI of his back in two weeks. Pt has not yet gotten compression socks or thigh highs. Prior Treatments and Tests PT for left foot injury and right hamstring tear Treatment Goals Patient/Caregiver Goals To decrease pain and swelling and improve mobility PT-OP-C Subjective Start: 01/01/21 15:41 Freq: Status: Active Protocol: Document 05/21/21 09:00 SAK (Rec: 05/21/21 09:45 SAK [id number]) OP-PT Subjective Patient Comments Patient Comments Minimal pain today. Concerned about how he will do when he starts doing yardwork. No adverse effects from last PT session. PT-OP-G Mobility & Gait Start: 01/01/21 15:41 Freq: Status: Active Protocol: Document 01/02/21 08:18 MB (Rec: 01/02/21 15:25 MB [id number]) OP Gait Assessment Comments Gait Comments Pt is not yet WB through his right foot. He wears post-op boot and uses knee scooter to enter the clinic and he does a good job pivoting for transfers PT-OP-J Posture/Palpation/Skin Start: 01/01/21 15:41 Freq: Status: Active Protocol: Document 01/02/21 08:18 MB (Rec: 01/02/21 15:25 MB [id number]) Skin Assessment Other Assessments Skin Assessment Comments Right foot color is mostly normal with leg supported in hooklying. He has scabbing around dorsal lateral scar and some mild edema. His skin is normal to touch and his toe nails look normal. PT-OP-K Range of Motion Start: 01/01/21 15:41 Freq: Status: Active Protocol: Document 01/02/21 08:18 MB (Rec: 01/02/21 15:25 MB [id number]) Ankle and Foot Goniometric Range of Motion Ankle and Foot ROM Limitations Comments Pt has baseline B foot bony positioning changes with supinated left foot positioning and decreased foot AROM. Right foot ROM not pushed today post-op pending do not know clear precautions at this point since 12/25 note is not yet available. He demonstrates minimal DF and PF with leg extended and supported on table. PT-OP-M Strength Start: 01/01/21 15:41 Freq: Status: Active Protocol: Document 01/02/21 08:18 MB (Rec: 01/02/21 15:25 MB [id number]) Hip Strength Hip Manual Muscle Testing Left Flexion (L2) 5 Normal Abduction 5 Normal Adduction 5 Normal Right Flexion (L2) 3+ Fair+ Abduction 2+ Poor+ Adduction 2+ Poor+ Knee Strength Knee Manual Muscle Testing Left Flexion (S2) 5 Normal Extension (L3) 5 Normal Right Comments NT d/t guarding for foot Ankle/Foot Strength Ankle and Foot Manual Muscle Testing Right Comments Not MMT post-op Right calf is atrophied Left Dorsiflexion (L4) 4 Good Toe Strength Toe Manual Muscle Testing Left Great Toe Flexion 3+ Fair+ PT-OP-T Assessment and Plan Start: 01/01/21 15:41 Freq: Status: Active Protocol: Document 07/14/21 08:43 NORI (Rec: 07/14/21 08:43 NORI [id number]) Physical Therapy Plan Discharge Physical Therapy Discharge Reasons Goals Met
== END 2021-07-19 10:32 ==
LOC: PHYS 09:00
PROVIDERS: Family Provider Family Medicine; PCP Family Medicine; Referring Provider Orthopaedic Surgery; Visit Provider Podiatrist Foot & Ankle Surgery
DX: M25.371 Other instability, right ankle (principal); S86.311D Strain of muscle(s) and tendon(s) of peroneal muscle group at lower leg level, right leg, subsequent encounter; M47.816 Spondylosis without myelopathy or radiculopathy, lumbar region; S39.012A Strain of muscle, fascia and tendon of lower back, initial encounter
CPT/HCPCS: 97110; 97112; 97113; 97116; 97140; 97162; 97530; 97535

== ENCOUNTER → 2021-06-14 09:07 | Outpatient (CLI) | payer MEDICARE, SELFPAY ==
[2021-06-14 09:35] LABS: Add Manual Diff / Slide Review NO; Basophils Absolute Auto 100 /uL (0-100); Basophils Percent Auto 0.6 % (0-2); Eosinophils Absolute Auto 100 /uL (0-450); Eosinophils Percent Auto 0.9 % (2-4); Hematocrit 43.5 % (41-53); Hemoglobin 14.8 g/dL (13.5-17.5); Lymphocytes Absolute Auto 1100 /uL (1100-4500); Lymphocytes Percent Auto 13.2 % (25-40); Mean Corpuscular HGB Conc 33.9 % (30-36); Mean Corpuscular Hemoglobin 31.5 PG (26-34); Monocytes Absolute Auto 700 /uL (0-900); Neutrophils Absolute Auto 6100 /uL (1500-7000); Neutrophils Percent Auto 76.3 % (50-75); Platelet Count 146 X10^3/uL (150-400); Red Blood Cell Count 4.68 X10^6/uL (4.5-5.9)
[2021-06-14 09:54] LABS: Alanine Aminotransferase 22 IU/L (<50); Albumin 4.2 g/dL (3.5-5.0); Albumin Globulin Ratio 1.7 (1.0-2.8); Alkaline Phosphatase 53 U/L (38-126); Aspartate Aminotransferase 25 IU/L (17-59); BUN Creatinine Ratio 16.1 (6-22); Bilirubin Total 0.8 mg/dL (0.2-1.3); Blood Urea Nitrogen 18 mg/dL (9-20); Calcium 9.1 mg/dL (8.4-10.2); Carbon Dioxide 29 mmol/L (22-32); Chloride 106 mmol/L (98-107); Estimated Glomerular Filt Rate > 60 mL/min (>60); Globulin 2.5 g/dL (1.7-4.1); Glucose 98 mg/dL (80-110); HEMOLYSIS < 15 (0-50); Sodium 141 mmol/L (137-145); Total Protein 6.7 g/dL (6.3-8.2)
[2021-06-14 10:25] LABS: Prostate Specific Antigen 1.92 ng/mL (0.10-4.00)
== END ==
PROVIDERS: Family Provider Family Medicine; PCP Family Medicine; Referring Provider Family Medicine; Visit Provider Family Medicine
DX: E78.5 Hyperlipidemia, unspecified (principal); Z12.5 Encounter for screening for malignant neoplasm of prostate; Z00.00 Encounter for general adult medical examination without abnormal findings
CPT/HCPCS: 36415; 80053; 84153; 85025

== ENCOUNTER → 2022-04-11 16:32 | Outpatient (CLI) | payer MEDICARE, SELFPAY ==
--- NOTE | 2022-04-11 16:35 | DI.RAD.S_ITS ---
PROCEDURE: XR KNEE LT 3V INDICATIONS: Eval L knee TECHNIQUE: 3 views of the knee were acquired. COMPARISON: None. FINDINGS: Bones: No fractures or dislocations. No suspicious bony lesions. Mild degenerative joint disease is present. There is a small osteochondroma in the proximal fibular metaphysis. Soft tissues: No joint effusion. No suspicious soft tissue calcifications. IMPRESSION: 1. Mild degenerative joint disease. 2. And small osteochondroma in the proximal fibular metaphysis. If there is focal pain and tenderness, MRI with and without contrast would be helpful for further evaluation. Dictated by: Jefry Edmond M.D. on 04/11/2022 at 16:50 Approved by: Jefry Edmond M.D. on 04/11/2022 at 16:52
== END ==
PROVIDERS: Family Provider Family Medicine; PCP Family Medicine; Referring Provider Family Medicine; Visit Provider Family Medicine
DX: M17.12 Unilateral primary osteoarthritis, left knee (principal); D16.22 Benign neoplasm of long bones of left lower limb; M25.562 Pain in left knee
CPT/HCPCS: 73562

== ENCOUNTER 2022-04-25 13:19 | Emergency (ER) | payer MEDICARE, SELFPAY ==
[2022-04-25] VITALS (9 sets, daily range): BP systolic 126–146; BP diastolic 76–87; PULSE 68–83; RESP 16–23; TEMP 36.7; O2SAT 96–99; BMI 26.7
[2022-04-25] MEDS: SODIUM CHLORIDE 0.9% 1,000 ML 1000 ML IV (14:08)
[2022-04-25 14:10] LABS: Add Manual Diff / Slide Review NO; Basophils Absolute Auto 100 /uL (0-100); Basophils Percent Auto 1.2 % (0-2); Eosinophils Absolute Auto 100 /uL (0-450); Eosinophils Percent Auto 1.5 % (2-4); Hematocrit 45.6 % (41-53); Hemoglobin 15.5 g/dL (13.5-17.5); Lymphocytes Absolute Auto 1300 /uL (1100-4500); Lymphocytes Percent Auto 23.4 % (25-40); Mean Corpuscular HGB Conc 33.9 % (30-36); Mean Corpuscular Hemoglobin 31.5 PG (26-34); Mean Corpuscular Volume 92.9 fL (80-100); Monocytes Absolute Auto 500 /uL (0-900); Monocytes Percent Auto 9.9 % (3-14); Neutrophils Absolute Auto 3500 /uL (1500-7000); Platelet Count 160 X10^3/uL (150-400); Red Blood Cell Count 4.91 X10^6/uL (4.5-5.9); Red Cell Distribution Width 13.2 % (11.6-14.8); White Blood Cell Count 5.5 X10^3/uL (4.5-11.0)
[2022-04-25] MEDS: ONDANSETRON 4 MG/2 ML INJ IV (14:12)
[2022-04-25 14:14] LABS: Influenza A - CEPHEID Flu A NEGATIVE (NEGATIVE); Influenza B - CEPHEID Flu B NEGATIVE (NEGATIVE); Respiratory Syncytial Virus Negative (Negative)
[2022-04-25 14:18] LABS: COVID-19 CEPHEID 4-PLEX PCR Negative (Negative)
[2022-04-25 14:24] LABS: Alanine Aminotransferase 25 IU/L (<50); Albumin 4.2 g/dL (3.5-5.0); Albumin Globulin Ratio 1.4 (1.0-2.8); Alkaline Phosphatase 63 U/L (38-126); Aspartate Aminotransferase 25 IU/L (17-59); BUN Creatinine Ratio 20.8 (6-22); Bilirubin Total 0.5 mg/dL (0.2-1.3); Blood Urea Nitrogen 21 mg/dL (9-20); Calcium 8.6 mg/dL (8.4-10.2); Carbon Dioxide 27 mmol/L (22-32); Chloride 103 mmol/L (98-107); Creatine Kinase 72 U/L (55-170); Estimated Glomerular Filt Rate > 60 mL/min (>60); Globulin 3.1 g/dL (1.7-4.1); Glucose 91 mg/dL (80-110); HEMOLYSIS 20 (0-50); Lipase 108 U/L (23-300); Potassium 4.4 mmol/L (3.4-5.1); Sodium 139 mmol/L (137-145); Total Protein 7.3 g/dL (6.3-8.2)
--- NOTE | 2022-04-25 14:33 | DI.CT.S_ITS ---
PROCEDURE: CT ANGIO HEAD AND NECK INDICATIONS: Ataxia TECHNIQUE: Pre-contrast 4.5 mm thick sections acquired from the foramen magnum to the vertex. After the administration of intravenous contrast, 1 mm thick sections acquired from the aortic arch through the [place] of [place]. Post-contrast 4.5 mm thick sections then re-acquired from the foramen magnum to the vertex. 3-dimensional ibgaewb-wuonwasuz-hzaiyprveb (MIP) and/or volume rendering reformats were acquired of the central intracranial vasculature and neck separately. For radiation dose reduction, the following was used: automated exposure control, adjustment of mA and/or kV according to patient size. COMPARISON: None. FINDINGS: Image quality: Mild streak artifact can be seen through the skull base. BRAIN: CSF spaces: Ventricles are normal in size and shape. Basal cisterns are patent. No extra-axial fluid collections. Brain: No midline shift. No intracranial bleeds or masses. [place]-white matter interface appears intact. Skull and face: Calvarium and facial bones appear intact, without suspicious lesions. Orbits appear normal. Sinuses: Moderate mucosal thickening is seen within the left maxillary sinus. The paranasal sinuses otherwise are unremarkable. No abnormal fluid is seen within the mastoid air cells. HEAD CT ANGIOGRAPHY: Anterior circulation: Intracranial internal carotid arteries are normal in size and flow. There is a hypoplastic right A1 segment, with a corresponding robust left A1 segment. This is considered to be a normal developmental variant of the [place] of [place], of typically no clinical consequence. The flow within the paired anterior cerebral arteries is otherwise normal and symmetric. The flow within the middle cerebral arteries is normal and symmetric. The anterior communicating artery is seen. No aneurysms are seen. Posterior circulation: Visualized portions of the vertebral arteries demonstrate normal caliber, and join to form a normal appearing basilar artery. Flow within the posterior cerebral arteries is normal and symmetric. No aneurysms are seen. NECK CT ANGIOGRAPHY: Carotid system: The great vessels demonstrate a conventional anatomy as they arise from the aortic arch. The origins of the common carotid arteries appear patent. The common carotid arteries demonstrate normal caliber and courses. The bifurcation regions are both widely patent. The internal carotid arteries demonstrate normal calibers and courses. Posterior circulation: The origins of the vertebral arteries both appear widely patent. The more superior extracranial portions of both vertebral arteries also demonstrate normal courses and calibers. They join to form a normal appearing basilar artery. Soft tissues: Visualized neck soft tissues demonstrate no suspicious abnormalities. Bones: No suspicious bony lesions. Visualized cervical spine appears normally aligned. Anterior fixation hardware can be seen C3 through C5. A disc spacer is seen at C5-C6. Partially bridging anterior osteophytes are seen at C2-C3 and at C6-C7. Dextroconvex cervical thoracic scoliotic curvature is seen. IMPRESSION: No significant intracranial arterial abnormality is seen. Within the arteries of the neck, no hemodynamically significant stenosis can be seen. No acute intracranial hemorrhage is seen. No acute intracranial process is seen. Additional findings: Focal moderate left maxillary sinus disease Cervical spine postoperative and degenerative change Any quantitative measurements of stenosis were performed using NASCET criteria. Dictated by: Nickolas Mendoza M.D. on 04/25/2022 at 14:11 Approved by: Nickolas Mendoza M.D. on 04/25/2022 at 14:14
[2022-04-25 14:36] LABS: Troponin I < 0.012 ng/mL (0.01-0.034)
--- NOTE | 2022-04-25 14:38 | ED_ITS ---
HPI - Nausea/Vomiting/Diarrhea General Chief complaint: Nausea/Vomiting/Diarrhea Stated complaint: vertigo, shakey, lethargic, nausea x6 days Time Seen by Provider: 04/25/22 13:59 Source: patient Mode of arrival: Ambulatory History of Present Illness HPI Narrative: Patient brought here from home by for complaints 6 days of dizziness nausea. Ongoing for the past 6 days. Is constant. Feels like the room is spinning. Worse with looking to the left. Patient states this feels exactly the same as his past vertigo experience. Never had head CT for this. Patient and deny deny any slurred speech facial droop or unilateral limb weakness or numbness or tingling. No altered mental status. Does have slight headache but patient states he is just feeling exhausted. He is still able to eat and drink. He states he does not recall meclizine helping him for his past episode. Patient in no distress at this time. Fast exam is negative . Denies any black or bloody stools Patient has CT scan head without contrast this upcoming Thursday ordered by primary care for forgetfulness Related Data Previous Rx's Medication Instructions Recorded atorvastatin 10 mg tablet See Rx Instructions .Route 01/20/22 .COMPLEX #90 tabs trazodone 50 mg tablet See Rx Instructions .Route 01/30/22 .COMPLEX #90 tabs zolpidem 10 mg tablet 10 mg PO BEDTIME PRN insomnia #30 04/03/22 tabs meclizine 25 mg tablet 25 mg PO QID PRN dizziness #20 tabs 04/25/22 ondansetron 4 mg disintegrating 4 mg PO Q8H PRN nausea and 04/25/22 tablet vomiting #15 tabs sildenafil 100 mg tablet 100 mg PO DAILY PRN sexual 04/28/22 activity #30 tabs Allergies Allergy/AdvReac Type Severity Reaction Status Date / Time metronidazole [From Flagyl] Allergy Nauseated, Verified 04/28/22 16:21 extreme metal taste in mouth Review of Systems Review of Systems Narrative: GENERAL: negative chills, fatigue, malaise, fever, sweats. HEENT: negative sinus pain, ear pain, sore throat RESPIRATORY: negative dyspnea, cough CARDIOVASCULAR: negative chest pain, palpitations GASTROINTESTINAL: Positive nausea, negative vomiting, abdominal pain : negative dysuria, frequency, hematuria MUSCULOSKELETAL: negative muscle or bony pain SKIN: negative rash, skin lesions NEUROLOGIC: negative weakness, numbness, positive dizziness, positive headache ROS Unobtainable: All systems reviewed & are unremarkable except as noted in HPI and below Patient History Medical History Chronic low back pain Cognitive decline Erectile dysfunction Hyperlipidemia Insomnia Left knee pain Osteoarthritis Osteoarthritis of midtarsal joint of right foot Preventative health care Right hamstring muscle strain Skin lesion Well adult exam Surgical History History of foot surgery Family History Father Coronary heart disease Social History household members: spouse Smoking Status: Never smoker alcohol intake: former Smoking Status: Never smoker alcohol intake frequency: holidays/special occasions only Substance Use Type: does not use Exam Narrative Exam Narrative: GENERAL: in no distress, not toxic not dyspneic HEAD: Normocephalic. EYES: Pupils equal round, there is horizontal nystagmus ENT: Mucous membranes moist. NECK: Trachea midline. CARDIOVASCULAR: Regular rate and rhythm without murmurs RESPIRATORY: Clear to auscultation. Breath sounds equal bilaterally. No wheezes, rales, or rhonchi. GASTROINTESTINAL: Abdomen soft, non-tender EXTREMITIES: No gross deformities. BACK: No flank tenderness. NEURO: AOx4. 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 Negative pronator drift. Whpiec-qc-[id number] aigk-of-ushu are intact SKIN: Warm and dry PSYCH: Not anxious, is cooperative Initial Vital Signs Initial Vital Signs: Vital Signs Temperature 98.1 F 04/25/22 13:25 Pulse Rate 83 04/25/22 13:25 Respiratory Rate 16 04/25/22 13:25 Blood Pressure 146/82 H 04/25/22 13:25 Pulse Oximetry 98 04/25/22 13:25 Oxygen Delivery Method 04/25/22 13:25 Scores NIH Stroke Scale Level of Conciousness: Alert, keenly responsive Ask month/age: Answers both questions correctly. Open/close eyes, close hand: Performs both tasks correctly Best gaze horizontal: Normal Visual [place]: No visual loss Facial palsy: Normal symetrical movement Left arm drift: No drift for full 10 sec Right arm drift: No drift for full 10 sec Left leg drift: No drift for full 5 sec Right leg drift: No drift for full 5 sec Limb ataxia: Absent Sensory on face/arms/legs: Normal, no sensory loss Best language: No aphasia, normal Dysarthria: Normal Extinction or inattention: No abnormality Total NIH Stroke scale score: 0 Course Orders Ordered: Discontinued Medications Sodium Chloride (Normal Saline 0.9%) 1,000 mls @ 1,000 mls/hr IV BOLUS ONE Stop: 04/25/22 14:52 Last Infusion: 04/25/22 16:45 Dose: 0 mls/hr Documented By: Admin: 04/25/22 14:08 Dose: 1,000 mls/hr Documented By: CHANEL Meclizine HCl (Meclizine Hcl 12.5 Mg Tablet) 50 mg PO NOW ONE Stop: 04/25/22 14:34 Last Admin: 04/25/22 15:05 Dose: 50 mg Documented By: EDI Ondansetron HCl (Ondansetron 4 Mg/2 Ml Inj) 4 mg IV NOW PRN PRN Reason: Nausea And Vomiting Last Admin: 04/25/22 14:12 Dose: 4 mg Documented By: CHANEL Vital Signs Vital signs: Vital Signs - 8 hr 04/25/22 13:25 04/25/22 14:14 04/25/22 14:15 Temperature 98.1 F Pulse Rate 83 73 Respiratory Rate 16 Blood Pressure 146/82 H 127/81 Pulse Oximetry 98 97 Oxygen Delivery Method Room Air 04/25/22 14:30 04/25/22 14:30 04/25/22 14:53 Temperature Pulse Rate 71 74 Respiratory Rate Blood Pressure 131/87 Pulse Oximetry 98 98 Oxygen Delivery Method 04/25/22 14:53 04/25/22 15:00 04/25/22 15:01 Temperature Pulse Rate 71 Respiratory Rate Blood Pressure 143/77 H 135/80 Pulse Oximetry 99 Oxygen Delivery Method 04/25/22 15:01 04/25/22 15:30 04/25/22 15:30 Temperature Pulse Rate 72 74 Respiratory Rate Blood Pressure 126/76 Pulse Oximetry 98 96 Oxygen Delivery Method 04/25/22 16:00 04/25/22 16:00 Temperature Pulse Rate 68 Respiratory Rate 23 Blood Pressure 146/83 H Pulse Oximetry 98 Oxygen Delivery Method MDM - Nausea/Vomiting/Diarrhea Lab Data 04/25/22 14:00 04/25/22 14:00 Labs: Lab Results 04/25/22 04/25/22 04/25/22 Range/Units 13:30 14:00 14:00 WBC 5.5 (4.5-11.0) X10^3/uL RBC 4.91 (4.5-5.9) X10^6/uL Hgb 15.5 (13.5-17.5) g/dL Hct 45.6 (41-53) % MCV 92.9 (80-100) fL MCH 31.5 (26-34) PG MCHC 33.9 (30-36) % RDW 13.2 (11.6-14.8) % Plt Count 160 (150-400) X10^3/uL Neut % (Auto) 64.0 (50-75) % Lymph % (Auto) 23.4 L (25-40) % [place] % (Auto) 9.9 (3-14) % Eos % (Auto) 1.5 L (2-4) % Baso % (Auto) 1.2 (0-2) % Neut # (Auto) 3500 (1111-7952) /uL Lymph # (Auto) 1300 (7619-6587) /uL [place] # (Auto) 500 (0-900) /uL Eos # (Auto) 100 (0-450) /uL Baso # (Auto) 100 (0-100) /uL Sodium 139 (137-145) mmol/L Potassium 4.4 (3.4-5.1) mmol/L Chloride 103 (98-107) mmol/L Carbon Dioxide 27 (22-32) mmol/L BUN 21 H (9-20) mg/dL Creatinine 1.01 (0.66-1.25) mg/dL Estimated GFR > 60 (>60) mL/min BUN/Creatinine Ratio 20.8 (6-22) Glucose 91 (80-110) mg/dL Lactate (0.7-2.1) mmol/L Calcium 8.6 (8.4-10.2) mg/dL Total Bilirubin 0.5 (0.2-1.3) mg/dL AST 25 (17-59) IU/L ALT 25 (<50) IU/L Alkaline Phosphatase 63 (38-126) U/L Total Creatine Kinase (55-170) U/L CK-MB (CK-2) CK-MB (CK-2) Rel Index Troponin I (0.01-0.034) ng/mL Total Protein 7.3 (6.3-8.2) g/dL Albumin 4.2 (3.5-5.0) g/dL Globulin 3.1 (1.7-4.1) g/dL Albumin/Globulin Ratio 1.4 (1.0-2.8) Lipase 108 (23-300) U/L Procalcitonin (<0.5) ng/mL SARS-CoV-2 (PCR) Negative (Negative) Influenza A (RT-PCR) Flu a negative (NEGATIVE) Influenza B (RT-PCR) Flu b negative (NEGATIVE) RSV (PCR) Negative (Negative) 04/25/22 04/25/22 04/25/22 Range/Units 14:00 14:00 14:00 WBC (4.5-11.0) X10^3/uL RBC (4.5-5.9) X10^6/uL Hgb (13.5-17.5) g/dL Hct (41-53) % MCV (80-100) fL MCH (26-34) PG MCHC (30-36) % RDW (11.6-14.8) % Plt Count (150-400) X10^3/uL Neut % (Auto) (50-75) % Lymph % (Auto) (25-40) % [place] % (Auto) (3-14) % Eos % (Auto) (2-4) % Baso % (Auto) (0-2) % Neut # (Auto) (9854-6056) /uL Lymph # (Auto) (6447-0457) /uL [place] # (Auto) (0-900) /uL Eos # (Auto) (0-450) /uL Baso # (Auto) (0-100) /uL Sodium (137-145) mmol/L Potassium (3.4-5.1) mmol/L Chloride (98-107) mmol/L Carbon Dioxide (22-32) mmol/L BUN (9-20) mg/dL Creatinine (0.66-1.25) mg/dL Estimated GFR (>60) mL/min BUN/Creatinine Ratio (6-22) Glucose (80-110) mg/dL Lactate 2.0 (0.7-2.1) mmol/L Calcium (8.4-10.2) mg/dL Total Bilirubin (0.2-1.3) mg/dL AST (17-59) IU/L ALT (<50) IU/L Alkaline Phosphatase (38-126) U/L Total Creatine Kinase 72 (55-170) U/L CK-MB (CK-2) TNP CK-MB (CK-2) Rel Index TNP Troponin I < 0.012 (0.01-0.034) ng/mL Total Protein (6.3-8.2) g/dL Albumin (3.5-5.0) g/dL Globulin (1.7-4.1) g/dL Albumin/Globulin Ratio (1.0-2.8) Lipase (23-300) U/L Procalcitonin 0.06 (<0.5) ng/mL SARS-CoV-2 (PCR) (Negative) Influenza A (RT-PCR) (NEGATIVE) Influenza B (RT-PCR) (NEGATIVE) RSV (PCR) (Negative) Point of Care Testing Glucose POC 84 Imaging Data CTA - brain/neck: Radiologist's Impression: [place] [address] CT Scan Report Signed Patient: Jeffrey Zuluaga MR#: [id number] : 1955 Acct:[id number] Age/Sex: 67 / M Date of Service: 04/25/22 Loc: ED Accession Number: [id number] ?? Procedure: CT angio head and neck Ordering Provider: Jhonny Ryan MD PROCEDURE:? CT ANGIO HEAD AND NECK ? INDICATIONS:? Ataxia ? TECHNIQUE:? Pre-contrast 4.5 mm thick sections acquired from the foramen magnum to the vertex.? After the administration of intravenous contrast, 1 mm thick sections acquired from the aortic arch through the [place] of [place].? Post-contrast 4.5 mm thick sections then re-acquired from the foramen magnum to the vertex.? 3-dimensional qzwwlng-coezgkdad-vdhnftimjy (MIP) and/or volume rendering reformats were acquired of the central intracranial vasculature and neck separately. For radiation dose reduction, the following was used:? automated exposure control, adjustment of mA and/or kV according to patient size.? ? COMPARISON:? None. ? FINDINGS:? Image quality:? Mild streak artifact can be seen through the skull base. ? BRAIN:? CSF spaces:? Ventricles are normal in size and shape.? Basal cisterns are patent.? No extra-axial fluid collections.? ? Brain:? No midline shift.? No intracranial bleeds or masses.? Murray-white matter interface appears intact.? ? Skull and face:? Calvarium and facial bones appear intact, without suspicious lesions.? Orbits appear normal.? ? Sinuses:? Moderate mucosal thickening is seen within the left maxillary sinus.? The paranasal sinuses otherwise are unremarkable. No abnormal fluid is seen within the mastoid air cells. ? ? HEAD CT ANGIOGRAPHY:? Anterior circulation:? Intracranial internal carotid arteries are normal in size and flow. There is a hypoplastic right A1 segment, with a corresponding robust left A1 segment.? This is considered to be a normal developmental variant of the [place] of [place], of typically no clinical consequence. ? The flow within the paired anterior cerebral arteries is otherwise normal and symmetric.? The flow within the middle cerebral arteries is normal and symmetric.? The anterior communicating artery is seen.? No aneurysms are seen.? ? Posterior circulation:? Visualized portions of the vertebral arteries demonstrate normal caliber, and join to form a normal appearing basilar artery.? Flow within the posterior cerebral arteries is normal and symmetric.? No aneurysms are seen.? ? NECK CT ANGIOGRAPHY:? Carotid system:? The great vessels demonstrate a conventional anatomy as they arise from the aortic arch.? The origins of the common carotid arteries appear patent.? The common carotid arteries demonstrate normal caliber and courses.? The bifurcation regions are both widely patent.? The internal carotid arteries demonstrate normal calibers and courses.? ? Posterior circulation:? The origins of the vertebral arteries both appear widely patent.? The more superior extracranial portions of both vertebral arteries also demonstrate normal courses and calibers.? They join to form a normal appearing basilar artery.? ? Soft tissues:? Visualized neck soft tissues demonstrate no suspicious abno rmalities.? ? Bones:? No suspicious bony lesions.? Visualized cervical spine appears normally aligned.? Anterior fixation hardware can be seen C3 through C5.? A disc spacer is seen at C5-C6.? Partially bridging anterior osteophytes are seen at C2-C3 and at C6-C7.? Dextroconvex cervical thoracic scoliotic curvature is seen. ? ? IMPRESSION:? No significant intracranial arterial abnormality is seen.? ? Within the arteries of the neck, no hemodynamically significant stenosis can be seen. ? ? No acute intracranial hemorrhage is seen.? ? No acute intracranial process is seen.? Additional findings:? Focal moderate left maxillary sinus disease Cervical spine postoperative and degenerative change ? Any quantitative measurements of stenosis were performed using NASCET criteria.? ? ? Dictated by: Nickolas Mendoza M.D. on 04/25/2022 at 14:11 ? ? Approved by: Nickolas Mendoza M.D. on 04/25/2022 at 14:14 ? [facility] Narrative Medical decision making narrative: Patient brought here from home by for complaints 6 days of dizziness nausea. Ongoing for the past 6 days. Is constant. Feels like the room is spinning. Worse with looking to the left. Patient states this feels exactly the same as his past vertigo experience. Never had head CT for this. Patient and deny deny any slurred speech facial droop or unilateral limb weakness or numbness or tingling. No altered mental status. Does have slight headache but patient states he is just feeling exhausted. He is still able to eat and drink. He states he does not recall meclizine helping him for his past episode. Patient in no distress at this time. Fast exam is negative. Denies any black or bloody stools Patient has CT scan head without contrast this upcoming Thursday ordered by primary care for forgetfulness After history and exam CBC CMP troponin EKG CT angio head and neck, Zofran normal saline ordered [facility] CC: Dizziness nausea Complicating co-morbidities: Negative Data collected from: Patient and Medical records reviewed: No previous visits here for this complaint. Patient was seen out of state for his last episode Differential considered: Includes but not limited to stroke/TIA/vertigo/dehydration/anemia Exam documented above, pertinent findings include: Horizontal nystagmus Lab Test results independently reviewed as above. Pertinent findings: WBC 5.5 hemoglobin 15.5 hematocrit 45.6 sodium 139 potassium 4.4 bicarb 27 glucose 91 AST 25 ALT 25, viral swab negative Independently reviewed EKG as above sinus rhythm rate [address] elevation or depression. Otherwise normal EKG Imaging studies independently reviewed: CT angiogram head and neck no acute process Consultations: 3:50 p.m.. Spoke with primary care provider, Dr. Elizalde, informed him patient is here and reviewed laboratory studies and imaging with him. At this time clinically likely vertigo. Described to him the shaking events I witnessed, as well as staff. Patient did improve with orange juice. Patient's dizziness resolved with meclizine. He will see patient next week for re-evaluation. Treatments: Meclizine Zofran normal saline Re-evaluations: 3:40 p.m.. Patient developed shaking bilaterally but stayed awake. Shaking would last about 3 or 4 seconds and resolved very quickly. Patient had no altered mental status. Blood sugar 84. Temperature 98.0? patient felt much better after orange juice. Patient has been on a keto diet he states. He just started this week. I did inform them to not continue with the keto diet. Again, no loss of consciousness no seizure. 4:05 p.m.. No more shaking after orange juice and cheese sticks. Patient and desire discharge home. Return precautions reviewed with them. He states he did have eggs for breakfast this morning. He had a peanut butter and jelly sandwich for lunch around noon. Discussion: Appropriate for discharge home. Patient's symptoms resolved with meclizine. His shaking resolved with orange juice. I did review with patient as well as as well as primary care provider. L agree for follow up next week. Prescription for meclizine and Zofran sent to his pharmacy. Return precautions reviewed with him. He desires discharge home. Clinically is vertigo. Denies any hearing changes or vision changes otherwise Diagnosis: Vertigo Discharge Plan Departure Patient Disposition: Home Clinical Impression: Vertigo Instructions: DI for Vertigo Prescriptions: New ondansetron 4 mg tablet,disintegrating 4 mg PO Q8H PRN (Reason: nausea and vomiting) Qty: 15 0RF meclizine 25 mg tablet 25 mg PO QID PRN (Reason: dizziness) Qty: 20 0RF No Action atorvastatin 10 mg tablet See Rx Instructions .ROUTE .COMPLEX Qty: 90 3RF Dose Instruction: TAKE 1 TABLET BY MOUTH AT BEDTIME Rx Instructions: TAKE 1 TABLET BY MOUTH AT BEDTIME trazodone 50 mg tablet See Rx Instructions .ROUTE .COMPLEX Qty: 90 1RF Dose Instruction: TAKE 1 TABLET BY MOUTH AT BEDTIME Rx Instructions: TAKE 1 TABLET BY MOUTH AT BEDTIME zolpidem 10 mg tablet 10 mg PO BEDTIME PRN (Reason: insomnia) Qty: 30 2RF sildenafil 100 mg tablet 100 mg PO DAILY PRN (Reason: sexual activity) Qty: 30 3RF Rx Instructions: administer 30 minutes to 4 hours before activity Referrals: Saulo Elizalde DO [Primary Care Provider] - Stand Alone Forms: Patient Portal/API
[2022-04-25 14:40] LABS: Procalcitonin 0.06 ng/mL (<0.5)
[2022-04-25] MEDS: MECLIZINE HCL 12.5 MG TABLET 50 MG PO (15:05)
--- NOTE | 2022-04-25 15:08 | PC.NURSE ---
pt started ketogenic diet 6 days ago. starting 6 days ago pt has not had BM since then and has been feeling nauseated, dizzy, and shaky. pt states he has this same feelings sometimes when he is working out in the yard and he usually feels better when he drinks OJ. this week it has been persistant with off and on vertigo. shaking seems to improve with the consumption of OJ.
--- NOTE | 2022-04-25 15:46 | PC.NURSE ---
pt started to having shaking while waiting in ER. physician notified. blood sugar checked, pt requested OJ and given, provider okayed. oral temp taken, 98.0F
== END 2022-04-25 16:46 | disposition home or self-care (01) ==
PROVIDERS: Emergency Provider Emergency Medicine; Family Provider Family Medicine; PCP Family Medicine
DX: R42 Dizziness and giddiness (principal); Z20.822 Contact with and (suspected) exposure to COVID-19
CPT/HCPCS: 0241U; 36415; 70496; 70498; 80053; 82550; 82962; 83605; 83690; 84145; 84484; 85025; 93005; 96361; 96374; 99284; J2405

== ENCOUNTER → 2022-10-15 08:10 | Outpatient (CLI) | payer MEDICARE, SELFPAY ==
[2022-10-15 08:28] LABS: Add Manual Diff / Slide Review NO; Basophils Absolute Auto 100 /uL (0-100); Basophils Percent Auto 1.2 % (0-2); Eosinophils Absolute Auto 100 /uL (0-450); Eosinophils Percent Auto 2.3 % (2-4); Hemoglobin 14.8 g/dL (13.5-17.5); Lymphocytes Absolute Auto 1400 /uL (1100-4500); Lymphocytes Percent Auto 30.8 % (25-40); Mean Corpuscular HGB Conc 35.2 % (30-36); Mean Corpuscular Hemoglobin 32.2 PG (26-34); Mean Corpuscular Volume 91.5 fL (80-100); Monocytes Absolute Auto 400 /uL (0-900); Monocytes Percent Auto 9.8 % (3-14); Neutrophils Absolute Auto 2500 /uL (1500-7000); Neutrophils Percent Auto 55.9 % (50-75); Platelet Count 145 X10^3/uL (150-400); Red Blood Cell Count 4.59 X10^6/uL (4.5-5.9); Red Cell Distribution Width 13.4 % (11.6-14.8); White Blood Cell Count 4.4 X10^3/uL (4.5-11.0)
[2022-10-15 08:45] LABS: Alanine Aminotransferase 23 IU/L (<50); Albumin Globulin Ratio 1.5 (1.0-2.8); Alkaline Phosphatase 55 U/L (38-126); Aspartate Aminotransferase 26 IU/L (17-59); BUN Creatinine Ratio 17.3 (6-22); Bilirubin Total 0.6 mg/dL (0.2-1.3); Blood Urea Nitrogen 18 mg/dL (9-20); Calcium 8.8 mg/dL (8.4-10.2); Carbon Dioxide 25 mmol/L (22-32); Chloride 105 mmol/L (98-107); Cholesterol 169 mg/dL (140-199); Estimated Glomerular Filt Rate > 60 mL/min (>60); Globulin 2.6 g/dL (1.7-4.1); Glucose 97 mg/dL (80-110); HDL Cholesterol 47 mg/dL (40-60); HEMOLYSIS < 15 (0-50); LDL Cholesterol Calculated 103 mg/dL (<100); Potassium 4.5 mmol/L (3.4-5.1); Sodium 137 mmol/L (137-145); Total Protein 6.6 g/dL (6.3-8.2); Triglycerides 97 mg/dL (35-150)
[2022-10-15 09:08] LABS: Prostate Specific Antigen Scrn 2.08 ng/mL (0.1-4.0)
[2022-10-15 09:10] LABS: TSH w/ Reflex to FT4 1.98 uIU/mL (0.47-4.68)
== END ==
PROVIDERS: Family Provider Family Medicine; PCP Family Medicine; Referring Provider Family Medicine; Visit Provider Family Medicine
DX: E78.5 Hyperlipidemia, unspecified (principal); Z12.5 Encounter for screening for malignant neoplasm of prostate; G47.00 Insomnia, unspecified; Z00.00 Encounter for general adult medical examination without abnormal findings
CPT/HCPCS: 36415; 80053; 80061; 84443; 85025; G0103

== ENCOUNTER 2023-03-18 09:00 | Outpatient (RCR) | payer MEDICARE, SELFPAY ==
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
--- NOTE | 2023-01-07 18:02 | PT.OPPOC ---
Addendum entered and electronically signed by Ladan James PT 01/08/23 07:43: PT direct supervision and direction to PT student. Original Note: Physical, Occupational & Speech Therapy At Current Diagnoses Pain in left knee (01/07/23) Visit Care Team Role Provider Type Saulo Elizalde DO Family Provider Physician Primary Care Provider Specialty: Family Practice Address: [address] [place] [address], [id number] Email: [email or web address] Henok Osman MD Attending Provider Non-Staff Referring Provider Specialty: Sports Medicine Address: [address] [place] [address], [address] Email: Plan Of Care PT-OP-T Assessment and Plan Start: 01/06/23 17:16 Freq: Status: Active Protocol: Document 01/07/23 12:10 BS (Rec: 01/07/23 16:38 BS [id number]) Physical Therapy Assessment Rehab Potential Rehabilitation Potential Good Evaluation Complexity Number of Personal Factors/Comorbidities 3 or More Number of Body Systems Impaired 4 or More Clinical Presentation at Evaluation Evolving Impairments Impairments Activity Tolerance,Balance, Functional Activities, Functional Mobility,Gait,Pain, Soft Tissue Mobility,Strength Goals Walking Impairment Pt currently walking 1x/wk when baseline is 5-6x/wk and unable to walk hills. Short Term Goal (STG) pt will report completing walks 3x/wk to show improvement in activity tolerance throughout the week. STG Duration 02/11/23 Prison Goal (LTG) Pt will report going on 4-5 walks/wk with small hills with no inc in pain in L knee in order to show improvement in daily functional activity and get pt back to baseline activity level w/o increase in pain. LTG Duration 03/18/2022 Stairs Impairment pain with going up & down stairs Short Term Goal (STG) Pt will report no more than 4/ 10 pain when going up/down stairs in order to show dec in pain with functional activities. STG Duration 02/11/23 Concrete Foreman Goal (LTG) Pt will report no more than 2/ 10 pain with going up/down stairs and be able to ascend & descend with reciprocal steps in order to shwo more functional pattern and dec pain during necessary daily functional mobility LTG Duration 03/18/22 Strength Short Term Goal (STG) Pt will be independent with HEP in order to progress strength safely and appropriately inbetween PT visits. STG Duration 02/11/23 Prison Goal (LTG) Pt will score > 4/5 on all hip MMT to show improvement in BLE strength in order to reduce compensations during daily functional activties and inc stability in L knee. LTG Duration 03/18/22 Assessment Summary Assessment Pt presents to PT today with complaints of L knee pain that began early october after falling through a porch. PMHx of multiple vertebral fxs, L fibular fx that diagnosed years later, and R ankle reconstruction. Pt MRi showed some small tearing in L quad tendon and tricompartment OA. Pt pain worse with walking hills, going up/down stairs, and squatting. Pain is usually best in morning and gets worse with activity. Pt enjoys hiking, playing with grandkids, golfing, and fishing in freetime and is not able to do most activities d/ t L knee pain. Testing was inconclusive for meniscus involvement, but s/sx were consistent with MRI for quad tear. Joint effusion noted with sweep test. Pt has pain mainly superior & medial to patella and had pain with L hip flex MMT and prone knee bend. Pt will benefit from skilled PT to address these deficits and increase strength , stability, and overall mechanics during functional activities. Physical Therapy Plan Frequency and Duration Frequency of Treatment 2x/Week Duration of treatment (weeks) 10 Plan of Care Start Date 01/07/23 Plan of Care End Date 03/18/23 Therapeutic Interventions Therapeutic Interventions Balance Training,Coordination Training,Gait Training,Home Exercise Program,Joint Mobilizations,Manual Therapy, Neuromuscular Re-education, Patient/Caregiver Education, Self-Care/Home Management,Soft Tissue Mobilization,Taping, Therapeutic Activities, Therapeutic Exercises Modalities Cold Pack/Ice Massage,Electric Stimulation,Hot Packs, Infrared Therapy,Ultrasound Next Visit Focus/Plan Next Note Type Treatment Note Next Visit Plan Strength: introduce isometrics for quads, hip abd- banded mini squats, SL hip abd, banded side steps, hamstring curls with band, leg press, terminal knee ext Discuss what his gym routine looks like and modify to appropriate exercises. Manual: STM to quad- assess jayden, ITBettye, sudhir, look at hip Plan of Care Dates Plan of Care Start Date 01/07/23 Plan of Care End Date 03/18/23 Electronically Signed by: Janelle Read 01/07/23 0196 If you are in agreement with this Plan of Care, please return a signed and dated copy. I have reviewed this Plan of Care and certify that the skilled therapy services above are required to meet the patient?s needs. Physician Signature Date Printed Name and Credentials Clinical Instructor Signature Printed Name and Credentials
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
== END 2023-03-20 13:05 | disposition home or self-care (01) ==
LOC: PHYS 09:00
PROVIDERS: Family Provider Family Medicine; PCP Family Medicine; Referring Provider Orthopaedic Surgery Sports Medicine; Visit Provider Orthopaedic Surgery Sports Medicine
DX: M25.562 Pain in left knee (principal)
CPT/HCPCS: 97110; 97112; 97116; 97140; 97162; 97535

== ENCOUNTER → 2023-07-22 07:37 | Outpatient (CLI) | payer MEDICARE, SELFPAY ==
--- NOTE | 2023-07-22 19:31 | DI.NM.S_ITS ---
DATE OF SERVICE: 07/22/2023 PROCEDURE: Exercise stress test INDICATIONS: Hyperlipidemia, exertional shortness of breath, fatigue, chest discomfort. CARDIAC STRESS: The patient underwent exercise stress test under the supervision of an attending staff. He walked on Asael protocol for 7 minutes and 21 seconds, achieved maximum heart rate of 129, which was 86% of target heart rate. Resting blood pressure 115/80 and peak blood pressure 160/82 mmHg. Baseline rhythm was sinus. During stress, no convincing ischemic changes seen. Only one PVC seen. The patient had mild chest discomfort, which was on a scale of 1 to 10, 5 in intensity at peak exercise and resolved within 2 minutes of rest. No ischemic EKG changes or significant arrhythmias at that time. Also had shortness of breath. CONCLUSION: Exercise stress test is negative for inducible ischemia. Fair exercise tolerance. Normal hemodynamic response. No ischemic EKG changes during chest discomfort or during exercise. Only one PVC without any complex arrhythmias. Also had shortness of breath. Overall, low-risk exercise stress test; however, due to exertional chest discomfort, we will recommend repeating exercise stress test with imaging modality like perfusion study or stress echo for further evaluation. Jeffrey Zuluaga - ROBERTO CARLOS/[facility] doc#: [id number]/job#: [id number] dd: 07/22/2023 12:59:00 dt: 07/22/2023 19:09:00 DICTATING /COPIES TO: David Monzon MD; Dr. Elizalde COPIES MNE: SUSHIL; ; Dr. Elizalde
== END ==
PROVIDERS: Family Provider Family Medicine; PCP Family Medicine; Referring Provider Family Medicine; Visit Provider Family Medicine
DX: I20.89 Other forms of angina pectoris; T73.3XXA Exhaustion due to excessive exertion, initial encounter; Z82.49 Family history of ischemic heart disease and other diseases of the circulatory system
CPT/HCPCS: 93017

== ENCOUNTER → 2023-10-14 08:53 | Outpatient (CLI) | payer MEDICARE, SELFPAY ==
--- NOTE | 2023-10-14 08:54 | DI.ECHO.S_ITS ---
[facility] : : [address] : [facility] : : [place], : : [place] [address] : : Phone: [phone] Echocardiogram Report + + :Name: LILLIANA DRISCOLL Study Date: 10/14/2023 Height: 68 in : :[facility] ReadingLocation: Weight: 175 lb : : Gender: Male BSA: 1.9 m2 : :: 1955 Age: 68 yrs BP: 158/89 mmHg: :Reason For Study: FAMILY HISTORY OF ISCHEMIC HEART DISEASE : :Ordering Physician: MIAN, : :JOSE Performed By: Jd Quan : :Referring: JOSE PAPPAS : + + Interpretation Summary Uncontrolled hypertension; normal sinus rhythm. Normal LV size, wall thickness, wall motion and LV systolic function. Ejection fraction 60-65%. Mild left atrial enlargement; otherwise normal chamber sizes. Aortic sclerosis without stenosis; otherwise no significant valvular abnormalities. No prior study available for comparison. Procedure: A two-dimensional transthoracic echocardiogram with color flow and Doppler was performed. The study quality was technically adequate. There is no prior echocardiogram noted for this patient. The patient was in sinus rhythm with heart rates between 62-71 bpm during the exam. Left Ventricle: The left ventricle is normal in size and wall thickness. The ejection fraction is estimated to be 60-65%. Right Ventricle: The right ventricle is normal size. The right ventricular systolic function is normal. Atria: The left atrium is mildly dilated. Right atrial size is normal. The interatrial septum grossly appears intact with no obvious evidence for an atrial septal defect. Mitral Valve: The mitral valve is normal. There is no mitral valve stenosis. There is trace mitral regurgitation. Aortic Valve: The aortic valve is trileaflet. There is no aortic valve stenosis. No aortic regurgitation is present. Tricuspid Valve: The tricuspid valve is normal. There is no tricuspid stenosis. There is mild tricuspid regurgitation. Pulmonary artery pressures cannot be estimated because of the lack of a measurable TR jet velocity. Pulmonic Valve: The pulmonic valve is not well visualized. There is no pulmonic valvular stenosis. There is no pulmonic valvular regurgitation. Great Vessels: The aortic root is normal size. The dimensions of the ascending aorta are normal. The inferior vena cava was not visualized. Pericardium/ Pleura There is no pericardial effusion. There is no pleural effusion. MMode/2D Measurements & Calculations LVIDd: 4.5 cm LVOT diam: 2.2 cm LVIDs: 2.7 cm Ao root diam: 3.4 cm IVSd: 1.0 cm asc Aorta Diam: 3.2 cm LVPWd: 1.1 cm LV nuñez. diameter/BSA (cm/m^2): 2.3 LV sys. diameter/BSA (cm/m^2): 1.4 FS: 40.0 % LA A2 area: 22.3 cm2 RA long axis: 4.4 cm LA A4 area: 20.8 cm2 RA area: 15.0 cm2 LA length (vol): 6.2 cm RA vol: 42.9 ml LA vol: 63.5 ml RA : 22.2 ml/m2 LA vol index: 32.9 ml/m2 RVD1 (basal): 4.0 cm RVD2 (mid): 3.8 cm TAPSE: 2.7 cm Doppler Measurements & Calculations Ao V2 max: 183.7 cm/sec LVOT Max Harry: 152.5 cm/sec Ao V2 mean: 123.3 cm/sec LV V1 max P.3 mmHg Ao V2 VTI: 40.8 cm LV V1 VTI: 31.6 cm Ao max P.5 mmHg Ao mean P.9 mmHg CELIA(I,D): 3.0 cm2 MV E max harry: 76.9 cm/sec CELIA(V,D): 3.3 cm2 MV A max harry: 92.7 cm/sec CELIA indexed to BSA (cm^2/m^2): 1.6 MV E/A: 0.83 sev ratio: 0.77 Med Peak E' Harry: 7.4 cm/sec E/E' med: 10.4 Lat Peak E' Harry: 9.2 cm/sec E/E' lat: 8.4 E/e' average: 9.4 MV dec time: 0.16 sec TR max harry: 291.1 cm/sec TR max P.9 mmHg PA V2 max: 167.7 cm/sec SV(LVOT): 124.0 ml PA V2 mean: 104.9 cm/sec PA mean P.1 mmHg PA pr(Accel): 39.6 mmHg Electronically signed by: Julisa Woodson M.D. on Reading Physician:10/14/2023 05:19 PM
== END ==
LOC: ECHO 08:53
PROVIDERS: Family Provider Family Medicine; PCP Family Medicine; Referring Provider Family Medicine; Visit Provider Family Medicine
DX: I07.1 Rheumatic tricuspid insufficiency (principal); R68.89 Other general symptoms and signs; Z82.49 Family history of ischemic heart disease and other diseases of the circulatory system
CPT/HCPCS: 93306

== ENCOUNTER → 2023-10-22 14:02 | Outpatient (CLI) | payer MEDICARE, SELFPAY ==
[2023-10-22 14:24] LABS: Add Manual Diff / Slide Review NO; Basophils Absolute Auto 100 /uL (0-100); Basophils Percent Auto 0.9 % (0-2); Eosinophils Absolute Auto 100 /uL (0-450); Eosinophils Percent Auto 1.1 % (2-4); Hematocrit 41.4 % (41-53); Hemoglobin 14.2 g/dL (13.5-17.5); Lymphocytes Absolute Auto 1300 /uL (1100-4500); Lymphocytes Percent Auto 22.9 % (25-40); Mean Corpuscular HGB Conc 34.4 % (30-36); Mean Corpuscular Hemoglobin 32.2 PG (26-34); Mean Corpuscular Volume 93.6 fL (80-100); Monocytes Absolute Auto 600 /uL (0-900); Monocytes Percent Auto 10.4 % (3-14); Neutrophils Absolute Auto 3700 /uL (1500-7000); Neutrophils Percent Auto 64.7 % (50-75); Platelet Count 146 X10^3/uL (150-400); Red Blood Cell Count 4.42 X10^6/uL (4.5-5.9); White Blood Cell Count 5.8 X10^3/uL (4.5-11.0)
[2023-10-22 14:49] LABS: Alanine Aminotransferase 20 IU/L (<50); Albumin 3.9 g/dL (3.5-5.0); Albumin Globulin Ratio 1.6 (1.0-2.8); Alkaline Phosphatase 59 U/L (38-126); Aspartate Aminotransferase 24 IU/L (17-59); BUN Creatinine Ratio 18.1 (6-22); Bilirubin Total 0.6 mg/dL (0.2-1.3); Blood Urea Nitrogen 19 mg/dL (9-20); Calcium 9.2 mg/dL (8.4-10.2); Carbon Dioxide 27 mmol/L (22-32); Chloride 105 mmol/L (98-107); Estimated Glomerular Filt Rate > 60 mL/min (>60); Globulin 2.4 g/dL (1.7-4.1); Glucose 97 mg/dL (80-110); HEMOLYSIS < 15 (0-50); Potassium 4.9 mmol/L (3.4-5.1); Sodium 138 mmol/L (137-145); Total Protein 6.3 g/dL (6.3-8.2)
[2023-10-22 15:16] LABS: Prostate Specific Antigen Scrn 2.08 ng/mL (0.1-4.0)
== END ==
PROVIDERS: Family Provider Family Medicine; PCP Family Medicine; Referring Provider Physician Assistant; Visit Provider Physician Assistant
DX: R10.9 Unspecified abdominal pain (principal); Z12.5 Encounter for screening for malignant neoplasm of prostate
CPT/HCPCS: 36415; 80053; 85025; G0103

== ENCOUNTER → 2024-01-25 10:50 | Outpatient (CLI) | payer MEDICARE, SELFPAY ==
--- NOTE | 2024-01-25 10:51 | DI.RAD.S_ITS ---
PROCEDURE: XR SHOULDER LT MIN 2V INDICATIONS: L shoulder pain TECHNIQUE: Three views of the shoulder were acquired. COMPARISON: None. FINDINGS: Bones: There are no osseous abnormalities. Acromioclavicular and glenohumeral joints: Mild acromioclavicular and glenohumeral degeneration appreciated. 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 This can be treated nonsurgically by ultrasound-guided barbotage Dictated by: Raj Burnham M.D. on 01/26/2024 at 9:18 Approved by: Raj Burnham M.D. on 01/26/2024 at 9:20
== END ==
PROVIDERS: Family Provider Family Medicine; PCP Family Medicine; Referring Provider Family Medicine; Visit Provider Family Medicine
DX: M75.32 Calcific tendinitis of left shoulder (principal); M25.512 Pain in left shoulder
CPT/HCPCS: 73030

== ENCOUNTER → 2024-02-01 14:33 | Outpatient (CLI) | payer MEDICARE, SELFPAY ==
--- NOTE | 2024-02-01 | DI.CT.S_ITS ---
PROCEDURE: CT SINUS SCREEN WO CON INDICATIONS: ACUTE SINUSITIS TECHNIQUE: Noncontrast 3.0 mm axial images acquired from the frontal sinuses to the mid-sella, with coronal and sagittal reformats. For radiation dose reduction, the following was used: automated exposure control, adjustment of mA and/or kV according to patient size. COMPARISON: None. FINDINGS: Image quality: Excellent. Sinuses: Near complete opacification of the left maxillary sinus without fluid levels. Minimal mucosal thickening is present within the remaining sinuses. Ostiomeatal Complexes: Ostiomeatal complexes demonstrate significant mucosal thickening with near complete occlusion on the left. Miscellaneous: Visualized intra-orbital contents are normal. No asael bullosa or paradoxical turbinate curvature. Leftward nasal septal deviation. 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 Dictated by: Ailyn Jewell M.D. on 02/01/2024 at 17:38 Approved by: Ailyn Jewell M.D. on 02/01/2024 at 17:39
== END ==
PROVIDERS: Family Provider Family Medicine; PCP Family Medicine; Referring Provider Family Medicine; Visit Provider Family Medicine
DX: J01.90 Acute sinusitis, unspecified (principal)
CPT/HCPCS: 70486

== ENCOUNTER 2024-03-15 12:37 | Emergency (ER) | payer MEDICARE, SELFPAY ==
[2024-03-15 12:41] VITALS: BP 144/79; PULSE 78; RESP 16; TEMP 36.8; O2SAT 99; BMI 26.6
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
--- NOTE | 2024-03-15 13:37 | DI.CT.S_ITS ---
PROCEDURE: CT HEAD/BRAIN WO CON INDICATIONS: headache, neck pain TECHNIQUE: Noncontrast 4.5 mm thick angled axial sections acquired from the foramen magnum to the vertex, with coronal and sagittal reformats. For radiation dose reduction, the following was used: automated exposure control, adjustment of mA and/or kV according to patient size. COMPARISON: None. FINDINGS: Image quality: Diagnostic. CSF spaces: Basal cisterns are patent. No extra-axial fluid collections. The ventricles are symmetric in size and shape. Brain: No intracranial bleeds or masses. There is cerebral volume loss for age, with resultant ventricular and sulcal prominence. There are periventricular and deep white matter chronic small vessel ischemic changes. There is intracranial internal carotid artery atherosclerosis. Skull and face: Calvarium and visualized facial bones appear intact, without suspicious lesions. Sinuses: Bilateral mastoid air cells are well aerated. Opacification of left maxillary sinus is seen. IMPRESSION: 1. No acute intracranial pathology. 2. Opacification of left maxillary sinus, please correlate with CT sinus findings. Dictated by: Minesh Colon M.D. on 03/15/2024 at 14:32 Approved by: Minesh Colon M.D. on 03/15/2024 at 14:33
--- NOTE | 2024-03-15 13:37 | DI.CT.S_ITS ---
PROCEDURE: CT SINUS SCREEN WO CON INDICATIONS: headache, neck pain, s/p sinusitis TECHNIQUE: Noncontrast 3.0 mm axial images acquired from the frontal sinuses to the mid-sella, with coronal and sagittal reformats. For radiation dose reduction, the following was used: automated exposure control, adjustment of mA and/or kV according to patient size. COMPARISON: [facility], CT, CT SINUS SCREEN WO CON, 02/01/2024, 14:56. FINDINGS: Image quality: Excellent. Maxillary Sinuses: Near complete opacification of left maxillary sinus is again seen. Right maxillary sinus is well aerated. Ethmoid Air Cells: No bony remodeling or destruction. Sinuses are clear. Sphenoid Sinuses: No bony remodeling or destruction. Sinuses are clear. Frontal Sinuses: No bony remodeling or destruction. Sinuses are clear. Ostiomeatal Complexes: Again noted is significant mucosal thickening involving left ostiomeatal complex with near complete occlusion on the left side. Right ostiomeatal complex is patent. Miscellaneous: Visualized intra-orbital contents are normal. No asael bullosa or paradoxical turbinate curvature. Mild anterior nasal septal deviation to the left is seen. IMPRESSION: 1. Near complete occlusion of left ostiomeatal complex with near complete opacification of left maxillary sinus not significantly changed compared to previous study. 2. Rest of the paranasal sinuses are fairly well aerated. Mild anterior nasal septal deviation to the left. Dictated by: Minesh Colon M.D. on 03/15/2024 at 14:35 Approved by: Minesh Colon M.D. on 03/15/2024 at 14:39
--- NOTE | 2024-03-15 13:37 | DI.CT.S_ITS ---
PROCEDURE: CT CERVICAL SPINE WO CON INDICATIONS: headache, neck pain TECHNIQUE: Noncontrast 3 mm thick sections acquired from the skull base to the T4 level. Sagittal and coronal reformats were then constructed. For radiation dose reduction, the following was used: automated exposure control, adjustment of mA and/or kV according to patient size. COMPARISON: [facility], CT, CT ANGIO HEAD AND NECK, 04/25/2022, 14:34. FINDINGS: Image quality: Excellent. Bones: Post ACDF changes are noted at C3 through C6 levels. There is straightening of normal cervical lordosis. No gross hardware loosening or failure. Degenerative endplate changes, loss of disc height and bilateral uncovertebral hypertrophic changes are noted throughout cervical spine causing [id number] central canal stenosis and bilateral neural foraminal narrowing. No fractures or dislocations. Visualized superior ribs are intact. Soft tissues: Prevertebral soft tissues are normal in thickness. No paravertebral hematomas. No apical pneumothoraces. IMPRESSION: 1. Prior ACDF at C3 through C6 levels. Straightening of normal cervical lordosis. No acute fracture or dislocation. No gross hardware loosening or failure. 2. Spondylitic changes throughout cervical spine causing various degrees of central canal stenosis and bilateral neural foraminal narrowing. 3. No gross paraspinous soft tissue abnormalities. Dictated by: Minesh Colon M.D. on 03/15/2024 at 14:33 Approved by: Minesh Colon M.D. on 03/15/2024 at 14:35
[2024-03-15] MEDS: SODIUM CHLORIDE 0.9% 1,000 ML 1000 ML IV (13:49)
[2024-03-15] MEDS: DEXAMETHASONE 10 MG/ML VIAL IV (13:50)
[2024-03-15] MEDS: METOCLOPRAMIDE 10 MG/2 ML INJ IV (13:51)
[2024-03-15] MEDS: diphenhydrAMINE 50 MG/ML VIAL 25 MG IV (13:51)
[2024-03-15] MEDS: ACETAMINOPHEN 325 MG TABLET 975 MG PO (13:53)
[2024-03-15] MEDS: KETOROLAC 30 MG/ML VIAL 15 MG IV (15:14)
[2024-03-15 15:26] VITALS: BP 125/70; PULSE 56; RESP 18; O2SAT 99
== END 2024-03-15 15:26 | disposition home or self-care (01) ==
PROVIDERS: Emergency Provider Student in an Organized Health Care Education/Training Program; Family Provider Family Medicine; PCP Family Medicine
DX: M54.2 Cervicalgia (principal); R51.9 Headache, unspecified
CPT/HCPCS: 70450; 70486; 72125; 96374; 96375; 99284; J1100; J1200; J1885; J2765

== ENCOUNTER 2024-04-28 13:34 | Day surgery (SDC) | payer MEDICARE, SELFPAY ==
[2024-04-18 12:56] VITALS: BMI 27.0
[2024-04-28 14:14] VITALS: BMI 26.6
[2024-04-28] MEDS: OXYMETAZOLINE NASAL SPRAY 30 ML 2 SPRAYS NASAL ×2 (14:29→16:23)
[2024-04-28] MEDS: LACTATED RINGERS 1,000 ML 42 ML IV ×2 (14:31→17:17)
[2024-04-28 14:35] VITALS: BP 136/84; PULSE 68; RESP 17; TEMP 36.7; O2SAT 99
--- NOTE | 2024-04-28 14:56 | PM.PREOP ---
Pre-operative Note Interval Note History & Physical reviewed/Exam performed by Physician: Yes Changes to H&P: No
--- NOTE | 2024-04-28 14:57 | PM.OP.1 ---
Operative Date/Time/Diagnoses Date of procedure: 04/28/24 Time of procedure: 17:25 Pre-op diagnosis: Left maxillary chronic sinusitis, postnasal drip, chronic cough, septal deviation, nasal airway obstruction, inferior turbinate hypertrophy Post-op diagnosis: same Procedure & Clinicians Procedure: 1. Left endoscopic maxillary antrostomy with tissue removal 2. Left endoscopic anterior ethmoidectomy 3. Septoplasty 4. Bilateral inferior turbinate reduction via intramural cautery Same procedure as scheduled: Yes Indications: 69 Year old with the above diagnoses incompletely managed with medical therapy presents for the above procedure. Following discussion of the material risks benefits complications and alternatives, the patient elected to proceed. Surgeon: Martin James Click Yes if Unassisted: Yes Anesthesia Type: General and Local Operative Notes Findings: 1 to 2+ left septal deviation including caudally, RIGHT low anterior sharp spur, inflamed thickened mucosa within the left maxillary sinus completely filled with debris and purulence, cultured. Partial middle turbinate resection for post-op access. Specimen(s): other (aerobe and anaerobe culture, fungal culture) Estimated Blood Loss (mL): 75 Procedure in detail: Following identification and confirmation of consent as well as preoperative Afrin nasal spray, the patient was brought to the operating room suite and placed in the supine position. General endotracheal anesthesia was administered. I infiltrated the septum widely bilaterally with 1% lidocaine 1 100,000 epinephrine followed by temporary packing with cotton with Afrin and 4% lidocaine. Following sterile prep and drape, the packing was removed and I performed a right lexi-transfixion incision, elevated the right mucoperichondrial and mucoperiosteal flap. I disarticulated near the bony/cartilaginous junction and elevated the left mucoperiosteal flap. Deviated portions of the perpendicular plate of the ethmoid and vomer were resected. The residual quadrilateral cartilage was further straightened by trimming it inferiorly as well as reducing the maxillary crest. A 2 mm strip of cartilage paralleling the residual 1 cm dorsal and caudal strut was resected to further straighten the quadrilateral cartilage. The hemitransfixion incision was closed with interrupted 5 0 chromic followed by a running 4 0 plain gut mattress suture to reapproximate the septal flaps. The head of each inferior turbinate had been previously infiltrated with additional local anesthetic and a 25 gauge spinal needle was used to impale the length of the turbinate, with cautery on a setting of 15 activated on slow withdrawal over 2 passes each side. The turbinates were then outfractured. Under endoscopic guidance the posterior and anterior superior insertion of the left middle turbinate was then infiltrated with additional local anesthetic via spinal needle, and cotton pledgets with 1 1000 epinephrine were placed in the middle meatus for several minutes and used intermittently throughout the case. The middle turbinate was slightly medialized and the uncinate process was identified with uncinectomy performed via the backbiting forceps and the microdebrider. The region of the natural os of the maxillary sinus was identified and enlarged posteriorly and inferiorly with forceps and the microdebrider. Tissue and debris from within the maxillary sinus was removed with forceps and the microdebrider, with irrigation with culture taken. Anterior ethmoidectomy was performed by removing the ethmoid bulla with the microdebrider. Hemostasis was assured with judicious suction electrocautery, including along the wound edges of partial LEFT middle turbinate resection. At case completion, Artis air channel silastic splints were placed bilaterally, shortened on the LEFT to avoid obstructing the antrostomy, sutured anteriorly with a single 4 0 nylon. The procedure completed, sponge and needle counts were correct and the patient was extubated in the operating room and taken to recovery room in stable condition without known complication. Complications: none Post-operative Condition: stable Disposition: same day surgery Plan for aftercare: Nasal saline every hour while awake, begin irrigations t.i.d. tomorrow. Polysporin to the nostrils at all times, Tylenol alternating with Advil for pain control, oxycodone for breakthrough pain. Elevate head of bed, no nose blowing, no straining for 2 weeks. Ice directly under the nose on the upper lip has tolerated 24-48 hours at a minimum. Follow-up in 1 week for nasal splint removal.
--- NOTE | 2024-04-28 16:16 | SUR.OPER ---
Supine on padded OR bed, head on gel pad, arms padded and tucked at sides, legs uncrossed, safety belt at thigh, tape over blanket over lower legs .
[2024-04-28] MEDS: LIDOCAINE 4% SOLN 50 ML 20 ML TOP (16:22)
[2024-04-28] MEDS: BACITRACIN OINT 0.9 GM PCKT 1 APPLIC TOP (16:24)
[2024-04-28] MEDS: LIDOCAINE 1% W/EPI 20ML 20 ML INJ (16:28)
[2024-04-28] MEDS: EPINEPHrine 1 MG/ML 3 MG TOP (16:31)
[2024-04-28 17:37] VITALS: BP 143/88; PULSE 87; RESP 15; TEMP 36.3; O2SAT 94
[2024-04-28 17:42] VITALS: BP 134/82; PULSE 89; RESP 16; TEMP 36.3; O2SAT 94
[2024-04-28 17:47] VITALS: BP 133/87; PULSE 86; RESP 15; TEMP 36.4; O2SAT 94
[2024-04-28 17:54] VITALS: BP 122/90; PULSE 89; RESP 12; TEMP 36.4; O2SAT 94
== END 2024-04-28 18:28 | disposition home or self-care (01) ==
PROVIDERS: Family Provider Family Medicine; PCP Family Medicine; Referring Provider Otolaryngology; Visit Provider Otolaryngology
PROC: 09QM4ZZ Repair Nasal Septum, Percutaneous Endoscopic Approach (ICD-10-PCS; CPT 30520; principal; 2024-04-28 15:00)
DX: J34.2 Deviated nasal septum (principal); J34.3 Hypertrophy of nasal turbinates; J32.0 Chronic maxillary sinusitis
CPT/HCPCS: 31254; 31267; 30520; 30802; 87070; 87075; 87077; 87102; 87186; 87205; J0171; J1100; J2405; J2704; J3010

== ENCOUNTER → 2024-08-10 07:54 | Outpatient (CLI) | payer MEDICARE, SELFPAY ==
[2024-08-10 09:02] LABS: Add Manual Diff / Slide Review NO; Basophils Absolute Auto 0 /uL (0-100); Basophils Percent Auto 0.5 % (0-2); Eosinophils Absolute Auto 100 /uL (0-450); Eosinophils Percent Auto 1.7 % (2-4); Hematocrit 43.5 % (41-53); Lymphocytes Absolute Auto 1400 /uL (1100-4500); Lymphocytes Percent Auto 29.9 % (25-40); Mean Corpuscular HGB Conc 34.6 % (30-36); Mean Corpuscular Hemoglobin 32.6 PG (26-34); Mean Corpuscular Volume 94.4 fL (80-100); Monocytes Absolute Auto 500 /uL (0-900); Monocytes Percent Auto 11.4 % (3-14); Neutrophils Absolute Auto 2600 /uL (1500-7000); Neutrophils Percent Auto 56.5 % (50-75); Platelet Count 141 X10^3/uL (150-400); Red Blood Cell Count 4.61 X10^6/uL (4.5-5.9); Red Cell Distribution Width 13.2 % (11.6-14.8); White Blood Cell Count 4.6 X10^3/uL (4.5-11.0)
[2024-08-10 09:26] LABS: Alanine Aminotransferase 20 IU/L (<50); Albumin 4.2 g/dL (3.5-5.0); Albumin Globulin Ratio 1.8 (1.0-2.8); Alkaline Phosphatase 61 U/L (38-126); Aspartate Aminotransferase 26 IU/L (17-59); BUN Creatinine Ratio 15.8 (6-22); Bilirubin Total 0.9 mg/dL (0.2-1.3); Blood Urea Nitrogen 18 mg/dL (9-20); Calcium 9.3 mg/dL (8.4-10.2); Carbon Dioxide 27 mmol/L (22-32); Chloride 105 mmol/L (98-107); Cholesterol 174 mg/dL (140-199); Estimated Glomerular Filt Rate > 60 mL/min (>60); Globulin 2.4 g/dL (1.7-4.1); Glucose 101 mg/dL (70-99); HDL Cholesterol 49 mg/dL (40-60); HEMOLYSIS < 15 (0-50); LDL Cholesterol Calculated 108 mg/dL (<100); Sodium 139 mmol/L (137-145); Total Protein 6.6 g/dL (6.3-8.2); Triglycerides 87 mg/dL (35-150)
[2024-08-10 09:54] LABS: TSH w/ Reflex to FT4 1.76 uIU/mL (0.47-4.68)
== END ==
PROVIDERS: Family Provider Family Medicine; PCP Family Medicine; Referring Provider Family Medicine; Visit Provider Family Medicine
DX: E78.2 Mixed hyperlipidemia (principal); I20.89 Other forms of angina pectoris; K21.9 Gastro-esophageal reflux disease without esophagitis
CPT/HCPCS: 36415; 80053; 80061; 84443; 85025

== ENCOUNTER → 2024-11-15 11:29 | Outpatient (CLI) | payer MEDICARE, SELFPAY ==
--- NOTE | 2024-11-15 11:31 | DI.RAD.S_ITS ---
PROCEDURE: ORTHO-XR HIP BILAT W/PEL 3-4 INDICATIONS: Increasing bilateral left greater than right hip pain TECHNIQUE: Three views of the hips were acquired FINDINGS: Bones: There are no osseous abnormalities. SI and hip joints: Moderate degeneration in both hips with mild degeneration both SI joints. Moderate L5-S1 degenerative disc and facet disease. Soft tissues: No soft tissue swelling, calcification or mass. IMPRESSION: Moderate bilateral hip degeneration Dictated by: Raj Burnham M.D. on 11/16/2024 at 12:51 Approved by: Raj Burnham M.D. on 11/16/2024 at 12:52
== END ==
PROVIDERS: PCP Family Medicine; Referring Provider Family Medicine; Visit Provider Family Medicine
DX: M16.0 Bilateral primary osteoarthritis of hip (principal); M25.551 Pain in right hip; M25.552 Pain in left hip; M51.379 Other intervertebral disc degeneration, lumbosacral region without mention of lumbar back pain or lower extremity pain; M47.817 Spondylosis without myelopathy or radiculopathy, lumbosacral region
CPT/HCPCS: 73522

== ENCOUNTER 2025-01-27 19:42 | Emergency (ER) | payer MEDICARE, SELFPAY ==
[2025-01-27 19:50] VITALS: BP 144/83; PULSE 85; RESP 18; TEMP 36.7; O2SAT 97; BMI 26.1
--- NOTE | 2025-01-27 21:04 | ED.SKABFB ---
HPI - Skin/Abscess/Foreign Bdy General Chief complaint: Extremity Injury, Upper Stated complaint: Multiple hard lumps under Lt side armpit Time Seen by Provider: 01/27/25 20:47 Source: patient Mode of arrival: Ambulatory Limitations: no limitations History of Present Illness HPI narrative: Patient is postop day 18 status post left rotator cuff surgery by Dr. Garcia at [facility]. Patient still using a sling. Eight days ago noticed painful bumps in his armpit. No discharge. Has not been using deodorant. Never had this before. No rash. Has limited range of motion of his shoulder due to the rotator cuff surgery. Related Data Home Medications ?Medication ?Instructions ?Recorded ?Confirmed atorvastatin 10 mg tablet 10 mg PO BEDTIME 04/28/24 11/15/24 Previous Rx's ?Medication ?Instructions ?Recorded sildenafil 100 mg tablet 100 mg PO DAILY PRN sexual 04/07/23 activity #30 tabs nitroglycerin 0.4 mg sublingual 0.4 mg sublingual Q5M PRN chest 06/29/23 tablet pain #20 tabs zolpidem 10 mg tablet 10 mg PO BEDTIME PRN insomnia #30 11/12/24 tabs trazodone 50 mg tablet 50 mg PO QPM #90 tabs 11/15/24 doxycycline monohydrate 100 mg 100 mg PO BID #14 caps 01/27/25 capsule Allergies Allergy/AdvReac Type Severity Reaction Status Date / Time metronidazole (From Flagyl) AdvReac Nauseated, Verified 01/27/25 19:50 extreme metal taste in mouth Review of Systems Review of Systems Narrative: GENERAL: Negative chills, fatigue, malaise, fever, sweats. HEENT: Negative sinus pain, ear pain, sore throat RESPIRATORY: Negative dyspnea, cough CARDIOVASCULAR: Negative chest pain, palpitations GASTROINTESTINAL: Negative vomiting, nausea, abdominal pain : Negative dysuria, frequency, hematuria MUSCULOSKELETAL: Negative muscle or bony pain SKIN: Negative rash, positive skin lesions NEUROLOGIC: Negative weakness, numbness ROS Unobtainable: All systems reviewed & are unremarkable except as noted in HPI and below Patient History Medical History Bilateral hip pain Medicare annual wellness visit, subsequent COPD (chronic obstructive pulmonary disease) Anesthesia complication Chronic sinusitis Left shoulder pain GERD (gastroesophageal reflux disease) Family history of early CAD Angina of effort Exercise intolerance Medicare Advantage coverage Cognitive decline Left knee pain Skin lesion Well adult exam Osteoarthritis of midtarsal joint of right foot Chronic low back pain Preventative health care Erectile dysfunction Right hamstring muscle strain Insomnia Osteoarthritis Hyperlipidemia Surgical History Status post trigger finger release History of repair of rotator cuff Hx of colonoscopy Hx of cholecystectomy History of carpal tunnel release Hx of Achilles tendon repair Hx of fusion of cervical spine History of foot surgery Family History Father Coronary heart disease Social History household members: spouse Smoking Status: Never smoker alcohol intake: former Smoking Status: Never smoker alcohol intake frequency: holidays/special occasions only Exam Narrative Exam Narrative: GENERAL: in no distress, not toxic not dyspneic HEAD: Normocephalic. EYES: Pupils equal round EXTREMITIES: No gross deformities. Examination left axilla. There are 3 palpable tender nodules without fluctuance. No drainage. Largest is 1 cm in diameter. They are superficial. Limited range of motion of the axilla due to pain/recent surgery ecchymotic pattern likely from recent surgery on the shoulder. 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 NEURO: AOx4. Clear speech SKIN: Warm and dry PSYCH: Not anxious, is cooperative Initial Vital Signs Initial Vital Signs: Vital Signs Temperature 98.1 F 01/27/25 19:50 Pulse Rate 85 01/27/25 19:50 Respiratory Rate 18 01/27/25 19:50 Blood Pressure 144/83 H 01/27/25 19:50 Pulse Oximetry 97 01/27/25 19:50 Oxygen Delivery Method Room Air 01/27/25 19:50 Course Orders Ordered: Discontinued Medications Doxycycline Hyclate (Doxycycline Hyclate 100 Mg Tablet) 100 mg PO NOW ONE Stop: 01/27/25 21:06 Last Admin: 01/27/25 21:18 Dose: 100 mg Documented By: ARABELLA Vital Signs Vital signs: Vital Signs - 8 hr 01/27/25 19:50 Temperature 98.1 F Pulse Rate 85 Respiratory Rate 18 Blood Pressure 144/83 H Pulse Oximetry 97 Oxygen Delivery Method Room Air MDM - Skin/Abscess/Foreign Bdy MDM Narrative Medical decision making narrative: Patient is postop day 18 status post left rotator cuff surgery by Dr. Garcia at [facility]. Patient still using a sling. Eight days ago noticed painful bumps in his armpit. No discharge. Has not been using deodorant. Never had this before. No rash. Has limited range of motion of his shoulder due to the rotator cuff surgery. MDM After history and exam, exam is reassuring. No blood work or imaging indicated. Doxycycline will be started treat for hidradenitis. Differential considered: Includes but not limited to hidradenitis abscess shingles, septic joint Medical records reviewed: No recent visit for this complaint Re-evaluations: 9:10 p.m.. Reviewed exam findings and treatment plan with patient. He agrees for starting antibiotics. No incision drainage indicated at this time. No fluctuance. Return reviewed and he desires discharge home. Discussion: Appropriate for discharge home. Exam is reassuring. Return precautions reviewed with patient. Antibiotics have been started. He desires discharge home, these are very superficial lesions. Likely not lymph nodes. I do not believe at this time this is septic joint. The limited range of motion likely due to recent surgery. No fever here. No fevers at home. No erythema the skin of the shoulder. No skin induration or crepitus. Diagnosis: Hidradenitis Discharge Plan Departure Patient Disposition: Home Clinical Impression: Hidradenitis axillaris Instructions: Hidradenitis Suppurativa Activity Restrictions/Additional Instructions: The painful bumps in your arm. Are likely due to hidradenitis, inflammation of the sweat glands. Antibiotic has been started tonight and sent to your pharmacy to continue tomorrow. Continue warm compresses to the armpit 20 minutes at a time as needed for pain swelling. May continue Tylenol or ibuprofen for pain. See your family doctor in a week for re-evaluation. Return if worse if any questions or concerns Prescriptions: New doxycycline monohydrate 100 mg capsule 100 mg PO BID Qty: 14 0RF No Action zolpidem 10 mg tablet 10 mg PO BEDTIME PRN (Reason: insomnia) Qty: 30 2RF trazodone 50 mg tablet 50 mg PO QPM Qty: 90 2RF sildenafil 100 mg tablet 100 mg PO DAILY PRN (Reason: sexual activity) Qty: 30 3RF Rx Instructions: administer 30 minutes to 4 hours before activity nitroglycerin 0.4 mg tablet, sublingual 0.4 mg sublingual Q5M PRN (Reason: chest pain) Qty: 20 1RF Rx Instructions: do not exceed 3 doses per episode atorvastatin 10 mg tablet 10 mg PO BEDTIME Referrals: Saulo Elizalde DO [Primary Care Provider, Family Practice] Stand Alone Forms: Patient Portal/API
[2025-01-27] MEDS: DOXYCYCLINE HYCLATE 100 MG TABLET PO (21:18)
[2025-01-27 21:22] VITALS: BP 126/77; PULSE 70; RESP 14; O2SAT 97
== END 2025-01-27 21:23 | disposition home or self-care (01) ==
PROVIDERS: Emergency Provider Emergency Medicine; PCP Family Medicine
DX: L73.2 Hidradenitis suppurativa (principal)
CPT/HCPCS: 99283